=== PATIENT | male | born 1975 | race Caucasian/White ===

== ENCOUNTER 2017-03-21 18:35 | Inpatient (IN) | payer OTHER ==
[~2017-03-21] VITALS: Ht 177.8 cm; Wt 60.1 kg
[~2017-03-21 18:35] MED LIST: ALBU2.5V38 IH; ALPR0.255 GT; BACL10TA GT; DOCU-25 GT; FAMO20TA8 GT; GABA300C GT; Gabapentin GT; IBUP-1481 PO; IPRA0.2S48 IH; LACT1CAP57 PO; LORA10TA50 GT; LORA1TAB GT; MORP30TA2 PO; PHEN97.22 GT; RISP1TAB7 GT; TIZA4CAP6 GT; TOLT4CAP GT; TRAZ-144 GT; ZONI100C16 GT
--- NOTE | 2017-03-21 18:45 | NUR ---
Patient is awake, inneadilately asking for DILAUDID- MD notified.
--- NOTE | 2017-03-21 19:03 | NUR ---
pending MD orders at this time. CODE sepsis was called per MD. ROGHT PORT catheter was accessed aseptically. Blood drawn from right thigh PORT catheter. Urine collected from the patient's own alcantara catheter. EKG done. Patient is on continuous cardiac, BP & spo2 monitors with alarms set, on & audible.
[2017-03-21] MEDS ORDERED: GENTAMICIN SULFATE INJ 80 MG in IV DEXTROSE 5% 100 ML IV ONE (19:15)
[2017-03-21] MEDS ORDERED: PIPERACILLIN SODIUM/TAZOBACTAM 3.375 G in IV DEXTROSE 5% 50 ML IV ONE (19:15)
[2017-03-21] MEDS ORDERED: IV NORMAL SALINE 1000 ML BAG IV ONE ×2 (19:15)
[2017-03-21] MEDS ORDERED: VANCOMYCIN IV 1,000 MG in IV DEXTROSE 5% 250 ML IV ONE (19:15)
[2017-03-21 19:27] LABS: *BILIRUBIN,URIN NEGATIVE (NEGATIVE); *BLOOD, URINE 3+ (NEGATIVE); *CLARITY,URINE TURBID (CLEAR); *COLOR,URINE YELLOW (YELLOW); *KETONES,URINE NEGATIVE (NEGATIVE); *PROTEIN,URINE 1+ (NEGATIVE); LEUKOCYTE ESTERASE ,URINE 3+ (NEGATIVE); NITRITE, URINE NEGATIVE (NEGATIVE); PH,URINE 8.5 (5.0-8.0); UGLUCOSE NEGATIVE (NEGATIVE)
[2017-03-21 19:34] LABS: CARBON DIOXIDE 31 mmol/L (21-32); CHLORIDE 100 mmol/L (98-107); GLUCOSE 127 mg/dL (74-106); POTASSIUM 3.2 mmol/L (3.5-5.1); UREA NITROGEN, BLOOD 7 mg/dL (7-18)
[2017-03-21 19:37] LABS: BASOPHILS % (AUTO) 0.6 % (0.0-2.0); EOSINOPHILS # (AUTO) 0.4 K/uL (0.0-0.7); EOSINOPHILS % (AUTO) 7.4 % (0.0-7.0); HEMATOCRIT 34.1 % (40-50); HEMOGLOBIN 11.2 G/DL (14.0-18.0); LYMPHOCYTES # (AUTO) 1.3 K/UL (0.8-4.8); LYMPHOCYTES % (AUTO) 22.6 % (20.5-51.5); MEAN CORPUSCULAR HEMOGLOBIN 29.4 UUG (27.0-31.0); MEAN CORPUSCULAR HGB CONC 33 g/dL (32.0-37.0); MEAN CORPUSCULAR VOLUME 89.8 FL (82.0-92.0); MONOCYTES # (AUTO) 0.7 K/UL (0.1-1.30); MONOCYTES % (AUTO) 11.2 % (0.0-11.0); NEUTROPHILS # (AUTO) 3.4 K/UL (1.8-8.9); NEUTROPHILS % (AUTO) 58.2 % (38.5-71.5); PLATELET COUNT (AUTO) 181 K/UL (150-450); WHITE BLOOD COUNT (AUTO) 5.8 K/UL (4.0-11.2)
[2017-03-21 19:42] LABS: CREATININE 0.4 mg/dL (0.6-1.3)
[2017-03-21 19:43] LABS: TRIPLE PHOSPHATE CRYSTAL,UR FEW /HPF (NONE SEEN); URINE AMORPHOUS PHOSPHATES MANY /HPF; WBC,URINE 50-80 /HPF (0-3)
[2017-03-21] MEDS ORDERED: VANCOMYCIN IV 200 ML ONE (19:46)
[2017-03-21] MEDS ORDERED: GENTAMICIN SULFATE 80 MG/2 ML VIAL ONE (19:46)
[2017-03-21] MEDS ORDERED: PIPERACILLIN/TAZOBACTAM/D5W 50 ML IV ONE (19:47)
[2017-03-21 19:49] LABS: ALANINE AMINOTRANSFERASE 35 U/L (16-63); ALKALINE PHOSPHATASE 172 U/L (50-136); ASPARTATE AMINOTRANSFERASE 30 U/L (15-37); BILIRUBIN,DIRECT 0.2 mg/dL (0.0-0.2); BILIRUBIN,TOTAL 0.5 mg/dL (0.2-1.0); TOTAL PROTEIN, SERUM 6.8 g/dL (6.4-8.2)
[2017-03-21] MEDS ORDERED: TIZANIDINE HCL 4 MG TABLET PO STA (20:10)
[2017-03-21] MEDS ORDERED: GABAPENTIN 300 MG CAPSULE PO ONE (20:15)
[2017-03-21] MEDS ORDERED: LORAZEPAM 0.5 MG TABLET PO ONE (20:15)
[2017-03-21] MEDS ORDERED: PHENOBARBITAL 32.4 MG TABLET PO ONE (20:15)
[2017-03-21] MEDS ORDERED: LORAZEPAM 1 MG TABLET ONE (21:01)
[2017-03-21] MEDS ORDERED: GABAPENTIN 300 MG CAPSULE ONE (21:02)
[2017-03-21] MEDS ORDERED: PHENOBARBITAL 32.4 MG TABLET ONE (21:03)
--- NOTE | 2017-03-21 22:18 | NUR ---
transfered to CCU via gurny with supervisor television chassis repair and another staff nursing taking patient
--- NOTE | 2017-03-21 22:30 | NUR ---
Admitted from ER to Room CCU 2 per linsey accompanied by ER Staff, services of [facility] group with Dx: Sepsis. Routine CCU admission care rendered. Placed on bedside monitor, noted to be hypotensive. Will start vasopressor. Pt a quad with gross motor on right arm. Chronic trach, on trach collar O2 3L/min. In no apparent acute distress. Multiple wounds and skin issues noted. Please see CCU admission profile for full assessment and clinical data.
[2017-03-21 22:45] VITALS: BP 70/50
[2017-03-21 23:00] VITALS: BP 68/46
[2017-03-21] MEDS ORDERED: POTASSIUM CHLORIDE 20 MEQ POWDER PACKET GT ONE (23:00)
[2017-03-21] MEDS ORDERED: Z GUARD REMEDY PASTE 57 GM TUBE TOP PRN (23:00)
[2017-03-21] MEDS ORDERED: ENOXAPARIN SODIUM 40 MG/0.4 ML DISP.SYRIN SQ SCH (23:00)
[2017-03-21] MEDS ORDERED: ONDANSETRON 4 MG/2 ML VIAL IV PRN (23:00)
[2017-03-21] MEDS ORDERED: NUTREN 2.0 1,000 ML LIQUID GT PRN (23:00)
[2017-03-21] MEDS ORDERED: MAGNESIUM HYDROXIDE 30 ML LIQUID UDC PO PRN (23:00)
[2017-03-21] MEDS ORDERED: IV NS 1000 ML 1,000 ML IV PRN (23:00)
[2017-03-21 23:15] VITALS: BP 92/63
[2017-03-21] MEDS ORDERED: NOREPINEPHRINE BITARTRATE 4 MG/4 ML VIAL IV ONE (23:15)
--- NOTE | 2017-03-21 23:15 | NUR ---
Seen and evaluated by TAE Jackman with new orders noted.
[2017-03-21 23:30] VITALS: BP 116/67
[2017-03-21 23:45] VITALS: BP 120/77
[2017-03-21] MEDS: NOREPINEPHRINE BITARTRATE 8 MG in IV DEXTROSE 5% 500 ML IV PRN (23:49)
[2017-03-21 23:59] VITALS: BP 123/78
[2017-03-22] VITALS (95 sets, daily range): BP systolic 70–137; BP diastolic 50–92
[2017-03-22] MEDS ORDERED: ENOXAPARIN SODIUM 40 MG/0.4 ML DISP.SYRIN SQ ONE (00:01)
[2017-03-22] MEDS ORDERED: POTASSIUM CHLORIDE 20 MEQ POWDER PACKET ONE (00:02)
[2017-03-22] MEDS: HYDROCODONE/APAP 5-325MG TABLET PO PRN (00:10)
[2017-03-22] MEDS: ZOLPIDEM 5 MG TABLET PO PRN (00:11)
[2017-03-22] MEDS ORDERED: ZOLPIDEM 5 MG TABLET ONE (00:18)
[2017-03-22] MEDS ORDERED: HYDROCODONE/APAP 5-325MG TABLET ONE (00:19)
[2017-03-22] MEDS ORDERED: PIPERACILLIN SODIUM/TAZO 3.375 GM VIAL ONE (01:04)
[2017-03-22] MEDS: HYDROMORPHONE 1 MG/1 ML DISP.SYRIN IV PRN ×5 (01:37→19:52)
[2017-03-22] MEDS ORDERED: HYDROMORPHONE 1 MG/1 ML DISP.SYRIN ONE ×2 (01:45→06:24)
[2017-03-22] MEDS ORDERED: ALBUTEROL SULFATE 2.5 MG/3 ML NEBU IH SCH (01:45)
[2017-03-22] MEDS ORDERED: IPRATROPIUM BROMIDE 0.5 MG/2.5 ML NEBU IH SCH (01:45)
[2017-03-22] MEDS: PIPERACILLIN/TAZOBACTAM/D5W 3.375 G in PREMIXED 1 EACH IV SCH ×4 (01:48→21:14)
[2017-03-22] MEDS: TRAZODONE 50 MG TABLET GT SCH ×3 (02:33→20:45)
[2017-03-22] MEDS: risperiDONE 1 MG TABLET GT SCH ×2 (02:34→20:47)
[2017-03-22] MEDS ORDERED: TRAZODONE 50 MG TABLET ONE (02:36)
[2017-03-22] MEDS ORDERED: risperiDONE 0.25 MG TABLET ONE (02:39)
[2017-03-22] MEDS: BACLOFEN 10 MG TABLET GT SCH ×3 (02:47→17:24)
[2017-03-22] MEDS ORDERED: BACLOFEN 10 MG TABLET ONE (02:55)
[2017-03-22 04:36] LABS: CARBON DIOXIDE 27 mmol/L (21-32); CHLORIDE 113 mmol/L (98-107); CHOLESTEROL 134 mg/dL (<200); GLUCOSE 104 mg/dL (74-106); HDL CHOLESTEROL 39 mg/dL (40-60); MAGNESIUM 1.3 mg/dL (1.8-2.4); PHOSPHOROUS 2.5 mg/dL (2.5-4.9); POTASSIUM 3.8 mmol/L (3.5-5.1); TRIGLYCERIDES 43 MG/DL (30-150); UREA NITROGEN, BLOOD 5 mg/dL (7-18)
[2017-03-22 04:37] LABS: CREATININE 0.4 mg/dL (0.6-1.3)
[2017-03-22 04:39] LABS: BASOPHILS % (AUTO) 0.5 % (0.0-2.0); EOSINOPHILS # (AUTO) 0.2 K/uL (0.0-0.7); EOSINOPHILS % (AUTO) 3.9 % (0.0-7.0); HEMATOCRIT 34.8 % (40-50); HEMOGLOBIN 11.5 G/DL (14.0-18.0); LYMPHOCYTES # (AUTO) 0.8 K/UL (0.8-4.8); LYMPHOCYTES % (AUTO) 13.4 % (20.5-51.5); MEAN CORPUSCULAR HEMOGLOBIN 29.8 UUG (27.0-31.0); MEAN CORPUSCULAR HGB CONC 33 g/dL (32.0-37.0); MEAN CORPUSCULAR VOLUME 90.3 FL (82.0-92.0); MONOCYTES # (AUTO) 0.8 K/UL (0.1-1.30); MONOCYTES % (AUTO) 13.5 % (0.0-11.0); NEUTROPHILS % (AUTO) 68.7 % (38.5-71.5); PLATELET COUNT (AUTO) 171 K/UL (150-450); RED BLOOD CELL COUNT(AUTO) 3.85 MIL/UL (4.7-6.1); WHITE BLOOD COUNT (AUTO) 5.8 K/UL (4.0-11.2)
[2017-03-22] MEDS ORDERED: PANTOPRAZOLE SODIUM 40 MG TABLET.DR PO SCH (07:00)
--- NOTE | 2017-03-22 07:00 | NUR ---
Pt remains alert, anxious needing a lot of TLC. Levophed drip in progress since admission and monitored closely. Has chronic sharp pains on shoulder areas, relieved by IV Dilaudid. NPO for now, GT clamped until further order by MD. Please see CCU flowsheet for trends and clinical data.
[2017-03-22] MEDS: IPRATROPIUM BROMIDE 0.5 MG/2.5 ML NEBU IH SCH ×3 (07:19→19:14)
[2017-03-22] MEDS: ALBUTEROL SULFATE 2.5 MG/3 ML NEBU IH SCH ×3 (07:20→19:14)
[2017-03-22] MEDS ORDERED: IV 1/2NS 1000 ML 1,000 ML IV ONE (08:30)
[2017-03-22] MEDS: LORATADINE 10 MG TABLET GT SCH (08:54)
[2017-03-22] MEDS: MAGNESIUM SULFATE/D5W 100 ML IV SCH ×3 (08:54→11:25)
[2017-03-22] MEDS: LORAZEPAM 1 MG TABLET GT SCH ×2 (08:54→17:24)
[2017-03-22] MEDS: GABAPENTIN 300 MG CAPSULE GT SCH ×3 (08:55→17:24)
[2017-03-22] MEDS: PHENOBARBITAL 32.4 MG TABLET GT SCH ×2 (08:56→20:46)
[2017-03-22] MEDS: LACTOBACILLUS RHAMNOSUS GG 1 EACH CAPSULE PO SCH ×2 (08:56→20:46)
[2017-03-22] MEDS: TOLTERODINE LA 2 MG CAP.SR.24H PO SCH (08:56)
[2017-03-22] MEDS ORDERED: Medication Not On Formulary EA (Phenobarbital 97.2 MG) GT SCH (09:00)
[2017-03-22] MEDS ORDERED: Medication Not On Formulary EA (Loratadine 10 MG) GT SCH (09:00)
[2017-03-22] MEDS: PANTOPRAZOLE ORAL SUSPENSION 40 MG SUSPDR.PKT GT SCH (09:28)
[2017-03-22] MEDS: VANCOMYCIN IV 1 G in PREMIXED 0 EACH IV SCH ×2 (11:27→17:24)
[2017-03-22] MEDS: GENTAMICIN SULFATE INJ 140 MG in IV DEXTROSE 5% 100 ML IV SCH (11:27)
[2017-03-22] MEDS: TIZANIDINE HCL 4 MG TABLET GT SCH ×2 (13:53→21:14)
[2017-03-22] MEDS ORDERED: Z GUARD REMEDY PASTE 57 GM TUBE TOP PRN (14:00)
--- NOTE | 2017-03-22 14:00 | NUR ---
WOUND CARE CONSULT: PT PRESENTS WITH MULTIPLE SKIN ISSUES INCLUDING RASH TO BUTTOCKS, LEFT FLANK AND PERINEUM, LEFT LATERAL LOWER LEG WOUND AND FRAGILE SCAR AREA, LEFT 4TH TOE ABRASION, LEFT HEEL SCAR WITH CALLUS, PRESENT ON ADMISSION. PT ON FIRST STEP MATTRESS. ALL SKIN PROTECTION AND WOUND RECOMMENDATIONS DISCUSSED WITH NURSING STAFF. WILL SEE PRN. LORENZO IN AGREEMENT WITH PLAN OF CARE. Addendum: 03/22/17 at 1403 by CATHY BUCKLEY RN Amended: Links added.
--- NOTE | 2017-03-22 14:06 | NUR ---
dietary recommended to start with fibersource @20 ml/hr increase by 10ml q8h will call back for goal rate. x22 hrs and prostat bid
[2017-03-22] MEDS: NEOMY/BACITRAC/POLYMI OINT 28.35 GM TUBE TOP SCH (14:33)
[2017-03-22] MEDS: CLOTRIMAZOLE 1% CREAM 30 GM TUBE TOP SCH ×2 (14:33→17:24)
[2017-03-22] MEDS: Z GUARD REMEDY PASTE 57 GM TUBE TOP SCH ×2 (14:33→20:45)
--- NOTE | 2017-03-22 16:37 | NUR ---
Clinical Pharmacy Note: Gentamicin Pharmacy to Dose Subjective: To start gentamicin in this 41 y/o gentleman for indication of UTI (has previously been treated for and d/c'd with same indication) Objective: weight 52 kg height 177cm BMI 16.6 will use actual BW for dosing BUN 5 Scr 0.4 Wbc 5.8 temp 96.8 Assessment/Plan: Will start gentamicin 140mg q16hrs based on previous admission and treatment regimen, predicted peak 7.2/trough 1.1, expected peak 5.7/trough 0.5 (per levels taken last admit), and readjust from there. Will check renal function daily and adjust if were to become unstable. Will continue to monitor Addendum: 03/22/17 at 1648 by ERVIN JURADO ADM Note, gentamicin 80mg x 1 was given in ER 03/21 @ 2045. Patient's weight changed since last admit, thus kept last admit's regimen despite lower resulting levels as levels may be higher now with pt's car repairer apprentice weight change.
--- NOTE | 2017-03-22 16:43 | NUR ---
Clinical Pharmacy Note: Vancomycin Pharmacy to Dose Subjective: To start vancomycin in this 41 y/o gentleman for indication of suspected infection. Was previously admitted and treated with same abxs. Also is on gentamicin Objective: weight: 52kg (61kg last admit) height 177cm BUN 5 Scr 0.4 wbc 5.8 temp 96.8 1gm vanco given in ER @2100 03/21 Assessment/Plan Since weight changed since last admit, will not dose per last visit's regimen. Will start vancomycin 1gm q7hrs for expected trough of 15.9. Trough ordered before 4ths scheduled dose (due tomorrow at 0730). Will check level and readjust dose as appropriate. Will continue to monitor.
--- NOTE | 2017-03-22 17:15 | NUR ---
spoke to doctor maximus if wants to follow dietary recommendations. keep NPO for now until more stable possibly start feeding until tomorrow.
--- NOTE | 2017-03-22 19:30 | NUR ---
Report received. Patient AA, with trache, able to communicate needs. With Passy lexa valve. No acute distress noted. Contracted. On Levophed drip for BP support. Assessment completed. Addendum: 03/23/17 at 0700 by MOOSE RUBALCAVA RN Amended: Links added.
[2017-03-22] MEDS: IV 1/2NS 1000 ML 1,000 ML IV PRN (20:41)
[2017-03-22] MEDS: ZONISAMIDE 100 MG CAPSULE PO SCH (20:47)
[2017-03-22] MEDS: ENOXAPARIN SODIUM 40 MG/0.4 ML DISP.SYRIN SQ SCH (20:48)
[2017-03-22] MEDS ORDERED: ZONISAMIDE 200 MG GT SCH (21:00)
--- NOTE | 2017-03-22 21:45 | NUR ---
Levophed drip titrated up; SBPs in the 80's. Addendum: 03/23/17 at 0704 by MOOSE RUBALCAVA RN Amended: Links added.
--- NOTE | 2017-03-22 22:00 | NUR ---
Patient's sister called; updated of patient's condition.
[2017-03-22] MEDS: NOREPINEPHRINE BITARTRATE 8 MG in IV DEXTROSE 5% 500 ML IV PRN (23:21)
[2017-03-23] VITALS (68 sets, daily range): BP systolic 87–137; BP diastolic 57–86
--- NOTE | 2017-03-23 | NUR ---
Hypothermic. Shelbi montana on. Addendum: 03/23/17 at 0702 by MOOSE RUBALCAVA RN Amended: Links added.
[2017-03-23] MEDS: VANCOMYCIN IV 1 G in PREMIXED 0 EACH IV SCH ×4 (01:01→19:54)
[2017-03-23] MEDS: ALBUTEROL SULFATE 2.5 MG/3 ML NEBU IH SCH ×4 (01:34→19:49)
[2017-03-23] MEDS: IPRATROPIUM BROMIDE 0.5 MG/2.5 ML NEBU IH SCH ×4 (01:34→19:49)
[2017-03-23] MEDS: BACLOFEN 10 MG TABLET GT SCH ×2 (01:53→08:04)
[2017-03-23] MEDS: GENTAMICIN SULFATE INJ 140 MG in IV DEXTROSE 5% 100 ML IV SCH ×2 (03:28→19:54)
[2017-03-23] MEDS: HYDROMORPHONE 1 MG/1 ML DISP.SYRIN IV PRN ×4 (03:44→21:04)
--- NOTE | 2017-03-23 04:00 | NUR ---
Am care given. Wound care treatment done. Temp=96 rectally. Shelbi montana remains on. Medicated with Dilaudid IV prior to care. Addendum: 03/23/17 at 0735 by MOOSE RUBALCAVA RN Amended: Links added.
[2017-03-23 04:57] LABS: BASOPHILS # (AUTO) 0.1 K/uL (0.0-8.0); BASOPHILS % (AUTO) 0.8 % (0.0-2.0); EOSINOPHILS # (AUTO) 0.7 K/uL (0.0-0.7); EOSINOPHILS % (AUTO) 9.9 % (0.0-7.0); HEMATOCRIT 33.3 % (40-50); HEMOGLOBIN 11.2 G/DL (14.0-18.0); LYMPHOCYTES # (AUTO) 1.1 K/UL (0.8-4.8); LYMPHOCYTES % (AUTO) 16.2 % (20.5-51.5); MEAN CORPUSCULAR HGB CONC 34 g/dL (32.0-37.0); MEAN CORPUSCULAR VOLUME 89.4 FL (82.0-92.0); MONOCYTES # (AUTO) 0.8 K/UL (0.1-1.30); MONOCYTES % (AUTO) 11.2 % (0.0-11.0); NEUTROPHILS # (AUTO) 4.2 K/UL (1.8-8.9); NEUTROPHILS % (AUTO) 61.9 % (38.5-71.5); PLATELET COUNT (AUTO) 194 K/UL (150-450); RED BLOOD CELL COUNT(AUTO) 3.72 MIL/UL (4.7-6.1); WHITE BLOOD COUNT (AUTO) 6.9 K/UL (4.0-11.2)
[2017-03-23 05:02] LABS: CARBON DIOXIDE 26 mmol/L (21-32); CHLORIDE 107 mmol/L (98-107); GLUCOSE 126 mg/dL (74-106); MAGNESIUM 1.8 mg/dL (1.8-2.4); PHOSPHOROUS 2.5 mg/dL (2.5-4.9); POTASSIUM 3.2 mmol/L (3.5-5.1); UREA NITROGEN, BLOOD 3 mg/dL (7-18)
[2017-03-23 05:03] LABS: CREATININE 0.4 mg/dL (0.6-1.3)
[2017-03-23] MEDS: PIPERACILLIN/TAZOBACTAM/D5W 3.375 G in PREMIXED 1 EACH IV SCH ×3 (05:05→21:21)
[2017-03-23] MEDS: TIZANIDINE HCL 4 MG TABLET GT SCH ×3 (06:13→21:19)
[2017-03-23] MEDS: PANTOPRAZOLE ORAL SUSPENSION 40 MG SUSPDR.PKT GT SCH (06:14)
--- NOTE | 2017-03-23 08:00 | NUR ---
Pt received resting and dozing off in bed with fall precautions and safety measures maintained. front desk monitor alarms working properly wnl. IVF and IV vasopressor infusing as ordered. Olsen catheter intact and draining properly. G-tube site kept clamped. Nad noted.
[2017-03-23] MEDS: TRAZODONE 50 MG TABLET GT SCH ×2 (08:01→21:18)
[2017-03-23] MEDS: LACTOBACILLUS RHAMNOSUS GG 1 EACH CAPSULE PO SCH ×2 (08:01→21:20)
[2017-03-23] MEDS: PHENOBARBITAL 32.4 MG TABLET GT SCH ×2 (08:01→21:19)
[2017-03-23] MEDS: GABAPENTIN 300 MG CAPSULE GT SCH ×3 (08:02→16:41)
[2017-03-23] MEDS: TOLTERODINE LA 2 MG CAP.SR.24H PO SCH (08:02)
[2017-03-23] MEDS: LORAZEPAM 1 MG TABLET GT SCH ×2 (08:02→16:41)
[2017-03-23] MEDS: LORATADINE 10 MG TABLET GT SCH (08:02)
[2017-03-23] MEDS: Z GUARD REMEDY PASTE 57 GM TUBE TOP SCH ×2 (08:03→21:05)
[2017-03-23] MEDS: NEOMY/BACITRAC/POLYMI OINT 28.35 GM TUBE TOP SCH (08:04)
[2017-03-23] MEDS: CLOTRIMAZOLE 1% CREAM 30 GM TUBE TOP SCH ×2 (08:04→16:41)
--- NOTE | 2017-03-23 09:49 | NUR ---
Spoke with Dr. Mcdowell on the telephone regarding pt's diet orders. New orders received and carried out.
[2017-03-23] MEDS ORDERED: FIBERSOURCE HN 1000ML LIQUID GT PRN ×3 (10:00→12:00)
[2017-03-23] MEDS: FIBERSOURCE HN 1000ML LIQUID GT PRN (11:55)
[2017-03-23] MEDS: MUPIROCIN 2% OINT 22 GM TUBE NS SCH ×2 (15:13→21:00)
[2017-03-23] MEDS: BACLOFEN 20 MG TABLET GT SCH (16:41)
[2017-03-23] MEDS: PROTEIN SUPPLEMENT (PROSTAT) 30 ML LIQUID GT SCH (16:42)
[2017-03-23] MEDS ORDERED: POTASSIUM CHLORIDE 20 MEQ POWDER PACKET GT ONE (16:45)
--- NOTE | 2017-03-23 16:50 | NUR ---
Clinical Pharmacy Note: Vancomycin Pharmacy to Dose Subjective: To continue vancomycin in this 41 y/o gentleman for indication of suspected infection. Was previously admitted and treated with same abxs. Also is on gentamicin Objective: weight: 52kg (61kg last admit) height 177cm BUN 3 Scr 0.4 wbc 6.9 temp 96 1gm vanco given in ER @2100 03/21 Trough: 23.4 (today @0730) Assessment/Plan Readjusted regimen to 1gm q9hr for new expected trough of 15.2. First dose today at 1000. Ordered trough before 4th scheduled dose of new regimen (due at 1230 tomorrow). Will check level and readjust dose as appropriate. Will continue to monitor.
--- NOTE | 2017-03-23 16:52 | NUR ---
Clinical Pharmacy Note: Gentamicin Pharmacy to Dose Subjective: To continue gentamicin in this 41 y/o gentleman for indication of UTI (has previously been treated for and d/c'd with same indication) Objective: weight 52 kg height 177cm BMI 16.6 will use actual BW for dosing BUN 3 Scr 0.4 Wbc 6.9 temp 96 Assessment/Plan: Will continuegentamicin 140mg q16hrs based on previous admission and treatment regimen, peak and trough ordered for tomorrow (Trough due at 1100, peak at 1200), and readjust from there. Will check renal function daily and adjust if were to become unstable. Will continue to monitor
[2017-03-23] MEDS: HYDROCODONE/APAP 5-325MG TABLET PO PRN (18:39)
--- NOTE | 2017-03-23 18:43 | NUR ---
End of shift: Pt resting in bed with fall precautions and safety measures maintained. electrician substation supervisor alarms working properly wnl. IVF and IV vasopressor infusing as ordered. Pt with Mandaley #6 trach-mist 30% FiO2. Olsen catheter intact and draining properly. G-tube feeding infusing as ordered with HOB kept elevated. Shelbi hugger on.
[2017-03-23] MEDS: IV 1/2NS 1000 ML 1,000 ML IV PRN (20:57)
[2017-03-23] MEDS: ZONISAMIDE 100 MG CAPSULE PO SCH (21:00)
[2017-03-23] MEDS: ENOXAPARIN SODIUM 40 MG/0.4 ML DISP.SYRIN SQ SCH (21:04)
[2017-03-23] MEDS: risperiDONE 1 MG TABLET GT SCH (21:18)
[2017-03-23] MEDS: ZOLPIDEM 5 MG TABLET PO PRN (21:20)
[2017-03-23] MEDS: NOREPINEPHRINE BITARTRATE 8 MG in IV DEXTROSE 5% 500 ML IV PRN (22:37)
[2017-03-24] VITALS (87 sets, daily range): BP systolic 82–138; BP diastolic 54–90
[2017-03-24] MEDS: IPRATROPIUM BROMIDE 0.5 MG/2.5 ML NEBU IH SCH ×4 (01:43→19:05)
[2017-03-24] MEDS: ALBUTEROL SULFATE 2.5 MG/3 ML NEBU IH SCH ×4 (01:44→19:05)
[2017-03-24] MEDS: HYDROMORPHONE 1 MG/1 ML DISP.SYRIN IV PRN ×2 (01:53→18:25)
[2017-03-24] MEDS: BACLOFEN 20 MG TABLET GT SCH ×3 (01:58→16:55)
[2017-03-24] MEDS: VANCOMYCIN IV 1 G in PREMIXED 0 EACH IV SCH (03:35)
[2017-03-24 05:09] LABS: BASOPHILS # (AUTO) 0.1 K/uL (0.0-8.0); BASOPHILS % (AUTO) 0.7 % (0.0-2.0); EOSINOPHILS # (AUTO) 0.7 K/uL (0.0-0.7); EOSINOPHILS % (AUTO) 9.1 % (0.0-7.0); HEMATOCRIT 32.5 % (40-50); HEMOGLOBIN 10.7 G/DL (14.0-18.0); LYMPHOCYTES # (AUTO) 1.2 K/UL (0.8-4.8); LYMPHOCYTES % (AUTO) 15.9 % (20.5-51.5); MEAN CORPUSCULAR HEMOGLOBIN 29.4 UUG (27.0-31.0); MEAN CORPUSCULAR HGB CONC 33 g/dL (32.0-37.0); MEAN CORPUSCULAR VOLUME 89.6 FL (82.0-92.0); MONOCYTES # (AUTO) 1.2 K/UL (0.1-1.30); MONOCYTES % (AUTO) 16.9 % (0.0-11.0); NEUTROPHILS # (AUTO) 4.2 K/UL (1.8-8.9); NEUTROPHILS % (AUTO) 57.4 % (38.5-71.5); PLATELET COUNT (AUTO) 214 K/UL (150-450); RED BLOOD CELL COUNT(AUTO) 3.63 MIL/UL (4.7-6.1); WHITE BLOOD COUNT (AUTO) 7.4 K/UL (4.0-11.2)
[2017-03-24 05:11] LABS: ALANINE AMINOTRANSFERASE 40 U/L (16-63); ALKALINE PHOSPHATASE 163 U/L (50-136); ASPARTATE AMINOTRANSFERASE 27 U/L (15-37); BILIRUBIN,TOTAL 0.4 mg/dL (0.2-1.0); CARBON DIOXIDE 28 mmol/L (21-32); CHLORIDE 111 mmol/L (98-107); CREATININE 0.6 mg/dL (0.6-1.3); GLUCOSE 111 mg/dL (74-106); MAGNESIUM 1.5 mg/dL (1.8-2.4); PHOSPHOROUS 2.9 mg/dL (2.5-4.9); POTASSIUM 3.7 mmol/L (3.5-5.1); TOTAL PROTEIN, SERUM 6.1 g/dL (6.4-8.2); UREA NITROGEN, BLOOD 6 mg/dL (7-18)
[2017-03-24] MEDS: TIZANIDINE HCL 4 MG TABLET GT SCH ×3 (05:25→21:36)
[2017-03-24] MEDS: PIPERACILLIN/TAZOBACTAM/D5W 3.375 G in PREMIXED 1 EACH IV SCH ×3 (05:26→21:45)
[2017-03-24] MEDS: HYDROCODONE/APAP 5-325MG TABLET PO PRN ×2 (05:27→21:40)
[2017-03-24 05:30] LABS: EOSINOPHILS % (MANUAL) 7 % (0-8); LYMPHOCYTES % (MANUAL) 22 % (20-40); MONOCYTES % (MANUAL) 13 % (2-10); NEUTROPHILS % (MANUAL) 58 % (42-75)
[2017-03-24] MEDS: PANTOPRAZOLE ORAL SUSPENSION 40 MG SUSPDR.PKT GT SCH (06:31)
--- NOTE | 2017-03-24 08:00 | NUR ---
Pt received resting and dozing off in bed with fall precautions and safety measures maintained. graphic editor alarms working properly wnl. IVF and IV vasopressor infusing as ordered. Olsen catheter intact and draining properly. G-tube site kept clamped. Nad noted.
[2017-03-24] MEDS: PHENOBARBITAL 32.4 MG TABLET GT SCH ×2 (08:16→20:40)
[2017-03-24] MEDS: LORATADINE 10 MG TABLET GT SCH (08:16)
[2017-03-24] MEDS: LACTOBACILLUS RHAMNOSUS GG 1 EACH CAPSULE PO SCH ×2 (08:16→20:40)
[2017-03-24] MEDS: TOLTERODINE LA 2 MG CAP.SR.24H PO SCH (08:16)
[2017-03-24] MEDS: GABAPENTIN 300 MG CAPSULE GT SCH ×3 (08:16→16:55)
[2017-03-24] MEDS: LORAZEPAM 1 MG TABLET GT SCH ×2 (08:16→16:55)
[2017-03-24] MEDS: TRAZODONE 50 MG TABLET GT SCH ×2 (08:17→20:40)
[2017-03-24] MEDS: CLOTRIMAZOLE 1% CREAM 30 GM TUBE TOP SCH ×2 (08:17→16:56)
[2017-03-24] MEDS: MUPIROCIN 2% OINT 22 GM TUBE NS SCH ×2 (08:17→20:41)
[2017-03-24] MEDS: PROTEIN SUPPLEMENT (PROSTAT) 30 ML LIQUID GT SCH ×2 (08:17→16:57)
[2017-03-24] MEDS: Z GUARD REMEDY PASTE 57 GM TUBE TOP SCH ×2 (08:18→20:43)
[2017-03-24] MEDS: NEOMY/BACITRAC/POLYMI OINT 28.35 GM TUBE TOP SCH (08:18)
[2017-03-24] MEDS: GENTAMICIN SULFATE INJ 140 MG in IV DEXTROSE 5% 100 ML IV SCH (11:10)
[2017-03-24] MEDS: FIBERSOURCE HN 1000ML LIQUID GT PRN (11:36)
[2017-03-24] MEDS: MAGNESIUM SULFATE/D5W 100 ML IV SCH ×2 (15:20→16:20)
--- NOTE | 2017-03-24 16:07 | NUR ---
Clinical Pharmacy Note: Gentamicin Pharmacy to Dose Subjective: To continue gentamicin in this 41 y/o gentleman for indication of UTI (has previously been treated for and d/c'd with same indication) Objective: weight 52 kg height 177cm BMI 16.6 will use actual BW for dosing BUN 6 Scr 0.6 Wbc 7.4 temp 98.5 Gentamicin peak 13.9(drawn while infusing) Gentamicin trough 1.0 Assessment/Plan: Since Gentamicin peak was drawn while dose was infusing(dose started at 1100 over 1 hr but drawn at 1200), will re-check peak and trough by tomorrow's dose and readjust from there. Will check renal function daily and adjust if were to become unstable. Will continue to monitor
--- NOTE | 2017-03-24 18:52 | NUR ---
End of shift: Pt resting and dozing off in bed with fall precautions and safety measures maintained. lunchroom monitor alarms working properly wnl. IVF and IV vasopressor infusing as ordered. Pt with Mandaley #6 trach-mist 30% FiO2. Olsen catheter intact and draining properly. G-tube feeding infusing as ordered with HOB kept elevated. Pt stable and nad noted.
--- NOTE | 2017-03-24 20:00 | NUR ---
RECEIVED PT. DOZING. ON O2 @ 30% TRCH -MIST W/ O2 SAT OF 100%. ON LEVOPHED DRIP @ 5MCQ/MIN VIA MAXX CATH ON R GROIN. IVF NS @ 50CC/HR. G-TUBE INTACT W/ TUBE FDG. OF FIBERSOURCE HN @ 35CC/HR, NO RESIDUAL NOTED. AFEBRILE. C-SCOPE BR. Addendum: 03/25/17 at 0106 by SANDIE ANDREW RN CORRECTION IVF IS 1/2NS @ 50CC/HR.
[2017-03-24] MEDS: risperiDONE 1 MG TABLET GT SCH (20:41)
[2017-03-24] MEDS: ZONISAMIDE 100 MG CAPSULE PO SCH (20:42)
[2017-03-24] MEDS: ENOXAPARIN SODIUM 40 MG/0.4 ML DISP.SYRIN SQ SCH (20:44)
[2017-03-24] MEDS: IV 1/2NS 1000 ML 1,000 ML IV PRN (21:50)
--- NOTE | 2017-03-24 22:00 | NUR ---
HS CARE DONE AFTER NORCO GIVEN PO FOR PAIN. REPOSITIONED W/ HOB ELEVATED.
[2017-03-24] MEDS: NOREPINEPHRINE BITARTRATE 8 MG in IV DEXTROSE 5% 500 ML IV PRN (22:19)
[2017-03-25] VITALS (89 sets, daily range): BP systolic 60–142; BP diastolic 27–89
[2017-03-25] MEDS: IPRATROPIUM BROMIDE 0.5 MG/2.5 ML NEBU IH SCH ×4 (01:00→19:24)
[2017-03-25] MEDS: ALBUTEROL SULFATE 2.5 MG/3 ML NEBU IH SCH ×4 (01:00→19:24)
--- NOTE | 2017-03-25 02:00 | NUR ---
AM CARE DONE. TRACH CARE DONE. CLEANED G-TUBE SITE & APPLIED DRSG.
[2017-03-25] MEDS: BACLOFEN 20 MG TABLET GT SCH ×3 (02:17→16:58)
[2017-03-25] MEDS: GENTAMICIN SULFATE INJ 140 MG in IV DEXTROSE 5% 100 ML IV SCH (03:28)
[2017-03-25] MEDS: HYDROMORPHONE 1 MG/1 ML DISP.SYRIN IV PRN ×4 (04:27→19:44)
[2017-03-25] MEDS: TIZANIDINE HCL 4 MG TABLET GT SCH ×3 (05:27→21:28)
[2017-03-25] MEDS: PIPERACILLIN/TAZOBACTAM/D5W 3.375 G in PREMIXED 1 EACH IV SCH ×2 (05:27→13:24)
[2017-03-25 05:38] LABS: CARBON DIOXIDE 28 mmol/L (21-32); CHLORIDE 108 mmol/L (98-107); CREATININE 0.6 mg/dL (0.6-1.3); GLUCOSE 157 mg/dL (74-106); MAGNESIUM 2.2 mg/dL (1.8-2.4); POTASSIUM 3.4 mmol/L (3.5-5.1); UREA NITROGEN, BLOOD 8 mg/dL (7-18)
--- NOTE | 2017-03-25 06:00 | NUR ---
PT IS RESTING QUITELY THIS TIME..
[2017-03-25] MEDS: PANTOPRAZOLE ORAL SUSPENSION 40 MG SUSPDR.PKT GT SCH (06:34)
--- NOTE | 2017-03-25 08:28 | NUR ---
medicated for generalized aches and pains. Addendum: 03/25/17 at 1522 by LEONARD PINEDA RN Amended: Ketty added. Addendum: 03/25/17 at 1523 by LEONARD PINEDA RN Amended: Ketty added. Addendum: 03/25/17 at 1531 by LEONARD PINEDA RN Amended: Links added.
[2017-03-25] MEDS: LORATADINE 10 MG TABLET GT SCH (09:50)
[2017-03-25] MEDS: HYDROCODONE/APAP 5-325MG TABLET PO PRN ×2 (09:51→16:59)
[2017-03-25] MEDS: GABAPENTIN 300 MG CAPSULE GT SCH ×3 (09:51→16:59)
[2017-03-25] MEDS: TRAZODONE 50 MG TABLET GT SCH ×2 (09:51→21:22)
--- NOTE | 2017-03-25 09:51 | NUR ---
medicated for generalized discomfort. Addendum: 03/25/17 at 1531 by LEONARD PINEDA RN Amended: Links added.
[2017-03-25] MEDS: LORAZEPAM 1 MG TABLET GT SCH ×2 (09:52→16:59)
[2017-03-25] MEDS: PHENOBARBITAL 32.4 MG TABLET GT SCH ×2 (09:52→21:21)
[2017-03-25] MEDS: TOLTERODINE LA 2 MG CAP.SR.24H PO SCH (09:52)
[2017-03-25] MEDS: PROTEIN SUPPLEMENT (PROSTAT) 30 ML LIQUID GT SCH ×2 (09:53→17:00)
[2017-03-25] MEDS: LACTOBACILLUS RHAMNOSUS GG 1 EACH CAPSULE PO SCH ×2 (09:54→21:21)
[2017-03-25] MEDS: CLOTRIMAZOLE 1% CREAM 30 GM TUBE TOP SCH ×2 (09:55→17:01)
[2017-03-25] MEDS: Z GUARD REMEDY PASTE 57 GM TUBE TOP SCH ×2 (09:55→21:23)
[2017-03-25] MEDS: NEOMY/BACITRAC/POLYMI OINT 28.35 GM TUBE TOP SCH (09:55)
[2017-03-25] MEDS: MUPIROCIN 2% OINT 22 GM TUBE NS SCH ×2 (09:57→21:23)
[2017-03-25] MEDS ORDERED: MORPHINE SULFATE IR 30 MG TABLET PO PRN (12:45)
[2017-03-25] MEDS: IBUPROFEN 600 MG TABLET PO PRN (13:23)
--- NOTE | 2017-03-25 13:24 | NUR ---
medicated for persistent generalized discomfort Addendum: 03/25/17 at 1523 by LEONARD PINEDA RN Amended: Ketty added. Addendum: 03/25/17 at 1531 by LEONARD PINEDA RN Amended: Ketty added.
[2017-03-25] MEDS ORDERED: POTASSIUM CHLORIDE 20 MEQ POWDER PACKET GT ONE (14:15)
[2017-03-25] MEDS: FIBERSOURCE HN 1000ML LIQUID GT PRN (16:42)
--- NOTE | 2017-03-25 16:53 | NUR ---
Clinical Pharmacy Note: Gentamicin Pharmacy to Dose Subjective: To continue gentamicin in this 41 y/o gentleman for indication of UTI (has previously been treated for and d/c'd with same indication) Objective: weight 52 kg height 177cm BMI 16.6 will use actual BW for dosing BUN 6 Scr 0.6 Wbc 7.4 temp 98.5 Gentamicin peak 13.3(15min post 1 hr infusion today at 0445) Gentamicin trough 1.0(03/24 at 1100) Assessment/Plan: Since Gentamicin peak is over therapeutic range , will change dose to 60mg IV every 10 hrs(first dose today at 1900) and draw peak and trough by 4th dose(not ordered yet) for expected peak 6.1 and trough 1.3. Will monitor renal function closely to adjust the dose if needed. Will follow daily.
[2017-03-25] MEDS ORDERED: CEFTRIAXONE 2 G in IV DEXTROSE 5% 100 ML IV SCH ×2 (17:30→18:00)
[2017-03-25] MEDS: IV 1/2NS 1000 ML 1,000 ML IV PRN (17:58)
--- NOTE | 2017-03-25 18:29 | NUR ---
seen by dr salmeron. new orders received Addendum: 03/25/17 at 1829 by LEONARD PINEDA RN Amended: Links added.
[2017-03-25] MEDS: CEFTRIAXONE 2 G in IV DEXTROSE 5% 100 ML IV SCH (18:57)
[2017-03-25] MEDS ORDERED: GENTAMICIN SULFATE INJ 60 MG in IV DEXTROSE 5% 50 ML IV SCH (19:00)
--- NOTE | 2017-03-25 19:00 | NUR ---
Received report from TORRI Garland
[2017-03-25] MEDS ORDERED: NORMAL SALINE FLUSH 10 ML DISP.SYRIN IV PRN (19:30)
--- NOTE | 2017-03-25 19:30 | NUR ---
Received patient awake, able to make needs known and able to verbalized needs when using Passey Evans valve. HOB, saturating 100% with cool mist at 30% connected to trach. No s/s of respiratory distress. GT with continuos feeding of Fibersource at 70 cc/hour. Obtained 40 cc gastric residual at this time. No s/s of aspiration noted. On continuos Levophed at 15mcg/hour and IVF at 50 cc/hour as ordered. Contact isolation maintained. Continue care as planned.
--- NOTE | 2017-03-25 19:44 | NUR ---
Presented complaint of both shoulder pain in scale of 10/10, Dilaudid 1 mg IVP given as ordered and needed. Will monitor.
--- NOTE | 2017-03-25 20:18 | NUR ---
Sleeping at this time. No s/s of pain/discomforts noted.
[2017-03-25] MEDS: risperiDONE 1 MG TABLET GT SCH (21:21)
[2017-03-25] MEDS: ZONISAMIDE 100 MG CAPSULE PO SCH (21:24)
[2017-03-25] MEDS: ENOXAPARIN SODIUM 40 MG/0.4 ML DISP.SYRIN SQ SCH (21:25)
[2017-03-25] MEDS: NORMAL SALINE FLUSH 10 ML DISP.SYRIN IV SCH (21:26)
[2017-03-26] VITALS (92 sets, daily range): BP systolic 74–147; BP diastolic 40–97
[2017-03-26] MEDS: ALBUTEROL SULFATE 2.5 MG/3 ML NEBU IH SCH ×4 (00:35→19:15)
[2017-03-26] MEDS: IPRATROPIUM BROMIDE 0.5 MG/2.5 ML NEBU IH SCH ×4 (00:35→19:15)
[2017-03-26] MEDS: NOREPINEPHRINE BITARTRATE 8 MG in IV DEXTROSE 5% 500 ML IV PRN ×2 (02:08→15:21)
[2017-03-26] MEDS: BACLOFEN 20 MG TABLET GT SCH ×3 (02:12→17:11)
[2017-03-26] MEDS: HYDROMORPHONE 1 MG/1 ML DISP.SYRIN IV PRN ×2 (03:46→08:11)
[2017-03-26 04:59] LABS: BASOPHILS % (AUTO) 0.8 % (0.0-2.0); EOSINOPHILS # (AUTO) 0.5 K/uL (0.0-0.7); EOSINOPHILS % (AUTO) 9.4 % (0.0-7.0); HEMATOCRIT 33.4 % (40-50); LYMPHOCYTES # (AUTO) 1.4 K/UL (0.8-4.8); LYMPHOCYTES % (AUTO) 26.3 % (20.5-51.5); MEAN CORPUSCULAR HEMOGLOBIN 29.7 UUG (27.0-31.0); MEAN CORPUSCULAR HGB CONC 33 g/dL (32.0-37.0); MEAN CORPUSCULAR VOLUME 90.3 FL (82.0-92.0); MONOCYTES # (AUTO) 0.9 K/UL (0.1-1.30); MONOCYTES % (AUTO) 17.5 % (0.0-11.0); NEUTROPHILS # (AUTO) 2.5 K/UL (1.8-8.9); PLATELET COUNT (AUTO) 232 K/UL (150-450); WHITE BLOOD COUNT (AUTO) 5.3 K/UL (4.0-11.2)
[2017-03-26 05:05] LABS: CARBON DIOXIDE 31 mmol/L (21-32); CHLORIDE 110 mmol/L (98-107); GLUCOSE 95 mg/dL (74-106); POTASSIUM 3.8 mmol/L (3.5-5.1); UREA NITROGEN, BLOOD 13 mg/dL (7-18)
[2017-03-26 05:10] LABS: MAGNESIUM 1.9 mg/dL (1.8-2.4); PHOSPHOROUS 3.1 mg/dL (2.5-4.9)
[2017-03-26] MEDS: TIZANIDINE HCL 4 MG TABLET GT SCH ×3 (05:26→21:37)
[2017-03-26] MEDS: NORMAL SALINE FLUSH 10 ML DISP.SYRIN IV SCH ×3 (05:26→21:42)
[2017-03-26 05:28] LABS: CREATININE 0.5 mg/dL (0.6-1.3)
[2017-03-26] MEDS: CEFTRIAXONE 2 G in IV DEXTROSE 5% 100 ML IV SCH ×2 (05:57→17:55)
[2017-03-26] MEDS: PANTOPRAZOLE ORAL SUSPENSION 40 MG SUSPDR.PKT GT SCH (06:25)
--- NOTE | 2017-03-26 07:10 | NUR ---
Pt received awake,alert.Able to communicate.Trach tube Shiley 6intact,patent with speaking valve on.No SOB noted .SR on monitor.remains on Levophed gtt at 10 mcg/min to support BP.IV infusing to Right groin Portacath.GT feeding tolerated well.Will continue to monitor.
[2017-03-26] MEDS: FIBERSOURCE HN 1000ML LIQUID GT PRN (07:26)
[2017-03-26] MEDS: TOLTERODINE LA 2 MG CAP.SR.24H PO SCH (08:08)
[2017-03-26] MEDS: PHENOBARBITAL 32.4 MG TABLET GT SCH ×2 (08:09→21:37)
[2017-03-26] MEDS: TRAZODONE 50 MG TABLET GT SCH ×2 (08:09→21:36)
[2017-03-26] MEDS: LORATADINE 10 MG TABLET GT SCH (08:09)
[2017-03-26] MEDS: LORAZEPAM 1 MG TABLET GT SCH ×2 (08:09→17:11)
[2017-03-26] MEDS: LACTOBACILLUS RHAMNOSUS GG 1 EACH CAPSULE PO SCH ×2 (08:09→21:37)
[2017-03-26] MEDS: GABAPENTIN 300 MG CAPSULE GT SCH ×3 (08:09→17:11)
[2017-03-26] MEDS: PROTEIN SUPPLEMENT (PROSTAT) 30 ML LIQUID GT SCH ×2 (08:12→17:12)
[2017-03-26] MEDS: CLOTRIMAZOLE 1% CREAM 30 GM TUBE TOP SCH ×2 (08:13→17:13)
[2017-03-26] MEDS: MUPIROCIN 2% OINT 22 GM TUBE NS SCH ×2 (08:13→21:48)
[2017-03-26] MEDS: Z GUARD REMEDY PASTE 57 GM TUBE TOP SCH ×2 (08:14→21:48)
[2017-03-26] MEDS: NEOMY/BACITRAC/POLYMI OINT 28.35 GM TUBE TOP SCH (08:14)
--- NOTE | 2017-03-26 08:15 | NUR ---
Remains awake,anxious.medicated with Dilaudid 1mg IV c/o generalized pain.Will continue to monitor.
[2017-03-26 11:03] LABS: BAND % (MANUAL) 4 % (0-10); BASOPHILS % (MANUAL) 1 % (0-2); EOSINOPHILS % (MANUAL) 10 % (0-8); LYMPHOCYTES % (MANUAL) 25 % (20-40); METAMYELOCYTES % 1 % (0-1); MONOCYTES % (MANUAL) 14 % (2-10); NEUTROPHILS % (MANUAL) 45 % (42-75)
--- NOTE | 2017-03-26 11:30 | NUR ---
Seen,examined by with new orders noted.
[2017-03-26] MEDS: HYDROMORPHONE 2 MG/1 ML DISP.SYRIN IV PRN ×2 (11:38→19:21)
--- NOTE | 2017-03-26 11:40 | NUR ---
Medicated with Dilaudid 2mg IV c/o generalized pain.Will continue to monitor.
[2017-03-26] MEDS: IV 1/2NS 1000 ML 1,000 ML IV PRN (15:07)
[2017-03-26] MEDS: HYDROCODONE/APAP 5-325MG TABLET PO PRN (15:31)
--- NOTE | 2017-03-26 20:00 | NUR ---
Pt remains awake,alert.Medicated with Dilaudid 2mg for generalized pain.Remains on Levophed at 5mcg/min to support BP.GT feeding tolerated well.
[2017-03-26] MEDS: risperiDONE 1 MG TABLET GT SCH (21:37)
[2017-03-26] MEDS: ENOXAPARIN SODIUM 40 MG/0.4 ML DISP.SYRIN SQ SCH (21:38)
[2017-03-26] MEDS: ZONISAMIDE 100 MG CAPSULE PO SCH (21:44)
[2017-03-27] VITALS (90 sets, daily range): BP systolic 66–140; BP diastolic 48–114
[2017-03-27] MEDS: ALBUTEROL SULFATE 2.5 MG/3 ML NEBU IH SCH ×4 (00:49→19:21)
[2017-03-27] MEDS: IPRATROPIUM BROMIDE 0.5 MG/2.5 ML NEBU IH SCH ×4 (00:49→19:21)
[2017-03-27] MEDS: HYDROMORPHONE 2 MG/1 ML DISP.SYRIN IV PRN ×3 (00:49→08:05)
[2017-03-27] MEDS: BACLOFEN 20 MG TABLET GT SCH ×3 (01:52→16:05)
[2017-03-27] MEDS: HYDROCODONE/APAP 5-325MG TABLET PO PRN ×2 (03:48→18:57)
[2017-03-27 05:12] LABS: CARBON DIOXIDE 28 mmol/L (21-32); CHLORIDE 105 mmol/L (98-107); GLUCOSE 102 mg/dL (74-106); POTASSIUM 4.6 mmol/L (3.5-5.1); UREA NITROGEN, BLOOD 11 mg/dL (7-18)
[2017-03-27 05:17] LABS: CREATININE 0.5 mg/dL (0.6-1.3)
[2017-03-27 05:21] LABS: BASOPHILS % (AUTO) 0.8 % (0.0-2.0); EOSINOPHILS # (AUTO) 0.7 K/uL (0.0-0.7); EOSINOPHILS % (AUTO) 11.3 % (0.0-7.0); HEMATOCRIT 31.6 % (40-50); HEMOGLOBIN 10.8 G/DL (14.0-18.0); LYMPHOCYTES % (AUTO) 16.6 % (20.5-51.5); MEAN CORPUSCULAR HEMOGLOBIN 30.7 UUG (27.0-31.0); MEAN CORPUSCULAR HGB CONC 34 g/dL (32.0-37.0); MEAN CORPUSCULAR VOLUME 90.1 FL (82.0-92.0); MONOCYTES # (AUTO) 0.5 K/UL (0.1-1.30); MONOCYTES % (AUTO) 8.5 % (0.0-11.0); NEUTROPHILS # (AUTO) 3.9 K/UL (1.8-8.9); NEUTROPHILS % (AUTO) 62.8 % (38.5-71.5); PLATELET COUNT (AUTO) 174 K/UL (150-450); WHITE BLOOD COUNT (AUTO) 6.1 K/UL (4.0-11.2)
--- NOTE | 2017-03-27 06:00 | NUR ---
Shift Summary: Patient required titration of Levophed more up than down. Most attempts to lessen levophed slowly was ineffective. Patient's medical status remained stable, but patient c/o pain. Patient would fall asleep after Diluadid administration and woke up requesting more. RN attempted to provide alternatives and distractions, which worked sometimes and patient would go to [facility]. Pt refused most other pain meds when requesting Dilaudid during time interval. Pt educated on medications, blood pressure support, activities, and situation. All questions answered. Patient remained stable on Levophed.
[2017-03-27] MEDS: CEFTRIAXONE 2 G in IV DEXTROSE 5% 100 ML IV SCH (06:17)
[2017-03-27] MEDS: TIZANIDINE HCL 4 MG TABLET GT SCH ×3 (06:17→21:09)
[2017-03-27] MEDS: PANTOPRAZOLE ORAL SUSPENSION 40 MG SUSPDR.PKT GT SCH (06:17)
[2017-03-27] MEDS: NORMAL SALINE FLUSH 10 ML DISP.SYRIN IV SCH ×3 (06:21→21:13)
[2017-03-27] MEDS: TOLTERODINE LA 2 MG CAP.SR.24H PO SCH (07:41)
[2017-03-27] MEDS: LORAZEPAM 1 MG TABLET GT SCH ×2 (07:41→16:03)
[2017-03-27] MEDS: PHENOBARBITAL 32.4 MG TABLET GT SCH ×2 (07:41→21:08)
[2017-03-27] MEDS: TRAZODONE 50 MG TABLET GT SCH ×2 (07:41→21:09)
[2017-03-27] MEDS: Z GUARD REMEDY PASTE 57 GM TUBE TOP SCH ×2 (07:42→21:10)
[2017-03-27] MEDS: LACTOBACILLUS RHAMNOSUS GG 1 EACH CAPSULE PO SCH ×2 (07:42→21:08)
[2017-03-27] MEDS: MUPIROCIN 2% OINT 22 GM TUBE NS SCH ×2 (07:42→21:11)
[2017-03-27] MEDS: GABAPENTIN 300 MG CAPSULE GT SCH ×3 (07:42→16:03)
[2017-03-27] MEDS: LORATADINE 10 MG TABLET GT SCH (07:42)
[2017-03-27] MEDS: CLOTRIMAZOLE 1% CREAM 30 GM TUBE TOP SCH ×2 (07:43→16:05)
[2017-03-27] MEDS: NEOMY/BACITRAC/POLYMI OINT 28.35 GM TUBE TOP SCH (07:43)
[2017-03-27] MEDS: PROTEIN SUPPLEMENT (PROSTAT) 30 ML LIQUID GT SCH ×2 (07:45→16:08)
--- NOTE | 2017-03-27 11:00 | NUR ---
Dr. Polo here to see pt. Full report given. New orders received and carried out.
[2017-03-27] MEDS: MORPHINE SULFATE IR 30 MG TABLET PO PRN (11:15)
[2017-03-27] MEDS: FIBERSOURCE HN 1000ML LIQUID GT PRN (11:52)
[2017-03-27] MEDS: IV 1/2NS 1000 ML 1,000 ML IV PRN (13:29)
[2017-03-27] MEDS: NOREPINEPHRINE BITARTRATE 8 MG in IV DEXTROSE 5% 500 ML IV PRN (15:29)
--- NOTE | 2017-03-27 15:35 | NUR ---
KEISHA Ferraro here to see pt and made aware of pt's positivity for VRE in the urine.
[2017-03-27] MEDS: LINEZOLID IV 600 MG in PREMIXED 1 EACH IV SCH (18:32)
--- NOTE | 2017-03-27 19:30 | NUR ---
Received patient in stable condition. AAO x4. Complains of severe generalized pain. Educated on medication regimen, time last given, and next time due. Will continue to monitor. NSR, BP stable Levophed drip to right femoral portacath. IVF running as ordered. Amy #6, to mist. Passy lexa valve in place. RR and SpO2 WNL. G-tube in place, patent. Placement verified aspiration/auscultation. GT feeding at goal rate, tolerating well with minimal residual. Olsen catheter intact, draining clear yellow urine. On 1st step mattress. SBAR report received from Wendy HOPKINS RN. Will continue plan of care
[2017-03-27] MEDS: risperiDONE 1 MG TABLET GT SCH (21:09)
[2017-03-27] MEDS: ZONISAMIDE 100 MG CAPSULE PO SCH (21:10)
[2017-03-27] MEDS: ENOXAPARIN SODIUM 40 MG/0.4 ML DISP.SYRIN SQ SCH (21:12)
[2017-03-28] VITALS (94 sets, daily range): BP systolic 65–143; BP diastolic 42–91
[2017-03-28] MEDS: MORPHINE SULFATE IR 30 MG TABLET PO PRN (00:43)
[2017-03-28] MEDS: ALBUTEROL SULFATE 2.5 MG/3 ML NEBU IH SCH ×4 (00:47→19:45)
[2017-03-28] MEDS: IPRATROPIUM BROMIDE 0.5 MG/2.5 ML NEBU IH SCH ×4 (00:47→19:45)
[2017-03-28] MEDS: BACLOFEN 20 MG TABLET GT SCH ×3 (02:16→17:01)
[2017-03-28] MEDS: HYDROCODONE/APAP 5-325MG TABLET PO PRN ×3 (02:16→20:35)
[2017-03-28] MEDS: IBUPROFEN 600 MG TABLET PO PRN (03:58)
[2017-03-28 05:09] LABS: BASOPHILS % (AUTO) 0.5 % (0.0-2.0); EOSINOPHILS # (AUTO) 0.4 K/uL (0.0-0.7); EOSINOPHILS % (AUTO) 9.4 % (0.0-7.0); HEMATOCRIT 31.5 % (40-50); HEMOGLOBIN 10.6 G/DL (14.0-18.0); LYMPHOCYTES % (AUTO) 20.2 % (20.5-51.5); MEAN CORPUSCULAR HEMOGLOBIN 30.6 UUG (27.0-31.0); MEAN CORPUSCULAR HGB CONC 34 g/dL (32.0-37.0); MEAN CORPUSCULAR VOLUME 90.5 FL (82.0-92.0); MONOCYTES # (AUTO) 0.6 K/UL (0.1-1.30); MONOCYTES % (AUTO) 11.9 % (0.0-11.0); NEUTROPHILS # (AUTO) 2.8 K/UL (1.8-8.9); PLATELET COUNT (AUTO) 223 K/UL (150-450); RED BLOOD CELL COUNT(AUTO) 3.48 MIL/UL (4.7-6.1); WHITE BLOOD COUNT (AUTO) 4.8 K/UL (4.0-11.2)
[2017-03-28 05:11] LABS: CARBON DIOXIDE 31 mmol/L (21-32); CHLORIDE 105 mmol/L (98-107); GLUCOSE 118 mg/dL (74-106); MAGNESIUM 1.7 mg/dL (1.8-2.4); PHOSPHOROUS 2.5 mg/dL (2.5-4.9); POTASSIUM 4.9 mmol/L (3.5-5.1); UREA NITROGEN, BLOOD 13 mg/dL (7-18)
[2017-03-28 05:21] LABS: CREATININE 0.4 mg/dL (0.6-1.3)
[2017-03-28] MEDS: NORMAL SALINE FLUSH 10 ML DISP.SYRIN IV SCH ×3 (05:34→21:53)
[2017-03-28] MEDS: CEFTRIAXONE 1 G in IV DEXTROSE 5% 50 ML IV SCH (05:34)
[2017-03-28] MEDS: PANTOPRAZOLE ORAL SUSPENSION 40 MG SUSPDR.PKT GT SCH (06:16)
[2017-03-28] MEDS: TIZANIDINE HCL 4 MG TABLET GT SCH ×3 (06:16→21:53)
[2017-03-28] MEDS: LINEZOLID IV 600 MG in PREMIXED 1 EACH IV SCH ×2 (06:17→17:01)
[2017-03-28] MEDS: IV 1/2NS 1000 ML 1,000 ML IV PRN (06:17)
--- NOTE | 2017-03-28 07:00 | NUR ---
No significant events overnight. Slight drop in BP, managed with Levophed drip titration. Otherwise, vital signs remained stable. Patient constantly complained of left shoulder throbbing pain, managed with PRN medications as ordered. Afebrile. SpO2 and RR WNL. NSR. G-tube feeding off 0600 to be continued at 0800. Endorsed to day shift nurse. Olsen, good urine output. No bowel movement. Portacath R femoral vein. IVF as ordered. SBAR report given to Anjelica OLIVARES RN.
[2017-03-28] MEDS: LACTOBACILLUS RHAMNOSUS GG 1 EACH CAPSULE PO SCH ×2 (08:19→20:27)
[2017-03-28] MEDS: LORATADINE 10 MG TABLET GT SCH (08:19)
[2017-03-28] MEDS: LORAZEPAM 1 MG TABLET GT SCH ×2 (08:19→16:59)
[2017-03-28] MEDS: TOLTERODINE LA 2 MG CAP.SR.24H PO SCH (08:19)
[2017-03-28] MEDS: GABAPENTIN 300 MG CAPSULE GT SCH ×3 (08:20→16:59)
[2017-03-28] MEDS: TRAZODONE 50 MG TABLET GT SCH ×2 (08:20→20:26)
--- NOTE | 2017-03-28 08:20 | NUR ---
Nitesh Jefferson PAPER TESTER in the unit to examine patient; head to toe report given, see orders.
[2017-03-28] MEDS: PHENOBARBITAL 32.4 MG TABLET GT SCH ×2 (08:21→20:26)
[2017-03-28] MEDS: PROTEIN SUPPLEMENT (PROSTAT) 30 ML LIQUID GT SCH ×2 (08:21→16:59)
[2017-03-28] MEDS: MUPIROCIN 2% OINT 22 GM TUBE NS SCH (08:26)
[2017-03-28] MEDS: CLOTRIMAZOLE 1% CREAM 30 GM TUBE TOP SCH ×2 (08:26→17:02)
[2017-03-28] MEDS: Z GUARD REMEDY PASTE 57 GM TUBE TOP SCH ×2 (08:28→20:27)
[2017-03-28] MEDS: NEOMY/BACITRAC/POLYMI OINT 28.35 GM TUBE TOP SCH (08:29)
[2017-03-28] MEDS: FIBERSOURCE HN 1000ML LIQUID GT PRN (08:33)
[2017-03-28] MEDS: MAGNESIUM SULFATE/D5W 100 ML IV SCH ×2 (09:52→11:08)
--- NOTE | 2017-03-28 11:15 | NUR ---
Dr. Dixon in the unit to assess patient ; full report given see orders.
--- NOTE | 2017-03-28 11:17 | NUR ---
Pain specialist MD Dr. Brett Hernandez in the unit to examine patient, report given and also had an extended conversation with patient. See orders.
--- NOTE | 2017-03-28 11:56 | NUR ---
Dr. Dixon cardiology services with orders to titrate levophed to keep SBP above 85 or MAP of 65.
[2017-03-28] MEDS: METHADONE HCL 10 MG TABLET PO SCH ×2 (12:32→17:00)
[2017-03-28] MEDS: NOREPINEPHRINE BITARTRATE 8 MG in IV DEXTROSE 5% 500 ML IV PRN (16:56)
--- NOTE | 2017-03-28 20:00 | NUR ---
RECEIVED PT DROWSY, AROUSABLE. ON O2 @ 30% TRACH MIST W/ O2 SAT OF 100%. ON LEVOPHED DRIP @ 6MCQ/MIN VIA MAXX CATH ON R GROIN. IVF 1/2NS @ 50CC/HR. G-TUBE INTACT W/ T-FDG OF FIBERSOURCE HN @ 70CC/HR, NO RESIDUAL NOTED. AFEBRILE. REPOSITIONED ON HIS BACK. NOT IN ANY DISTRESS.
[2017-03-28] MEDS: risperiDONE 1 MG TABLET GT SCH (20:26)
[2017-03-28] MEDS: ZONISAMIDE 100 MG CAPSULE PO SCH (20:27)
[2017-03-28] MEDS: ENOXAPARIN SODIUM 40 MG/0.4 ML DISP.SYRIN SQ SCH (20:28)
[2017-03-29] VITALS (91 sets, daily range): BP systolic 65–128; BP diastolic 39–85
[2017-03-29] MEDS: MORPHINE SULFATE IR 30 MG TABLET PO PRN (00:27)
[2017-03-29] MEDS: ZOLPIDEM 5 MG TABLET PO PRN (00:40)
[2017-03-29] MEDS: BACLOFEN 20 MG TABLET GT SCH ×3 (00:53→17:02)
[2017-03-29] MEDS: IPRATROPIUM BROMIDE 0.5 MG/2.5 ML NEBU IH SCH ×5 (01:00→19:54)
[2017-03-29] MEDS: ALBUTEROL SULFATE 2.5 MG/3 ML NEBU IH SCH ×5 (01:00→19:54)
--- NOTE | 2017-03-29 01:10 | NUR ---
MANUAL DISIMPACTION DONE ,LARGE AMOUNT OF FORMED STOOL OBTAINED. HS CARE DONE. REPOSITIONED W/ HOB ELEVATED. NO RESIDUAL NOTED ON TUBE FDG.
--- NOTE | 2017-03-29 04:00 | NUR ---
AM CARE DONE. TRACH CARE DONE. G-TUBE SITE CLEANED & DRSG. CHANGED. REPOSITIONED TO HER SIDE W/ HOB ELEVATED.
[2017-03-29 05:30] LABS: BASOPHILS % (AUTO) 0.7 % (0.0-2.0); EOSINOPHILS # (AUTO) 0.7 K/uL (0.0-0.7); EOSINOPHILS % (AUTO) 15.4 % (0.0-7.0); HEMATOCRIT 31.8 % (40-50); HEMOGLOBIN 10.6 G/DL (14.0-18.0); LYMPHOCYTES # (AUTO) 1.7 K/UL (0.8-4.8); LYMPHOCYTES % (AUTO) 34.7 % (20.5-51.5); MEAN CORPUSCULAR HEMOGLOBIN 30.3 UUG (27.0-31.0); MEAN CORPUSCULAR HGB CONC 33 g/dL (32.0-37.0); MEAN CORPUSCULAR VOLUME 91.4 FL (82.0-92.0); MONOCYTES # (AUTO) 0.6 K/UL (0.1-1.30); MONOCYTES % (AUTO) 13.1 % (0.0-11.0); NEUTROPHILS # (AUTO) 1.6 K/UL (1.8-8.9); NEUTROPHILS % (AUTO) 36.1 % (38.5-71.5); PLATELET COUNT (AUTO) 213 K/UL (150-450); RED BLOOD CELL COUNT(AUTO) 3.48 MIL/UL (4.7-6.1); WHITE BLOOD COUNT (AUTO) 4.6 K/UL (4.0-11.2)
[2017-03-29 05:54] LABS: CARBON DIOXIDE 33 mmol/L (21-32); CHLORIDE 106 mmol/L (98-107); CREATININE 0.4 mg/dL (0.6-1.3); GLUCOSE 141 mg/dL (74-106); MAGNESIUM 1.9 mg/dL (1.8-2.4); POTASSIUM 4.5 mmol/L (3.5-5.1); UREA NITROGEN, BLOOD 12 mg/dL (7-18)
[2017-03-29] MEDS: CEFTRIAXONE 1 G in IV DEXTROSE 5% 50 ML IV SCH (05:55)
[2017-03-29] MEDS: LINEZOLID IV 600 MG in PREMIXED 1 EACH IV SCH ×2 (05:55→17:01)
[2017-03-29] MEDS: NORMAL SALINE FLUSH 10 ML DISP.SYRIN IV SCH ×3 (05:55→21:30)
[2017-03-29] MEDS: NOREPINEPHRINE BITARTRATE 8 MG in IV DEXTROSE 5% 500 ML IV PRN (05:58)
[2017-03-29] MEDS: FIBERSOURCE HN 1000ML LIQUID GT PRN (05:59)
--- NOTE | 2017-03-29 06:00 | NUR ---
RESTING QUITELY THIS TIME. O2 SAT ADEQ.
[2017-03-29] MEDS: PANTOPRAZOLE ORAL SUSPENSION 40 MG SUSPDR.PKT GT SCH (06:56)
[2017-03-29] MEDS: TIZANIDINE HCL 4 MG TABLET GT SCH ×3 (07:20→21:29)
--- NOTE | 2017-03-29 07:30 | NUR ---
REPORT RECEIVED.PT RECEIVED AWAKE,ALERT,ABLE TO COMMUNICATE .DENIES PAIN.RESPIRATION EVEN,UNLABORED.TRACH TUBE INTACT,PATENT.NO SOB NOTED.SR ON MONITOR.REMAINS ON LEVOPHED GTT TO SUPPORT BP.TURNED,REPOSITIONED.WILL CONTINUE TO MONITOR.
--- NOTE | 2017-03-29 08:52 | NUR ---
Seen,examined by NP. Eladio
[2017-03-29] MEDS: PHENOBARBITAL 32.4 MG TABLET GT SCH ×2 (09:32→20:57)
[2017-03-29] MEDS: PROTEIN SUPPLEMENT (PROSTAT) 30 ML LIQUID GT SCH ×2 (09:33→17:02)
[2017-03-29] MEDS: METHADONE HCL 10 MG TABLET PO SCH ×2 (09:33→17:02)
[2017-03-29] MEDS: LACTOBACILLUS RHAMNOSUS GG 1 EACH CAPSULE PO SCH ×2 (09:34→20:58)
[2017-03-29] MEDS: GABAPENTIN 300 MG CAPSULE GT SCH ×3 (09:34→17:01)
[2017-03-29] MEDS: TRAZODONE 50 MG TABLET GT SCH ×2 (09:34→20:58)
[2017-03-29] MEDS: TOLTERODINE LA 2 MG CAP.SR.24H PO SCH (09:34)
[2017-03-29] MEDS: LORAZEPAM 1 MG TABLET GT SCH (09:34)
[2017-03-29] MEDS: LORATADINE 10 MG TABLET GT SCH (09:34)
[2017-03-29] MEDS: CLOTRIMAZOLE 1% CREAM 30 GM TUBE TOP SCH ×2 (09:40→17:01)
[2017-03-29] MEDS: Z GUARD REMEDY PASTE 57 GM TUBE TOP SCH ×2 (09:41→20:58)
[2017-03-29] MEDS: NEOMY/BACITRAC/POLYMI OINT 28.35 GM TUBE TOP SCH (09:41)
[2017-03-29] MEDS: LORAZEPAM 0.5 MG TABLET GT SCH (16:56)
[2017-03-29] MEDS ORDERED: LORAZEPAM 1 MG TABLET GT SCH (17:00)
--- NOTE | 2017-03-29 18:00 | NUR ---
Pt remains awake,alert.Denies pain,discomfort.No Sob noted.Levophed gtt down to 3mcg/min.Pt tolerated well.Will continue to monitor.
--- NOTE | 2017-03-29 20:00 | NUR ---
RECEIVED PT AWAKE, ALERT, FOLLOWS TO COMMAND, DENIES PAIN THIS TIME. ON O2 OF 30% TRACH MIST W/ O2 SAT OF 98%. ON LEVOPHED DRIP @ 3MCQ/MIN VIA MAXX CATH ON R GROIN. G-TUBE INTACT W/ TUBE FDG. OF FIBERSOURCE HN @ 70CC/HR, NO RESIDUAL NOTED. REPOSITIONED W/ HOB ELEVATED.
[2017-03-29] MEDS: ZONISAMIDE 100 MG CAPSULE PO SCH (20:57)
[2017-03-29] MEDS: ENOXAPARIN SODIUM 40 MG/0.4 ML DISP.SYRIN SQ SCH (20:57)
[2017-03-29] MEDS: risperiDONE 1 MG TABLET GT SCH (21:29)
[2017-03-29] MEDS: IV 1/2NS 1000 ML 1,000 ML IV PRN (23:17)
[2017-03-29] MEDS: HYDROCODONE/APAP 5-325MG TABLET PO PRN (23:56)
[2017-03-30] VITALS (92 sets, daily range): BP systolic 75–132; BP diastolic 45–77
--- NOTE | 2017-03-30 | NUR ---
HS CARE DONE. REPOSITIONED W/ HOB ELEVATED.
[2017-03-30] MEDS: IPRATROPIUM BROMIDE 0.5 MG/2.5 ML NEBU IH SCH ×4 (00:44→19:04)
[2017-03-30] MEDS: ALBUTEROL SULFATE 2.5 MG/3 ML NEBU IH SCH ×4 (00:44→19:04)
[2017-03-30] MEDS: BACLOFEN 20 MG TABLET GT SCH ×3 (02:29→18:29)
[2017-03-30] MEDS: MORPHINE SULFATE IR 30 MG TABLET PO PRN (02:56)
--- NOTE | 2017-03-30 04:00 | NUR ---
AM CARE DONE. ALL DRSG CHANGED. CLEANED G-TUBE SITE & DRSG APPLIED. REPOSITIONED W/ HOB ELEVATED.
[2017-03-30 05:15] LABS: BASOPHILS % (AUTO) 0.5 % (0.0-2.0); EOSINOPHILS # (AUTO) 0.5 K/uL (0.0-0.7); EOSINOPHILS % (AUTO) 12.8 % (0.0-7.0); LYMPHOCYTES # (AUTO) 1.2 K/UL (0.8-4.8); LYMPHOCYTES % (AUTO) 27.4 % (20.5-51.5); MEAN CORPUSCULAR HGB CONC 33 g/dL (32.0-37.0); MEAN CORPUSCULAR VOLUME 90.4 FL (82.0-92.0); MONOCYTES # (AUTO) 0.5 K/UL (0.1-1.30); MONOCYTES % (AUTO) 12.2 % (0.0-11.0); NEUTROPHILS # (AUTO) 2.1 K/UL (1.8-8.9); NEUTROPHILS % (AUTO) 47.1 % (38.5-71.5); PLATELET COUNT (AUTO) 195 K/UL (150-450); RED BLOOD CELL COUNT(AUTO) 3.32 MIL/UL (4.7-6.1); WHITE BLOOD COUNT (AUTO) 4.3 K/UL (4.0-11.2)
[2017-03-30 05:18] LABS: CARBON DIOXIDE 32 mmol/L (21-32); CHLORIDE 102 mmol/L (98-107); CREATININE 0.4 mg/dL (0.6-1.3); GLUCOSE 89 mg/dL (74-106); MAGNESIUM 1.7 mg/dL (1.8-2.4); POTASSIUM 4.5 mmol/L (3.5-5.1); UREA NITROGEN, BLOOD 12 mg/dL (7-18)
[2017-03-30] MEDS: FIBERSOURCE HN 1000ML LIQUID GT PRN (05:25)
[2017-03-30] MEDS: CEFTRIAXONE 1 G in IV DEXTROSE 5% 50 ML IV SCH (05:32)
[2017-03-30] MEDS: LINEZOLID IV 600 MG in PREMIXED 1 EACH IV SCH ×2 (05:32→17:32)
[2017-03-30] MEDS: NORMAL SALINE FLUSH 10 ML DISP.SYRIN IV SCH ×3 (05:33→21:40)
[2017-03-30] MEDS: TIZANIDINE HCL 4 MG TABLET GT SCH ×3 (05:34→21:40)
[2017-03-30] MEDS: PANTOPRAZOLE ORAL SUSPENSION 40 MG SUSPDR.PKT GT SCH (06:19)
[2017-03-30] MEDS: TRAZODONE 50 MG TABLET GT SCH ×2 (08:15→20:46)
[2017-03-30] MEDS: LORAZEPAM 0.5 MG TABLET GT SCH ×2 (08:15→17:30)
[2017-03-30] MEDS: LORATADINE 10 MG TABLET GT SCH (08:15)
[2017-03-30] MEDS: GABAPENTIN 300 MG CAPSULE GT SCH ×3 (08:15→17:30)
[2017-03-30] MEDS: PHENOBARBITAL 32.4 MG TABLET GT SCH ×2 (08:16→20:46)
[2017-03-30] MEDS: METHADONE HCL 10 MG TABLET PO SCH ×2 (08:16→17:31)
[2017-03-30] MEDS: CLOTRIMAZOLE 1% CREAM 30 GM TUBE TOP SCH ×2 (08:17→17:31)
[2017-03-30] MEDS: NEOMY/BACITRAC/POLYMI OINT 28.35 GM TUBE TOP SCH (08:17)
[2017-03-30] MEDS: TOLTERODINE LA 2 MG CAP.SR.24H PO SCH (08:17)
[2017-03-30] MEDS: PROTEIN SUPPLEMENT (PROSTAT) 30 ML LIQUID GT SCH ×2 (08:20→17:30)
[2017-03-30] MEDS: LACTOBACILLUS RHAMNOSUS GG 1 EACH CAPSULE PO SCH ×2 (08:20→20:47)
[2017-03-30] MEDS: Z GUARD REMEDY PASTE 57 GM TUBE TOP SCH ×2 (08:21→20:47)
[2017-03-30] MEDS: MAGNESIUM SULFATE/D5W 100 ML IV SCH ×2 (09:51→10:58)
--- NOTE | 2017-03-30 11:42 | NUR ---
Infectious disease Dr. Castillo in the unit to examine patient, no orders received.
--- NOTE | 2017-03-30 13:45 | NUR ---
Speech harpoon engagement planning operator in to assess patient, recommendations for Oral Gratification recommended. see speech eval notes.
--- NOTE | 2017-03-30 14:00 | NUR ---
Dr. Dixon in the unit to examine patient; report given.
--- NOTE | 2017-03-30 16:58 | NUR ---
A call to Gomez Hendricks REMOTE PILOT OPERATOR chief telephone operator and informed of speech government operations consultant recommendations. Orders to follow recommendation received.
--- NOTE | 2017-03-30 18:54 | NUR ---
Patient feed as recommended a period of desaturation to the mid 80's. Suctioned by RT with no signs of aspiration, and saturation up to 93%. Patient tolerated diet well.
--- NOTE | 2017-03-30 20:00 | NUR ---
RECEIVED AWAKE, ALERT & FOLLOWS TO COMMAND. ON O2 @ 30% TRACH MIST W/ O2 SAT OF 98%. ON LEVOPHED DRIP @ 2MCQ/MIN VIA MAXX CATH ON R GROIN. IVF 1/2NS @50CC/HR. G-TUBE INTACT W/ TUBE FDG OF FIBERSOURCE HN @ 70CC/HR, NO RESIDUAL NOTED. SUCTIONED VIA TRACH W/ MOD. THICK PALE YELLOWISH MUCOUS. REPOSITIONED ON HER SIDE W/ HOB ELEVATED.
[2017-03-30] MEDS: NOREPINEPHRINE BITARTRATE 8 MG in IV DEXTROSE 5% 500 ML IV PRN ×3 (20:23)
[2017-03-30] MEDS: risperiDONE 1 MG TABLET GT SCH (20:47)
[2017-03-30] MEDS: ZONISAMIDE 100 MG CAPSULE PO SCH (20:47)
[2017-03-30] MEDS: ENOXAPARIN SODIUM 40 MG/0.4 ML DISP.SYRIN SQ SCH (20:48)
[2017-03-31] VITALS (88 sets, daily range): BP systolic 86–124; BP diastolic 45–75
--- NOTE | 2017-03-31 | NUR ---
AFEBRILE. SUCTIONED & REPOSITIONED W/ HOB ELEVATED.
[2017-03-31] MEDS: IPRATROPIUM BROMIDE 0.5 MG/2.5 ML NEBU IH SCH ×4 (00:41→19:44)
[2017-03-31] MEDS: ALBUTEROL SULFATE 2.5 MG/3 ML NEBU IH SCH ×4 (00:41→19:44)
[2017-03-31] MEDS: HYDROCODONE/APAP 5-325MG TABLET PO PRN (01:01)
[2017-03-31] MEDS: BACLOFEN 20 MG TABLET GT SCH ×3 (01:02→17:35)
[2017-03-31] MEDS: IV 1/2NS 1000 ML 1,000 ML IV PRN (03:13)
--- NOTE | 2017-03-31 04:00 | NUR ---
AM CARE DONE. TRACH CARE DONE. WOUND CARE DONE & DRSG CHANGED. CLEANED G-TUBE SITE & DRSG CHANGED. REPOSITIONED ON HIS SIDE W/ HOB ELEVATED.
--- NOTE | 2017-03-31 04:00 | NUR ---
MANUAL DISIMPACTION DONE, REMOVED LARGE AMT OF FORMED STOOL.
[2017-03-31] MEDS: TIZANIDINE HCL 4 MG TABLET GT SCH ×3 (05:53→21:52)
[2017-03-31] MEDS: CEFTRIAXONE 1 G in IV DEXTROSE 5% 50 ML IV SCH (05:53)
[2017-03-31] MEDS: LINEZOLID IV 600 MG in PREMIXED 1 EACH IV SCH ×2 (05:54→17:35)
[2017-03-31] MEDS: NORMAL SALINE FLUSH 10 ML DISP.SYRIN IV SCH ×3 (05:55→21:59)
--- NOTE | 2017-03-31 06:00 | NUR ---
RESTING QUITELY THIS TIME.
[2017-03-31 06:13] LABS: BASOPHILS % (AUTO) 0.4 % (0.0-2.0); EOSINOPHILS # (AUTO) 0.4 K/uL (0.0-0.7); EOSINOPHILS % (AUTO) 7.3 % (0.0-7.0); HEMATOCRIT 29.1 % (40-50); HEMOGLOBIN 9.9 G/DL (14.0-18.0); LYMPHOCYTES # (AUTO) 0.8 K/UL (0.8-4.8); LYMPHOCYTES % (AUTO) 14.8 % (20.5-51.5); MEAN CORPUSCULAR HEMOGLOBIN 31.1 UUG (27.0-31.0); MEAN CORPUSCULAR HGB CONC 34 g/dL (32.0-37.0); MEAN CORPUSCULAR VOLUME 91.8 FL (82.0-92.0); MONOCYTES # (AUTO) 0.7 K/UL (0.1-1.30); MONOCYTES % (AUTO) 12.4 % (0.0-11.0); NEUTROPHILS # (AUTO) 3.7 K/UL (1.8-8.9); NEUTROPHILS % (AUTO) 65.1 % (38.5-71.5); PLATELET COUNT (AUTO) 222 K/UL (150-450); RED BLOOD CELL COUNT(AUTO) 3.17 MIL/UL (4.7-6.1); WHITE BLOOD COUNT (AUTO) 5.6 K/UL (4.0-11.2)
[2017-03-31 06:17] LABS: CARBON DIOXIDE 33 mmol/L (21-32); CHLORIDE 101 mmol/L (98-107); CREATININE 0.4 mg/dL (0.6-1.3); GLUCOSE 135 mg/dL (74-106); MAGNESIUM 1.8 mg/dL (1.8-2.4); POTASSIUM 4.7 mmol/L (3.5-5.1); UREA NITROGEN, BLOOD 13 mg/dL (7-18)
[2017-03-31] MEDS: PANTOPRAZOLE ORAL SUSPENSION 40 MG SUSPDR.PKT GT SCH (06:46)
[2017-03-31] MEDS: LORAZEPAM 0.5 MG TABLET GT SCH ×2 (08:28→17:32)
[2017-03-31] MEDS: GABAPENTIN 300 MG CAPSULE GT SCH ×3 (08:30→17:32)
[2017-03-31] MEDS: TRAZODONE 50 MG TABLET GT SCH ×2 (08:30→21:48)
[2017-03-31] MEDS: LORATADINE 10 MG TABLET GT SCH (08:30)
[2017-03-31] MEDS: PHENOBARBITAL 32.4 MG TABLET GT SCH ×2 (08:31→21:42)
[2017-03-31] MEDS: METHADONE HCL 10 MG TABLET PO SCH ×2 (08:31→17:32)
[2017-03-31] MEDS: TOLTERODINE LA 2 MG CAP.SR.24H PO SCH (08:31)
[2017-03-31] MEDS: PROTEIN SUPPLEMENT (PROSTAT) 30 ML LIQUID GT SCH ×2 (08:32→17:35)
[2017-03-31] MEDS: Z GUARD REMEDY PASTE 57 GM TUBE TOP SCH ×2 (08:32→21:56)
[2017-03-31] MEDS: CLOTRIMAZOLE 1% CREAM 30 GM TUBE TOP SCH ×2 (08:32→17:32)
[2017-03-31] MEDS: NEOMY/BACITRAC/POLYMI OINT 28.35 GM TUBE TOP SCH (08:33)
[2017-03-31] MEDS: LACTOBACILLUS RHAMNOSUS GG 1 EACH CAPSULE PO SCH ×2 (09:00→21:42)
[2017-03-31] MEDS: IV NS 1000 ML 1,000 ML IV PRN (10:00)
[2017-03-31] MEDS: NOREPINEPHRINE BITARTRATE 8 MG in IV DEXTROSE 5% 500 ML IV PRN (17:34)
[2017-03-31] MEDS: ZONISAMIDE 100 MG CAPSULE PO SCH (21:00)
[2017-03-31] MEDS: risperiDONE 1 MG TABLET GT SCH (21:50)
[2017-03-31] MEDS: ENOXAPARIN SODIUM 40 MG/0.4 ML DISP.SYRIN SQ SCH (21:50)
[2017-04-01] VITALS (33 sets, daily range): BP systolic 86–136; BP diastolic 47–78
[2017-04-01] MEDS: BACLOFEN 20 MG TABLET GT SCH ×3 (02:00→17:07)
[2017-04-01] MEDS: ALBUTEROL SULFATE 2.5 MG/3 ML NEBU IH SCH ×4 (02:07→19:13)
[2017-04-01] MEDS: IPRATROPIUM BROMIDE 0.5 MG/2.5 ML NEBU IH SCH ×4 (02:07→19:13)
[2017-04-01 05:45] LABS: BASOPHILS % (AUTO) 0.4 % (0.0-2.0); EOSINOPHILS # (AUTO) 0.1 K/uL (0.0-0.7); EOSINOPHILS % (AUTO) 2.8 % (0.0-7.0); HEMATOCRIT 26.8 % (40-50); LYMPHOCYTES # (AUTO) 0.7 K/UL (0.8-4.8); LYMPHOCYTES % (AUTO) 15.9 % (20.5-51.5); MEAN CORPUSCULAR HEMOGLOBIN 30.4 UUG (27.0-31.0); MEAN CORPUSCULAR HGB CONC 34 g/dL (32.0-37.0); MEAN CORPUSCULAR VOLUME 90.6 FL (82.0-92.0); MONOCYTES # (AUTO) 0.6 K/UL (0.1-1.30); MONOCYTES % (AUTO) 15.4 % (0.0-11.0); NEUTROPHILS # (AUTO) 2.8 K/UL (1.8-8.9); NEUTROPHILS % (AUTO) 65.5 % (38.5-71.5); PLATELET COUNT (AUTO) 193 K/UL (150-450); RED BLOOD CELL COUNT(AUTO) 2.95 MIL/UL (4.7-6.1); WHITE BLOOD COUNT (AUTO) 4.2 K/UL (4.0-11.2)
[2017-04-01] MEDS: CEFTRIAXONE 1 G in IV DEXTROSE 5% 50 ML IV SCH (05:49)
[2017-04-01] MEDS: LINEZOLID IV 600 MG in PREMIXED 1 EACH IV SCH ×2 (05:50→17:07)
[2017-04-01 05:51] LABS: CARBON DIOXIDE 35 mmol/L (21-32); CHLORIDE 102 mmol/L (98-107); CREATININE 0.5 mg/dL (0.6-1.3); GLUCOSE 115 mg/dL (74-106); POTASSIUM 4.5 mmol/L (3.5-5.1); UREA NITROGEN, BLOOD 22 mg/dL (7-18)
[2017-04-01] MEDS: NORMAL SALINE FLUSH 10 ML DISP.SYRIN IV SCH ×3 (05:51→21:32)
[2017-04-01] MEDS: NOREPINEPHRINE BITARTRATE 8 MG in IV DEXTROSE 5% 500 ML IV PRN (05:53)
[2017-04-01] MEDS: FIBERSOURCE HN 1000ML LIQUID GT PRN (05:54)
[2017-04-01] MEDS: TIZANIDINE HCL 4 MG TABLET GT SCH ×3 (05:55→21:31)
[2017-04-01] MEDS: PANTOPRAZOLE ORAL SUSPENSION 40 MG SUSPDR.PKT GT SCH (06:09)
[2017-04-01 06:24] LABS: BAND % (MANUAL) 1 % (0-10); EOSINOPHILS % (MANUAL) 4 % (0-8); LYMPHOCYTES % (MANUAL) 18 % (20-40); MONOCYTES % (MANUAL) 12 % (2-10); NEUTROPHILS % (MANUAL) 65 % (42-75)
--- NOTE | 2017-04-01 08:00 | NUR ---
Pt received awake and alert with fall precautions and safety measures maintained. pvc monitor and alarms working properly wnl. IVF infusing as ordered. IV vasopressor turned off. G-tube kept c/d/i and clamped. Olsen catheter c/d/i. Pt stable and nad noted.
[2017-04-01] MEDS: LORATADINE 10 MG TABLET GT SCH (08:20)
[2017-04-01] MEDS: TRAZODONE 50 MG TABLET GT SCH ×2 (08:20→21:30)
[2017-04-01] MEDS: LACTOBACILLUS RHAMNOSUS GG 1 EACH CAPSULE PO SCH ×2 (08:20→21:30)
[2017-04-01] MEDS: GABAPENTIN 300 MG CAPSULE GT SCH ×3 (08:21→16:32)
[2017-04-01] MEDS: TOLTERODINE LA 2 MG CAP.SR.24H PO SCH (08:21)
[2017-04-01] MEDS: Z GUARD REMEDY PASTE 57 GM TUBE TOP SCH ×2 (08:21→21:34)
[2017-04-01] MEDS: LORAZEPAM 0.5 MG TABLET GT SCH ×2 (08:21→16:31)
[2017-04-01] MEDS: PHENOBARBITAL 32.4 MG TABLET GT SCH ×2 (08:21→21:32)
[2017-04-01] MEDS: METHADONE HCL 10 MG TABLET PO SCH ×2 (08:21→16:32)
[2017-04-01] MEDS: NEOMY/BACITRAC/POLYMI OINT 28.35 GM TUBE TOP SCH (08:22)
[2017-04-01] MEDS: CLOTRIMAZOLE 1% CREAM 30 GM TUBE TOP SCH ×2 (08:22→16:33)
[2017-04-01] MEDS: PROTEIN SUPPLEMENT (PROSTAT) 30 ML LIQUID GT SCH ×2 (08:24→16:33)
--- NOTE | 2017-04-01 10:15 | NUR ---
Received report. At 2200 while giving medication noted Pt turned his head to left and not following command and developed nystagmus and had grandmal seizure that lasted 3 minutes. Matt Ojeda called and was notified order received and carried out. Gave ativan 2 mg IV as per order. continue to monitor. NSR v/s stable.
[2017-04-01] MEDS: IV NS 1000 ML 1,000 ML IV PRN (13:07)
--- NOTE | 2017-04-01 15:48 | NUR ---
Pt reassignment and full SBAR report given to TORRI Anne.
--- NOTE | 2017-04-01 16:00 | NUR ---
ASSUMED CARE FOR PATIENT ATH THIS TIME. RECEIVED REPORT FROM MARIALUISA WILD.
[2017-04-01] MEDS: risperiDONE 1 MG TABLET GT SCH (21:31)
[2017-04-01] MEDS: ENOXAPARIN SODIUM 40 MG/0.4 ML DISP.SYRIN SQ SCH (21:33)
[2017-04-01] MEDS: ZONISAMIDE 100 MG CAPSULE PO SCH (21:34)
[2017-04-01] MEDS ORDERED: LORAZEPAM 2 MG/1 ML VIAL IV PRN (22:10)
[2017-04-01] MEDS ORDERED: LORAZEPAM 2 MG/1 ML VIAL ONE (22:12)
[2017-04-02] VITALS (23 sets, daily range): BP systolic 98–132; BP diastolic 56–83
[2017-04-02] MEDS: BACLOFEN 20 MG TABLET GT SCH ×3 (02:02→17:32)
[2017-04-02] MEDS: IPRATROPIUM BROMIDE 0.5 MG/2.5 ML NEBU IH SCH ×4 (02:18→19:19)
[2017-04-02] MEDS: ALBUTEROL SULFATE 2.5 MG/3 ML NEBU IH SCH ×4 (02:18→19:19)
[2017-04-02] MEDS: CEFTRIAXONE 1 G in IV DEXTROSE 5% 50 ML IV SCH (05:07)
[2017-04-02 05:37] LABS: BASOPHILS % (AUTO) 0.3 % (0.0-2.0); EOSINOPHILS # (AUTO) 0.2 K/uL (0.0-0.7); EOSINOPHILS % (AUTO) 2.6 % (0.0-7.0); HEMATOCRIT 26.5 % (40-50); HEMOGLOBIN 9.1 G/DL (14.0-18.0); LYMPHOCYTES # (AUTO) 0.9 K/UL (0.8-4.8); LYMPHOCYTES % (AUTO) 15.5 % (20.5-51.5); MEAN CORPUSCULAR HEMOGLOBIN 31.1 UUG (27.0-31.0); MEAN CORPUSCULAR HGB CONC 34 g/dL (32.0-37.0); MEAN CORPUSCULAR VOLUME 91.1 FL (82.0-92.0); MONOCYTES # (AUTO) 0.8 K/UL (0.1-1.30); MONOCYTES % (AUTO) 13.3 % (0.0-11.0); NEUTROPHILS # (AUTO) 3.9 K/UL (1.8-8.9); NEUTROPHILS % (AUTO) 68.3 % (38.5-71.5); PLATELET COUNT (AUTO) 186 K/UL (150-450); RED BLOOD CELL COUNT(AUTO) 2.91 MIL/UL (4.7-6.1); WHITE BLOOD COUNT (AUTO) 5.8 K/UL (4.0-11.2)
[2017-04-02 05:40] LABS: CARBON DIOXIDE 31 mmol/L (21-32); CHLORIDE 102 mmol/L (98-107); CREATININE 0.5 mg/dL (0.6-1.3); GLUCOSE 104 mg/dL (74-106); POTASSIUM 3.7 mmol/L (3.5-5.1); UREA NITROGEN, BLOOD 20 mg/dL (7-18)
[2017-04-02] MEDS: PANTOPRAZOLE ORAL SUSPENSION 40 MG SUSPDR.PKT GT SCH (06:43)
[2017-04-02] MEDS: TIZANIDINE HCL 4 MG TABLET GT SCH ×3 (06:43→21:22)
[2017-04-02] MEDS: LINEZOLID IV 600 MG in PREMIXED 1 EACH IV SCH ×2 (06:44→17:32)
[2017-04-02] MEDS: NORMAL SALINE FLUSH 10 ML DISP.SYRIN IV SCH ×3 (06:59→21:26)
--- NOTE | 2017-04-02 07:38 | NUR ---
no more seizures noted. Pt awake and no acute distress.
[2017-04-02] MEDS: LACTOBACILLUS RHAMNOSUS GG 1 EACH CAPSULE PO SCH ×2 (07:58→21:25)
[2017-04-02] MEDS: GABAPENTIN 300 MG CAPSULE GT SCH ×3 (07:59→17:32)
[2017-04-02] MEDS: TOLTERODINE LA 2 MG CAP.SR.24H PO SCH (07:59)
[2017-04-02] MEDS: PHENOBARBITAL 32.4 MG TABLET GT SCH ×2 (07:59→21:24)
[2017-04-02] MEDS: TRAZODONE 50 MG TABLET GT SCH ×2 (07:59→21:25)
[2017-04-02] MEDS: LORAZEPAM 0.5 MG TABLET GT SCH (08:00)
[2017-04-02] MEDS: METHADONE HCL 10 MG TABLET PO SCH ×2 (08:00→17:32)
[2017-04-02] MEDS: NEOMY/BACITRAC/POLYMI OINT 28.35 GM TUBE TOP SCH (08:01)
[2017-04-02] MEDS: Z GUARD REMEDY PASTE 57 GM TUBE TOP SCH ×2 (08:01→21:25)
[2017-04-02] MEDS: PROTEIN SUPPLEMENT (PROSTAT) 30 ML LIQUID GT SCH ×2 (08:01→17:32)
[2017-04-02] MEDS: CLOTRIMAZOLE 1% CREAM 30 GM TUBE TOP SCH ×2 (08:02→17:33)
[2017-04-02] MEDS: LORATADINE 10 MG TABLET GT SCH (08:05)
--- NOTE | 2017-04-02 08:18 | NUR ---
KEISHA Jefferson here to see pt. Full report given. Pt to stay at least another day in the unit for close observation d/t seizure episode last night.
[2017-04-02] MEDS ORDERED: LORAZEPAM 0.5 MG TABLET GT SCH (09:00)
[2017-04-02] MEDS ORDERED: LORAZEPAM 2 MG/1 ML VIAL IV PRN (15:00)
[2017-04-02] MEDS: LORAZEPAM 1 MG TABLET GT SCH (17:32)
--- NOTE | 2017-04-02 18:55 | NUR ---
End of shift: Pt resting awake and alert in bed with fall precautions and safety measures maintained. Pt on Shiley #6 30% trach to mist. telemetry monitor and alarms working properly wnl. DVT pumps on bilaterally. IVF infusing as ordered. Olsen catheter intact and draining properly. Pt hemodynamically stable and nad noted.
[2017-04-02] MEDS: risperiDONE 1 MG TABLET GT SCH (21:21)
[2017-04-02] MEDS: ZONISAMIDE 100 MG CAPSULE PO SCH (21:21)
[2017-04-02] MEDS: ENOXAPARIN SODIUM 40 MG/0.4 ML DISP.SYRIN SQ SCH (21:27)
[2017-04-03] VITALS (24 sets, daily range): BP systolic 85–118; BP diastolic 47–80
[2017-04-03] MEDS: IPRATROPIUM BROMIDE 0.5 MG/2.5 ML NEBU IH SCH ×4 (01:24→19:06)
[2017-04-03] MEDS: ALBUTEROL SULFATE 2.5 MG/3 ML NEBU IH SCH ×4 (01:24→19:06)
[2017-04-03] MEDS: BACLOFEN 20 MG TABLET GT SCH ×3 (01:43→17:09)
[2017-04-03 05:27] LABS: CARBON DIOXIDE 31 mmol/L (21-32); CHLORIDE 105 mmol/L (98-107); CREATININE 0.5 mg/dL (0.6-1.3); GLUCOSE 97 mg/dL (74-106); MAGNESIUM 1.4 mg/dL (1.8-2.4); POTASSIUM 3.7 mmol/L (3.5-5.1); UREA NITROGEN, BLOOD 19 mg/dL (7-18)
[2017-04-03 05:38] LABS: BASOPHILS % (AUTO) 0.2 % (0.0-2.0); EOSINOPHILS # (AUTO) 0.2 K/uL (0.0-0.7); EOSINOPHILS % (AUTO) 3.2 % (0.0-7.0); HEMATOCRIT 26.7 % (40-50); HEMOGLOBIN 9.1 G/DL (14.0-18.0); LYMPHOCYTES # (AUTO) 0.7 K/UL (0.8-4.8); LYMPHOCYTES % (AUTO) 11.9 % (20.5-51.5); MEAN CORPUSCULAR HGB CONC 34 g/dL (32.0-37.0); MEAN CORPUSCULAR VOLUME 90.9 FL (82.0-92.0); MONOCYTES # (AUTO) 0.7 K/UL (0.1-1.30); MONOCYTES % (AUTO) 11.5 % (0.0-11.0); NEUTROPHILS # (AUTO) 4.4 K/UL (1.8-8.9); NEUTROPHILS % (AUTO) 73.2 % (38.5-71.5); PLATELET COUNT (AUTO) 205 K/UL (150-450); RED BLOOD CELL COUNT(AUTO) 2.94 MIL/UL (4.7-6.1)
[2017-04-03] MEDS: TIZANIDINE HCL 4 MG TABLET GT SCH ×3 (06:14→21:31)
[2017-04-03] MEDS: MORPHINE SULFATE IR 30 MG TABLET PO PRN ×2 (06:14→23:14)
[2017-04-03] MEDS: NORMAL SALINE FLUSH 10 ML DISP.SYRIN IV SCH ×3 (06:15→21:34)
[2017-04-03] MEDS: IV NS 1000 ML 1,000 ML IV PRN (06:15)
[2017-04-03] MEDS: PANTOPRAZOLE ORAL SUSPENSION 40 MG SUSPDR.PKT GT SCH (06:15)
[2017-04-03] MEDS: CEFTRIAXONE 1 G in IV DEXTROSE 5% 50 ML IV SCH (06:15)
[2017-04-03] MEDS: LINEZOLID IV 600 MG in PREMIXED 1 EACH IV SCH (06:51)
--- NOTE | 2017-04-03 06:59 | NUR ---
Seizure activity noted 0655 for less than 30 seconds
--- NOTE | 2017-04-03 07:00 | NUR ---
One seizure event lasting less than 30 seconds at approximately 0655 this morning. No other significant events over night. Patient did complain of chronic shoulder pain, managed with PRN medication. Afebrile. NSR, hemodynamically stable. SpO2 and RR WNL on cool mist O2. Wound care provided as ordered. Right femoral portacath patent, dressing changed. IVF running as ordered. Olsen cath intact and patent, 700 mL total urine output during shift. On 1st step mattress. SBAR report given to Anjelica Zapata RN.
[2017-04-03] MEDS: PROTEIN SUPPLEMENT (PROSTAT) 30 ML LIQUID GT SCH ×2 (08:22→17:08)
[2017-04-03] MEDS: METHADONE HCL 10 MG TABLET PO SCH ×2 (08:23→17:08)
[2017-04-03] MEDS: LACTOBACILLUS RHAMNOSUS GG 1 EACH CAPSULE PO SCH ×2 (08:24→21:31)
[2017-04-03] MEDS: LORAZEPAM 1 MG TABLET GT SCH ×2 (08:24→17:07)
[2017-04-03] MEDS: LORATADINE 10 MG TABLET GT SCH (08:24)
[2017-04-03] MEDS: TOLTERODINE LA 2 MG CAP.SR.24H PO SCH (08:24)
[2017-04-03] MEDS: GABAPENTIN 300 MG CAPSULE GT SCH ×3 (08:24→17:07)
[2017-04-03] MEDS: TRAZODONE 50 MG TABLET GT SCH ×2 (08:24→21:30)
[2017-04-03] MEDS: PHENOBARBITAL 32.4 MG TABLET GT SCH ×2 (08:25→21:31)
[2017-04-03] MEDS: Z GUARD REMEDY PASTE 57 GM TUBE TOP SCH ×2 (08:25→21:34)
[2017-04-03] MEDS: CLOTRIMAZOLE 1% CREAM 30 GM TUBE TOP SCH ×2 (08:25→17:08)
[2017-04-03] MEDS: NEOMY/BACITRAC/POLYMI OINT 28.35 GM TUBE TOP SCH (08:26)
[2017-04-03] MEDS ORDERED: MAGNESIUM SULFATE/D5W 100 ML IV SCH (08:30)
[2017-04-03] MEDS: MAGNESIUM SULFATE/D5W 100 ML IV SCH ×2 (08:34→09:58)
--- NOTE | 2017-04-03 08:40 | NUR ---
beatris Hendricks in the unit to examine patient; report given orders to continue ICU monitoring received .
--- NOTE | 2017-04-03 10:58 | NUR ---
dr. Fitzgerald in the unit to examine patient; report given see orders.
[2017-04-03] MEDS: FIBERSOURCE HN 1000ML LIQUID GT PRN (11:21)
--- NOTE | 2017-04-03 15:15 | NUR ---
Dr. Sky in the unit to examine patient; full report given see orders.
[2017-04-03] MEDS: LINEZOLID 600 MG TABLET GT SCH (17:10)
--- NOTE | 2017-04-03 19:10 | NUR ---
Received report from TORRI Coleman
--- NOTE | 2017-04-03 19:45 | NUR ---
Seen patient awake alert ox3, bedbound, quadriphlegic.Chronic Trache, on cool mist 6L [id number]%. VS stable. Denies pain at this time. Assessment done.Turned and repositioned per protocol.
[2017-04-03] MEDS: risperiDONE 1 MG TABLET GT SCH (21:31)
[2017-04-03] MEDS: ZONISAMIDE 100 MG CAPSULE PO SCH (21:33)
[2017-04-03] MEDS: ENOXAPARIN SODIUM 40 MG/0.4 ML DISP.SYRIN SQ SCH (21:34)
[2017-04-04] VITALS (19 sets, daily range): BP systolic 101–135; BP diastolic 53–80
[2017-04-04] MEDS: ALBUTEROL SULFATE 2.5 MG/3 ML NEBU IH SCH ×4 (00:48→20:08)
[2017-04-04] MEDS: IPRATROPIUM BROMIDE 0.5 MG/2.5 ML NEBU IH SCH ×4 (00:48→20:08)
--- NOTE | 2017-04-04 01:00 | NUR ---
Morphine 15mg/po tablet given for viraj shoulder pain level 6/10.Will reassess.
[2017-04-04] MEDS: BACLOFEN 20 MG TABLET GT SCH ×3 (01:17→17:18)
[2017-04-04] MEDS: HYDROCODONE/APAP 5-325MG TABLET PO PRN (01:17)
--- NOTE | 2017-04-04 01:30 | NUR ---
Hague given for pain and elevated temperature 101.9.Cooling measures rendered.Continue monitor.
[2017-04-04 04:56] LABS: CARBON DIOXIDE 34 mmol/L (21-32); CHLORIDE 106 mmol/L (98-107); CREATININE 0.5 mg/dL (0.6-1.3); GLUCOSE 109 mg/dL (74-106); MAGNESIUM 1.7 mg/dL (1.8-2.4); POTASSIUM 3.9 mmol/L (3.5-5.1); UREA NITROGEN, BLOOD 16 mg/dL (7-18)
[2017-04-04] MEDS: CEFTRIAXONE 1 G in IV DEXTROSE 5% 50 ML IV SCH (05:03)
[2017-04-04] MEDS: LINEZOLID 600 MG TABLET GT SCH ×2 (06:14→17:21)
[2017-04-04] MEDS: PANTOPRAZOLE ORAL SUSPENSION 40 MG SUSPDR.PKT GT SCH (06:14)
[2017-04-04] MEDS: TIZANIDINE HCL 4 MG TABLET GT SCH ×3 (06:15→21:43)
[2017-04-04] MEDS: MORPHINE SULFATE IR 30 MG TABLET PO PRN (06:15)
[2017-04-04] MEDS: NORMAL SALINE FLUSH 10 ML DISP.SYRIN IV SCH ×3 (06:16→21:47)
[2017-04-04] MEDS: IV NS 1000 ML 1,000 ML IV PRN (06:37)
--- NOTE | 2017-04-04 06:51 | NUR ---
Cold bath rendered for fever. Changed linens.Pt is alert and awake.Denies any pain at this time
--- NOTE | 2017-04-04 06:52 | NUR ---
Recheck temperature from 101.9 down to 99.4.
--- NOTE | 2017-04-04 06:53 | NUR ---
Morphine given for 6/10 viraj shoulder pain and all am meds.
[2017-04-04] MEDS: PROTEIN SUPPLEMENT (PROSTAT) 30 ML LIQUID GT SCH ×2 (08:06→17:36)
[2017-04-04] MEDS: LORATADINE 10 MG TABLET GT SCH (08:07)
[2017-04-04] MEDS: LORAZEPAM 1 MG TABLET GT SCH ×2 (08:07→17:18)
[2017-04-04] MEDS: LACTOBACILLUS RHAMNOSUS GG 1 EACH CAPSULE PO SCH ×2 (08:07→21:43)
[2017-04-04] MEDS: TOLTERODINE LA 2 MG CAP.SR.24H PO SCH (08:07)
[2017-04-04] MEDS: TRAZODONE 50 MG TABLET GT SCH ×2 (08:07→21:43)
[2017-04-04] MEDS: GABAPENTIN 300 MG CAPSULE GT SCH ×3 (08:08→17:18)
[2017-04-04] MEDS: METHADONE HCL 10 MG TABLET PO SCH ×2 (08:09→17:18)
[2017-04-04] MEDS: PHENOBARBITAL 32.4 MG TABLET GT SCH ×2 (08:09→21:45)
[2017-04-04] MEDS: CLOTRIMAZOLE 1% CREAM 30 GM TUBE TOP SCH ×2 (08:10→17:14)
[2017-04-04] MEDS: NEOMY/BACITRAC/POLYMI OINT 28.35 GM TUBE TOP SCH (08:11)
[2017-04-04] MEDS: Z GUARD REMEDY PASTE 57 GM TUBE TOP SCH ×2 (08:11→21:44)
[2017-04-04] MEDS: FIBERSOURCE HN 1000ML LIQUID GT PRN (08:22)
[2017-04-04] MEDS ORDERED: MAGNESIUM SULFATE/D5W 100 ML IV SCH (09:00)
[2017-04-04] MEDS ORDERED: DOSING PER PHARMACY-AMIKACIN IV XX PRN (09:30)
--- NOTE | 2017-04-04 09:30 | NUR ---
ID Dr. Sky in the unit to examine patient; report given and specimens for cultures sent as ordered.
[2017-04-04 10:15] LABS: BASOPHILS % (AUTO) 0.3 % (0.0-2.0); EOSINOPHILS # (AUTO) 0.1 K/uL (0.0-0.7); EOSINOPHILS % (AUTO) 2.5 % (0.0-7.0); HEMATOCRIT 25.2 % (40-50); HEMOGLOBIN 8.5 G/DL (14.0-18.0); LYMPHOCYTES # (AUTO) 1.3 K/UL (0.8-4.8); LYMPHOCYTES % (AUTO) 25.5 % (20.5-51.5); MEAN CORPUSCULAR HGB CONC 34 g/dL (32.0-37.0); MEAN CORPUSCULAR VOLUME 91.7 FL (82.0-92.0); MONOCYTES # (AUTO) 0.7 K/UL (0.1-1.30); MONOCYTES % (AUTO) 14.3 % (0.0-11.0); NEUTROPHILS % (AUTO) 57.4 % (38.5-71.5); PLATELET COUNT (AUTO) 200 K/UL (150-450); RED BLOOD CELL COUNT(AUTO) 2.75 MIL/UL (4.7-6.1); WHITE BLOOD COUNT (AUTO) 5.1 K/UL (4.0-11.2)
[2017-04-04 10:21] LABS: *BILIRUBIN,URIN NEGATIVE (NEGATIVE); *BLOOD, URINE Trace-lysed (NEGATIVE); *COLOR,URINE STRAW (YELLOW); *KETONES,URINE NEGATIVE (NEGATIVE); *PROTEIN,URINE NEGATIVE (NEGATIVE); *UROBILINOGEN,URINE 0.2 E.U./dl (NORMAL); LEUKOCYTE ESTERASE ,URINE 2+ (NEGATIVE); NITRITE, URINE NEGATIVE (NEGATIVE); UGLUCOSE NEGATIVE (NEGATIVE)
[2017-04-04 10:31] LABS: *CLARITY,URINE HAZY (CLEAR)
[2017-04-04 10:32] LABS: BACTERIA,URINE FEW /HPF (NONE SEEN); RBC,URINE 0-3 /HPF (0-3); SQUAMOUS EPITHELIAL CELL,UR NONE SEEN /HPF (NONE SEEN)
[2017-04-04 10:33] LABS: YEAST,URINE MODERATE /HPF (NONE SEEN)
--- NOTE | 2017-04-04 11:30 | NUR ---
CLINICAL PHARMACY NOT: AMIKACIN DOSING Request for amikacin dosing on 41 y/o male 5'10" 132lbs for suspected infection Temp 101.2, BUN 16 Scr 0.5 WBC 5.1 Start amikacin 400mg ivpb q8h estimated trough 6, estimated peak 28. Trough and peak levels ordered for tomorrow prior and after 4th dose. Will continue to monitor
[2017-04-04] MEDS: AMIKACIN 400 MG in IV DEXTROSE 5% 100 ML IV SCH ×2 (13:22→21:02)
--- NOTE | 2017-04-04 15:16 | NUR ---
Dr. Mcdowell in the unit to examine patient; he himself spoke with patient about possible dcd home tomorrow; full report given no orders received.
--- NOTE | 2017-04-04 16:03 | NUR ---
Dr. Dixon in the unit to see patient; report given.
--- NOTE | 2017-04-04 16:15 | NUR ---
Telephone report given to lucille Herr. all questions answer.
--- NOTE | 2017-04-04 16:45 | NUR ---
At this time patient taken up via own bed by charge coordinator. vitals stable IV line portal catheter in place iv line Hep lack for transportation. All medications included with patient.
--- NOTE | 2017-04-04 16:55 | NUR ---
received per bed awake alert and oriented, on Pmist 35% at 10L, sat at 97%, tele SR 90, Tube fdg FiberSource HN at 70ml/hr- checked residual- none obtained, portacath at femoral area- in place- ns at 50ml/hr infusing, both feet and heels wrapped with dsg, repositioned and kept comfortable, on first step mattress, call lite within reach, isolation for VRE observed
--- NOTE | 2017-04-04 18:00 | NUR ---
fed with dinner for oral gratification- aspiration precaution observed, no distress noted, all needs attended and met. Safety measures maintained
--- NOTE | 2017-04-04 20:00 | NUR ---
RECEIVED PATIENT AWAKE, ALERT,VRE IN URINE POSITIVE ,ON CONTACT ISOLATION,PATIENT ON PRE MIST 35% VIA TRACH SHILEY#6, O2 SAT 97%,TEMP99.7 COOLING MEASURE PROVIDED,NSR ON MONITOR,PATIENT TURN AND REPOSITION, ASPIRATION PRECAUTION,NO ACUTE DISTRESS NOTED.
[2017-04-04] MEDS: ZONISAMIDE 100 MG CAPSULE PO SCH (21:44)
[2017-04-04] MEDS: risperiDONE 1 MG TABLET GT SCH (21:45)
[2017-04-04] MEDS: ENOXAPARIN SODIUM 40 MG/0.4 ML DISP.SYRIN SQ SCH (21:46)
[2017-04-05 00:16] VITALS: BP 109/54
--- NOTE | 2017-04-05 00:45 | NUR ---
MORPHINE 15 MG G TUBE GIVEN FOR GENERALIZED PAIN 07/09, EFFECTIVE.
[2017-04-05] MEDS: MORPHINE SULFATE IR 30 MG TABLET PO PRN (00:46)
[2017-04-05] MEDS: ALBUTEROL SULFATE 2.5 MG/3 ML NEBU IH SCH ×4 (01:07→19:51)
[2017-04-05] MEDS: IPRATROPIUM BROMIDE 0.5 MG/2.5 ML NEBU IH SCH ×4 (01:07→19:51)
[2017-04-05] MEDS: BACLOFEN 20 MG TABLET GT SCH ×3 (01:51→17:04)
[2017-04-05] MEDS: FIBERSOURCE HN 1000ML LIQUID GT PRN ×2 (02:18→23:58)
[2017-04-05] MEDS: AMIKACIN 400 MG in IV DEXTROSE 5% 100 ML IV SCH ×2 (04:12→11:59)
[2017-04-05 04:27] VITALS: BP 108/58
[2017-04-05] MEDS: TIZANIDINE HCL 4 MG TABLET GT SCH ×3 (06:13→22:22)
[2017-04-05] MEDS: IV NS 1000 ML 1,000 ML IV PRN (06:13)
[2017-04-05] MEDS: PANTOPRAZOLE ORAL SUSPENSION 40 MG SUSPDR.PKT GT SCH (06:13)
[2017-04-05] MEDS: CEFTRIAXONE 1 G in IV DEXTROSE 5% 50 ML IV SCH (06:13)
[2017-04-05] MEDS: LINEZOLID 600 MG TABLET GT SCH ×2 (06:14→17:05)
[2017-04-05] MEDS: NORMAL SALINE FLUSH 10 ML DISP.SYRIN IV SCH ×3 (06:14→22:22)
[2017-04-05 06:48] LABS: BASOPHILS % (AUTO) 0.6 % (0.0-2.0); EOSINOPHILS # (AUTO) 0.5 K/uL (0.0-0.7); EOSINOPHILS % (AUTO) 7.9 % (0.0-7.0); HEMATOCRIT 24.5 % (40-50); HEMOGLOBIN 8.6 G/DL (14.0-18.0); LYMPHOCYTES # (AUTO) 1.4 K/UL (0.8-4.8); LYMPHOCYTES % (AUTO) 20.4 % (20.5-51.5); MEAN CORPUSCULAR HEMOGLOBIN 31.9 UUG (27.0-31.0); MEAN CORPUSCULAR HGB CONC 35 g/dL (32.0-37.0); MEAN CORPUSCULAR VOLUME 91.2 FL (82.0-92.0); MONOCYTES # (AUTO) 1.3 K/UL (0.1-1.30); MONOCYTES % (AUTO) 18.9 % (0.0-11.0); NEUTROPHILS # (AUTO) 3.7 K/UL (1.8-8.9); NEUTROPHILS % (AUTO) 52.2 % (38.5-71.5); PLATELET COUNT (AUTO) 185 K/UL (150-450); RED BLOOD CELL COUNT(AUTO) 2.69 MIL/UL (4.7-6.1); WHITE BLOOD COUNT (AUTO) 6.9 K/UL (4.0-11.2)
--- NOTE | 2017-04-05 07:01 | NUR ---
temp 98.6,nsr on monitor bp 108/58,patient not in distress,continue closely monitor.
[2017-04-05 07:09] LABS: ALANINE AMINOTRANSFERASE 20 U/L (16-63); ALKALINE PHOSPHATASE 121 U/L (50-136); ASPARTATE AMINOTRANSFERASE 16 U/L (15-37); BILIRUBIN,TOTAL 0.2 mg/dL (0.2-1.0); CARBON DIOXIDE 32 mmol/L (21-32); CHLORIDE 104 mmol/L (98-107); CREATININE 0.4 mg/dL (0.6-1.3); GLUCOSE 93 mg/dL (74-106); MAGNESIUM 1.7 mg/dL (1.8-2.4); PHOSPHOROUS 1.7 mg/dL (2.5-4.9); POTASSIUM 4.1 mmol/L (3.5-5.1); TOTAL PROTEIN, SERUM 6.2 g/dL (6.4-8.2); UREA NITROGEN, BLOOD 16 mg/dL (7-18)
[2017-04-05 07:43] VITALS: BP 100/68
[2017-04-05] MEDS ORDERED: NORMAL SALINE IV ONE (09:15)
[2017-04-05] MEDS ORDERED: PHENOBARBITAL SODIUM IV ONE (09:15)
[2017-04-05] MEDS: TOLTERODINE LA 2 MG CAP.SR.24H PO SCH (09:51)
[2017-04-05] MEDS: TRAZODONE 50 MG TABLET GT SCH ×2 (09:51→20:28)
[2017-04-05 09:52] LABS: EOSINOPHILS % (MANUAL) 8 % (0-8); LYMPHOCYTES % (MANUAL) 19 % (20-40); MONOCYTES % (MANUAL) 16 % (2-10); NEUTROPHILS % (MANUAL) 57 % (42-75)
[2017-04-05] MEDS: GABAPENTIN 300 MG CAPSULE GT SCH ×3 (09:52→17:04)
[2017-04-05] MEDS: LORAZEPAM 1 MG TABLET GT SCH ×2 (09:52→17:04)
[2017-04-05] MEDS: LACTOBACILLUS RHAMNOSUS GG 1 EACH CAPSULE PO SCH ×2 (09:53→20:30)
[2017-04-05] MEDS: LORATADINE 10 MG TABLET GT SCH (09:53)
[2017-04-05] MEDS: METHADONE HCL 10 MG TABLET PO SCH ×2 (09:53→17:04)
[2017-04-05] MEDS: PHENOBARBITAL 32.4 MG TABLET GT SCH ×2 (09:58→20:30)
[2017-04-05] MEDS: PROTEIN SUPPLEMENT (PROSTAT) 30 ML LIQUID GT SCH ×2 (10:03→17:06)
[2017-04-05] MEDS: CLOTRIMAZOLE 1% CREAM 30 GM TUBE TOP SCH ×2 (10:22→17:06)
[2017-04-05] MEDS: Z GUARD REMEDY PASTE 57 GM TUBE TOP SCH ×2 (10:22→20:32)
[2017-04-05] MEDS ORDERED: NEUTRA PHOS PACKET GT ONE (10:30)
[2017-04-05] MEDS ORDERED: MAGNESIUM OXIDE 400 MG TABLET GT ONE (10:30)
[2017-04-05 12:00] VITALS: BP 96/64
--- NOTE | 2017-04-05 13:08 | NUR ---
Clinical Pharmacy Note: Amikacin Dosing per Pharmacy Subjective: Amikacin IV to continue this 41 yo male patient as empiric therapy for sepsis per ID note Objective: BUN 16/Scr0.4 WBC 6.9 Temperature 98.1 amikacin trough: pending amikacin peak: pending endotracheal culture: pending Assessment/Plan: Will continue same dose of amikacin 400mg IVPB q8hr for today. 3rd dose is due today at 1200. Amikacin trough (due at 1130 & peak due at 1300). Pharmacy will review the levels when available & adjust the dose if needed. Will monitor renal function and adjust dose, if needed, should renal function change significantly. Will follow daily.
[2017-04-05 16:00] VITALS: BP 94/63
[2017-04-05 20:00] VITALS: BP 137/74
--- NOTE | 2017-04-05 20:00 | NUR ---
patient awake,alert,oriented,occa forgetful,NSR on tele monitor, on P mist 30% at 8 l/m,o2 sat 97%,tolerated g tube feeding at 70 ml/hr,no residual,contact isolation for positive VRE in urine,temp 100.2 cooling measure given,patient has good appetite,c/o hungry hs snack given,aspiration precaution,no coughing nor swallow difficulty noted.
[2017-04-05] MEDS: risperiDONE 1 MG TABLET GT SCH (20:30)
[2017-04-05] MEDS: ZONISAMIDE 100 MG CAPSULE PO SCH (20:31)
[2017-04-05] MEDS: ENOXAPARIN SODIUM 40 MG/0.4 ML DISP.SYRIN SQ SCH (20:32)
[2017-04-06] VITALS: BP 122/76
[2017-04-06] MEDS: BACLOFEN 20 MG TABLET GT SCH ×2 (01:27→09:58)
[2017-04-06] MEDS: HYDROCODONE/APAP 5-325MG TABLET PO PRN (01:28)
[2017-04-06] MEDS: IPRATROPIUM BROMIDE 0.5 MG/2.5 ML NEBU IH SCH ×3 (01:28→14:10)
[2017-04-06] MEDS: ALBUTEROL SULFATE 2.5 MG/3 ML NEBU IH SCH ×3 (01:28→14:11)
[2017-04-06] MEDS: IV NS 1000 ML 1,000 ML IV PRN (02:20)
[2017-04-06 04:00] VITALS: BP 110/65
[2017-04-06] MEDS: LINEZOLID 600 MG TABLET GT SCH ×2 (06:00→07:01)
--- NOTE | 2017-04-06 06:00 | NUR ---
dressing changed to bilateral heels and feet, healing well,picture taken, patient temp this am 99.6,cooling measure given, breathing treatment , suction given,patient appears comfortable.
[2017-04-06] MEDS: TIZANIDINE HCL 4 MG TABLET GT SCH ×2 (06:21→14:39)
[2017-04-06] MEDS: NORMAL SALINE FLUSH 10 ML DISP.SYRIN IV SCH ×2 (06:21→14:39)
[2017-04-06] MEDS: PANTOPRAZOLE ORAL SUSPENSION 40 MG SUSPDR.PKT GT SCH (06:21)
[2017-04-06] MEDS: CEFTRIAXONE 1 G in IV DEXTROSE 5% 50 ML IV SCH (06:21)
--- NOTE | 2017-04-06 07:31 | NUR ---
PATIENT RECEIVED IN ROOM RESTING WITH EYES CLOSED IN NO ACUTE DISTRESS. SR ON TREATING PLANT OPERATOR. RESPIRATIONS EVEN AND UNLABORED. TRACH TO T-MIST. IVF RUNNING. PLASCENCIA CATH IN PLACE WITH URINE YELLOW AND CLEAR. C/D/I DRESSING TO BLE NOTED. FALL PRECAUTION IN PLACE. CONTACT ISOLATION.
[2017-04-06 08:00] VITALS: BP 98/63
[2017-04-06] MEDS: TOLTERODINE LA 2 MG CAP.SR.24H PO SCH (09:57)
[2017-04-06] MEDS: PHENOBARBITAL 32.4 MG TABLET GT SCH (09:57)
[2017-04-06] MEDS: METHADONE HCL 10 MG TABLET PO SCH (09:58)
[2017-04-06] MEDS: LORATADINE 10 MG TABLET GT SCH (09:58)
[2017-04-06] MEDS: TRAZODONE 50 MG TABLET GT SCH (09:58)
[2017-04-06] MEDS: LORAZEPAM 1 MG TABLET GT SCH (09:58)
[2017-04-06] MEDS: LACTOBACILLUS RHAMNOSUS GG 1 EACH CAPSULE PO SCH (09:58)
[2017-04-06] MEDS: GABAPENTIN 300 MG CAPSULE GT SCH ×2 (09:58→14:39)
[2017-04-06] MEDS: Z GUARD REMEDY PASTE 57 GM TUBE TOP SCH (09:59)
[2017-04-06] MEDS: CLOTRIMAZOLE 1% CREAM 30 GM TUBE TOP SCH (09:59)
[2017-04-06] MEDS: PROTEIN SUPPLEMENT (PROSTAT) 30 ML LIQUID GT SCH (10:00)
[2017-04-06 11:42] VITALS: BP 103/73
[2017-04-06] MEDS ORDERED: MORP15TA7 PO (12:31)
[2017-04-06] MEDS ORDERED: CEFT1VIA15 IV (12:31)
[2017-04-06] MEDS ORDERED: LINE600T GT (12:31)
--- NOTE | 2017-04-06 13:00 | NUR ---
The patient will be discharged today back home [[address] [place] [address]] via [facility] [ ]. He is eager to go home because it [birth year] his birthday and his sister, Mari [[phone]; [phone]], is aware with the discharge and in agreement. Amber from [facility] [ / ; ; E- ] confirmed that they will continue their services. [facility] [formerly known as [facility] - ; [phone]] will be arranging to provide the IV antibiotics and will arrange their delivery to the home with his sister. His RN, Sammi, is aware of his discharge plan. Addendum: 04/06/17 at 1726 by NICK [place]UC[place] The patient's sensitivities came back and was resistive to Rocephin so Dr. Huang changed his antibiotics to Cefepime. This field reporter called [facility] and spoke to Inocencia who confirmed that they will change the medication and call the sister to arrange delivery. Spoke to Amber from [facility] and updated her on the antibiotic change. Also spoke to the patient and his sister who were in agreement with the change. The patient still insisted on going home. Mari reassured this field reporter that they will follow-up with his PCP.
[2017-04-06] MEDS: MORPHINE SULFATE IR 30 MG TABLET PO PRN (14:48)
[2017-04-06] MEDS ORDERED: ACETAMINOPHEN 650 MG/20.3 ML LIQUID UDC GT PRN (15:45)
[2017-04-06] MEDS ORDERED: CEFEPIME HCL 1 G in IV DEXTROSE 5% 50 ML IV SCH (16:00)
[2017-04-06 16:02] VITALS: BP 94/63
--- NOTE | 2017-04-06 16:15 | NUR ---
RESPIRATORY CX AND SENSITIVITY BACK AND REPORTED TO DR. YOO. N.Os RECEIVED FOR CEFEPIME AND FIRST DOSE GIVEN ORDERED.
--- NOTE | 2017-04-06 17:11 | NUR ---
DISCHARGING PATIENT HOME IN A STABLE CONDITION. DISCHARGE INSTRUCTIONS PROVIDED. LIST OF BELONGINGS SIGNED AND ALL WAS TAKEN. PRESCRIPTIONS GIVEN TO PARAMEDICS. MAXX CATH INTACT AND PATENT. PLASCENCIA CATH IN PLACE WITH URINE YELLOW AND CLEAR. ALL DISCHARGE ARRANGEMENTS DISCUSSED WITH PATIENT'S SISTER MARIA R. NEW IV ATB PRESCRIBED IN AGREEMENT WITH DR. BRUMFIELD.
== END 2017-04-06 17:30 | disposition home health service (06) | DRG 720 ==
LOC: ER 18:37 → CCU 22:05 → TELE-TD 04-04 17:11
PROVIDERS: ADMIT Nurse Practitioner Acute Care; ATTEND Nurse Practitioner Acute Care
PROC: 5A1935Z Respiratory Ventilation, Less than 24 Consecutive Hours (ICD-10-PCS; principal; 2017-03-27)
DX: A41.9 Sepsis, unspecified organism (principal); J96.20 Acute and chronic respiratory failure, unspecified whether with hypoxia or hypercapnia; R65.21 Severe sepsis with septic shock; G82.50 Quadriplegia, unspecified; E43 Unspecified severe protein-calorie malnutrition; G93.41 Metabolic encephalopathy; Z93.0 Tracheostomy status; D68.59 Other primary thrombophilia; Z99.81 Dependence on supplemental oxygen; D69.6 Thrombocytopenia, unspecified; Z86.74 Personal history of sudden cardiac arrest; D63.8 Anemia in other chronic diseases classified elsewhere; N39.0 Urinary tract infection, site not specified; Z93.1 Gastrostomy status; Z87.820 Personal history of traumatic brain injury; V89.2XXS Person injured in unspecified motor-vehicle accident, traffic, sequela; S14.109S Unspecified injury at unspecified level of cervical spinal cord, sequela; E78.5 Hyperlipidemia, unspecified; Z74.09 Other reduced mobility; Z88.8 Allergy status to other drugs, medicaments and biological substances; Z88.6 Allergy status to analgesic agent; Z88.3 Allergy status to other anti-infective agents; Z91.040 Latex allergy status; F11.20 Opioid dependence, uncomplicated; E87.1 Hypo-osmolality and hyponatremia; E83.42 Hypomagnesemia; E87.6 Hypokalemia; G89.4 Chronic pain syndrome; F32.9 Major depressive disorder, single episode, unspecified; G40.909 Epilepsy, unspecified, not intractable, without status epilepticus; R13.10 Dysphagia, unspecified; Z22.322 Carrier or suspected carrier of Methicillin resistant Staphylococcus aureus; Z74.01 Bed confinement status; Z98.1 Arthrodesis status; Z86.14 Personal history of Methicillin resistant Staphylococcus aureus infection; M47.814 Spondylosis without myelopathy or radiculopathy, thoracic region; N31.9 Neuromuscular dysfunction of bladder, unspecified; L89.90 Pressure ulcer of unspecified site, unspecified stage; K59.2 Neurogenic bowel, not elsewhere classified; D72.819 Decreased white blood cell count, unspecified; B96.89 Other specified bacterial agents as the cause of diseases classified elsewhere; B95.2 Enterococcus as the cause of diseases classified elsewhere; I07.1 Rheumatic tricuspid insufficiency; Z87.440 Personal history of urinary (tract) infections; Z79.899 Other long term (current) drug therapy; Z88.1 Allergy status to other antibiotic agents
CPT/HCPCS: 36415; 70030-TC; 71010; 80184; 82533; 83605; 83735; 84100; 85025; 85730; 87040; 87070; 87077; 87086; 92526; 92610; 93005; 93307; 94640; 94664; A4217; A4663; J0278; J0692; J0696; J1170; J1580; J1650; J2020; J2060; J2543; J2560; J3370; J3475; J3490; J3590; J7030; J7050; J7060; J7070; J8499

== ENCOUNTER 2017-12-22 17:11 | Inpatient (IN) | payer OTHER ==
[~2017-12-22] VITALS: Ht 177.8 cm; Wt 62.7 kg
[~2017-12-22 17:11] MED LIST changes: +CEFT1VIA15 IV; +DOCU-141 GT; -DOCU-25 GT; -Gabapentin GT; -IBUP-1481 PO; +IBUP-1953 PO; +LINE600T GT; +LORA-588 GT; -LORA10TA50 GT; -LORA1TAB GT; +MORP15TA7 PO; -MORP30TA2 PO; -ZONI100C16 GT; +ZONI100C42 GT
[2017-12-22] MEDS ORDERED: GABAPENTIN GT (17:50)
[2017-12-22] MEDS ORDERED: MORP15TA7 GT (17:50)
[2017-12-22] MEDS ORDERED: RANITIDINE GT (17:50)
[2017-12-22] MEDS ORDERED: TRAZ-147 GT (17:50)
[2017-12-22] MEDS ORDERED: LORA1TAB GT (17:50)
--- NOTE | 2017-12-22 18:20 | NUR ---
Right femoral truong cath accessed with 19ga Hernandez needle without any complications.
--- NOTE | 2017-12-22 18:20 | NUR ---
Bryant de jesus in ED - 12/22/17 at 1827 by ISIDRO Right femoral truong cath accessed with 19ga Hernandez needle without any complicatoins.
[2017-12-22 18:37] LABS: BASOPHILS % (AUTO) 0.6 % (0.0-2.0); EOSINOPHILS # (AUTO) 0.1 K/uL (0.0-0.7); EOSINOPHILS % (AUTO) 3.3 % (0.0-7.0); HEMATOCRIT 33.7 % (36.7-47.1); HEMOGLOBIN 11.6 g/dL (12.5-16.3); LYMPHOCYTES # (AUTO) 0.9 K/uL (20.0-40.0); LYMPHOCYTES % (AUTO) 26.9 % (20.5-51.5); MEAN CORPUSCULAR HEMOGLOBIN 32.8 uug (23.8-33.4); MEAN CORPUSCULAR HGB CONC 35 g/dL (32.5-36.3); MONOCYTES # (AUTO) 0.4 K/uL (2.0-10.0); MONOCYTES % (AUTO) 11.9 % (0.0-11.0); NEUTROPHILS # (AUTO) 1.9 K/uL (1.8-8.9); NEUTROPHILS % (AUTO) 57.3 % (38.5-71.5); PLATELET COUNT (AUTO) 206 K/uL (152-348); RED BLOOD CELL COUNT(AUTO) 3.54 MIL/uL (4.06-5.63); WHITE BLOOD COUNT (AUTO) 3.4 K/uL (3.6-10.2)
[2017-12-22 18:42] LABS: CARBON DIOXIDE 31 mmol/L (21-32); CHLORIDE 100 mmol/L (98-107); POTASSIUM 4.1 mmol/L (3.5-5.1)
[2017-12-22 18:43] LABS: CREATININE 0.4 mg/dL (0.6-1.3); GLUCOSE 112 mg/dL (74-106); UREA NITROGEN, BLOOD 8 mg/dL (7-18)
[2017-12-22 18:48] LABS: ALANINE AMINOTRANSFERASE 117 U/L (16-63); ALKALINE PHOSPHATASE 273 U/L (50-136); ASPARTATE AMINOTRANSFERASE 59 U/L (15-37); BILIRUBIN,DIRECT 0.2 mg/dL (0.0-0.2); BILIRUBIN,TOTAL 0.4 mg/dL (0.2-1.0); TOTAL PROTEIN, SERUM 7.3 g/dL (6.4-8.2)
[2017-12-22 19:15] LABS: *BILIRUBIN,URIN NEGATIVE (NEGATIVE); *BLOOD, URINE 1+ (NEGATIVE); *KETONES,URINE NEGATIVE (NEGATIVE); *PROTEIN,URINE NEGATIVE (NEGATIVE); LEUKOCYTE ESTERASE ,URINE 3+ (NEGATIVE); NITRITE, URINE POSITIVE (NEGATIVE); PH,URINE 7.5 (5.0-8.0); UGLUCOSE NEGATIVE (NEGATIVE)
[2017-12-22 19:32] LABS: *CLARITY,URINE CLOUDY (CLEAR)
[2017-12-22 19:33] LABS: *COLOR,URINE YELLOW (YELLOW)
[2017-12-22 19:34] LABS: BACTERIA,URINE MANY /HPF (NONE SEEN); TRIPLE PHOSPHATE CRYSTAL,UR FEW /HPF (NONE SEEN); URINE AMORPHOUS PHOSPHATES MODERATE /HPF; WBC,URINE 20-50 /HPF (0-3)
[2017-12-22] MEDS ORDERED: HYDROMORPHONE 2 MG/1 ML DISP.SYRIN ONE (20:47)
[2017-12-22] MEDS: HYDROMORPHONE 1 MG/1 ML DISP.SYRIN IV ONE ×2 (20:55→21:50)
[2017-12-22] MEDS ORDERED: VANCOMYCIN 1G/D5W 200 ML PIGGYBACK IV ONE (21:15)
[2017-12-22] MEDS ORDERED: PIPERACILLIN SODIUM/TAZOBACTAM 3.375 G in IV DEXTROSE 5% 50 ML IV ONE (21:15)
[2017-12-22 21:27] LABS: ABG BASE EXCESS 1.2 mmol/L; ABG HCO3 26.6 mmol/L; ABG PCO2 45.3 mmHg (35.0-45.0); ABG PH 7.386 (7.350-7.450); ABG PO2 104.4 mmHg (75.0-100.0); ABG SITE RIGHT RADIAL; ABG TOTAL HEMOGLOBIN 12.2 G/dL (13.5-18.0); COHb 1.1 % (0.5-1.5); MetHb 0.3 % (0.0-1.5)
[2017-12-22] MEDS ORDERED: PIPERACILLIN/TAZOBACTAM/D5W 50 ML IV ONE (21:29)
[2017-12-22] MEDS ORDERED: IV NORMAL SALINE 1000 ML BAG IV ONE (21:30)
--- NOTE | 2017-12-22 21:36 | NUR ---
Call placed to [facility], Dr. Huang will be paged.
[2017-12-22 22:27] LABS: *BILIRUBIN,URIN NEGATIVE (NEGATIVE); *BLOOD, URINE 3+ (NEGATIVE); *CLARITY,URINE CLOUDY (CLEAR); *COLOR,URINE YELLOW (YELLOW); *KETONES,URINE NEGATIVE (NEGATIVE); *PROTEIN,URINE 2+ (NEGATIVE); LEUKOCYTE ESTERASE ,URINE 3+ (NEGATIVE); NITRITE, URINE NEGATIVE (NEGATIVE); UGLUCOSE NEGATIVE (NEGATIVE)
[2017-12-22] MEDS ORDERED: VANCOMYCIN IV 200 ML ONE (22:28)
--- NOTE | 2017-12-22 22:35 | NUR ---
Brought in from ER. pt admitted to tele room 209. Initiate admission assessment. Not in acute distress. Safety measure initiated, call henderson within reach.
[2017-12-22 22:47] LABS: BACTERIA,URINE FEW /HPF (NONE SEEN); MUCUS,URINE MODERATE /LPF (0-FEW); RBC,URINE 50-80 /HPF (0-3); URINE AMORPHOUS PHOSPHATES MODERATE /HPF; WBC,URINE 50-80 /HPF (0-3)
--- NOTE | 2017-12-22 22:56 | NUR ---
Pt. admitted to TELE, under care of Dr. Huang Belongs List completed
[2017-12-22 23:00] VITALS: BP 105/60
[2017-12-22] MEDS ORDERED: MORPHINE SULFATE SR 15 MG TABLET.SA PO PRN (23:15)
[2017-12-22] MEDS: ZONISAMIDE 100 MG CAPSULE GT SCH (23:15)
--- NOTE | 2017-12-22 23:15 | NUR ---
ZONEGRAN WAS NOT GIVEN DUE TO NOT AVAILABLE AT THIS TIME.
[2017-12-22] MEDS: TRAZODONE 100 MG TABLET GT SCH (23:48)
[2017-12-22] MEDS: TIZANIDINE HCL 4 MG TABLET GT SCH (23:48)
[2017-12-22] MEDS: BACLOFEN 10 MG TABLET GT SCH (23:48)
[2017-12-22] MEDS: LORAZEPAM 1 MG TABLET GT SCH (23:48)
[2017-12-23 00:37] VITALS: BP 102/59
[2017-12-23] MEDS ORDERED: INFLUENZA VACCINE 2017-2018 0.5 ML DISP.SYRIN IM ONE (02:45)
[2017-12-23 04:00] VITALS: BP 102/55
--- NOTE | 2017-12-23 04:56 | NUR ---
PT ASLEEP. NOT IN ACUTE DISTRESS. SUCTION SECRETIONS VIA TRACHEOSTOMY PRN AND ABLE TO OBTAIN SMALL AMOUNT OF WHITISH SECRETIONS. GT INTACT AND PATENT. RIGHT GROIN PORT A CATH INTACT. MS CONTIN GIVEN FOR PAIN AND EFFECTIVE. BED ON LOW POSITION WITH BED ALARM ON. BILATERAL HEEL KEPT FLOATED. SAFETY MEASURE MAINTAINED.
[2017-12-23] MEDS: BACLOFEN 10 MG TABLET GT SCH ×3 (05:48→21:09)
[2017-12-23] MEDS: TIZANIDINE HCL 4 MG TABLET GT SCH ×3 (05:48→21:09)
[2017-12-23] MEDS ORDERED: PIPERACILLIN/TAZOBACTAM/D5W 50 ML IV ONE (06:03)
[2017-12-23] MEDS: PIPERACILLIN/TAZOBACTAM/D5W 50 ML IV SCH ×3 (06:15→17:11)
--- NOTE | 2017-12-23 06:54 | NUR ---
PAGED DR. BARRERA REGARDING PT'S DIET ORDER. AWAITING TO CALL BACK. WILL ENDORSE TO AM NURSE.
[2017-12-23 07:16] LABS: BASOPHILS % (AUTO) 0.4 % (0.0-2.0); EOSINOPHILS # (AUTO) 0.2 K/uL (0.0-0.7); HEMATOCRIT 32.9 % (36.7-47.1); HEMOGLOBIN 11.2 g/dL (12.5-16.3); LYMPHOCYTES # (AUTO) 0.8 K/uL (20.0-40.0); LYMPHOCYTES % (AUTO) 21.6 % (20.5-51.5); MEAN CORPUSCULAR HEMOGLOBIN 32.6 uug (23.8-33.4); MEAN CORPUSCULAR HGB CONC 34 g/dL (32.5-36.3); MEAN CORPUSCULAR VOLUME 95.4 fL (73.0-96.2); MONOCYTES # (AUTO) 0.6 K/uL (2.0-10.0); MONOCYTES % (AUTO) 17.7 % (0.0-11.0); NEUTROPHILS % (AUTO) 55.3 % (38.5-71.5); PLATELET COUNT (AUTO) 187 K/uL (152-348); RED BLOOD CELL COUNT(AUTO) 3.44 MIL/uL (4.06-5.63); WHITE BLOOD COUNT (AUTO) 3.6 K/uL (3.6-10.2)
[2017-12-23 07:40] LABS: ALANINE AMINOTRANSFERASE 104 U/L (16-63); ALKALINE PHOSPHATASE 250 U/L (50-136); ASPARTATE AMINOTRANSFERASE 56 U/L (15-37); BILIRUBIN,TOTAL 0.5 mg/dL (0.2-1.0); CARBON DIOXIDE 29 mmol/L (21-32); CHLORIDE 102 mmol/L (98-107); CREATININE 0.3 mg/dL (0.6-1.3); GLUCOSE 78 mg/dL (74-106); MAGNESIUM 1.8 mg/dL (1.8-2.4); PHOSPHOROUS 3.2 mg/dL (2.5-4.9); POTASSIUM 3.7 mmol/L (3.5-5.1); UREA NITROGEN, BLOOD 7 mg/dL (7-18)
--- NOTE | 2017-12-23 08:00 | NUR ---
AWAKE ALERT COOPERATE WELL NO SOB CONTINUE O2 AT 10L VIA TRACH SITE ON ASPIRATION AND FALL PRECAUTION BED ALARM ON AND CALL LIGHT IN REACH
[2017-12-23] MEDS: IBUPROFEN 400 MG TABLET PO PRN (08:31)
[2017-12-23] MEDS: ACIDOPHILUS/BULGARICUS CHEW TAB GT SCH ×2 (08:31→20:10)
[2017-12-23] MEDS: TOLTERODINE 2 MG TABLET GT SCH (08:31)
[2017-12-23] MEDS: LORATADINE 10 MG TABLET GT SCH (08:31)
[2017-12-23] MEDS: FAMOTIDINE 20 MG TABLET GT SCH (08:31)
[2017-12-23] MEDS: LORAZEPAM 1 MG TABLET GT SCH ×2 (08:33→20:10)
[2017-12-23] MEDS ORDERED: PHENOBARBITAL GT SCH (09:00)
[2017-12-23] MEDS ORDERED: GABAPENTIN GT SCH (09:00)
[2017-12-23] MEDS ORDERED: GABA600T2 GT (09:36)
[2017-12-23] MEDS ORDERED: PHEN32.43 GT (09:38)
[2017-12-23 10:10] LABS: BAND % (MANUAL) 3 % (0-10); BASOPHILS % (MANUAL) 1 % (0-2); EOSINOPHILS % (MANUAL) 6 % (0-8); LYMPHOCYTES % (MANUAL) 19 % (20-40); MONOCYTES % (MANUAL) 21 % (2-10); NEUTROPHILS % (MANUAL) 50 % (42-75)
[2017-12-23] MEDS ORDERED: MORP15TA GT (10:14)
[2017-12-23] MEDS ORDERED: MORPHINE SULFATE IR 30 MG TABLET GT PRN (10:15)
[2017-12-23] MEDS ORDERED: TOLT2TAB2 GT (10:28)
--- NOTE | 2017-12-23 10:47 | NUR ---
Clinical pharmacy note-Vancomycin dosing per pharmacy Subjective: To continue Vancomycin dosing on this 42 yo bed ridden patient for UTI(waiting for MD note) wt 61.2 kg ht 177.8 cm Objective: BUN 7 Scr 0.3 WBC 3.6 Temp 97.9 Assessment/Plan: Patient received vanco 1gm IVPB x1 in ED on 12/22 at 2300. Will start Vancomycin 1250mg IV every 12hrs(first dose today at 1100) and draw trough by 4th dose(not ordered yet) for expected trough around 16 (see previous admission dosing). Will monitor daily.
[2017-12-23] MEDS: GABAPENTIN 300 MG CAPSULE GT SCH ×3 (10:50→17:07)
[2017-12-23] MEDS: PHENOBARBITAL 32.4 MG TABLET GT SCH ×2 (10:50→20:10)
[2017-12-23] MEDS: VANCOMYCIN IV 1,250 MG in IV DEXTROSE 5% 500 ML IV SCH ×2 (10:50→22:14)
--- NOTE | 2017-12-23 10:51 | NUR ---
C/O PAIN ON NECK MED PRN GIVEN TO GT ORDER
[2017-12-23 11:15] VITALS: BP 113/68
--- NOTE | 2017-12-23 12:00 | NUR ---
WOUND CULTURE FROM LEFT GREAT TOES SENT TO LAB AND DR YOO WAS INFORM
--- NOTE | 2017-12-23 13:00 | NUR ---
DIETITIAN HERE SEE PATIENT AND SUGGESTION OF GT FEEDING AND DR YOO WAS INFORM NEW ORDER IN CHART
[2017-12-23] MEDS: HYDROMORPHONE 2 MG/1 ML DISP.SYRIN IV PRN ×2 (13:30→17:11)
[2017-12-23] MEDS: FIBERSOURCE HN 1000ML LIQUID GT PRN (14:00)
--- NOTE | 2017-12-23 14:00 | NUR ---
START GT FEEDING WITH FIBERSOURCE 1.2 AT 30ML/HR WILL INCREASE 10ML Q2 HR TIL GOAL OF 65 ML/H ALYSIA WELL NO ASPIRATION
[2017-12-23 15:00] VITALS: BP 110/75
--- NOTE | 2017-12-23 16:00 | NUR ---
REPOSITION INCREASE GT FEEDING RATE T 40ML/HR ALYSIA WELL NO PAIN OR N/V
--- NOTE | 2017-12-23 18:00 | NUR ---
STABLE HEMODYNAMIC STATUS PAIN UNDER CONTROL SAFETY MEASURE PROVIDED BED ALARM ON AND CALL LIGHT IN REACH ALYSIA GT FEEDING WELL NO ACUTE DISTRESS NO SEIZURE
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
[2017-12-23 20:00] VITALS: BP 99/54
[2017-12-23] MEDS: ZONISAMIDE 100 MG CAPSULE GT SCH (20:09)
[2017-12-23] MEDS: TRAZODONE 100 MG TABLET GT SCH (20:10)
[2017-12-23] MEDS: risperiDONE 1 MG TABLET GT SCH (20:10)
--- NOTE | 2017-12-23 22:00 | NUR ---
Retrieved Dilaudid 2 mg. from [facility] under Mr. Francois's name anticipating administering to him. However, upon checking his BP, it was really low. MD aware. Therefore, I held his Dilaudid 2 mg. Scanned and Administered Dilaudid 2 mg. to patient in 222 C.M. So, I went back to the [facility] and retrieved a Dilaudid under patient 222 C.M. and returned it under Mr. Francois's name; Witnessed by TORRI Jim.
--- NOTE | 2017-12-23 23:00 | NUR ---
Patient c/o pain in the neck. Asked for pain medication. Patient appeared pale, difficult time responding upon calling his name. He says "he is just so sleepy". Checked BP prior to giving the med, BP was low reading 78/41 and 80/40. Was not comfortable giving pain medication as ordered. Elevated lower extremities. Made MD and Charge Nurse aware and new orders were given. Started 500 ml bolus and decreased Dilaudid. Tele remains sinus rhythm at 79. Sating at 100 with no temperature. Will closely monitor.
--- NOTE | 2017-12-24 00:15 | NUR ---
500 cc IV bolus given to patient per MD order. Will continue to monitor.
--- NOTE | 2017-12-24 01:00 | NUR ---
B/P CHECK 90/50 HR 68' TELE SINUS RHYTHM NO ACUTE DISTRESS NOTED RESPONDS WHEN NAME IS CALLED TWICE. WILL CONTINUE TO CLOSELY MONITOR.
[2017-12-24] MEDS: PIPERACILLIN/TAZOBACTAM/D5W 50 ML IV SCH ×5 (01:35→18:59)
[2017-12-24 04:00] VITALS: BP 82/41
[2017-12-24] MEDS: IBUPROFEN 400 MG TABLET PO PRN (04:19)
[2017-12-24] MEDS ORDERED: HYDROMORPHONE 1 MG/1 ML DISP.SYRIN ONE (05:07)
[2017-12-24] MEDS: BACLOFEN 10 MG TABLET GT SCH ×3 (05:17→22:57)
[2017-12-24] MEDS: TIZANIDINE HCL 4 MG TABLET GT SCH ×3 (05:17→21:26)
[2017-12-24] MEDS: HYDROMORPHONE 2 MG/1 ML DISP.SYRIN IV PRN ×4 (05:17→20:53)
--- NOTE | 2017-12-24 05:44 | NUR ---
Patient slept t/o shift. No acute distress noted. B/P ran low. New orders executed. B/P is in the 90's/55's now. Tele SR at the 60's. Trach care provided. Patient c/o pain 10/10 in the shoulders, however, held Dilaudid 2 mg early on the shift because B/P was low. IV Abx infusing. Gtube feeding running. Patient tolerating it well. Olsen care provided. Draining clear yellow urine. Turn and repositioned Q2H. NO BM. Safety and comfort measures maintained t/o shift. All meds given as ordered. All needs met.
--- NOTE | 2017-12-24 05:46 | NUR ---
Patient c/o pain, gave Motrin. Patient was no relieved. BP was 94/50 HR 69. Administered 0.5 mg. Dilaudid IVP. Stated relief. Will closely monitor.
[2017-12-24] MEDS ORDERED: IV NORMAL SALINE 500 ML IV ONE (07:00)
[2017-12-24 07:24] LABS: ALANINE AMINOTRANSFERASE 90 U/L (16-63); ALKALINE PHOSPHATASE 221 U/L (50-136); ASPARTATE AMINOTRANSFERASE 38 U/L (15-37); BILIRUBIN,TOTAL 0.5 mg/dL (0.2-1.0); CARBON DIOXIDE 31 mmol/L (21-32); CHLORIDE 104 mmol/L (98-107); CREATININE 0.4 mg/dL (0.6-1.3); GLUCOSE 90 mg/dL (74-106); MAGNESIUM 1.8 mg/dL (1.8-2.4); PHOSPHOROUS 3.3 mg/dL (2.5-4.9); POTASSIUM 3.8 mmol/L (3.5-5.1); TOTAL PROTEIN, SERUM 6.5 g/dL (6.4-8.2); UREA NITROGEN, BLOOD 8 mg/dL (7-18)
[2017-12-24 07:40] LABS: BASOPHILS % (AUTO) 0.3 % (0.0-2.0); EOSINOPHILS # (AUTO) 0.4 K/uL (0.0-0.7); EOSINOPHILS % (AUTO) 10.9 % (0.0-7.0); HEMATOCRIT 31.6 % (36.7-47.1); HEMOGLOBIN 10.7 g/dL (12.5-16.3); LYMPHOCYTES # (AUTO) 0.6 K/uL (20.0-40.0); LYMPHOCYTES % (AUTO) 18.3 % (20.5-51.5); MEAN CORPUSCULAR HEMOGLOBIN 32.3 uug (23.8-33.4); MEAN CORPUSCULAR HGB CONC 34 g/dL (32.5-36.3); MEAN CORPUSCULAR VOLUME 95.7 fL (73.0-96.2); MONOCYTES # (AUTO) 0.6 K/uL (2.0-10.0); MONOCYTES % (AUTO) 18.7 % (0.0-11.0); NEUTROPHILS # (AUTO) 1.7 K/uL (1.8-8.9); NEUTROPHILS % (AUTO) 51.8 % (38.5-71.5); PLATELET COUNT (AUTO) 186 K/uL (152-348); WHITE BLOOD COUNT (AUTO) 3.3 K/uL (3.6-10.2)
[2017-12-24 08:15] VITALS: BP 100/54
[2017-12-24] MEDS: ACIDOPHILUS/BULGARICUS CHEW TAB GT SCH ×2 (08:34→21:26)
[2017-12-24] MEDS: TOLTERODINE 2 MG TABLET GT SCH (08:34)
[2017-12-24] MEDS: PHENOBARBITAL 32.4 MG TABLET GT SCH ×2 (08:34→21:29)
[2017-12-24] MEDS: GABAPENTIN 300 MG CAPSULE GT SCH ×3 (08:35→16:49)
[2017-12-24] MEDS: FAMOTIDINE 20 MG TABLET GT SCH (08:35)
[2017-12-24] MEDS: LORATADINE 10 MG TABLET GT SCH (08:35)
[2017-12-24] MEDS: LORAZEPAM 1 MG TABLET GT SCH ×2 (09:00→21:26)
--- NOTE | 2017-12-24 09:52 | NUR ---
NON-ADMINISTRATION - ATIVAN 1 MG: PREVENTION OF HYPOTENSION. BLOOD PRESSURE BEING MONITORED. STABLE CONDITION AT THIS TIME, NO S/S OF DISTRESS.
[2017-12-24] MEDS: VANCOMYCIN IV 1,250 MG in IV DEXTROSE 5% 500 ML IV SCH (11:30)
[2017-12-24 11:36] VITALS: BP 91/50
[2017-12-24 13:03] LABS: BASOPHILS % (MANUAL) 1 % (0-2); EOSINOPHILS % (MANUAL) 12 % (0-8); LYMPHOCYTES % (MANUAL) 22 % (20-40); MONOCYTES % (MANUAL) 16 % (2-10); NEUTROPHILS % (MANUAL) 48 % (42-75)
[2017-12-24 13:05] LABS: REACTIVE LYMPHOCYTES 1 % (0-0)
[2017-12-24 13:39] VITALS: BP 123/83
--- NOTE | 2017-12-24 14:30 | NUR ---
Clinical pharmacy note-Vancomycin dosing per pharmacy Subjective: To continue Vancomycin dosing on this 42 yo bed ridden patient for UTI wt 61.2 kg ht 177.8 cm Objective: BUN 8 Scr 0.4 WBC 3.3 Temp 97.6 trough: pending tonight @2230 Assessment/Plan: Will continue Vancomycin 1250mg IV every 12hrs and draw trough by 4th dose(due tonight at 2230) for expected trough around 16 per last admit's dosing. RN endorsed to hold dose if trough tonight >20. Will check trough in am and adjust as needed. Will monitor daily.
[2017-12-24 15:36] VITALS: BP 90/53
--- NOTE | 2017-12-24 17:40 | NUR ---
ADMINISTERED DILAUDID 0.5 MG IV AT THIS TIME FOR ACHING NECK AND SHOULDER PAIN WITH 10/10 PAIN RATE ON PAIN SCALE. PATIENT'S BLOOD PRESSURE TAKEN PRIOR TO ADMINISTRATION AND IS WNL. MEDICATION ADMINISTRATION (DILAUDID 0.5 MG IV) WAS NOT PROPERLY SAVED ON EMAR AFTER MEDICATION WAS SCANNED. DILAUDID 0.5 MG IV WAS ADMINISTERED AT 1740 AND HAD BEEN FOUR HOURS SINCE THE LAST DOSAGE WAS GIVEN. EMAR RECORDS INDICATE THAT I DID NOT ADMINISTER MEDICATION. BECAUSE IT ONLY SHOWS THE LAST TIME I ADMINISTERED THE MEDICATION BEFORE THE 1740 DOSAGE. CHARGE NURSE NOTIFIED OF SITUATION.
[2017-12-24] MEDS ORDERED: DOSING PER PHARMACY-AMIKACIN IV XX PRN (19:30)
[2017-12-24 20:00] VITALS: BP 109/64
--- NOTE | 2017-12-24 20:00 | NUR ---
G-TUBE PLACEMENT CHECKED WITH 15 CC RESIDUE, SIGHT CLEAN WITH NO S/S OF INFECTION
[2017-12-24] MEDS: risperiDONE 1 MG TABLET GT SCH (21:25)
[2017-12-24] MEDS: TRAZODONE 100 MG TABLET GT SCH (21:27)
--- NOTE | 2017-12-24 21:30 | NUR ---
PATIENT IS AWAKE IN BED WATCHING TV, PAIN MEDS WERE GIVEN. NO S/S OF DISTRESS AT THIS TIME. PATIENT ON TELE SINUS RHYTHM AT 77. COMFORT AND SAFETY MEASURES IN PLACE, CALL LIGHT LEFT WITHIN PATIENT'S REACH. WILL CONTINUE TO MONITOR PATIENT
[2017-12-24] MEDS: ZONISAMIDE 100 MG CAPSULE GT SCH (21:39)
[2017-12-24] MEDS ORDERED: LINEZOLID 600 MG TABLET ONE (22:50)
[2017-12-24] MEDS: LINEZOLID 600 MG TABLET PO SCH (22:57)
[2017-12-24] MEDS ORDERED: AMIKACIN IV SCH (23:30)
[2017-12-24] MEDS ORDERED: NORMAL SALINE IV SCH (23:30)
[2017-12-25 00:37] VITALS: BP 100/58
[2017-12-25] MEDS: HYDROMORPHONE 2 MG/1 ML DISP.SYRIN IV PRN ×6 (01:41→22:45)
[2017-12-25] MEDS ORDERED: NORMAL SALINE IV SCH ×3 (03:30→20:00)
[2017-12-25] MEDS ORDERED: AMIKACIN IV SCH ×3 (03:30→20:00)
[2017-12-25 04:00] VITALS: BP 96/55
[2017-12-25] MEDS ORDERED: AMIKACIN SULFATE 500 MG/2 ML VIAL ONE (04:26)
[2017-12-25] MEDS: BACLOFEN 10 MG TABLET GT SCH ×3 (05:39→22:45)
[2017-12-25] MEDS: TIZANIDINE HCL 4 MG TABLET GT SCH ×3 (05:39→22:45)
[2017-12-25] MEDS ORDERED: HYDROMORPHONE 2 MG/1 ML DISP.SYRIN ONE (06:02)
--- NOTE | 2017-12-25 07:00 | NUR ---
Patient slept on and off through the night, dilaudid prn was given x3. no resp distress on this shift. comfort and safety measures in place. all needs met
[2017-12-25 08:00] VITALS: BP 93/54
[2017-12-25] MEDS: FAMOTIDINE 20 MG TABLET GT SCH (09:23)
[2017-12-25] MEDS: LORATADINE 10 MG TABLET GT SCH (09:23)
[2017-12-25] MEDS: TOLTERODINE 2 MG TABLET GT SCH (09:23)
[2017-12-25] MEDS: LORAZEPAM 1 MG TABLET GT SCH ×2 (09:23→22:04)
[2017-12-25] MEDS: ACIDOPHILUS/BULGARICUS CHEW TAB GT SCH ×2 (09:23→22:04)
[2017-12-25] MEDS: GABAPENTIN 300 MG CAPSULE GT SCH ×3 (09:24→17:17)
[2017-12-25] MEDS: PHENOBARBITAL 32.4 MG TABLET GT SCH ×2 (09:29→22:04)
[2017-12-25] MEDS: LINEZOLID 600 MG TABLET PO SCH ×2 (09:36→22:05)
[2017-12-25] MEDS ORDERED: IBUPROFEN 400 MG TABLET GT PRN (10:28)
[2017-12-25 10:52] VITALS: BP 99/59
[2017-12-25] MEDS: FIBERSOURCE HN 1000ML LIQUID GT PRN (11:27)
--- NOTE | 2017-12-25 13:51 | NUR ---
WOUND CARE CONSULT: PT PRESENTS WITH IMMOBILITY, SCARRING TO RT HEEL WITH CALLUS, LEFT TOENAIL LOOSE, LEFT HEEL FRAGILE SCAR WITH EDEMA AND BRUISING TO FOOT, RT ELBOW DRY ABRASION, PRESENT ON ADMISSION. SCARRING NOTED TO SACRUM AND BUTTOCKS. RECOMMENDATIONS MADE FOR SKIN PROTECTION AND DISCUSSED WITH NURSING STAFF. RECOMMEND DPM CONSULT. FIRST STEP MATTRESS ORDERED. CURRENT RAYMUNDO SCORE IS 12. WILL SEE PRN. LORENZO IN AGREEMENT WITH PLAN OF CARE. Addendum: 12/25/17 at 1353 by CATHY BUCKLEY RN Amended: Links added.
[2017-12-25 14:56] VITALS: BP 93/39
--- NOTE | 2017-12-25 16:00 | NUR ---
Clinical pharmacy note-Amikacin per pharmacy Subjective: To start Amikacin dosing per pharmacy for this patient for UTI Objective: BUN 8 Scr 0.4 WBC 3.3 Temp 97.9 Ht 177.8cm Wt 56.245kg Assessment/Plan: Since patient's renal function is unpredictable(fpc bedridden patient), will continue previous dose(800mg IV every 14hrs, which yielded peak 27.1 and trough 3.1 when BUN was 12 and Scr was 0.3). Since patient had 350mg at 1100, will start first dose of 800mg at 2000 today. Will draw peak and trough by 4th dose(not ordered yet) for expected peak 27 and trough 3. Will monitor daily.
--- NOTE | 2017-12-25 19:35 | NUR ---
RECEIVED PT IN BED. AWAKE, ALERT AND VERBALLY RESPONSIVE. NOT IN ACUTE DISTRESS. PORT A CATH INTACT AND PATENT. IF INFUSING TKO. GT SITE INTACT AND PATENT. GT FEEDING WELL TOLERATED. TRACHEOSTOMY INTACT WITH O2 AT 8L. HEELS KEPT FLOATED. SAFETY MEASURE INITIATED AND CALL CORONA WITHIN REACHED.
[2017-12-25 20:00] VITALS: BP 102/58
[2017-12-25] MEDS: ZONISAMIDE 100 MG CAPSULE GT SCH (22:05)
[2017-12-25] MEDS: TRAZODONE 100 MG TABLET GT SCH (22:05)
[2017-12-25] MEDS: risperiDONE 1 MG TABLET GT SCH (22:05)
--- NOTE | 2017-12-25 23:00 | NUR ---
PT REFUSED TO BE TURN AND REPOSITION, STATED " I JUST WANT TO REST RIGHT NOW"
[2017-12-26] MEDS: HYDROMORPHONE 2 MG/1 ML DISP.SYRIN IV PRN ×4 (03:34→15:32)
--- NOTE | 2017-12-26 04:50 | NUR ---
SUCTIONED SECRETIONS VIA TRACHEOSTOMY AND ABLE TO OBTAIN SMALL AMOUNT OF WHITISH SECRETIONS.
[2017-12-26 06:01] VITALS: BP 98/64
[2017-12-26] MEDS: TIZANIDINE HCL 4 MG TABLET GT SCH ×2 (06:23→13:26)
[2017-12-26] MEDS: BACLOFEN 10 MG TABLET GT SCH ×2 (06:23→13:26)
--- NOTE | 2017-12-26 06:46 | NUR ---
PT REMAINS ALERT, ORIENTED AND VERBALLY RESPONSIVE. NOT IN ACUTE DISTRESS. PORT A CATH ON RIGHT FEMORAL AREA, INTACT AND PATENT. GT SITE INTACT AND PATENT. GT FEEDING WELL TOLERATED. GT FEEDING TURNED OFF AT 0600. TRACHEOSTOMY INTACT WITH O2 AT 8L. O2 SAT AT 100%. HEELS KEPT FLOATED. TURNED AND REPOSITIONED. SAFETY MEASURE INITIATED AND CALL CORONA WITHIN REACHED.
[2017-12-26 06:52] LABS: BASOPHILS % (AUTO) 0.9 % (0.0-2.0); EOSINOPHILS # (AUTO) 0.4 K/uL (0.0-0.7); EOSINOPHILS % (AUTO) 8.6 % (0.0-7.0); HEMATOCRIT 31.8 % (36.7-47.1); HEMOGLOBIN 10.6 g/dL (12.5-16.3); LYMPHOCYTES # (AUTO) 1.3 K/uL (20.0-40.0); MEAN CORPUSCULAR HEMOGLOBIN 32.1 uug (23.8-33.4); MEAN CORPUSCULAR HGB CONC 33 g/dL (32.5-36.3); MEAN CORPUSCULAR VOLUME 96.3 fL (73.0-96.2); MONOCYTES # (AUTO) 0.7 K/uL (2.0-10.0); NEUTROPHILS # (AUTO) 2.4 K/uL (1.8-8.9); NEUTROPHILS % (AUTO) 48.5 % (38.5-71.5); PLATELET COUNT (AUTO) 186 K/uL (152-348)
[2017-12-26 07:02] LABS: CARBON DIOXIDE 32 mmol/L (21-32); CHLORIDE 104 mmol/L (98-107); CREATININE 0.4 mg/dL (0.6-1.3); GLUCOSE 96 mg/dL (74-106); MAGNESIUM 1.7 mg/dL (1.8-2.4); PHOSPHOROUS 3.2 mg/dL (2.5-4.9); POTASSIUM 4.1 mmol/L (3.5-5.1); UREA NITROGEN, BLOOD 11 mg/dL (7-18)
[2017-12-26] MEDS: LINEZOLID 600 MG TABLET PO SCH (08:57)
[2017-12-26] MEDS: PHENOBARBITAL 32.4 MG TABLET GT SCH (08:57)
[2017-12-26] MEDS: GABAPENTIN 300 MG CAPSULE GT SCH ×2 (08:58→13:26)
[2017-12-26] MEDS: TOLTERODINE 2 MG TABLET GT SCH (08:58)
[2017-12-26] MEDS: ACIDOPHILUS/BULGARICUS CHEW TAB GT SCH (08:58)
[2017-12-26] MEDS: LORATADINE 10 MG TABLET GT SCH (08:58)
[2017-12-26] MEDS: FAMOTIDINE 20 MG TABLET GT SCH (08:58)
[2017-12-26] MEDS: LORAZEPAM 1 MG TABLET GT SCH (08:58)
[2017-12-26 09:17] LABS: EOSINOPHILS % (MANUAL) 8 % (0-8); LYMPHOCYTES % (MANUAL) 32 % (20-40); MONOCYTES % (MANUAL) 15 % (2-10); NEUTROPHILS % (MANUAL) 45 % (42-75)
[2017-12-26 11:51] VITALS: BP 106/63
[2017-12-26] MEDS ORDERED: NORMAL SALINE IV SCH (12:00)
[2017-12-26] MEDS ORDERED: AMIKACIN IV SCH (12:00)
[2017-12-26] MEDS: FIBERSOURCE HN 1000ML LIQUID GT PRN (12:05)
[2017-12-26] MEDS ORDERED: MAGNESIUM OXIDE 400 MG TABLET GT ONE (12:45)
--- NOTE | 2017-12-26 12:48 | NUR ---
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 Will continue same dose of amikacin 800mg IVPB q14hrs. Second dose is due today at noon. Will draw peak and trough by 4th dose(ordered for 12/27 tr at 1530 & peak at 1700). Pharmacy shall review the levls and adjust the dose if needed.Will monitor daily.
[2017-12-26 15:50] VITALS: BP 114/69
--- NOTE | 2017-12-26 16:38 | NUR ---
PT DISCHARGED WITH ALL BELONGINGS, EXIT CARE PACKET, HIPLOITO CATH, PLASCENCIA CATHETER, TRACHEOSTOMY INTACT. PT IS TO DISCHARGE HOME WHERE HE WILL HAVE HOME HEALTH CARE FOR HIM. PT IS STABLE FOR DISCHARGE. PHOTOS WERE TAKEN TODAY AND PLACED IN CHART. PT AOX4, TRANSPORTED VIA AMBULANCE. EXIT CARE TEACHING PROVIDED.
[2017-12-26 17:50] VITALS: BP 112/68
== END 2017-12-26 16:38 | disposition home health service (06) | DRG 720 ==
LOC: ER 17:12 → TELE 22:09 → MED 12-25 11:05
PROVIDERS: ADMIT Internal Medicine; ATTEND Internal Medicine
DX: A41.9 Sepsis, unspecified organism (principal); G82.50 Quadriplegia, unspecified; E43 Unspecified severe protein-calorie malnutrition; J96.10 Chronic respiratory failure, unspecified whether with hypoxia or hypercapnia; Z93.0 Tracheostomy status; D68.59 Other primary thrombophilia; Z99.81 Dependence on supplemental oxygen; N30.00 Acute cystitis without hematuria; E86.0 Dehydration; R13.10 Dysphagia, unspecified; B95.2 Enterococcus as the cause of diseases classified elsewhere; B96.5 Pseudomonas (aeruginosa) (mallei) (pseudomallei) as the cause of diseases classified elsewhere; G89.4 Chronic pain syndrome; G40.909 Epilepsy, unspecified, not intractable, without status epilepticus; Z93.1 Gastrostomy status; N31.9 Neuromuscular dysfunction of bladder, unspecified; J32.9 Chronic sinusitis, unspecified; M24.50 Contracture, unspecified joint; L89.90 Pressure ulcer of unspecified site, unspecified stage; Z68.1 Body mass index [BMI] 19.9 or less, adult; E78.5 Hyperlipidemia, unspecified; D64.9 Anemia, unspecified; G31.9 Degenerative disease of nervous system, unspecified; Z86.14 Personal history of Methicillin resistant Staphylococcus aureus infection; Z79.899 Other long term (current) drug therapy; V89.2XXS Person injured in unspecified motor-vehicle accident, traffic, sequela; S14.109S Unspecified injury at unspecified level of cervical spinal cord, sequela; Z87.440 Personal history of urinary (tract) infections
CPT/HCPCS: 36415; 36600; 51702; 70030-TC; 70450; 71045; 80184; 83605; 83735; 84100; 85025; 85730; 87040; 87070; 87077; 87086; 92610; 93005; A4217; A4663; J0278; J1170; J2543; J3370; J3490; J7030; J7060; J8499

== ENCOUNTER 2018-06-01 18:13 | Inpatient (IN) | payer OTHER ==
[~2018-06-01] VITALS: Ht 182.9 cm; Wt 54.2 kg
[~2018-06-01 18:13] MED LIST changes: -ALBU2.5V38 IH; -ALPR0.255 GT; -CEFT1VIA15 IV; -DOCU-141 GT; -FAMO20TA8 GT; -GABA300C GT; +GABA600T2 GT; -IPRA0.2S48 IH; -LACT1CAP57 PO; -LINE600T GT; +LORA1TAB GT; +MEROPENEM 1 G in IV NORMAL SALINE 100 ML IV SCH; +MORP15TA GT; -MORP15TA7 PO; +PHEN32.43 GT; -PHEN97.22 GT; +RANITIDINE GT; +TOLT2TAB2 GT; -TOLT4CAP GT; -TRAZ-144 GT; +TRAZ-214 GT
[2018-06-01] MEDS ORDERED: GABAPENTIN 250 MG/5 ML GT (18:31)
[2018-06-01] MEDS ORDERED: TRAZODONE 50 MG GT (18:31)
--- NOTE | 2018-06-01 18:49 | NUR ---
Dr Robbins is now at bedside evaluating the patient.
--- NOTE | 2018-06-01 18:56 | NUR ---
New alcantara bag connected for urine collection. Portable chest- x-ray in progress. Lab lockstitch pocket setter roberto carlos is also at bedside.
--- NOTE | 2018-06-01 19:07 | NUR ---
Xray at bedside.
--- NOTE | 2018-06-01 19:11 | NUR ---
Respiratory at bedside.
[2018-06-01 19:14] LABS: BASOPHILS % (AUTO) 0.6 % (0.0-2.0); EOSINOPHILS # (AUTO) 0.4 K/uL (0.0-0.7); EOSINOPHILS % (AUTO) 7.6 % (0.0-7.0); HEMATOCRIT 32.9 % (36.7-47.1); HEMOGLOBIN 11.2 g/dL (12.5-16.3); LYMPHOCYTES # (AUTO) 1.4 K/uL (20.0-40.0); LYMPHOCYTES % (AUTO) 27.7 % (20.5-51.5); MEAN CORPUSCULAR HEMOGLOBIN 32.3 uug (23.8-33.4); MEAN CORPUSCULAR HGB CONC 34 g/dL (32.5-36.3); MEAN CORPUSCULAR VOLUME 94.7 fL (73.0-96.2); MONOCYTES # (AUTO) 0.6 K/uL (2.0-10.0); MONOCYTES % (AUTO) 11.4 % (0.0-11.0); NEUTROPHILS # (AUTO) 2.6 K/uL (1.8-8.9); NEUTROPHILS % (AUTO) 52.7 % (38.5-71.5); PLATELET COUNT (AUTO) 173 K/uL (152-348); RED BLOOD CELL COUNT(AUTO) 3.47 MIL/uL (4.06-5.63)
[2018-06-01] MEDS ORDERED: ALBUTEROL SULFATE 2.5 MG/3 ML NEBU NEB ONE (19:15)
[2018-06-01] MEDS ORDERED: IPRATROPIUM BROMIDE 0.5 MG/2.5 ML NEBU NEB ONE (19:15)
[2018-06-01 19:23] LABS: CARBON DIOXIDE 31 mmol/L (21-32); CHLORIDE 100 mmol/L (98-107); CREATININE 0.3 mg/dL (0.6-1.3); GLUCOSE 84 mg/dL (74-106); POTASSIUM 4.1 mmol/L (3.5-5.1); UREA NITROGEN, BLOOD 8 mg/dL (7-18)
[2018-06-01] MEDS ORDERED: ALBUTEROL SULFATE 2.5 MG/3 ML NEBU ONE (19:23)
[2018-06-01] MEDS ORDERED: IPRATROPIUM BROMIDE 0.5 MG/2.5 ML NEBU ONE (19:23)
--- NOTE | 2018-06-01 19:28 | NUR ---
Urine sample collected, sent to lab.
[2018-06-01 19:29] LABS: ALANINE AMINOTRANSFERASE 79 U/L (16-63); ALKALINE PHOSPHATASE 198 U/L (50-136); ASPARTATE AMINOTRANSFERASE 34 U/L (15-37); BILIRUBIN,DIRECT 0.2 mg/dL (0.0-0.2); BILIRUBIN,TOTAL 0.3 mg/dL (0.2-1.0)
[2018-06-01 19:33] LABS: *BILIRUBIN,URIN NEGATIVE (NEGATIVE); *BLOOD, URINE Trace-intact (NEGATIVE); *CLARITY,URINE CLOUDY (CLEAR); *COLOR,URINE YELLOW (YELLOW); *KETONES,URINE NEGATIVE (NEGATIVE); *PROTEIN,URINE NEGATIVE (NEGATIVE); LEUKOCYTE ESTERASE ,URINE 3+ (NEGATIVE); NITRITE, URINE NEGATIVE (NEGATIVE); PH,URINE 8.5 (5.0-8.0); UGLUCOSE NEGATIVE (NEGATIVE)
[2018-06-01 19:37] LABS: BACTERIA,URINE MODERATE /HPF (NONE SEEN); WBC,URINE 50-80 /HPF (0-3)
[2018-06-01 19:38] LABS: MUCUS,URINE MODERATE /LPF (0-FEW); URINE AMORPHOUS PHOSPHATES MODERATE /HPF
[2018-06-01] MEDS ORDERED: MEROPENEM 1,000 MG in IV NORMAL SALINE 250 ML IV ONE (20:15)
[2018-06-01] MEDS ORDERED: IV NORMAL SALINE 1000 ML BAG IV ONE (20:15)
[2018-06-01] MEDS ORDERED: MEROPENEM 1 G VIAL IV ONE (20:24)
[2018-06-01 20:30] VITALS: BP 112/62
[2018-06-01] MEDS ORDERED: ACETAMINOPHEN 325 MG TABLET PO PRN (20:45)
[2018-06-01] MEDS ORDERED: HYDROMORPHONE 1 MG/1 ML DISP.SYRIN IV ONE (20:45)
[2018-06-01] MEDS ORDERED: HYDROCODONE/APAP 5-325MG TABLET PO PRN (20:45)
[2018-06-01] MEDS ORDERED: PIPERACILLIN SODIUM/TAZOBACTAM 3.375 G in IV DEXTROSE 5% 50 ML IV ONE (20:45)
[2018-06-01] MEDS ORDERED: ONDANSETRON 4 MG/2 ML VIAL IV PRN (20:45)
[2018-06-01] MEDS ORDERED: MAGNESIUM HYDROXIDE 30 ML LIQUID UDC PO PRN (20:45)
--- NOTE | 2018-06-01 20:50 | NUR ---
Dr. Lawler called, states he is a friend of the patient and looking forward to visiting him tomorrow. Gave patient's sister's contact number , cell.
--- NOTE | 2018-06-01 20:55 | NUR ---
Dr. Robbins spoke with CONNIE Avila NP.
[2018-06-01] MEDS ORDERED: HYDROMORPHONE 2 MG/1 ML DISP.SYRIN ONE (21:00)
--- NOTE | 2018-06-01 21:10 | NUR ---
Report given to Kadie WILD tele.
[2018-06-01] MEDS ORDERED: ALBUTEROL SULFATE 2.5 MG/3 ML NEBU NEB PRN (21:15)
--- NOTE | 2018-06-01 21:25 | NUR ---
Admitted a 43 years old male with Diagnosis of Dehydration and UTI. Patient AAOx3. In no acute distress. Tracheostomy tube and GT tube in place. FC intact and draining via gravity. NSR on tele with rare PVC's at 70/min. Port on right thigh intact and patent. Routine admission care done. Plan of care initiated. Safety measure initiated and call henderson within reach.
[2018-06-01] MEDS ORDERED: PHENOBARBITAL 32.4 MG TABLET GT ONE (22:00)
[2018-06-01] MEDS ORDERED: ENOXAPARIN SODIUM 40 MG/0.4 ML DISP.SYRIN SQ ONE (22:00)
[2018-06-01] MEDS ORDERED: TRAZODONE 50 MG TABLET GT SCH (22:30)
[2018-06-01] MEDS: BACLOFEN 10 MG TABLET GT SCH (22:39)
[2018-06-01] MEDS: IBUPROFEN 400 MG TABLET PO PRN (22:39)
[2018-06-01] MEDS ORDERED: VANCOMYCIN IV 200 ML IV SCH (23:00)
[2018-06-01] MEDS ORDERED: LORAZEPAM 2 MG/1 ML VIAL IV SCH (23:00)
[2018-06-01] MEDS ORDERED: VANCOMYCIN IV 200 ML ONE (23:25)
[2018-06-02] VITALS (7 sets, daily range): BP systolic 81–125; BP diastolic 42–88
[2018-06-02] MEDS ORDERED: MEROPENEM 1 G VIAL IV ONE (01:08)
[2018-06-02] MEDS: JEVITY 1.2 1000 ML LIQUID GT SCH ×2 (01:41→17:31)
[2018-06-02] MEDS: BACLOFEN 10 MG TABLET GT SCH ×3 (05:15→20:49)
[2018-06-02] MEDS: MEROPENEM 1 G in IV NORMAL SALINE 100 ML IV SCH ×2 (05:16→15:17)
[2018-06-02] MEDS: IV NS 1000 ML 1,000 ML IV PRN ×2 (06:27→15:17)
--- NOTE | 2018-06-02 06:27 | NUR ---
AAOx3.Tracheostomy tube and GT tube remains intact. GT feeding and flushing tolerated well. FC intact and draining via gravity. NSR on tele with rare PVC's at 70/min. Port on right thigh intact and patent. No adverse reaction noted from IV ABX. Needs attended to and met. Safety measure maintained and call henderson within reach.
[2018-06-02] MEDS: PANTOPRAZOLE ORAL SUSPENSION 40 MG SUSPDR.PKT GT SCH ×2 (06:30→09:20)
[2018-06-02 06:40] LABS: CARBON DIOXIDE 31 mmol/L (21-32); CHLORIDE 105 mmol/L (98-107); CHOLESTEROL 138 mg/dL (<200); CREATININE 0.4 mg/dL (0.6-1.3); GLUCOSE 118 mg/dL (74-106); HDL CHOLESTEROL 56 mg/dL (40-60); MAGNESIUM 1.7 mg/dL (1.8-2.4); PHOSPHOROUS 3.5 mg/dL (2.5-4.9); POTASSIUM 3.5 mmol/L (3.5-5.1); TRIGLYCERIDES 16 MG/DL (30-150)
--- NOTE | 2018-06-02 06:55 | NUR ---
Dickens patient calling for help, stated he could not breath. Pt appears pale and SOB. HOB raised up and suction secretions via tracheostomy. Able to obtain moderate amount of secretions. Rapid response activated. O2 increase to 15LPM. VS as follow: BP 115/72, HR 97, Temp 97.4 and O2 saturation from 94 and increase to 98% right after. BS 121mg/dl. Patient felt better after. RT took over.
[2018-06-02 07:04] LABS: UREA NITROGEN, BLOOD 6 mg/dL (7-18)
[2018-06-02 07:12] LABS: BASOPHILS % (AUTO) 0.4 % (0.0-2.0); EOSINOPHILS # (AUTO) 0.3 K/uL (0.0-0.7); EOSINOPHILS % (AUTO) 7.6 % (0.0-7.0); HEMATOCRIT 33.4 % (36.7-47.1); HEMOGLOBIN 11.6 g/dL (12.5-16.3); LYMPHOCYTES # (AUTO) 0.8 K/uL (20.0-40.0); LYMPHOCYTES % (AUTO) 17.5 % (20.5-51.5); MEAN CORPUSCULAR HEMOGLOBIN 32.9 uug (23.8-33.4); MEAN CORPUSCULAR HGB CONC 35 g/dL (32.5-36.3); MONOCYTES # (AUTO) 0.5 K/uL (2.0-10.0); MONOCYTES % (AUTO) 11.1 % (0.0-11.0); NEUTROPHILS # (AUTO) 2.9 K/uL (1.8-8.9); NEUTROPHILS % (AUTO) 63.4 % (38.5-71.5); PLATELET COUNT (AUTO) 169 K/uL (152-348); RED BLOOD CELL COUNT(AUTO) 3.51 MIL/uL (4.06-5.63); WHITE BLOOD COUNT (AUTO) 4.6 K/uL (3.6-10.2)
[2018-06-02 07:26] LABS: THYROID STIMULATING HORMONE 0.754 mIU/mL (0.358-3.740)
[2018-06-02] MEDS ORDERED: PANTOPRAZOLE SODIUM 40 MG TABLET.DR PO SCH (07:30)
--- NOTE | 2018-06-02 07:50 | NUR ---
Received pt awake, alert and oriented times 3. Able to verbalize needs. Pt was suctioned by RT and breathing treatment started. Pt request his speaking valve. RT will place it after breathing treatment
[2018-06-02] MEDS ORDERED: GABAPENTIN GT SCH (09:00)
[2018-06-02] MEDS ORDERED: RANITIDINE GT SCH (09:00)
[2018-06-02] MEDS ORDERED: MORPHINE SULFATE IR 30 MG TABLET GT PRN (09:00)
[2018-06-02] MEDS ORDERED: MAGNESIUM OXIDE 400 MG TABLET PO ONE (09:00)
[2018-06-02] MEDS ORDERED: Medication Not On Formulary EA (Gabapentin 1 TAB) GT SCH (09:00)
[2018-06-02] MEDS ORDERED: FAMOTIDINE 20 MG TABLET GT SCH (09:00)
--- NOTE | 2018-06-02 09:08 | NUR ---
Clinical pharmacy note-Vancomycin dosing per pharmacy Subjective: To start Vancomycin on this quadriplegic patient for recurrent UTI with early sepsis. Objective: BUN 6 Scr 0.4 WBC 4.6 Temp 97.3 Ht 182.88cm Wt 54.233kg Assessment/Plan: Patient had 1 gram in ER last night at 2337. Will continue 1 gram IV every 14 hrs(second dose today at 1300). Will draw trough by 4th dose(not ordered yet) for expected trough around 13.8 and follow the level for further dosing.
--- NOTE | 2018-06-02 09:15 | NUR ---
Informed by telecommunications support that the pt was requesting his pain shot. Informed pt he has a new order for 15mg Morphine. Pt refused and stated he needs 2 mg Dilaudid. KEISHA Arreaga aware
[2018-06-02] MEDS: TIZANIDINE HCL 4 MG TABLET GT SCH ×3 (09:20→21:40)
[2018-06-02] MEDS: GABAPENTIN 300 MG CAPSULE GT SCH ×3 (09:20→21:40)
[2018-06-02] MEDS: PHENOBARBITAL 32.4 MG TABLET GT SCH ×2 (09:21→20:50)
[2018-06-02] MEDS: TOLTERODINE 2 MG TABLET GT SCH (09:21)
[2018-06-02] MEDS: LORAZEPAM 1 MG TABLET GT SCH ×2 (09:21→20:50)
[2018-06-02] MEDS: LORATADINE 10 MG TABLET GT SCH (09:21)
[2018-06-02] MEDS: ACETYLCYSTEINE 10% 4ML VIAL NEB SCH ×3 (10:59→20:23)
--- NOTE | 2018-06-02 11:53 | NUR ---
Pt stating he has severe pain. PT BP was 89/54 on the right arm and 84/46 on the left arm. Pt stated to take his BP on the leg, on the left thigh BP 113/68. Pt refused Morphine second today. Pt states he needs Dilaudid 2mg. KEISHA Arreaga is already aware
[2018-06-02] MEDS ORDERED: VANCOMYCIN IV 1 G in PREMIXED 0 EACH IV SCH (13:00)
[2018-06-02] MEDS: ALBUTEROL SULFATE 2.5 MG/3 ML NEBU NEB SCH ×2 (14:25→20:20)
[2018-06-02] MEDS: HYDROMORPHONE 2 MG/1 ML DISP.SYRIN IV PRN (15:24)
[2018-06-02] MEDS ORDERED: DOSING PER PHARMACY-AMIKACIN IV XX PRN (16:45)
--- NOTE | 2018-06-02 17:10 | NUR ---
Air mattress in place. GT dressing changed: cleansed with NS, pat dry and placed a dry dressing, secured with paper tape. Addendum: 06/02/18 at 1712 by MIGUEL GUADARRAMA RN Also called kitchen for a new bottle of Jevity
--- NOTE | 2018-06-02 17:43 | NUR ---
Clinical pharmacy note-Amikacin per pharmacy Subjective: To start Amikacin IV on this quadriplegic patient for GNR UTI(MDR) Objective: BUN 6/Scr 0.4 WBC 4.6 Temp 98 Assessment/Plan: Will start Amikacin 500mg IV every 8hrs and draw peak and trough by 4th dose(not ordered yet) for expected peak 23 and trough 6. Will follow the level for further dosing.
[2018-06-02] MEDS: AMIKACIN 500 MG in IV DEXTROSE 5% 100 ML IV SCH (18:33)
--- NOTE | 2018-06-02 19:10 | NUR ---
Received patient lying in bed. AAOx3.In no acute distress. GT feeding ongoing. FC intact and draining via gravity. NSR on tele at 74/min. Port on right thigh intact and patent. IVF infusing. Safety measure initiated and call henderson within reach.
[2018-06-02] MEDS: TRAZODONE 100 MG TABLET GT SCH (20:48)
[2018-06-02] MEDS: risperiDONE 1 MG TABLET GT SCH (20:49)
[2018-06-02] MEDS: ENOXAPARIN SODIUM 40 MG/0.4 ML DISP.SYRIN SQ SCH (20:52)
[2018-06-02] MEDS: ZONISAMIDE 100 MG CAPSULE GT SCH (21:40)
[2018-06-03] VITALS (7 sets, daily range): BP systolic 71–119; BP diastolic 44–85
[2018-06-03] MEDS: HYDROMORPHONE 2 MG/1 ML DISP.SYRIN IV PRN ×5 (00:36→23:08)
[2018-06-03] MEDS: IV NS 1000 ML 1,000 ML IV PRN ×3 (01:03→18:28)
[2018-06-03] MEDS: ALBUTEROL SULFATE 2.5 MG/3 ML NEBU NEB SCH ×5 (01:41→23:15)
[2018-06-03] MEDS: AMIKACIN 500 MG in IV DEXTROSE 5% 100 ML IV SCH ×3 (01:45→18:28)
[2018-06-03] MEDS: TIZANIDINE HCL 4 MG TABLET GT SCH ×3 (05:06→21:05)
[2018-06-03] MEDS: GABAPENTIN 300 MG CAPSULE GT SCH ×3 (05:06→21:05)
[2018-06-03] MEDS: BACLOFEN 10 MG TABLET GT SCH ×3 (05:06→20:27)
--- NOTE | 2018-06-03 06:18 | NUR ---
AAOx3.Tracheostomy tube and GT tube remains intact. GT feeding and flushing tolerated well. Suction secretions PRN. FC intact and draining via gravity. NSR on tele with occasional PVC's at 60/min. Port on right thigh intact and patent. No adverse reaction noted from IV ABX. Pain on both shoulder manage with Dilaudid PRN. Needs attended to and met. Safety measure maintained and call henderson within reach.
--- NOTE | 2018-06-03 07:14 | NUR ---
Received pt awake, alert and oriented times 4. Pt is able to verbalize his needs, no immediate s/s of SOB, pain, distress or discomfort. GT feeding running.
[2018-06-03 07:36] LABS: BASOPHILS % (AUTO) 0.4 % (0.0-2.0); EOSINOPHILS # (AUTO) 0.4 K/uL (0.0-0.7); HEMATOCRIT 29.1 % (36.7-47.1); HEMOGLOBIN 9.8 g/dL (12.5-16.3); LYMPHOCYTES # (AUTO) 0.8 K/uL (20.0-40.0); LYMPHOCYTES % (AUTO) 19.5 % (20.5-51.5); MEAN CORPUSCULAR HEMOGLOBIN 32.6 uug (23.8-33.4); MEAN CORPUSCULAR HGB CONC 34 g/dL (32.5-36.3); MEAN CORPUSCULAR VOLUME 96.2 fL (73.0-96.2); MONOCYTES # (AUTO) 0.6 K/uL (2.0-10.0); MONOCYTES % (AUTO) 16.1 % (0.0-11.0); NEUTROPHILS # (AUTO) 2.2 K/uL (1.8-8.9); PLATELET COUNT (AUTO) 142 K/uL (152-348); RED BLOOD CELL COUNT(AUTO) 3.02 MIL/uL (4.06-5.63)
[2018-06-03] MEDS: ACETYLCYSTEINE 10% 4ML VIAL NEB SCH ×3 (07:45→23:15)
[2018-06-03 07:46] LABS: CARBON DIOXIDE 30 mmol/L (21-32); CHLORIDE 110 mmol/L (98-107); CREATININE 0.2 mg/dL (0.6-1.3); GLUCOSE 78 mg/dL (74-106); MAGNESIUM 1.7 mg/dL (1.8-2.4); PHOSPHOROUS 3.2 mg/dL (2.5-4.9); POTASSIUM 3.9 mmol/L (3.5-5.1); UREA NITROGEN, BLOOD 8 mg/dL (7-18)
[2018-06-03 07:55] LABS: EOSINOPHILS % (MANUAL) 10 % (0-8); LYMPHOCYTES % (MANUAL) 19 % (20-40); MONOCYTES % (MANUAL) 15 % (2-10); NEUTROPHILS % (MANUAL) 56 % (42-75)
[2018-06-03] MEDS: LORATADINE 10 MG TABLET GT SCH (09:33)
[2018-06-03] MEDS: LORAZEPAM 1 MG TABLET GT SCH ×2 (09:33→20:27)
[2018-06-03] MEDS: PHENOBARBITAL 32.4 MG TABLET GT SCH ×2 (09:33→20:27)
[2018-06-03] MEDS: PANTOPRAZOLE ORAL SUSPENSION 40 MG SUSPDR.PKT GT SCH (09:34)
[2018-06-03] MEDS: TOLTERODINE 2 MG TABLET GT SCH (09:34)
[2018-06-03] MEDS ORDERED: MAGNESIUM OXIDE 400 MG TABLET PO ONE (10:30)
--- NOTE | 2018-06-03 10:40 | NUR ---
Pt was given a bed bath by RN and MARA. Pt was repositioned. Pt stated he has severe pain in his shoulders. BP taken on his left arm 100/68 HR 80
--- NOTE | 2018-06-03 13:12 | NUR ---
Pt was able to previously talk to his sister Mari. Pt is requesting oral gratification in form of vanilla pudding or vanilla ice cream. Whitley VALDES is aware
--- NOTE | 2018-06-03 14:16 | NUR ---
Clinical pharmacy note-Amikacin per pharmacy Subjective: To continue Amikacin IV on this quadriplegic patient for GNR UTI(MDR)(ID note-SZ episode on merrem/cefepime) Objective: BUN 8/Scr 0.2 WBC 4.0 Temp 97.6 Assessment/Plan: Will continue Amikacin 500mg IV every 8hrs(3rd dose given today at 10) and draw peak and trough by 4th dose(ordered by 1830 dose) for expected peak 23 and trough 6. Will follow the level for further dosing.
--- NOTE | 2018-06-03 15:35 | NUR ---
Pt.'s BP was taken on the left arm and it was 71/44 retook BP on the left leg 119/46. Whitley VALDES, is aware and states it could either be the BP cuff or pt upper extremities might be unreliable. Continue to monitor BP and give Dilaudid with caution . LARD MAKER ordered oral gratification
--- NOTE | 2018-06-03 15:55 | NUR ---
Oral gratification ordered: Vanilla pudding and vanilla ice-cream. Pt must be observed by an RN or SR. MANAGER during oral gratification as ordered by KEISHA Arreaga
[2018-06-03] MEDS: JEVITY 1.2 1000 ML LIQUID GT SCH (16:13)
--- NOTE | 2018-06-03 16:20 | NUR ---
Started oral gratification with vanilla pudding, pt tolerated well. Pt had RN supervision with oral gratification with pudding.
--- NOTE | 2018-06-03 16:36 | NUR ---
Received call from [facility]. Pt is positive for MRSA of the nares. WINE AND SPIRITS CLERK aware
--- NOTE | 2018-06-03 16:58 | NUR ---
Bactron will be canceled. 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 ARMATURE INSPECTOR stated no need to treat it
--- NOTE | 2018-06-03 18:10 | NUR ---
Pt stated that he was in severe pain. Informed pt that he had Dilaudid at 1610. Pt stated it was a lie and insisted that I show him on the computer at what time it was given. Pt insisted I give him a pain shot now. Informed pt I was not going to given him a pain shot against orders. Informed charge nurse to also speak to the pt. Pt is trying to bargain with me by stating that he wants ice cream now and two of them. called kitchen and asked to bring him one ice cream
--- NOTE | 2018-06-03 19:20 | NUR ---
Received patient lying in bed. AAOx3.In no acute distress. GT feeding ongoing. Tracheostomy tube intact. on o2 at 6lpm. FC intact and draining via gravity. Port on right thigh intact and patent. IVF infusing. Safety measure initiated and call henderson within reach.
[2018-06-03] MEDS: TRAZODONE 100 MG TABLET GT SCH (20:26)
[2018-06-03] MEDS: risperiDONE 1 MG TABLET GT SCH (20:27)
[2018-06-03] MEDS: ZONISAMIDE 100 MG CAPSULE GT SCH (20:28)
[2018-06-03] MEDS: ENOXAPARIN SODIUM 40 MG/0.4 ML DISP.SYRIN SQ SCH (20:33)
[2018-06-03] MEDS ORDERED: MUPIROCIN 2% OINT 22 GM TUBE NS SCH (21:00)
[2018-06-04] MEDS: AMIKACIN 500 MG in IV DEXTROSE 5% 100 ML IV SCH ×2 (01:31→10:31)
[2018-06-04] MEDS: HYDROMORPHONE 2 MG/1 ML DISP.SYRIN IV PRN ×5 (03:03→20:20)
[2018-06-04] MEDS: IV NS 1000 ML 1,000 ML IV PRN ×3 (03:54→23:06)
[2018-06-04] MEDS: GABAPENTIN 300 MG CAPSULE GT SCH ×3 (05:06→23:05)
[2018-06-04] MEDS: BACLOFEN 10 MG TABLET GT SCH ×3 (05:06→21:59)
[2018-06-04] MEDS: TIZANIDINE HCL 4 MG TABLET GT SCH ×3 (05:06→23:05)
[2018-06-04 05:18] VITALS: BP 114/69
--- NOTE | 2018-06-04 06:12 | NUR ---
AAOx3.Tracheostomy tube and GT tube remains intact. Secretions suction PRN. GT feeding and flushing tolerated well. FC intact and draining via gravity. Port on right thigh intact and patent. No adverse reaction noted from IV ABX. Needs attended to and met. Safety measure maintained and call henderson within reach.
[2018-06-04] MEDS: JEVITY 1.2 1000 ML LIQUID GT SCH (06:18)
[2018-06-04 06:39] LABS: CARBON DIOXIDE 28 mmol/L (21-32); CHLORIDE 105 mmol/L (98-107); CREATININE 0.2 mg/dL (0.6-1.3); GLUCOSE 108 mg/dL (74-106); MAGNESIUM 1.6 mg/dL (1.8-2.4); PHOSPHOROUS 3.1 mg/dL (2.5-4.9); POTASSIUM 4.4 mmol/L (3.5-5.1); UREA NITROGEN, BLOOD 9 mg/dL (7-18)
[2018-06-04 07:00] LABS: BASOPHILS % (AUTO) 0.8 % (0.0-2.0); EOSINOPHILS # (AUTO) 0.4 K/uL (0.0-0.7); EOSINOPHILS % (AUTO) 9.8 % (0.0-7.0); HEMATOCRIT 27.4 % (36.7-47.1); HEMOGLOBIN 9.3 g/dL (12.5-16.3); LYMPHOCYTES # (AUTO) 0.7 K/uL (20.0-40.0); LYMPHOCYTES % (AUTO) 18.9 % (20.5-51.5); MEAN CORPUSCULAR HEMOGLOBIN 32.5 uug (23.8-33.4); MEAN CORPUSCULAR HGB CONC 34 g/dL (32.5-36.3); MEAN CORPUSCULAR VOLUME 95.5 fL (73.0-96.2); MONOCYTES # (AUTO) 0.6 K/uL (2.0-10.0); MONOCYTES % (AUTO) 15.8 % (0.0-11.0); NEUTROPHILS % (AUTO) 54.7 % (38.5-71.5); PLATELET COUNT (AUTO) 146 K/uL (152-348); RED BLOOD CELL COUNT(AUTO) 2.87 MIL/uL (4.06-5.63); WHITE BLOOD COUNT (AUTO) 3.6 K/uL (3.6-10.2)
--- NOTE | 2018-06-04 07:00 | NUR ---
RECEIVED PATIENT ON BED ASLEEP. ON O2 @3LPM VIA NC. SOB NOTED WHEN LYING FLAT. OTHERWISE NO ACUTE DISTRESS NOTED. IV ACCESS ON THE LFA #22 INTACT AND PATENT. NO COMPLAINTS OF PAIN/DISCOMFORT. CALL LIGHT WITHIN REACH. WILL CONTINUE TO MONITOR CLOSELY.
[2018-06-04] MEDS: ACETYLCYSTEINE 10% 4ML VIAL NEB SCH ×3 (07:23→22:37)
[2018-06-04] MEDS: ALBUTEROL SULFATE 2.5 MG/3 ML NEBU NEB SCH ×4 (07:23→22:38)
[2018-06-04] MEDS: PHENOBARBITAL 32.4 MG TABLET GT SCH ×2 (08:25→21:58)
[2018-06-04] MEDS: PANTOPRAZOLE ORAL SUSPENSION 40 MG SUSPDR.PKT GT SCH (08:25)
[2018-06-04] MEDS: LORATADINE 10 MG TABLET GT SCH (08:25)
[2018-06-04] MEDS: LORAZEPAM 1 MG TABLET GT SCH ×2 (08:25→23:05)
[2018-06-04] MEDS: TOLTERODINE 2 MG TABLET GT SCH (08:25)
[2018-06-04 10:10] LABS: EOSINOPHILS % (MANUAL) 11 % (0-8); LYMPHOCYTES % (MANUAL) 26 % (20-40); MONOCYTES % (MANUAL) 15 % (2-10); NEUTROPHILS % (MANUAL) 48 % (42-75)
[2018-06-04 11:39] VITALS: BP 94/70
--- NOTE | 2018-06-04 11:57 | NUR ---
Clinical pharmacy note-Amikacin per pharmacy Subjective: To continue Amikacin IV on this 43 yo male quadriplegic patient for UTI (ID note-SZ episode on merrem/cefepime) Objective: BUN 9/Scr 0.2 WBC 3.6 Temp 98.1 Amikacin peak: pending Amikacin trough: pending Assessment/Plan: Will continue Amikacin 500mg IV every 8hrs for today. Amikacin peak & trough level were not drawn yesterday (RN gae dose before trough was drawn). Rescheduled peak and trough by 4th dose(for today at 1000 (tr) & at 1130 (peak)) for expected peak 23 and trough 6. Will follow the level for further dosing.
[2018-06-04 14:07] LABS: ABG BASE EXCESS 5.3 mmol/L; ABG PCO2 50.5 mmHg (35.0-45.0); ABG PH 7.406 (7.350-7.450); ABG PO2 296.8 mmHg (75.0-100.0); ABG SITE RIGHT RADIAL; ABG TOTAL HEMOGLOBIN 12.1 G/dL (13.5-18.0); COHb 0.9 % (0.5-1.5); MetHb 0.3 % (0.0-1.5); O2Hb 98.7 % (94.0-97.0)
[2018-06-04] MEDS: MAGNESIUM SULFATE/D5W 100 ML IV SCH ×2 (14:13→15:14)
[2018-06-04 15:53] VITALS: BP 89/41
--- NOTE | 2018-06-04 20:00 | NUR ---
Received patient laying in bed. No acute distress noted. HOB elevated. A/O x 3 but forgetful. Patient is on a trach with 6L. IVF infusing. Patient is quadriplegic. GT tube feeding at 70, tolerating well. Gaytan cath on the right thigh, patent and intact. Olsen cath draining yellow, clear urine with sediments. Noted old scar in the sacral area. Mepilex in place. Safety initiated. Call light within reach. Will closely monitor.
[2018-06-04] MEDS: JEVITY 1.2 1000 ML LIQUID GT PRN (20:20)
[2018-06-04 20:25] VITALS: BP 114/76
[2018-06-04] MEDS: risperiDONE 1 MG TABLET GT SCH (21:58)
[2018-06-04] MEDS: TRAZODONE 100 MG TABLET GT SCH (21:58)
[2018-06-04] MEDS: ZONISAMIDE 100 MG CAPSULE GT SCH (21:59)
[2018-06-04] MEDS: ENOXAPARIN SODIUM 40 MG/0.4 ML DISP.SYRIN SQ SCH (22:00)
[2018-06-04] MEDS: PIPERACILLIN/TAZOBACTAM/D5W 3.375 G in PREMIXED 1 EACH IV SCH (23:06)
[2018-06-05] MEDS: HYDROMORPHONE 2 MG/1 ML DISP.SYRIN IV PRN ×4 (00:29→23:43)
[2018-06-05] MEDS: ALBUTEROL SULFATE 2.5 MG/3 ML NEBU NEB SCH ×5 (01:12→23:30)
[2018-06-05] MEDS: GABAPENTIN 300 MG CAPSULE GT SCH ×3 (05:00→22:02)
[2018-06-05] MEDS: PIPERACILLIN/TAZOBACTAM/D5W 3.375 G in PREMIXED 1 EACH IV SCH ×2 (05:00→13:35)
[2018-06-05] MEDS: TIZANIDINE HCL 4 MG TABLET GT SCH ×3 (05:00→22:02)
[2018-06-05] MEDS: BACLOFEN 10 MG TABLET GT SCH ×3 (05:00→20:25)
[2018-06-05 05:17] VITALS: BP 91/52
--- NOTE | 2018-06-05 05:33 | NUR ---
Patient slept intermittently t/o shift. C/o neck and shoulder pain 9 t/o shift. Meds given, stated relief. Remains A/O x 3 but forgetful. Vitals signs stable. IVF infusing on the right thigh keller cath. Patent and intact. Patient is on a trach with 6L. Olsen cath draining well. Yellow, clear with some sediments. On air mattress. Turned and repositioned Q2H. Wound care provided. Mepilex in place. All meds given as ordered. All needs met. Safety and comfort measures maintained t/o shift.
--- NOTE | 2018-06-05 06:51 | NUR ---
Manual disimpaction done. Stool sample sent. Tolerated it well. Will continue to monitor.
[2018-06-05 06:58] LABS: BASOPHILS % (AUTO) 0.3 % (0.0-2.0); EOSINOPHILS # (AUTO) 0.2 K/uL (0.0-0.7); EOSINOPHILS % (AUTO) 6.3 % (0.0-7.0); HEMOGLOBIN 9.4 g/dL (12.5-16.3); LYMPHOCYTES # (AUTO) 0.6 K/uL (20.0-40.0); MEAN CORPUSCULAR HEMOGLOBIN 33.5 uug (23.8-33.4); MEAN CORPUSCULAR HGB CONC 35 g/dL (32.5-36.3); MEAN CORPUSCULAR VOLUME 96.1 fL (73.0-96.2); MONOCYTES # (AUTO) 0.8 K/uL (2.0-10.0); NEUTROPHILS # (AUTO) 1.9 K/uL (1.8-8.9); NEUTROPHILS % (AUTO) 53.4 % (38.5-71.5); PLATELET COUNT (AUTO) 140 K/uL (152-348); RED BLOOD CELL COUNT(AUTO) 2.81 MIL/uL (4.06-5.63); WHITE BLOOD COUNT (AUTO) 3.6 K/uL (3.6-10.2)
[2018-06-05 07:26] LABS: CARBON DIOXIDE 30 mmol/L (21-32); CHLORIDE 105 mmol/L (98-107); CREATININE 0.2 mg/dL (0.6-1.3); GLUCOSE 92 mg/dL (74-106); MAGNESIUM 1.9 mg/dL (1.8-2.4); PHOSPHOROUS 3.2 mg/dL (2.5-4.9); POTASSIUM 4.5 mmol/L (3.5-5.1); UREA NITROGEN, BLOOD 9 mg/dL (7-18)
[2018-06-05] MEDS: ACETYLCYSTEINE 10% 4ML VIAL NEB SCH ×3 (07:27→23:30)
--- NOTE | 2018-06-05 08:00 | NUR ---
AWAKE ALERT COOPERATE WELL ON ASPIRATION AND FALL PRECAUTION BED ALARM ON AND CALL LIGHT IN REACH CONTINUE GT FEEDING ALYSIA WELL AND IVF INFUSION WELL F/C IN PLACE URINE CL YELLOW ON O2 VIA TRACH MASK AT 6L /MINS SUCTION PRN GIVEN AND CLOSED OBSERVATION NO PAIN AT THIS TIME
[2018-06-05] MEDS: PANTOPRAZOLE ORAL SUSPENSION 40 MG SUSPDR.PKT GT SCH (08:29)
[2018-06-05] MEDS: IV NS 1000 ML 1,000 ML IV PRN ×2 (08:29→18:13)
[2018-06-05] MEDS: LORATADINE 10 MG TABLET GT SCH (08:30)
[2018-06-05] MEDS: IBUPROFEN 400 MG TABLET PO PRN ×2 (08:30→16:29)
[2018-06-05] MEDS: TOLTERODINE 2 MG TABLET GT SCH (08:30)
[2018-06-05] MEDS: LORAZEPAM 1 MG TABLET GT SCH ×2 (08:30→20:25)
[2018-06-05] MEDS: PHENOBARBITAL 32.4 MG TABLET GT SCH ×2 (08:30→20:25)
[2018-06-05] MEDS: Z GUARD REMEDY PASTE 57 GM TUBE TOP PRN (08:31)
[2018-06-05 10:44] LABS: EOSINOPHILS % (MANUAL) 9 % (0-8); LYMPHOCYTES % (MANUAL) 32 % (20-40); MONOCYTES % (MANUAL) 10 % (2-10); NEUTROPHILS % (MANUAL) 49 % (42-75)
[2018-06-05 11:27] VITALS: BP 104/69
[2018-06-05 11:43] LABS: *OCCULT BLOOD STOOL NEGATIVE (NEGATIVE)
[2018-06-05] MEDS: JEVITY 1.2 1000 ML LIQUID GT PRN (14:56)
--- NOTE | 2018-06-05 15:00 | NUR ---
RESTING WELL REPOSITION Q 2 HR ALYSIA WELL IV RATE CHANGE TO 75ML/HR ORDER
[2018-06-05 16:10] VITALS: BP 98/69
--- NOTE | 2018-06-05 18:00 | NUR ---
STABLE HEMODYNAMIC STATUS ,PAIN UNDER CONTROL NO ACUTE DISTRESS SAFETY MEASURE PROVIDED CALL LIGHT IN REACH
[2018-06-05] MEDS: risperiDONE 1 MG TABLET GT SCH (20:25)
[2018-06-05] MEDS: ZONISAMIDE 100 MG CAPSULE GT SCH (20:25)
[2018-06-05] MEDS: TRAZODONE 100 MG TABLET GT SCH (20:25)
[2018-06-05] MEDS: ENOXAPARIN SODIUM 40 MG/0.4 ML DISP.SYRIN SQ SCH (20:26)
[2018-06-05 20:56] VITALS: BP 106/43
[2018-06-05] MEDS ORDERED: SULFAMETH/TRIMETH 800/160 MG TABLET GT ONE (21:30)
--- NOTE | 2018-06-05 21:30 | NUR ---
Patient seen by VINOD Gaona with order to discontinue Zoysyn and change to Bactrim DS q12hrs x5 days for UTI. Ordered read back, verified and carried out.
[2018-06-05] MEDS ORDERED: SULFAMETH/TRIMETH 800/160 MG TABLET ONE (21:57)
[2018-06-06] MEDS: JEVITY 1.2 1000 ML LIQUID GT PRN (01:29)
[2018-06-06 04:00] VITALS: BP 90/45
[2018-06-06] MEDS: HYDROMORPHONE 2 MG/1 ML DISP.SYRIN IV PRN ×4 (04:07→17:18)
[2018-06-06] MEDS: BACLOFEN 10 MG TABLET GT SCH ×2 (05:11→13:12)
[2018-06-06] MEDS: GABAPENTIN 300 MG CAPSULE GT SCH ×2 (05:12→13:12)
[2018-06-06] MEDS: TIZANIDINE HCL 4 MG TABLET GT SCH ×2 (05:12→13:12)
[2018-06-06 06:00] VITALS: BP 101/63
--- NOTE | 2018-06-06 06:08 | NUR ---
AAOx3, but forgetful.Tracheostomy tube and GT tube remains intact. On O2 at 6LPM. GT feeding and flushing well tolerated. FC intact and draining via gravity. Port on right thigh intact and patent. No adverse reaction noted from ABX. Pain on both shoulder manage with Dilaudid PRN. Needs attended to and met. Safety measure maintained and call henderson within reach.
[2018-06-06 06:20] LABS: BASOPHILS % (AUTO) 0.2 % (0.0-2.0); EOSINOPHILS # (AUTO) 0.3 K/uL (0.0-0.7); EOSINOPHILS % (AUTO) 7.1 % (0.0-7.0); HEMATOCRIT 28.5 % (36.7-47.1); HEMOGLOBIN 9.6 g/dL (12.5-16.3); LYMPHOCYTES # (AUTO) 0.9 K/uL (20.0-40.0); LYMPHOCYTES % (AUTO) 21.1 % (20.5-51.5); MEAN CORPUSCULAR HEMOGLOBIN 32.8 uug (23.8-33.4); MEAN CORPUSCULAR HGB CONC 34 g/dL (32.5-36.3); MEAN CORPUSCULAR VOLUME 96.8 fL (73.0-96.2); MONOCYTES # (AUTO) 0.6 K/uL (2.0-10.0); MONOCYTES % (AUTO) 14.2 % (0.0-11.0); NEUTROPHILS # (AUTO) 2.4 K/uL (1.8-8.9); NEUTROPHILS % (AUTO) 57.4 % (38.5-71.5); PLATELET COUNT (AUTO) 154 K/uL (152-348); RED BLOOD CELL COUNT(AUTO) 2.94 MIL/uL (4.06-5.63); WHITE BLOOD COUNT (AUTO) 4.2 K/uL (3.6-10.2)
[2018-06-06 06:31] LABS: CARBON DIOXIDE 32 mmol/L (21-32); CHLORIDE 105 mmol/L (98-107); CREATININE 0.3 mg/dL (0.6-1.3); GLUCOSE 69 mg/dL (74-106); POTASSIUM 4.3 mmol/L (3.5-5.1); UREA NITROGEN, BLOOD 9 mg/dL (7-18)
[2018-06-06] MEDS: ACETYLCYSTEINE 10% 4ML VIAL NEB SCH ×2 (07:25→13:19)
[2018-06-06] MEDS: ALBUTEROL SULFATE 2.5 MG/3 ML NEBU NEB SCH ×2 (07:25→13:19)
--- NOTE | 2018-06-06 08:00 | NUR ---
AWAKE ALERT COOPERATE WELL NO PAIN OR ACUTE DISTRESS GT FEEDING ALYSIA WELL ON FALL AND ASPIRATION PRECAUTION BED ALARM ON AND CALL LIGHT IN REACH
[2018-06-06] MEDS: LORAZEPAM 1 MG TABLET GT SCH (08:12)
[2018-06-06] MEDS: LORATADINE 10 MG TABLET GT SCH (08:13)
[2018-06-06] MEDS: PHENOBARBITAL 32.4 MG TABLET GT SCH (08:13)
[2018-06-06] MEDS: TOLTERODINE 2 MG TABLET GT SCH (08:13)
[2018-06-06] MEDS: PANTOPRAZOLE ORAL SUSPENSION 40 MG SUSPDR.PKT GT SCH (08:13)
[2018-06-06] MEDS: Z GUARD REMEDY PASTE 57 GM TUBE TOP PRN (08:15)
[2018-06-06] MEDS: IV NS 1000 ML 1,000 ML IV PRN (08:19)
[2018-06-06] MEDS: IBUPROFEN 400 MG TABLET PO PRN ×2 (08:29→13:12)
[2018-06-06] MEDS ORDERED: SULFAMETH/TRIMETH 800/160 MG TABLET GT SCH (09:00)
--- NOTE | 2018-06-06 11:00 | NUR ---
SKEIN STRAIGHTENER Matt AGARWAL SEE PATIENT AND LAB RESULT AND ORDER TO D/C BACK HOME WITH PRECRIPTION /ORDERED D/C INSTRUCTION GIVEN TO PT AND SISTER ,VERBALIZES UNDERSTAND
[2018-06-06 11:47] VITALS: BP 106/70
--- NOTE | 2018-06-06 15:00 | NUR ---
SAME CONDITION IV HIPOLITO CATH FLUSH WITH HEPARINE PER PROTOCOL PRIOR D/C ACESS CATHETER RESTING PAIN UNDER CONTROL
[2018-06-06] MEDS ORDERED: HEPARIN SODIUM,PORCINE/PF 100 UNIT/ML, 5ML SYR XX PRN (15:45)
[2018-06-06 16:11] VITALS: BP 103/67
--- NOTE | 2018-06-06 17:30 | NUR ---
STABLE HEMODYNAMIC STATUS ,PAIN UNDER CONTROL SAFETY MEASURE PROVIDED CALL LIGHT IN REACH
--- NOTE | 2018-06-06 19:04 | NUR ---
D/C HOME VIA AMBULANCE WITH HIS BELONGING CONDITION STABLE NO PAIN OR SOB
== END 2018-06-06 19:05 | disposition home or self-care (01) | DRG 720 ==
LOC: ER 18:15 → TELE 21:12 → MED 06-03 08:45
PROVIDERS: ADMIT Registered Nurse; ATTEND Registered Nurse
DX: A41.9 Sepsis, unspecified organism (principal); E43 Unspecified severe protein-calorie malnutrition; G93.1 Anoxic brain damage, not elsewhere classified; G82.50 Quadriplegia, unspecified; D61.818 Other pancytopenia; J96.11 Chronic respiratory failure with hypoxia; D68.59 Other primary thrombophilia; N39.0 Urinary tract infection, site not specified; Z93.0 Tracheostomy status; E78.5 Hyperlipidemia, unspecified; Z68.1 Body mass index [BMI] 19.9 or less, adult; Z22.322 Carrier or suspected carrier of Methicillin resistant Staphylococcus aureus; S14.109S Unspecified injury at unspecified level of cervical spinal cord, sequela; X58.XXXS Exposure to other specified factors, sequela; G89.4 Chronic pain syndrome; F41.9 Anxiety disorder, unspecified; G40.909 Epilepsy, unspecified, not intractable, without status epilepticus; R13.10 Dysphagia, unspecified; N31.9 Neuromuscular dysfunction of bladder, unspecified; Z87.440 Personal history of urinary (tract) infections; L89.90 Pressure ulcer of unspecified site, unspecified stage; Z79.899 Other long term (current) drug therapy; G90.4 Autonomic dysreflexia; F11.20 Opioid dependence, uncomplicated; K59.00 Constipation, unspecified; B96.20 Unspecified Escherichia coli [E. coli] as the cause of diseases classified elsewhere; F32.9 Major depressive disorder, single episode, unspecified; B96.89 Other specified bacterial agents as the cause of diseases classified elsewhere
CPT/HCPCS: 36415; 36600; 70030-TC; 71045; 80184; 83605; 83735; 84100; 84443; 85025; 85730; 87040; 87077; 87086; 92610; 93005; 94640; A4217; A4663; J0278; J1170; J1642; J1650; J2060; J2185; J2543; J3370; J3475; J3490; J3590; J7030; J7050; J7060; J8499

== ENCOUNTER 2018-07-03 13:51 | Inpatient (IN) | payer OTHER ==
[~2018-07-03] VITALS: Ht 185.4 cm; Wt 58.1 kg
[~2018-07-03 13:51] MED LIST changes: +GABAPENTIN 250 MG/5 ML GT; -MEROPENEM 1 G in IV NORMAL SALINE 100 ML IV SCH; +TRAZODONE 50 MG GT
[2018-07-03] MEDS ORDERED: VANCOMYCIN IV 1,000 MG in IV DEXTROSE 5% 250 ML IV ONE (14:00)
[2018-07-03] MEDS ORDERED: IV NORMAL SALINE 1000 ML BAG IV ONE (14:00)
[2018-07-03] MEDS ORDERED: PIPERACILLIN SODIUM/TAZOBACTAM 3.375 G in IV DEXTROSE 5% 50 ML IV ONE (14:00)
[2018-07-03] MEDS ORDERED: VANCOMYCIN IV 200 ML ONE (14:24)
[2018-07-03] MEDS ORDERED: PIPERACILLIN/TAZOBACTAM/D5W 50 ML IV ONE (14:24)
[2018-07-03] MEDS ORDERED: GABA250S2 GT (14:39)
[2018-07-03] MEDS ORDERED: RISP0.2515 PO (14:39)
[2018-07-03] MEDS ORDERED: TRAZ-182 PO (14:39)
[2018-07-03] MEDS ORDERED: IPRA0.2S6 NEB (14:39)
[2018-07-03] MEDS ORDERED: ACET100V5 IH (14:39)
[2018-07-03] MEDS ORDERED: LORA10TA7 GT (14:39)
[2018-07-03] MEDS ORDERED: IBUP-1953 GT (14:39)
[2018-07-03] MEDS ORDERED: ZONI100C6 GT (14:39)
[2018-07-03] MEDS ORDERED: RANI15SY GT (14:39)
[2018-07-03 15:04] LABS: BASOPHILS % (AUTO) 1.1 % (0.0-2.0); EOSINOPHILS # (AUTO) 0.4 K/uL (0.0-0.7); EOSINOPHILS % (AUTO) 8.7 % (0.0-7.0); HEMATOCRIT 31.7 % (36.7-47.1); HEMOGLOBIN 10.9 g/dL (12.5-16.3); LYMPHOCYTES # (AUTO) 1.2 K/uL (20.0-40.0); LYMPHOCYTES % (AUTO) 27.4 % (20.5-51.5); MEAN CORPUSCULAR HEMOGLOBIN 32.6 uug (23.8-33.4); MEAN CORPUSCULAR HGB CONC 34 g/dL (32.5-36.3); MEAN CORPUSCULAR VOLUME 94.8 fL (73.0-96.2); MONOCYTES # (AUTO) 0.7 K/uL (2.0-10.0); MONOCYTES % (AUTO) 15.7 % (0.0-11.0); NEUTROPHILS % (AUTO) 47.1 % (38.5-71.5); PLATELET COUNT (AUTO) 158 K/uL (152-348); RED BLOOD CELL COUNT(AUTO) 3.34 MIL/uL (4.06-5.63); WHITE BLOOD COUNT (AUTO) 4.2 K/uL (3.6-10.2)
[2018-07-03 15:12] LABS: CARBON DIOXIDE 29 mmol/L (21-32); CHLORIDE 101 mmol/L (98-107); CREATININE 0.3 mg/dL (0.6-1.3); GLUCOSE 86 mg/dL (74-106); POTASSIUM 3.5 mmol/L (3.5-5.1); UREA NITROGEN, BLOOD 7 mg/dL (7-18)
[2018-07-03] MEDS ORDERED: HYDROMORPHONE 1 MG/1 ML DISP.SYRIN IV ONE (15:15)
[2018-07-03 15:17] LABS: ALANINE AMINOTRANSFERASE 73 U/L (16-63); ALKALINE PHOSPHATASE 178 U/L (50-136); ASPARTATE AMINOTRANSFERASE 38 U/L (15-37); BILIRUBIN,DIRECT 0.2 mg/dL (0.0-0.2); BILIRUBIN,TOTAL 0.5 mg/dL (0.2-1.0); TOTAL PROTEIN, SERUM 7.1 g/dL (6.4-8.2)
[2018-07-03] MEDS ORDERED: HYDROMORPHONE 2 MG/1 ML DISP.SYRIN ONE (15:25)
[2018-07-03 15:27] LABS: *BILIRUBIN,URIN NEGATIVE (NEGATIVE); *BLOOD, URINE 1+ (NEGATIVE); *CLARITY,URINE CLOUDY (CLEAR); *COLOR,URINE YELLOW (YELLOW); *KETONES,URINE NEGATIVE (NEGATIVE); *PROTEIN,URINE NEGATIVE (NEGATIVE); *UROBILINOGEN,URINE 0.2 E.U./dl (NORMAL); LEUKOCYTE ESTERASE ,URINE 3+ (NEGATIVE); NITRITE, URINE NEGATIVE (NEGATIVE); PH,URINE 8.5 (5.0-8.0); UGLUCOSE NEGATIVE (NEGATIVE)
[2018-07-03 15:50] LABS: TRIPLE PHOSPHATE CRYSTAL,UR MODERATE /HPF (NONE SEEN); URINE AMORPHOUS PHOSPHATES MANY /HPF; WBC,URINE 20-50 /HPF (0-3)
[2018-07-03 15:54] LABS: BAND % (MANUAL) 2 % (0-10); EOSINOPHILS % (MANUAL) 6 % (0-8); LYMPHOCYTES % (MANUAL) 28 % (20-40); MONOCYTES % (MANUAL) 17 % (2-10); NEUTROPHILS % (MANUAL) 47 % (42-75)
--- NOTE | 2018-07-03 16:04 | NUR ---
pt transfered to floor in stable condition.
[2018-07-03] MEDS ORDERED: MORPHINE SULFATE GT PRN (16:30)
[2018-07-03] MEDS ORDERED: BACLOFEN 10 MG TABLET GT SCH (16:30)
[2018-07-03] MEDS ORDERED: risperiDONE 0.25 MG TABLET PO PRN (16:30)
--- NOTE | 2018-07-03 16:30 | NUR ---
Pt received from ER a&ox3. Pt stable and nad noted upon admission.
[2018-07-03 16:44] VITALS: BP 96/50
--- NOTE | 2018-07-03 16:55 | NUR ---
Pt reassignment and full SBAR report given to TORRI Turcios.
[2018-07-03] MEDS ORDERED: GABAPENTIN 250 MG GT SCH (17:00)
--- NOTE | 2018-07-03 17:00 | NUR ---
ASSUMED CARE OF THIS PATIENT WHO IS ALERT AND ORIENTED VERBALLY RESPONSIVE AND VERBALISES NEEDS ON TRACH TO MIST WITH NO SHORTNESS OF BREATH AT THIS TIME.CURRENTLY ON 2ND BAG OF FLUID CHALLENGE TO HIS RIGHT GROIN MAXX CATH INTACT WITH NO S/S OF INFILTERATION AT THIS TIME.GT PATENT PLASCENCIA CATH WITH CLOUDY URINE NO HEMATRURIA AT THIS TIME.QUADRIPLEGIC WITH FOOT DROP FLOATED ON PILLOWS REPOSITIONED FOR COMFORT.HE HAS OLD HEALED SCARS ON HIS RIGHT AND LEFT HEELS ALSO LITTLE SCABS ON THE LEFT LEG.AWAITING FOR ORDERS.
[2018-07-03] MEDS ORDERED: CEFTRIAXONE 1 G in IV DEXTROSE 5% 50 ML IV SCH (18:00)
--- NOTE | 2018-07-03 18:35 | NUR ---
JORGE CHAPLAIN RESIDENT HERE TO SEE PATIENT WITH NEW ORDERS WILL ENDORSE.
[2018-07-03] MEDS ORDERED: DOSING PER PHARMACY-AMIKACIN IV XX PRN (18:45)
[2018-07-03] MEDS: IPRATROPIUM BROMIDE 0.5 MG/2.5 ML NEBU NEB SCH (18:49)
[2018-07-03] MEDS: ACETYLCYSTEINE 10% 4ML VIAL IH SCH (18:49)
[2018-07-03 19:00] VITALS: BP 102/54
--- NOTE | 2018-07-03 19:19 | NUR ---
CLINICAL PHARMACY NOTE:AMIKACIN DOSING Request for amikacin dosing on 43 y/o male 6'1" 118lbs for UTI Temp 99F BUN 7 Scr 0.3 WBC 4.2 bands 2 Start amikacin 350mg ivpb q8h estimated peak 24 trough 2.9. Will order peak and trough levels around 4th dose. Will continue to monitor.
--- NOTE | 2018-07-03 19:20 | NUR ---
Received patient lying in bed. AAOx3. In no acute distress. Tracheostomy tube in place. with O2 at 2LPM. O2 sat at 97%. Olsen catheter change per order to FR 18 with 10ml balloon and draining via gravity. Port a cath to right groin area intact and patent. safety measure initiated and call henderson within reach.
[2018-07-03] MEDS: LORAZEPAM 1 MG TABLET GT SCH (20:14)
[2018-07-03] MEDS ORDERED: HYDROMORPHONE 1 MG/1 ML DISP.SYRIN IV PRN (20:15)
[2018-07-03] MEDS: ZONISAMIDE 100 MG CAPSULE GT SCH (20:33)
[2018-07-03] MEDS: PHENOBARBITAL 32.4 MG TABLET GT SCH (20:33)
[2018-07-03] MEDS: TOLTERODINE 2 MG TABLET GT SCH (20:33)
[2018-07-03] MEDS: TRAZODONE 100 MG TABLET GT SCH (20:33)
[2018-07-03] MEDS: MORPHINE SULFATE IR 30 MG TABLET PO PRN (20:38)
[2018-07-03] MEDS: AMIKACIN 350 MG in IV DEXTROSE 5% 100 ML IV SCH (20:40)
[2018-07-03] MEDS: risperiDONE 1 MG TABLET GT SCH (20:42)
[2018-07-03] MEDS: POTASSIUM CHLORIDE 20 MEQ in IV NS 1000 ML 1,000 ML IV PRN (21:24)
[2018-07-03] MEDS: BACLOFEN 20 MG TABLET GT SCH (22:13)
[2018-07-03] MEDS: TIZANIDINE HCL 4 MG TABLET GT SCH (22:13)
[2018-07-04] VITALS: BP 108/65
[2018-07-04] MEDS: HYDROMORPHONE 2 MG/1 ML DISP.SYRIN IV PRN ×6 (00:30→20:29)
[2018-07-04] MEDS: AMIKACIN 350 MG in IV DEXTROSE 5% 100 ML IV SCH ×3 (03:31→20:27)
[2018-07-04 04:00] VITALS: BP 115/68
[2018-07-04] MEDS: BACLOFEN 20 MG TABLET GT SCH ×3 (05:40→21:48)
[2018-07-04] MEDS: TIZANIDINE HCL 4 MG TABLET GT SCH ×3 (05:41→22:02)
[2018-07-04] MEDS: PANTOPRAZOLE ORAL SUSPENSION 40 MG SUSPDR.PKT GT SCH (06:01)
--- NOTE | 2018-07-04 06:07 | NUR ---
AAOx3. In no acute distress. Tracheostomy tube in place. with O2 at 2LPM. O2 sat at 99%. NSR on tele at 64/min.Olsen catheter remains intact and draining via gravity. Port a cath to right groin area intact and patent. IVF infusing. No adverse effect noted from IV ABX. Needs attended to and met. Safety measure maintained and call henderson within reach.
[2018-07-04 06:30] LABS: BASOPHILS % (AUTO) 0.8 % (0.0-2.0); EOSINOPHILS # (AUTO) 0.5 K/uL (0.0-0.7); EOSINOPHILS % (AUTO) 11.3 % (0.0-7.0); HEMATOCRIT 29.4 % (36.7-47.1); LYMPHOCYTES % (AUTO) 20.5 % (20.5-51.5); MEAN CORPUSCULAR HEMOGLOBIN 31.9 uug (23.8-33.4); MEAN CORPUSCULAR HGB CONC 34 g/dL (32.5-36.3); MEAN CORPUSCULAR VOLUME 93.5 fL (73.0-96.2); MONOCYTES # (AUTO) 0.7 K/uL (2.0-10.0); MONOCYTES % (AUTO) 15.3 % (0.0-11.0); NEUTROPHILS # (AUTO) 2.5 K/uL (1.8-8.9); NEUTROPHILS % (AUTO) 52.1 % (38.5-71.5); PLATELET COUNT (AUTO) 144 K/uL (152-348); RED BLOOD CELL COUNT(AUTO) 3.14 MIL/uL (4.06-5.63); WHITE BLOOD COUNT (AUTO) 4.7 K/uL (3.6-10.2)
[2018-07-04] MEDS: ACETYLCYSTEINE 10% 4ML VIAL IH SCH ×2 (07:05→19:18)
[2018-07-04] MEDS: IPRATROPIUM BROMIDE 0.5 MG/2.5 ML NEBU NEB SCH ×2 (07:05→19:18)
--- NOTE | 2018-07-04 07:20 | NUR ---
Received patient in bed, asleep, in no acute distress, Tracheostomy connected to O2 at 8LPM via trache collar, no SOB noted. Right groin Portacath in place, IV fluids running at 75cc/hr. PEG tube in place, clamped. Safety precaution in place. Will continue to monitor
[2018-07-04 07:28] LABS: ALANINE AMINOTRANSFERASE 61 U/L (16-63); ALKALINE PHOSPHATASE 168 U/L (50-136); ASPARTATE AMINOTRANSFERASE 31 U/L (15-37); BILIRUBIN,TOTAL 0.4 mg/dL (0.2-1.0); CARBON DIOXIDE 27 mmol/L (21-32); CHLORIDE 108 mmol/L (98-107); CREATININE 0.3 mg/dL (0.6-1.3); GLUCOSE 69 mg/dL (74-106); MAGNESIUM 1.6 mg/dL (1.8-2.4); PHOSPHOROUS 3.2 mg/dL (2.5-4.9); POTASSIUM 3.9 mmol/L (3.5-5.1); TOTAL PROTEIN, SERUM 6.5 g/dL (6.4-8.2); UREA NITROGEN, BLOOD 5 mg/dL (7-18)
[2018-07-04] MEDS: LORAZEPAM 1 MG TABLET GT SCH ×2 (08:06→21:49)
[2018-07-04] MEDS: LORATADINE 10 MG TABLET GT SCH (08:06)
[2018-07-04] MEDS: PHENOBARBITAL 32.4 MG TABLET GT SCH ×2 (08:06→20:27)
[2018-07-04 10:41] LABS: EOSINOPHILS % (MANUAL) 9 % (0-8); LYMPHOCYTES % (MANUAL) 20 % (20-40); MONOCYTES % (MANUAL) 15 % (2-10)
[2018-07-04 10:42] LABS: NEUTROPHILS % (MANUAL) 56 % (42-75)
[2018-07-04 11:18] VITALS: BP 92/45
[2018-07-04] MEDS: POTASSIUM CHLORIDE 20 MEQ in IV NS 1000 ML 1,000 ML IV PRN (12:08)
--- NOTE | 2018-07-04 13:53 | NUR ---
CLINICAL PHARMACY NOTE:AMIKACIN DOSING S: Amikacin dosing to continue for this 43 y/o male patient for UTI O: Temp 98.6F BUN 5 Scr 0.3 WBC 4.7 Wt 53.5 kg ht 185.4 cm P Continue amikacin 350mg ivpb q8h for today. 3rd dose was given at noon. Plan to draw amikacin peak level today at 2100 and trough level today at 1930 around 4th dose (at 2000). Pharmacy shall review the level in am & adjust the dose if needed. Will continue to monitor.
[2018-07-04] MEDS ORDERED: MAGNESIUM OXIDE 400 MG TABLET GT ONE (15:00)
[2018-07-04 15:15] VITALS: BP 95/55
[2018-07-04] MEDS: GABAPENTIN 100 MG CAPSULE GT SCH (16:58)
[2018-07-04] MEDS: JEVITY 1.2 1000 ML LIQUID GT PRN (17:34)
--- NOTE | 2018-07-04 17:56 | NUR ---
End of shift note: Patient is alert and oriented x3, in no acute distress. Trache in place, connected to O2 at 8LPM via trache collar. No chest pain or SOB noted. F/C patent and draining yellow urine, sediments noted. Patient on contact isolation for MRSA of narMD art aware. treatment in place. PEG tube feeding started at 1740, Jevity 1.2 at 70cc/hr x 15 hours, tolerating well. No residual noted. No s/s of bleeding noted. No episode of seizure noted. Turned and repositioned every 2 hours. Kept clean and dry. HOB kept elevated. All needs attended and met. Will continue to monitor
[2018-07-04] MEDS ORDERED: VANCOMYCIN IV 1 G in PREMIXED 0 EACH IV SCH (19:00)
[2018-07-04 19:27] VITALS: BP 116/63
--- NOTE | 2018-07-04 19:30 | NUR ---
nsg: pt received awake, alert. lungs sound diminished, on 2L O2 with trach. tele, NSR. pt is quadraplegic. c/o bilateral shoulder pain, requesting pain med. tolerating TF, only 10ml residual. cont to monitor. f/c draining yellow urine via gravity. on cont ivf via right thigh. on specialty mattress. HOB elevated 35 degrees. cont with treatment plan.
[2018-07-04] MEDS: MUPIROCIN 2% OINT 22 GM TUBE NS SCH (20:27)
[2018-07-04] MEDS: ZONISAMIDE 100 MG CAPSULE GT SCH (20:27)
[2018-07-04] MEDS: TRAZODONE 100 MG TABLET GT SCH (20:28)
[2018-07-04] MEDS: TOLTERODINE 2 MG TABLET GT SCH (20:28)
[2018-07-04] MEDS: risperiDONE 1 MG TABLET GT SCH (20:28)
--- NOTE | 2018-07-04 22:15 | NUR ---
PHARMACY CLINICAL NOTES : (VANCOMCYIN DOSING) S: 43 yo male with DX of: Sepsis with recurrent SZ; GPC bacteremia, r/o line sepsis; Recurrent UTI also on Amikacin ordered Vancomycin O: BUN/SCR 5/0.3; WBC 4.7; TEMP 99.1 DOSING WT 54 KG , used SCR of 1.0 since pt bed bound and has low muscle mass A/P: will dose Vanco as 1000 mg q14h , first dose tonight with estimated peak of 44.4 and trough of 18. Plan to order trough prior to 4th dose (not ordered in [facility]) will follow up.
[2018-07-04] MEDS ORDERED: HYDROMORPHONE 2 MG/1 ML DISP.SYRIN IV ONE (22:52)
--- NOTE | 2018-07-04 23:00 | NUR ---
nsg: dilaudid 2mg not given, pt is comfortable, denies pain.
[2018-07-04 23:43] VITALS: BP 123/59
[2018-07-05] MEDS: HYDROMORPHONE 2 MG/1 ML DISP.SYRIN IV PRN ×6 (02:02→21:20)
--- NOTE | 2018-07-05 02:40 | NUR ---
nsg: lab called for critical result. blood culture per gram stain is gram + cocci. pt is already on iv antibiotics.
[2018-07-05 03:36] VITALS: BP 92/53
[2018-07-05] MEDS: POTASSIUM CHLORIDE 20 MEQ in IV NS 1000 ML 1,000 ML IV PRN ×2 (03:59→21:44)
[2018-07-05] MEDS: AMIKACIN 350 MG in IV DEXTROSE 5% 100 ML IV SCH (03:59)
[2018-07-05] MEDS: BACLOFEN 20 MG TABLET GT SCH ×3 (05:28→21:35)
[2018-07-05] MEDS: TIZANIDINE HCL 4 MG TABLET GT SCH ×3 (05:28→21:35)
[2018-07-05] MEDS: PANTOPRAZOLE ORAL SUSPENSION 40 MG SUSPDR.PKT GT SCH (05:28)
--- NOTE | 2018-07-05 05:44 | NUR ---
nsg: all needs attended. kept clean and dry. provided trach and GT care. tele, NSR. on 2L nc. GT on hold. will restart at 0800. cont to monitor.
[2018-07-05 07:01] LABS: CARBON DIOXIDE 27 mmol/L (21-32); CHLORIDE 105 mmol/L (98-107); CREATININE 0.3 mg/dL (0.6-1.3); GLUCOSE 84 mg/dL (74-106); MAGNESIUM 1.8 mg/dL (1.8-2.4); POTASSIUM 3.8 mmol/L (3.5-5.1); UREA NITROGEN, BLOOD 6 mg/dL (7-18)
--- NOTE | 2018-07-05 07:49 | NUR ---
Awake, alert, comfortable. O2 at 2L to trach, not in distress. IVF infusing.
[2018-07-05] MEDS: ACETYLCYSTEINE 10% 4ML VIAL IH SCH ×2 (07:50→19:11)
[2018-07-05] MEDS: IPRATROPIUM BROMIDE 0.5 MG/2.5 ML NEBU NEB SCH ×2 (07:50→19:11)
[2018-07-05] MEDS: LORAZEPAM 1 MG TABLET GT SCH ×2 (08:59→20:04)
[2018-07-05] MEDS: LORATADINE 10 MG TABLET GT SCH (08:59)
[2018-07-05] MEDS: GABAPENTIN 100 MG CAPSULE GT SCH ×3 (08:59→17:37)
[2018-07-05] MEDS: PHENOBARBITAL 32.4 MG TABLET GT SCH ×2 (08:59→21:08)
[2018-07-05] MEDS: MUPIROCIN 2% OINT 22 GM TUBE NS SCH ×2 (09:00→21:11)
--- NOTE | 2018-07-05 09:00 | NUR ---
Complaining of shoulder pain. Dilaudid IV given as ordered with relief
--- NOTE | 2018-07-05 11:00 | NUR ---
Sponge bath given. Repositioned in bed comfortably.
[2018-07-05 11:45] VITALS: BP 111/69
--- NOTE | 2018-07-05 12:23 | NUR ---
CLINICAL PHARMACY NOTE:AMIKACIN & VANCOMYCIN DOSING S: Amikacin & vancomycin dosing to continue for this 43 y/o male patient for UTI, bacteremia, sepsis O: Temp 98.4F BUN 6 Scr 0.3 WBC 4.7 (07/04) amikacin peak 17.5 amikacin trough: 6.8 Wt 53.5 kg ht 185.4 cm P As per amikacin peak & trough levels, will change amikacin 350mg ivpb q8h to 500mh IV q11h for predicted peak of 28 & trough of 5.1 at steady state. 1st dose today at 1500.0 Plan to draw amikacin peak level & trough level around 4th dose (not yet ordered). Will continue to monitor. Will continue same dose of [id number] IV q14h for today. 2nd dose is due today at noon. Plan to draw vanco trough level before 4th dose (not yet ordered). Will continue to follow up
[2018-07-05] MEDS: VANCOMYCIN IV 1 G in PREMIXED 0 EACH IV SCH (12:26)
--- NOTE | 2018-07-05 12:35 | NUR ---
Complaining of pain. Medicated as ordered. Repositioned comfortably
[2018-07-05] MEDS: AMIKACIN 500 MG in IV DEXTROSE 5% 100 ML IV SCH (15:15)
[2018-07-05 15:54] VITALS: BP 103/64
[2018-07-05] MEDS: JEVITY 1.2 1000 ML LIQUID GT PRN (18:16)
--- NOTE | 2018-07-05 18:43 | NUR ---
Secretions suctioned. Oral and trach care done. Kept dry and comfortable
[2018-07-05 20:00] VITALS: BP 128/85
--- NOTE | 2018-07-05 20:00 | NUR ---
RECEIVED PT.VERBALLY RESPONSIVE, ALERT & ORIENTED X3. C/O PAIN OF BOTH SHOULDER SCALE 8/10. IVF NS W/ 20MEQ KCL @ 75CC/HR VIA R FEM . ON O2 @ 2LNC VIA TRACH, SUCTIONED W/ MOD. TANNISH THICK MUCOUS. G-TUBE INTACT, CHECKED PLACEMENT & CHECKED RESIDUAL 5CC NOTED, ON TUBE FDG OF JEVITY PLUS 1.2 @ 70CC/HR. REPOSITIONED W/ HOB ELEVATED 30 DEGREES CONT.
[2018-07-05] MEDS: TOLTERODINE 2 MG TABLET GT SCH (21:08)
[2018-07-05] MEDS: ZONISAMIDE 100 MG CAPSULE GT SCH (21:09)
[2018-07-05] MEDS: TRAZODONE 100 MG TABLET GT SCH (21:10)
[2018-07-05] MEDS: risperiDONE 1 MG TABLET GT SCH (21:10)
--- NOTE | 2018-07-05 21:20 | NUR ---
MEDICATED FOR PAIN W/ DILAUDID 1MG IVP . V/S STABLE.
--- NOTE | 2018-07-05 23:00 | NUR ---
OFF TUBE FDG WILL RESUME @ 0800.
[2018-07-06] VITALS: BP 97/63
[2018-07-06] MEDS: HYDROMORPHONE 2 MG/1 ML DISP.SYRIN IV PRN ×5 (01:17→21:04)
[2018-07-06] MEDS: VANCOMYCIN IV 1 G in PREMIXED 0 EACH IV SCH ×2 (01:22→18:00)
[2018-07-06] MEDS: AMIKACIN 500 MG in IV DEXTROSE 5% 100 ML IV SCH ×3 (01:22→23:48)
[2018-07-06 04:00] VITALS: BP 105/65
[2018-07-06] MEDS: TIZANIDINE HCL 4 MG TABLET GT SCH ×3 (05:31→21:07)
[2018-07-06] MEDS: BACLOFEN 20 MG TABLET GT SCH ×3 (05:31→21:07)
--- NOTE | 2018-07-06 05:48 | NUR ---
SLEEPING AFTER MEDICATED W/ DILAUDID 1MG IVP FOR PAIN. IVF INFUSING WELL.
[2018-07-06 06:04] LABS: BASOPHILS % (AUTO) 0.5 % (0.0-2.0); EOSINOPHILS # (AUTO) 0.4 K/uL (0.0-0.7); EOSINOPHILS % (AUTO) 7.7 % (0.0-7.0); HEMATOCRIT 28.4 % (36.7-47.1); HEMOGLOBIN 9.8 g/dL (12.5-16.3); LYMPHOCYTES # (AUTO) 1.3 K/uL (20.0-40.0); LYMPHOCYTES % (AUTO) 22.2 % (20.5-51.5); MEAN CORPUSCULAR HEMOGLOBIN 32.3 uug (23.8-33.4); MEAN CORPUSCULAR HGB CONC 34 g/dL (32.5-36.3); MONOCYTES % (AUTO) 17.5 % (0.0-11.0); NEUTROPHILS % (AUTO) 52.1 % (38.5-71.5); PLATELET COUNT (AUTO) 138 K/uL (152-348); RED BLOOD CELL COUNT(AUTO) 3.02 MIL/uL (4.06-5.63); WHITE BLOOD COUNT (AUTO) 5.8 K/uL (3.6-10.2)
[2018-07-06] MEDS: PANTOPRAZOLE ORAL SUSPENSION 40 MG SUSPDR.PKT GT SCH (06:17)
[2018-07-06 06:29] LABS: ALANINE AMINOTRANSFERASE 53 U/L (16-63); ALKALINE PHOSPHATASE 159 U/L (50-136); ASPARTATE AMINOTRANSFERASE 37 U/L (15-37); BILIRUBIN,TOTAL 0.3 mg/dL (0.2-1.0); CARBON DIOXIDE 28 mmol/L (21-32); CHLORIDE 102 mmol/L (98-107); CREATININE 0.2 mg/dL (0.6-1.3); GLUCOSE 78 mg/dL (74-106); MAGNESIUM 1.6 mg/dL (1.8-2.4); PHOSPHOROUS 2.9 mg/dL (2.5-4.9); TOTAL PROTEIN, SERUM 6.1 g/dL (6.4-8.2); UREA NITROGEN, BLOOD 6 mg/dL (7-18)
[2018-07-06] MEDS: IPRATROPIUM BROMIDE 0.5 MG/2.5 ML NEBU NEB SCH ×2 (07:10→19:15)
[2018-07-06] MEDS: ACETYLCYSTEINE 10% 4ML VIAL IH SCH ×2 (07:10→20:14)
--- NOTE | 2018-07-06 07:49 | NUR ---
Awake, alert, repositioned, complaining of pain. IVF infusing
[2018-07-06] MEDS: LORAZEPAM 1 MG TABLET GT SCH ×2 (08:56→20:46)
[2018-07-06] MEDS: LORATADINE 10 MG TABLET GT SCH (08:56)
[2018-07-06] MEDS: GABAPENTIN 100 MG CAPSULE GT SCH ×3 (08:56→16:34)
[2018-07-06] MEDS: PHENOBARBITAL 32.4 MG TABLET GT SCH ×2 (08:57→20:45)
[2018-07-06] MEDS: JEVITY 1.2 1000 ML LIQUID GT PRN (09:07)
[2018-07-06] MEDS: MUPIROCIN 2% OINT 22 GM TUBE NS SCH ×2 (09:07→20:48)
[2018-07-06 09:23] LABS: EOSINOPHILS % (MANUAL) 7 % (0-8); LYMPHOCYTES % (MANUAL) 24 % (20-40); MONOCYTES % (MANUAL) 16 % (2-10); NEUTROPHILS % (MANUAL) 53 % (42-75)
--- NOTE | 2018-07-06 10:00 | NUR ---
Secretions suctioned. Trach and oral care done. Shampoo, bed bath with shaving done. Repositioned in bed comfortably.
[2018-07-06 11:16] VITALS: BP 97/55
--- NOTE | 2018-07-06 11:32 | NUR ---
CLINICAL PHARMACY NOTE:AMIKACIN & VANCOMYCIN DOSING S: Amikacin & vancomycin dosing to continue for this 43 y/o male patient for UTI, bacteremia, sepsis O: Temp 98.8F BUN 6 Scr 0.2 WBC 5.8 8 Wt 53.5 kg ht 185.4 cm P Will continue amikacin 500mh IV q11h for predicted peak of 28 & trough of 5.1 at steady state. 3rd dose given today at 0200. Plan to draw amikacin peak level & trough level around 4th dose (ordered by 1300 dose). Will continue to monitor. Will continue same dose of [id number] IV q14h for today. 3rd dose given today at 0122. Plan to draw vanco trough level before 4th dose (ordered at 1530). Will follow the levels for further dosing. Addendum: 07/06/18 at 1716 by LUCHO ROSS ADM >VANCOMYCIN TROUGH 10.2. WILL CHANGE DOSE TO 1 GRAM IV EVERY 11HRS(FIRST DOSE AT 1700) FOR EXPECTED TROUGH AROUND 15.7. >AMIKACIN LEVEL NOT OUT YET AT 1700(SEND-OUT TO LAB [facility]). ENDORSED NEXT SHIFT TO FOLLOW.
[2018-07-06] MEDS: POTASSIUM CHLORIDE 20 MEQ in IV NS 1000 ML 1,000 ML IV PRN (13:06)
[2018-07-06 15:14] VITALS: BP 95/51
--- NOTE | 2018-07-06 15:22 | NUR ---
Nursing-Per Line Assembly Utility Worker, recommending Jevity 1.2 at 70 ml per hours x 20 hours. Patient tolerating Jevity f/s feedings at 70 ml per hour via feeding pump tolerating well.
[2018-07-06] MEDS: MAGNESIUM SULFATE/D5W 100 ML IV SCH ×2 (15:34→16:34)
[2018-07-06 19:28] VITALS: BP 119/59
[2018-07-06] MEDS: TRAZODONE 100 MG TABLET GT SCH (20:44)
[2018-07-06] MEDS: TOLTERODINE 2 MG TABLET GT SCH (20:45)
[2018-07-06] MEDS: risperiDONE 1 MG TABLET GT SCH (20:46)
[2018-07-06] MEDS: ZONISAMIDE 100 MG CAPSULE GT SCH (20:46)
[2018-07-06] MEDS: LACTOBACILLUS RHAMNOSUS GG 1 EACH CAPSULE PO SCH (20:47)
[2018-07-06 23:40] VITALS: BP 98/53
[2018-07-07] MEDS: JEVITY 1.2 1000 ML LIQUID GT PRN ×2 (00:42→14:26)
[2018-07-07] MEDS: HYDROMORPHONE 2 MG/1 ML DISP.SYRIN IV PRN ×6 (01:47→18:32)
[2018-07-07 03:36] VITALS: BP 131/70
[2018-07-07] MEDS: TIZANIDINE HCL 4 MG TABLET GT SCH ×3 (05:12→21:26)
[2018-07-07] MEDS: BACLOFEN 20 MG TABLET GT SCH ×3 (05:19→21:25)
[2018-07-07] MEDS: VANCOMYCIN IV 1 G in PREMIXED 0 EACH IV SCH ×2 (05:21→14:27)
[2018-07-07] MEDS: PANTOPRAZOLE ORAL SUSPENSION 40 MG SUSPDR.PKT GT SCH (06:03)
[2018-07-07 06:16] LABS: CARBON DIOXIDE 28 mmol/L (21-32); CHLORIDE 103 mmol/L (98-107); CREATININE 0.3 mg/dL (0.6-1.3); GLUCOSE 110 mg/dL (74-106); MAGNESIUM 1.9 mg/dL (1.8-2.4); POTASSIUM 4.2 mmol/L (3.5-5.1); UREA NITROGEN, BLOOD 8 mg/dL (7-18)
[2018-07-07] MEDS: IPRATROPIUM BROMIDE 0.5 MG/2.5 ML NEBU NEB SCH ×2 (07:30→19:05)
[2018-07-07] MEDS: ACETYLCYSTEINE 10% 4ML VIAL IH SCH ×2 (07:30→19:05)
[2018-07-07] MEDS: LACTOBACILLUS RHAMNOSUS GG 1 EACH CAPSULE PO SCH ×2 (08:51→21:26)
[2018-07-07] MEDS: LORATADINE 10 MG TABLET GT SCH (08:51)
[2018-07-07] MEDS: PHENOBARBITAL 32.4 MG TABLET GT SCH ×2 (08:51→21:24)
[2018-07-07] MEDS: LORAZEPAM 1 MG TABLET GT SCH ×2 (08:52→21:26)
[2018-07-07] MEDS: MUPIROCIN 2% OINT 22 GM TUBE NS SCH ×2 (08:52→22:02)
[2018-07-07] MEDS: GABAPENTIN 100 MG CAPSULE GT SCH ×3 (08:52→15:53)
--- NOTE | 2018-07-07 10:03 | NUR ---
CLINICAL PHARMACY NOTE:AMIKACIN & VANCOMYCIN DOSING S: Amikacin & vancomycin dosing to continue for this 43 y/o male patient for UTI, bacteremia, sepsis O: Temp 97.6F BUN 8 Scr 0.3 WBC 5.8 (07/06) Wt 53.5 kg ht 185.4 cm amikacin peak: 19 (07/06 @1433) amikacin trough: 4.5 (07/06 @1230) Vanco trough: pending tomorrow at 0130 P Will continue amikacin 500mh IV q11h for now per peak/trough. Will adjust regimen or repeat levels if condition were to change or pt on prolonged course. Will continue vancomycin 1gm q11hr for estimated trough of 15.7. 3rd dose today at 1500. Ordered trough before 4th scheduled dose, due 07/08 @0130. RN endorsed to hold dose if trough >20. Will check in am and adjust as needed.
[2018-07-07] MEDS: AMIKACIN 500 MG in IV DEXTROSE 5% 100 ML IV SCH ×2 (11:13→21:27)
[2018-07-07] MEDS: POTASSIUM CHLORIDE 20 MEQ in IV NS 1000 ML 1,000 ML IV PRN (11:21)
[2018-07-07 12:05] VITALS: BP 116/62
[2018-07-07 15:18] VITALS: BP 142/75
[2018-07-07] MEDS: MICAFUNGIN SODIUM 100 MG in IV NORMAL SALINE 100 ML IV SCH (16:52)
[2018-07-07 19:24] VITALS: BP 159/59
[2018-07-07] MEDS: TRAZODONE 100 MG TABLET GT SCH (21:25)
[2018-07-07] MEDS: TOLTERODINE 2 MG TABLET GT SCH (21:25)
[2018-07-07] MEDS: risperiDONE 1 MG TABLET GT SCH (21:26)
[2018-07-07] MEDS: ZONISAMIDE 100 MG CAPSULE GT SCH (22:05)
[2018-07-08] MEDS: VANCOMYCIN IV 1 G in PREMIXED 0 EACH IV SCH ×2 (02:28→12:18)
[2018-07-08] MEDS: HYDROMORPHONE 2 MG/1 ML DISP.SYRIN IV PRN ×6 (02:32→22:47)
[2018-07-08 03:35] VITALS: BP 91/45
[2018-07-08] MEDS: POTASSIUM CHLORIDE 20 MEQ in IV NS 1000 ML 1,000 ML IV PRN (04:03)
--- NOTE | 2018-07-08 05:23 | NUR ---
Patient received bedbath. Changed GT dressing. Suctioned oropharyngeal secretions and tracheostomy, obtained moderate amount thick whitish secretion. Needs attended.
[2018-07-08] MEDS: PANTOPRAZOLE ORAL SUSPENSION 40 MG SUSPDR.PKT GT SCH (06:25)
[2018-07-08] MEDS: TIZANIDINE HCL 4 MG TABLET GT SCH ×3 (06:25→22:12)
[2018-07-08] MEDS: BACLOFEN 20 MG TABLET GT SCH ×3 (06:25→22:12)
[2018-07-08] MEDS: ACETYLCYSTEINE 10% 4ML VIAL IH SCH ×2 (07:30→19:35)
[2018-07-08] MEDS: IPRATROPIUM BROMIDE 0.5 MG/2.5 ML NEBU NEB SCH ×2 (07:30→19:35)
--- NOTE | 2018-07-08 08:00 | NUR ---
AWAKE ALERT AND ORIETED X3, NO SS OF DISTRESS. CONTINUE TO C/O PAIN RIGHT SIDE CONTINUE WITH PAIN MANAGEMENT
[2018-07-08] MEDS: GABAPENTIN 100 MG CAPSULE GT SCH ×3 (08:28→16:05)
[2018-07-08] MEDS: LORATADINE 10 MG TABLET GT SCH (08:28)
[2018-07-08] MEDS: LORAZEPAM 1 MG TABLET GT SCH ×2 (08:28→22:02)
[2018-07-08] MEDS: PHENOBARBITAL 32.4 MG TABLET GT SCH ×2 (08:29→20:11)
[2018-07-08] MEDS: LACTOBACILLUS RHAMNOSUS GG 1 EACH CAPSULE PO SCH ×2 (08:29→20:12)
[2018-07-08] MEDS: AMIKACIN 500 MG in IV DEXTROSE 5% 100 ML IV SCH ×2 (09:31→20:09)
[2018-07-08] MEDS: MUPIROCIN 2% OINT 22 GM TUBE NS SCH ×2 (09:31→22:32)
[2018-07-08] MEDS: JEVITY 1.2 1000 ML LIQUID GT PRN (10:23)
[2018-07-08 11:25] VITALS: BP 90/48
--- NOTE | 2018-07-08 12:00 | NUR ---
NO SS OF RESPIRATORY DISTRESS, AFEBRILE. SEEN BY ID N0 NEW ORDERS
--- NOTE | 2018-07-08 12:24 | NUR ---
CLINICAL PHARMACY NOTE:AMIKACIN & VANCOMYCIN DOSING S: Amikacin & vancomycin dosing to continue for this 43 y/o male patient for UTI, bacteremia, sepsis O: Temp 97.8F BUN 8 (07/07) Scr 0.3 (07/07) WBC 5.8 (07/06) Wt 53.5 kg ht 185.4 cm Vanco trough: 15.2 P Will continue same dose of amikacin 500mh IV q11h for today. See 07/07 pharmacist note evaluation of dose. Will repeat levels if condition were to change or pt on prolonged course. Since vanco through level is within therapeutic range, will continue same dose of vancomycin 1gm IVPB q11hr for today. Will monitor renal function & adjust the dose if needed. Will follow up.
[2018-07-08 15:18] VITALS: BP 94/55
--- NOTE | 2018-07-08 15:56 | NUR ---
CONTINUE WITH PAIN MANAGEMENT, DR FRANCIS CALLED WITH ORDER FOR REMOVAL OF MAXX CATH AT 1030 AM TOMORROW
[2018-07-08] MEDS: MICAFUNGIN SODIUM 100 MG in IV NORMAL SALINE 100 ML IV SCH (16:08)
[2018-07-08 20:00] VITALS: BP 101/46
[2018-07-08] MEDS: TRAZODONE 100 MG TABLET GT SCH (22:07)
[2018-07-08] MEDS: risperiDONE 1 MG TABLET GT SCH (22:07)
[2018-07-08] MEDS: TOLTERODINE 2 MG TABLET GT SCH (22:13)
[2018-07-08] MEDS: ZONISAMIDE 100 MG CAPSULE GT SCH (22:35)
--- NOTE | 2018-07-09 00:01 | NUR ---
Started NPO / central line removal procedure in AM.
[2018-07-09] MEDS: VANCOMYCIN IV 1 G in PREMIXED 0 EACH IV SCH ×3 (00:14→23:18)
[2018-07-09] MEDS: POTASSIUM CHLORIDE 20 MEQ in IV NS 1000 ML 1,000 ML IV PRN ×2 (01:11→23:40)
[2018-07-09] MEDS: HYDROMORPHONE 2 MG/1 ML DISP.SYRIN IV PRN ×5 (03:32→22:38)
[2018-07-09 04:00] VITALS: BP 99/54
[2018-07-09] MEDS: BACLOFEN 20 MG TABLET GT SCH ×3 (06:04→23:05)
[2018-07-09] MEDS: TIZANIDINE HCL 4 MG TABLET GT SCH ×3 (06:04→23:05)
[2018-07-09] MEDS: PANTOPRAZOLE ORAL SUSPENSION 40 MG SUSPDR.PKT GT SCH (06:14)
[2018-07-09] MEDS: AMIKACIN 500 MG in IV DEXTROSE 5% 100 ML IV SCH ×2 (06:16→17:39)
[2018-07-09 06:47] LABS: BASOPHILS % (AUTO) 0.3 % (0.0-2.0); EOSINOPHILS # (AUTO) 0.6 K/uL (0.0-0.7); EOSINOPHILS % (AUTO) 11.2 % (0.0-7.0); HEMATOCRIT 30.5 % (36.7-47.1); HEMOGLOBIN 10.4 g/dL (12.5-16.3); LYMPHOCYTES # (AUTO) 1.3 K/uL (20.0-40.0); LYMPHOCYTES % (AUTO) 23.9 % (20.5-51.5); MEAN CORPUSCULAR HEMOGLOBIN 32.4 uug (23.8-33.4); MEAN CORPUSCULAR HGB CONC 34 g/dL (32.5-36.3); MEAN CORPUSCULAR VOLUME 95.4 fL (73.0-96.2); MONOCYTES # (AUTO) 0.7 K/uL (2.0-10.0); MONOCYTES % (AUTO) 12.8 % (0.0-11.0); NEUTROPHILS # (AUTO) 2.8 K/uL (1.8-8.9); NEUTROPHILS % (AUTO) 51.8 % (38.5-71.5); PLATELET COUNT (AUTO) 158 K/uL (152-348); WHITE BLOOD COUNT (AUTO) 5.3 K/uL (3.6-10.2)
[2018-07-09 07:02] LABS: ALANINE AMINOTRANSFERASE 51 U/L (16-63); ALKALINE PHOSPHATASE 176 U/L (50-136); ASPARTATE AMINOTRANSFERASE 26 U/L (15-37); BILIRUBIN,TOTAL 0.5 mg/dL (0.2-1.0); CARBON DIOXIDE 27 mmol/L (21-32); CHLORIDE 105 mmol/L (98-107); CREATININE 0.2 mg/dL (0.6-1.3); GLUCOSE 76 mg/dL (74-106); MAGNESIUM 1.6 mg/dL (1.8-2.4); PHOSPHOROUS 3.2 mg/dL (2.5-4.9); POTASSIUM 4.1 mmol/L (3.5-5.1); TOTAL PROTEIN, SERUM 6.9 g/dL (6.4-8.2); UREA NITROGEN, BLOOD 8 mg/dL (7-18)
[2018-07-09] MEDS: LORAZEPAM 1 MG TABLET GT SCH ×2 (08:00→22:53)
--- NOTE | 2018-07-09 08:00 | NUR ---
AWAKE ALERT AND ORIENTED STATED FEELS COMFORTABLE WITH MEDICATION FOR PAIN ORDERED.REMAIN ON IVF ORDERED WITH NO S/S OF INFILTERATION AT THIS TIME LEFT FORE ARM HEP LOCH IS INTACT WITH NO S/S OF INFILTERATION AT THIS TIME MAXX CATH RIGHT GROIN IS SCHEDULED FOR REMOVAL TODAY TRACH INTACT WITH O2 WITH NO DISTRESS WILL OBSERVE.
[2018-07-09] MEDS: PHENOBARBITAL 32.4 MG TABLET GT SCH ×2 (08:15→22:45)
[2018-07-09] MEDS: LORATADINE 10 MG TABLET GT SCH (08:15)
[2018-07-09] MEDS: GABAPENTIN 100 MG CAPSULE GT SCH ×3 (08:16→16:41)
[2018-07-09] MEDS: LACTOBACILLUS RHAMNOSUS GG 1 EACH CAPSULE PO SCH ×2 (08:16→22:46)
[2018-07-09] MEDS: IPRATROPIUM BROMIDE 0.5 MG/2.5 ML NEBU NEB SCH ×2 (08:22→18:54)
[2018-07-09] MEDS: ACETYLCYSTEINE 10% 4ML VIAL IH SCH ×2 (08:22→18:53)
[2018-07-09] MEDS: MUPIROCIN 2% OINT 22 GM TUBE NS SCH ×4 (08:54→23:50)
[2018-07-09] MEDS ORDERED: LIDOCAINE HCL 1% 20 ML VIAL ONE (09:53)
--- NOTE | 2018-07-09 10:00 | NUR ---
CLINICAL PHARMACY NOTE:AMIKACIN & VANCOMYCIN DOSING S: Amikacin & vancomycin dosing to continue for this 43 y/o male patient for UTI, bacteremia, sepsis O: Temp 98.2F BUN 8 Scr 0.2 WBC 5.3 Wt 53.5 kg ht 185.4 cm P Will continue same dose of amikacin 500mh IV q11h for today. See 07/07 pharmacist note evaluation of dose. Per ID note from 07/09, continue Amikacin for a couple more days. Will repeat levels if condition were to change. Will continue same dose of vancomycin 1gm IVPB q11hr for today. Will monitor renal function & adjust the dose if needed. Per ID note from 07/09, the plan is for 2-week course of vanco (will consider repeating level). Will follow up.
[2018-07-09] MEDS ORDERED: POLYMYXIN B SULFATE 500,000 UNITS, BACITRACIN 50,000 UNITS, NORMAL SALINE 20 ML MC ONE ×3 (10:15)
--- NOTE | 2018-07-09 10:30 | NUR ---
PATIENT PICKED UP BY BED TO THE FOR SCHEDULED MAXX CATH REMOVAL TODAY IN SATISFACTORY CONDITION.
[2018-07-09] MEDS ORDERED: PROPOFOL 200 MG/20 ML BOTTLE IV ONE (10:56)
[2018-07-09] MEDS ORDERED: IV NORMAL SALINE 1000 ML BAG IV ONE (10:56)
[2018-07-09] MEDS ORDERED: IPRATROPIUM BROMIDE 0.5 MG/2.5 ML NEBU ONE (12:14)
[2018-07-09] MEDS ORDERED: ALBUTEROL SULFATE 2.5 MG/3 ML NEBU ONE (12:14)
--- NOTE | 2018-07-09 12:45 | NUR ---
PATIENT RETURNED FROM THE PACU AWAKE ALERT AND ORIENTED TRACH INTACT TO O2 ORDERED RIGHT GROIN WITH 2X2 GAUZE WITH TRANSPARENT DRESSING INTACT WITH NO DRAINAGE AT THIS TIME.MADE COMFORTABLE AND WILL CONTINUE TO OBSERVE.
[2018-07-09 12:51] VITALS: BP 139/77
[2018-07-09] MEDS: JEVITY 1.2 1000 ML LIQUID GT PRN (13:04)
[2018-07-09] MEDS: MAGNESIUM SULFATE/D5W 100 ML IV SCH ×2 (14:27→15:29)
[2018-07-09 16:09] VITALS: BP 130/74
[2018-07-09] MEDS: MICAFUNGIN SODIUM 100 MG in IV NORMAL SALINE 100 ML IV SCH (16:41)
--- NOTE | 2018-07-09 18:00 | NUR ---
RESTING REPOSITIONED REMAIN ON ATB ORDERED MAGNESSIUM COMPLETED ORDERED NO SEIZURE ACTIVITIES NOTED.
--- NOTE | 2018-07-09 18:55 | NUR ---
JORGE EXPERIMENTAL ASSEMBLER HERE TO SEE PATIENT WITH NEW ORDERS AND NOTED.
[2018-07-09 20:27] VITALS: BP 108/51
[2018-07-09] MEDS: TOLTERODINE 2 MG TABLET GT SCH (22:46)
[2018-07-09] MEDS: TRAZODONE 100 MG TABLET GT SCH (22:49)
[2018-07-09] MEDS: risperiDONE 1 MG TABLET GT SCH (22:52)
[2018-07-09] MEDS: ZONISAMIDE 100 MG CAPSULE GT SCH (22:54)
[2018-07-09] MEDS: BACITRACIN/POLYMYXIN B OINT 15 GM TUBE TOP SCH (23:53)
[2018-07-10] MEDS: HYDROMORPHONE 2 MG/1 ML DISP.SYRIN IV PRN ×5 (04:40→21:25)
[2018-07-10] MEDS: AMIKACIN 500 MG in IV DEXTROSE 5% 100 ML IV SCH ×2 (04:46→16:44)
[2018-07-10 04:57] VITALS: BP 99/51
[2018-07-10] MEDS: BACLOFEN 20 MG TABLET GT SCH ×3 (05:00→22:00)
[2018-07-10] MEDS: TIZANIDINE HCL 4 MG TABLET GT SCH ×3 (05:01→22:00)
[2018-07-10 07:11] LABS: CARBON DIOXIDE 27 mmol/L (21-32); CHLORIDE 105 mmol/L (98-107); CREATININE 0.3 mg/dL (0.6-1.3); GLUCOSE 101 mg/dL (74-106); MAGNESIUM 1.9 mg/dL (1.8-2.4); POTASSIUM 3.9 mmol/L (3.5-5.1); UREA NITROGEN, BLOOD 7 mg/dL (7-18)
[2018-07-10] MEDS: PANTOPRAZOLE ORAL SUSPENSION 40 MG SUSPDR.PKT GT SCH (07:12)
[2018-07-10] MEDS: ACETYLCYSTEINE 10% 4ML VIAL IH SCH ×2 (07:28→19:25)
[2018-07-10] MEDS: IPRATROPIUM BROMIDE 0.5 MG/2.5 ML NEBU NEB SCH ×2 (07:28→19:25)
--- NOTE | 2018-07-10 07:59 | NUR ---
RECEIVED PATIENT IN BED AWAKE ALERT AND ORIENTED ON TRACH COLLAR WITH O2 MIST WITH NO SHORTNESS OF BREATH AT THIS TIME ON FIRST STEP BRINDA TURNED AND REPOSITIONED Q2H ABLE TO MOVE ONLY HIS RIGHT ARM BUT ALL THE OTHER EXTREMITIES ARE FLACCID AND CONTRACTED.TOTALLY DEPENDENT ON NURSES FOR ALL ADL PLASCENCIA CATH TO GRAVITY DRAINGE OF ALYSE COLORED URINE RIGHT S/P MAXX CATH REMOVAL SITE YESTERDAY REMAINS INTACT WIT 2X2 WITH TRANSPARENT DRESSING IS INTACT WITH NO DRAINAGE AT THIS TIME NOT IN DISTRESS.
[2018-07-10] MEDS: GABAPENTIN 100 MG CAPSULE GT SCH ×3 (08:37→16:47)
[2018-07-10] MEDS: LORAZEPAM 1 MG TABLET GT SCH (08:37)
[2018-07-10] MEDS: VANCOMYCIN IV 1 G in PREMIXED 0 EACH IV SCH ×2 (08:37→20:52)
[2018-07-10] MEDS: LACTOBACILLUS RHAMNOSUS GG 1 EACH CAPSULE PO SCH ×2 (08:37→21:00)
[2018-07-10] MEDS: PHENOBARBITAL 32.4 MG TABLET GT SCH (08:37)
[2018-07-10] MEDS: LORATADINE 10 MG TABLET GT SCH (08:37)
[2018-07-10] MEDS: BACITRACIN/POLYMYXIN B OINT 15 GM TUBE TOP SCH ×2 (09:19→21:25)
--- NOTE | 2018-07-10 11:02 | NUR ---
CLINICAL PHARMACY NOTE:AMIKACIN & VANCOMYCIN DOSING S: Amikacin & vancomycin dosing to continue for this 43 y/o male patient for UTI, bacteremia, sepsis O: Temp 98.4F BUN 7 Scr 0.3 WBC 5.3 (07/09) Wt 53.5 kg ht 185.4 cm P Will continue same dose of amikacin 500mh IV q11h for today. See 07/07 pharmacist note evaluation of dose. Per ID note from 07/08, continue Amikacin for a couple more days. Will repeat levels if condition were to change. Will continue same dose of vancomycin 1gm IVPB q11hr for today. Will monitor renal function & adjust the dose if needed. Per ID note from 07/08, the plan is for 2-week course of vanco (will consider repeating level). Will follow up.
[2018-07-10 11:47] VITALS: BP 99/55
[2018-07-10] MEDS: JEVITY 1.2 1000 ML LIQUID GT PRN (14:13)
--- NOTE | 2018-07-10 14:13 | NUR ---
NOTED THAT PATIENTS GT FEEDINGS IS LEAKING FROM THE INSERTION SITE ATTEMPTED TO FLUSH AND THE WATER IS COMING OUT FROM THE GT INSERTION SITE FEEDING STOPPED AT THIS TIME BED CLEANED AND PATIENT MADE COMFORTABLE
--- NOTE | 2018-07-10 14:30 | NUR ---
ESAU VALDES NOTIFIED AND HE STATED WILL GET GI INVOLVED TO DETERMINE WHAT HAPPENED AND WHAT IS GOING ON.
[2018-07-10 16:28] VITALS: BP 100/68
--- NOTE | 2018-07-10 16:41 | NUR ---
REY CASTILLO VP OF DIGITAL MARKETING HERE AND I NOTIFIED HER AND SHE STATED WILL SEE PATIENT.
[2018-07-10 17:00] LABS: IRON, SERUM 34 ug/dL (50-175)
--- NOTE | 2018-07-10 17:00 | NUR ---
COURT REPORTER HERE AND STATED THAT HE WILL INJECT GASTROGRAPHIN INTO THE TUBE AND THEN DO A KUB TO CHECK PLACEMENT BUT I INFORMED HIM THAT ITS NOT POSSIBLE TO INJECT ANY FLUID INTO THE TUBE BECAUSE IT DRAINS OUT.
--- NOTE | 2018-07-10 17:10 | NUR ---
ESAU QUARTZ MINER HERE AND SEEN THE GT SITE WITH THE GASTRIC JUICE DRAINGE STATED WILL TALK TO REY THAT IT WAS NOT POSSIBLE TO INJECT INTO THE TUBE AND WILL THEN DECIDE ON THE NEXT PLAN OF CARE.
[2018-07-10 17:13] LABS: FERRITIN 54 ng/mL (26-388)
[2018-07-10] MEDS: MICAFUNGIN SODIUM 100 MG in IV NORMAL SALINE 100 ML IV SCH (17:14)
[2018-07-10] MEDS: POTASSIUM CHLORIDE 20 MEQ in IV NS 1000 ML 1,000 ML IV PRN (18:25)
--- NOTE | 2018-07-10 18:27 | NUR ---
JORGE CLEANER AND DYER HERE AND AWARE OF THE GT MAL FUNCTION WITH NO NEW ORDERS AT THIS TIME.
--- NOTE | 2018-07-10 19:20 | NUR ---
RECEIVED PATIENT LYING IN BED. AAOX3. IN NO ACUTE DISTRESS. TRACHEOSTOMY TUBE IN PLACE WITH O2 AT 4LPM. GT SITE LEAKING MODERATE AMOUNT OF YELLOWISH TO GREENISH DRAINAGE. IV SITE ON LEFT UPPER ARM INTACT AND PATENT. IVF INFUSING. FC INTACT AND DRAINING VIA GRAVITY. SAFETY MEASURE INITIATED AND CALL [facility] WITHIN REACH.
--- NOTE | 2018-07-10 20:12 | NUR ---
TELEPHONE CALL FROM REY FOLEY AND INSTRUCTED THIS NURSE TO OBTAIN CONSENT FOR EGD PEG. KEEP PATIENT NPO. PATIENT WILL BE SCHEDULE FOR THIS PROCEDURE TOMORROW AT 10AM WITH DR PERLA PER KEISHA LESLIE.
--- NOTE | 2018-07-10 20:20 | NUR ---
REMINDED EMPLOYMENT COACH Marquise DALTON THAT PATIENT GT SITE LEAKING AND PATIENT HAS DUE MEDS TO BE GIVEN DURING THE NIGHT. EMPLOYMENT COACH SHA TO REVIEW MEDICATION.
[2018-07-10 20:39] VITALS: BP 97/63
[2018-07-10] MEDS: TOLTERODINE 2 MG TABLET GT SCH (21:00)
[2018-07-10] MEDS: ZONISAMIDE 100 MG CAPSULE GT SCH (21:00)
[2018-07-10] MEDS: risperiDONE 1 MG TABLET GT SCH (21:00)
[2018-07-10] MEDS: TRAZODONE 100 MG TABLET GT SCH (21:00)
--- NOTE | 2018-07-10 21:45 | NUR ---
Marquise SANTIAGO WITH ORDER TO GIVE IV PHENOBARBITAL AND LORAZEPAM IV. HOLD OTHER ROUTINE MEDS DUE TO GT MALFUNCTION. ORDER NOTED AND CARRIED OUT.
[2018-07-10] MEDS ORDERED: LORAZEPAM 2 MG/1 ML VIAL IV ONE (22:15)
[2018-07-10] MEDS ORDERED: LORAZEPAM 2 MG/1 ML VIAL ONE (22:30)
--- NOTE | 2018-07-10 22:30 | NUR ---
PATIENT SIGNED CONSENT FORM FOR EGD PEG, WITNESSED BY THIS NURSE. PATIENT ALSO CALLED HIS SISTER WHILE THIS NURSE WAS PRESENT AND INFORMED HIS SISTER ABOUT THE PROCEDURE AND SISTER WAS ALREADY AWARE OF IT.
[2018-07-10] MEDS ORDERED: PHENOBARBITAL SODIUM 130 MG/1 ML DISP.SYRIN ONE (22:31)
[2018-07-10] MEDS: PHENOBARBITAL SODIUM 130 MG/1 ML DISP.SYRIN IV SCH (22:35)
[2018-07-11] MEDS: HYDROMORPHONE 2 MG/1 ML DISP.SYRIN IV PRN ×5 (01:50→22:51)
[2018-07-11] MEDS: AMIKACIN 500 MG in IV DEXTROSE 5% 100 ML IV SCH ×2 (02:11→13:12)
[2018-07-11 03:25] LABS: *OCCULT BLOOD STOOL NEGATIVE (NEGATIVE)
[2018-07-11 05:00] VITALS: BP 131/45
[2018-07-11] MEDS: TIZANIDINE HCL 4 MG TABLET GT SCH ×3 (06:00→21:36)
[2018-07-11] MEDS: VANCOMYCIN IV 1 G in PREMIXED 0 EACH IV SCH ×2 (06:00→17:48)
[2018-07-11] MEDS: BACLOFEN 20 MG TABLET GT SCH ×3 (06:00→21:36)
--- NOTE | 2018-07-11 06:15 | NUR ---
AAOX3, WITH PERIODS OF FORGETFULNESS. IN NO ACUTE DISTRESS. TRACHEOSTOMY TUBE REMAINS IN PLACE WITH O2 AT 4LPM. O2 SAT AT 95%GT SITE LEAKING SMALL AMOUNT OF GREENISH TO BROWNISH DRAINAGE. IV SITE ON LEFT UPPER ARM INTACT AND PATENT. IVF INFUSING. NO ADVERSE REACTION NOTED FROM IV ABX. FC INTACT AND DRAINING VIA GRAVITY WITH YELLOW URINE OUTPUT. NPO STATUS. SAFETY MEASURE MAINTAINED AND CALL [facility] WITHIN REACH.
[2018-07-11] MEDS: ACETYLCYSTEINE 10% 4ML VIAL IH SCH ×2 (07:33→19:30)
[2018-07-11] MEDS: IPRATROPIUM BROMIDE 0.5 MG/2.5 ML NEBU NEB SCH ×2 (07:34→19:29)
[2018-07-11 08:21] VITALS: BP 152/90
[2018-07-11] MEDS: LACTOBACILLUS RHAMNOSUS GG 1 EACH CAPSULE PO SCH ×2 (09:00→21:35)
[2018-07-11] MEDS: LORATADINE 10 MG TABLET GT SCH (09:00)
[2018-07-11] MEDS: LORAZEPAM 2 MG/1 ML VIAL IV SCH ×3 (09:00→21:36)
[2018-07-11] MEDS: GABAPENTIN 100 MG CAPSULE GT SCH ×3 (09:00→16:35)
[2018-07-11] MEDS: BACITRACIN/POLYMYXIN B OINT 15 GM TUBE TOP SCH ×2 (09:30→21:00)
[2018-07-11] MEDS: MUPIROCIN 2% OINT 22 GM TUBE NS SCH (09:30)
--- NOTE | 2018-07-11 09:35 | NUR ---
Patient been picking crew supervisor by GI/OR team report given to rn. Irby. Pt. left iv patent to DESI. trache to mask 4L/ Vitals stable.
[2018-07-11] MEDS: PHENOBARBITAL SODIUM 130 MG/1 ML DISP.SYRIN IV SCH ×2 (09:37→21:36)
[2018-07-11] MEDS: PANTOPRAZOLE SODIUM 40 MG VIAL IV SCH (09:40)
[2018-07-11] MEDS ORDERED: ALBUTEROL SULFATE 2.5 MG/3 ML NEBU ONE (11:08)
[2018-07-11] MEDS ORDERED: IPRATROPIUM BROMIDE 0.5 MG/2.5 ML NEBU ONE (11:09)
[2018-07-11] MEDS ORDERED: HYDROMORPHONE 2 MG/1 ML DISP.SYRIN ONE (11:10)
[2018-07-11] MEDS ORDERED: IV NORMAL SALINE 1000 ML BAG IV ONE (11:16)
[2018-07-11] MEDS ORDERED: PROPOFOL 200 MG/20 ML BOTTLE IV ONE (11:16)
--- NOTE | 2018-07-11 11:27 | NUR ---
CLINICAL PHARMACY NOTE:AMIKACIN & VANCOMYCIN DOSING S: Amikacin & vancomycin dosing to continue for this 43 y/o male patient for UTI, bacteremia, sepsis O: Temp 97.5 F BUN 7(07/10) Scr 0.3 (07/10) WBC 5.3 (07/09) Wt 53.5 kg ht 185.4 cm P Will continue same dose of amikacin 500mh IV q11h for today. See 07/07 pharmacist note evaluation of dose. Per ID note from 07/08, continue Amikacin for a couple more days. Will repeat levels if condition were to change. Will continue same dose of vancomycin 1gm IVPB q11hr for today. Will monitor renal function & adjust the dose if needed. Per ID note from 07/08, the plan is for 2-week course of vanco (will consider repeating level). Will follow up.
--- NOTE | 2018-07-11 11:45 | NUR ---
Patient back from GI lab procedure at this time vitals as follow: Temp 97.4,AYM553/68, HR84. New PEG to abdomen with leaking of greenish mucoid secretions noted, with the GI rn dressing changed area cleaned. Will continue to monitor. Addendum: 07/11/18 at 1529 by MICHAEL OLIVARES RN As reported ML infiltrated due to propofol infusion and dcd during procedure. pt. in with IV peripheral to Rwrist area which is triggering iv alarm and later on got infiltrated.
[2018-07-11 12:45] VITALS: BP 110/68
--- NOTE | 2018-07-11 14:53 | NUR ---
G-tube site dressing done at this time area remains with leaking of greenish foamy discharge and G-tube site noted with bloody drainage accompanied by blood clots.
[2018-07-11] MEDS: IV LACTATED RINGERS SOLUTION 1,000 ML IV PRN (15:06)
[2018-07-11] MEDS: MICAFUNGIN SODIUM 100 MG in IV NORMAL SALINE 100 ML IV SCH (15:25)
[2018-07-11 15:31] VITALS: BP 96/58
[2018-07-11 19:59] VITALS: BP 134/53
--- NOTE | 2018-07-11 20:15 | NUR ---
RECEIVED PT AWAKE, ALERT, ,ORIENTEDX2. PT SHOWS NO SIGNS OF DISTRESS. IV INTACT. PLASCENCIA CATHETER INTACT. NEW G-TUBE SITE INTACT AND NO LEAKING. THERE IS LEAKING ON THE SITE OF THE PREVIOUS G-TUBE SITE.DRESSING WAS PLACED.PT STABLE.SAFETY AND COMFORT PROVIDED. WILL CONTINUE TO MONITOR.
[2018-07-11] MEDS: ZONISAMIDE 100 MG CAPSULE GT SCH (21:35)
[2018-07-11] MEDS: risperiDONE 1 MG TABLET GT SCH (21:35)
[2018-07-11] MEDS: TRAZODONE 100 MG TABLET GT SCH (21:35)
[2018-07-11] MEDS: TOLTERODINE 2 MG TABLET GT SCH (21:35)
[2018-07-12] MEDS: AMIKACIN 500 MG in IV DEXTROSE 5% 100 ML IV SCH ×2 (00:16→12:26)
[2018-07-12] MEDS: JEVITY 1.2 1000 ML LIQUID GT PRN ×3 (00:34→16:59)
[2018-07-12] MEDS: HYDROMORPHONE 2 MG/1 ML DISP.SYRIN IV PRN ×6 (02:36→21:25)
[2018-07-12] MEDS: VANCOMYCIN IV 1 G in PREMIXED 0 EACH IV SCH ×2 (04:10→16:02)
[2018-07-12 04:39] VITALS: BP 105/33
[2018-07-12] MEDS: TIZANIDINE HCL 4 MG TABLET GT SCH ×3 (05:12→21:17)
[2018-07-12] MEDS: IBUPROFEN 400 MG TABLET GT PRN (05:12)
[2018-07-12] MEDS: BACLOFEN 20 MG TABLET GT SCH ×3 (05:12→21:17)
--- NOTE | 2018-07-12 06:28 | NUR ---
PT SLEPT INTERMITTENTLY DURING THE SHIFT. PT SHOWS NO SIGNS OF DISTRESS. PT IV INTACT AND PATENT.PLASCENCIA CATHETER INTACT. G-TUBE INTACT. PRESCRIBED MEDICATION GIVEN AND PT TOLERATED IT WELL.PAIN MEDICATION GIVEN. PT TOLERATED IT WELL.TURNED AND REPOSITIONED. DRESSING CHANGE FOR THE PT. SAFETY AND COMFORT PROVIDED. WILL ENDORSE ACCORDINGLY TO DAYSHIFT NURSE FOR CONTINUITY OF CARE.
[2018-07-12 06:50] LABS: BASOPHILS % (AUTO) 0.3 % (0.0-2.0); EOSINOPHILS % (AUTO) 0.9 % (0.0-7.0); HEMATOCRIT 27.5 % (36.7-47.1); HEMOGLOBIN 9.5 g/dL (12.5-16.3); LYMPHOCYTES # (AUTO) 0.7 K/uL (20.0-40.0); LYMPHOCYTES % (AUTO) 15.4 % (20.5-51.5); MEAN CORPUSCULAR HEMOGLOBIN 32.7 uug (23.8-33.4); MEAN CORPUSCULAR HGB CONC 34 g/dL (32.5-36.3); MEAN CORPUSCULAR VOLUME 95.1 fL (73.0-96.2); MONOCYTES # (AUTO) 0.7 K/uL (2.0-10.0); MONOCYTES % (AUTO) 16.3 % (0.0-11.0); NEUTROPHILS % (AUTO) 67.1 % (38.5-71.5); PLATELET COUNT (AUTO) 190 K/uL (152-348); RED BLOOD CELL COUNT(AUTO) 2.89 MIL/uL (4.06-5.63); WHITE BLOOD COUNT (AUTO) 4.5 K/uL (3.6-10.2)
[2018-07-12 06:58] LABS: CARBON DIOXIDE 28 mmol/L (21-32); CHLORIDE 102 mmol/L (98-107); CREATININE 0.4 mg/dL (0.6-1.3); GLUCOSE 121 mg/dL (74-106); POTASSIUM 3.4 mmol/L (3.5-5.1); UREA NITROGEN, BLOOD 14 mg/dL (7-18)
[2018-07-12] MEDS: IPRATROPIUM BROMIDE 0.5 MG/2.5 ML NEBU NEB SCH ×2 (07:25→19:05)
[2018-07-12] MEDS: ACETYLCYSTEINE 10% 4ML VIAL IH SCH ×2 (07:25→19:05)
[2018-07-12 08:02] VITALS: BP 131/76
[2018-07-12 08:41] LABS: EOSINOPHILS % (MANUAL) 1 % (0-8); LYMPHOCYTES % (MANUAL) 15 % (20-40); MONOCYTES % (MANUAL) 15 % (2-10); NEUTROPHILS % (MANUAL) 69 % (42-75)
[2018-07-12] MEDS: PANTOPRAZOLE SODIUM 40 MG VIAL IV SCH (09:11)
[2018-07-12] MEDS: LORAZEPAM 2 MG/1 ML VIAL IV SCH ×2 (09:12→21:22)
[2018-07-12] MEDS: PHENOBARBITAL SODIUM 130 MG/1 ML DISP.SYRIN IV SCH ×2 (09:12→21:21)
[2018-07-12] MEDS: LACTOBACILLUS RHAMNOSUS GG 1 EACH CAPSULE PO SCH ×2 (09:12→21:18)
[2018-07-12] MEDS: LORATADINE 10 MG TABLET GT SCH (09:13)
[2018-07-12] MEDS: GABAPENTIN 100 MG CAPSULE GT SCH ×3 (09:13→16:48)
[2018-07-12] MEDS: BACITRACIN/POLYMYXIN B OINT 15 GM TUBE TOP SCH ×2 (09:26→21:18)
--- NOTE | 2018-07-12 09:30 | NUR ---
RESTING WELL IN BED NO SOB OR ACUTE DISTRESS START GT FEEDING ORDER ALYSIA WELL ON FALL AND ASPIRATION PRECAUTION CALL LIGHT IN REACH
[2018-07-12] MEDS: IV LACTATED RINGERS SOLUTION 1,000 ML IV PRN (10:41)
[2018-07-12 11:29] VITALS: BP 132/76
--- NOTE | 2018-07-12 12:00 | NUR ---
PATIENT HAVING LEAKING FROM OLD SITE OF GT DSG CHANGE PRN AND ALYSIA GT FEEDING AT NEW GT WELL NO N/V
--- NOTE | 2018-07-12 13:32 | NUR ---
CLINICAL PHARMACY NOTE:AMIKACIN & VANCOMYCIN DOSING S: Amikacin & vancomycin dosing to continue for this 43 y/o male patient for UTI, bacteremia, sepsis O: Temp 98.3F BUN 14 Scr 0.4 WBC 4.5 Wt 53.5 kg ht 185.4 cm P Will continue same dose of amikacin 500mh IV q11h for today. See 07/07 pharmacist note evaluation of dose. Amikacin is still continued per ID on 07/11 note ,even though ID note from 07/08, continue Amikacin for a couple more days. so level is ordered for tomorrow 10am dose. Will continue same dose of vancomycin 1gm IVPB q11hr for today. Will monitor renal function & adjust the dose if needed. Per ID note from 07/08, the plan is for 2-week course of vanco (will consider repeating level). Will follow up.
[2018-07-12] MEDS ORDERED: POTASSIUM CHLORIDE 20 MEQ POWDER PACKET PO ONE (14:00)
[2018-07-12 15:24] VITALS: BP 105/60
[2018-07-12] MEDS: MICAFUNGIN SODIUM 100 MG in IV NORMAL SALINE 100 ML IV SCH (16:02)
--- NOTE | 2018-07-12 17:00 | NUR ---
REMEDY CREAM APPLY TO REDNESS SKIN AROUND OLD GT SITE AND DSG CHANGE , STOP GT FEEDING AND CLOSED OBSERVATION FOR A LARGE AMT OF LEAKING FROM OLD GT SITE
--- NOTE | 2018-07-12 18:00 | NUR ---
STABLE HEMODYNAMIC STATUS ,PAIN UNDER CONTROL ON FALL /ASPIRATION PRECAUTION AND CONTINUE IVF CALL CORONA IN REACH AND BED ALARM ON
[2018-07-12 19:46] VITALS: BP 125/70
[2018-07-12] MEDS: TOLTERODINE 2 MG TABLET GT SCH (21:16)
[2018-07-12] MEDS: risperiDONE 1 MG TABLET GT SCH (21:17)
[2018-07-12] MEDS: TRAZODONE 100 MG TABLET GT SCH (21:17)
[2018-07-12] MEDS: ZONISAMIDE 100 MG CAPSULE GT SCH (21:18)
[2018-07-13] MEDS: HYDROMORPHONE 2 MG/1 ML DISP.SYRIN IV PRN ×6 (01:27→21:59)
--- NOTE | 2018-07-13 03:40 | NUR ---
Patient yelling for the nurse. I went to ask what he needed. He said "I need my pain shot!" I explained that i gave him Dilaudid at 0130 and even wrote it on the board for him. Patient said "No you didn't. Show me the record that you did." Patient was trach suctioned and given a warm blanket. I had another nurse go to the room to explain that I had given him the pain medication at 0130 but patient is asleep at this time. Per floor nurses, during my break patient kept calling out and asking for his pain medication (approx 2am).
[2018-07-13] MEDS: VANCOMYCIN IV 1 G in PREMIXED 0 EACH IV SCH ×2 (03:43→14:04)
[2018-07-13 05:10] VITALS: BP 100/43
[2018-07-13] MEDS: TIZANIDINE HCL 4 MG TABLET GT SCH ×3 (05:20→21:57)
[2018-07-13] MEDS: BACLOFEN 20 MG TABLET GT SCH ×3 (05:20→21:57)
[2018-07-13] MEDS: ACETYLCYSTEINE 10% 4ML VIAL IH SCH ×2 (07:21→19:12)
[2018-07-13] MEDS: IPRATROPIUM BROMIDE 0.5 MG/2.5 ML NEBU NEB SCH ×2 (07:21→19:12)
[2018-07-13 07:31] LABS: CARBON DIOXIDE 29 mmol/L (21-32); CHLORIDE 102 mmol/L (98-107); CREATININE 0.3 mg/dL (0.6-1.3); GLUCOSE 101 mg/dL (74-106); POTASSIUM 3.2 mmol/L (3.5-5.1); UREA NITROGEN, BLOOD 7 mg/dL (7-18)
--- NOTE | 2018-07-13 08:00 | NUR ---
AWAKE COOPERATE NO SOB OR ACUTE DISTRESS ,ON FALL ,SEIZURE ASPIRATION PRECAUTION GT WAS CLAMP AT THIS TIME ABD DSG AND OSTOMY BAG COVER TO OLD GT SITE MOD W YELLOW GREENISH FLD OUT CONTINUE IVF RESTING WELL WITH CALL LIGHT IN REACH
[2018-07-13] MEDS: PANTOPRAZOLE SODIUM 40 MG VIAL IV SCH (08:56)
[2018-07-13] MEDS: LORAZEPAM 2 MG/1 ML VIAL IV SCH ×2 (08:56→20:53)
[2018-07-13] MEDS: GABAPENTIN 100 MG CAPSULE GT SCH ×3 (08:57→16:44)
[2018-07-13] MEDS: PHENOBARBITAL SODIUM 130 MG/1 ML DISP.SYRIN IV SCH ×2 (08:57→20:53)
[2018-07-13] MEDS: LACTOBACILLUS RHAMNOSUS GG 1 EACH CAPSULE PO SCH ×2 (08:57→20:51)
[2018-07-13] MEDS: BACITRACIN/POLYMYXIN B OINT 15 GM TUBE TOP SCH ×2 (08:58→20:56)
[2018-07-13] MEDS: IV LACTATED RINGERS SOLUTION 1,000 ML IV PRN (08:59)
[2018-07-13] MEDS: Z GUARD REMEDY PASTE 57 GM TUBE TOP PRN (09:00)
[2018-07-13] MEDS: LORATADINE 10 MG TABLET GT SCH (09:17)
--- NOTE | 2018-07-13 10:34 | NUR ---
CLINICAL PHARMACY NOTE: VANCOMYCIN DOSING S: vancomycin dosing to continue for this 43 y/o male patient for UTI, bacteremia, sepsis. Amikacin d/c'd as of 07/13 O: Temp 97.8F BUN 7 Scr 0.3 WBC 4.5 (07/12) Wt 53.5 kg ht 185.4 cm vanco trough 15.2 on 07/08 P Will continue same dose of vancomycin 1gm IVPB q11hr for today. Will monitor renal function & adjust the dose if needed. Per ID note from 07/08, the plan is for 2-week course of vanco (will consider repeating level). Will follow up.
--- NOTE | 2018-07-13 11:00 | NUR ---
ASSURANCE ASSISTANT SHA CIFUENTES SEE PATIENT AND PT CONDITION REGARDING OLD GT SITE WAS LEAKING WHEN FEEDING PATIENT AND NOW HOLD TF STATE WILL CONTACT GI MD TO SEE HIM AND ALSO SURG FOR HIPOLITO CATH PLACEMENT KEEP NPO EXCEPT MEDICINE
[2018-07-13 11:07] VITALS: BP 126/74
--- NOTE | 2018-07-13 11:17 | NUR ---
WOUND CARE CONSULT: PT SEEN FOR OLD GTUBE SITE LEAKING. NEW GTUBE SITE IS CLEAR BUT OLD GTUBE SITE NOTED TO HAVE GREENISH LIQUID DRAINAGE IN OSTOMY POUCH. CONCUR WITH USE OF OSTOMY POUCH. RECOMMEND SURGICAL/GI FOLLOWUP. WILL SEE PRN. IN AGREEMENT WITH PLAN OF CARE.
[2018-07-13] MEDS: POTASSIUM CHLORIDE 50 ML IV SCH ×4 (11:44→16:56)
[2018-07-13] MEDS: IV D5LR 1,000 ML IV PRN (11:44)
--- NOTE | 2018-07-13 14:00 | NUR ---
WOUND CARE DSG WOUND CARE NURSE ORDER OSTOMY BAG COVER ON OLD GT SITE LEAKING
[2018-07-13 15:24] VITALS: BP 125/70
[2018-07-13] MEDS: MICAFUNGIN SODIUM 100 MG in IV NORMAL SALINE 100 ML IV SCH (15:56)
--- NOTE | 2018-07-13 17:00 | NUR ---
C/O OF CONSTIPATION AND DISIMPACT OF STOOL HAVING MOD SOFT OUT STATE FEEL BETTER
--- NOTE | 2018-07-13 17:30 | NUR ---
STABLE HEMODYNAMIC STATUS ,PAIN UNDER CONTROL NO ACUTE DISTRESS CONTINUE IVF ORDER AND KEEP NPO AT THIS TIME ,OLD GT SITE STILL HAVING LEAKING WITH YELLOWISH GREENISH MOD AMT COVER WITH OSTOMY BAG SAFETY MEASURE PROVIDED CALL [place] IN REACH
--- NOTE | 2018-07-13 19:40 | NUR ---
PATIENT ON BED, AWAKE . NO DISTRESS NOTED. ON O2 @ 4LPM VIA TRACHEOSTOMY. IV FLUID INFUSING ORDERED. IV SITE R UPPER ARM INTACT. F/C DRAINING YELLOW URINE. CONTINUE OBSERVING CONTACT ISOLATION FRO MRSA OF NARES OLD GTUBE SITE COVERED WITH OSTOMY BAG DRAINING YELLOWISH GREEN FLUID . NEW GT SITE DRESSING INTACT. NOTED REDNESS AROUND THE GT SITE . WILL CONTINUE OT MONITOR
[2018-07-13 20:02] VITALS: BP 122/80
[2018-07-13] MEDS: TOLTERODINE 2 MG TABLET GT SCH (20:51)
[2018-07-13] MEDS: TRAZODONE 100 MG TABLET GT SCH (20:52)
[2018-07-13] MEDS: risperiDONE 1 MG TABLET GT SCH (20:52)
[2018-07-13] MEDS: ZONISAMIDE 100 MG CAPSULE GT SCH (20:55)
[2018-07-14] MEDS: VANCOMYCIN IV 1 G in PREMIXED 0 EACH IV SCH ×3 (00:09→23:00)
[2018-07-14] MEDS: HYDROMORPHONE 2 MG/1 ML DISP.SYRIN IV PRN ×5 (02:25→20:36)
[2018-07-14 04:41] VITALS: BP 111/64
[2018-07-14] MEDS: BACLOFEN 20 MG TABLET GT SCH ×3 (05:20→22:19)
[2018-07-14] MEDS: TIZANIDINE HCL 4 MG TABLET GT SCH ×3 (05:20→22:19)
[2018-07-14 06:30] LABS: BASOPHILS % (AUTO) 0.8 % (0.0-2.0); EOSINOPHILS # (AUTO) 0.6 K/uL (0.0-0.7); EOSINOPHILS % (AUTO) 15.5 % (0.0-7.0); HEMATOCRIT 27.6 % (36.7-47.1); HEMOGLOBIN 9.5 g/dL (12.5-16.3); LYMPHOCYTES % (AUTO) 25.1 % (20.5-51.5); MEAN CORPUSCULAR HEMOGLOBIN 32.7 uug (23.8-33.4); MEAN CORPUSCULAR HGB CONC 34 g/dL (32.5-36.3); MEAN CORPUSCULAR VOLUME 95.6 fL (73.0-96.2); MONOCYTES # (AUTO) 0.6 K/uL (2.0-10.0); MONOCYTES % (AUTO) 15.5 % (0.0-11.0); NEUTROPHILS # (AUTO) 1.7 K/uL (1.8-8.9); NEUTROPHILS % (AUTO) 43.1 % (38.5-71.5); PLATELET COUNT (AUTO) 199 K/uL (152-348); RED BLOOD CELL COUNT(AUTO) 2.89 MIL/uL (4.06-5.63)
--- NOTE | 2018-07-14 06:31 | NUR ---
PATIENT AWAKE ON BED. USING O2 4 LPM VIA TRACHEOSTOMY. CONTINUING ON CONTACT ISOLATION FOR MRSA OF NARES. PAIN MEDICATION ADMINISTERED ON C/O PAIN ON KRANTHI SHOULDER AND NECK . IV FLUID INFUSING ORDERED. PATIENT ON NPO. OLD G TUBE SITE OSTOMY CLEAN AND INTACT. MEDICATION APPLIED FOR REDNESS AROUND THE GTUBE. F/C DRAINING YELLOW URINE. KEPT CLEAN AND DRY . REPOSITIONED FREQUENTLY .SAFETY MEASURES OBSERVED.
[2018-07-14 06:40] LABS: CARBON DIOXIDE 30 mmol/L (21-32); CHLORIDE 104 mmol/L (98-107); CREATININE 0.3 mg/dL (0.6-1.3); GLUCOSE 103 mg/dL (74-106); MAGNESIUM 1.6 mg/dL (1.8-2.4); PHOSPHOROUS 3.2 mg/dL (2.5-4.9); POTASSIUM 3.5 mmol/L (3.5-5.1); UREA NITROGEN, BLOOD 4 mg/dL (7-18)
[2018-07-14] MEDS: ACETYLCYSTEINE 10% 4ML VIAL IH SCH ×2 (08:03→20:08)
[2018-07-14] MEDS: IPRATROPIUM BROMIDE 0.5 MG/2.5 ML NEBU NEB SCH ×2 (08:03→20:08)
--- NOTE | 2018-07-14 08:30 | NUR ---
AWAKE ALERT COOPERATE WELL NO ACUTE DISTRESS OR PAIN GT CLAMP AND OLD GT SITE WITH OSTOMY BAG INTACT SMALL YELLOW DRAINAGE ,CONTINUE IVF AND KEEP NPO EXCEPT MEDICINE,ON FALL /ASPIRATION PRECAUTION BED ALARM ON AND CALL LIGHT IN REACH
[2018-07-14 08:59] LABS: LYMPHOCYTES % (MANUAL) 25 % (20-40); MONOCYTES % (MANUAL) 15 % (2-10)
[2018-07-14 09:00] LABS: EOSINOPHILS % (MANUAL) 14 % (0-8); NEUTROPHILS % (MANUAL) 46 % (42-75)
[2018-07-14] MEDS: LORAZEPAM 2 MG/1 ML VIAL IV SCH ×2 (09:24→21:06)
[2018-07-14] MEDS: GABAPENTIN 100 MG CAPSULE GT SCH ×3 (09:24→17:13)
[2018-07-14] MEDS: PANTOPRAZOLE SODIUM 40 MG VIAL IV SCH (09:24)
[2018-07-14] MEDS: LACTOBACILLUS RHAMNOSUS GG 1 EACH CAPSULE PO SCH ×2 (09:25→21:06)
[2018-07-14] MEDS: PHENOBARBITAL SODIUM 130 MG/1 ML DISP.SYRIN IV SCH ×2 (09:35→21:06)
--- NOTE | 2018-07-14 10:00 | NUR ---
GT FEEDING STILL HOLDING BECAUSE OF LEAKING FROM OLD GT SITE WHEN FEED DR AWARE WOUND CARE DSG CHANGE AT GT SITE AND OSTOMY BAG WAS CHANGE SKIN CARE AT GT SITE AND APPLY REMEDY CREAM AT REDNESS SKIN PRN
[2018-07-14] MEDS: LORATADINE 10 MG TABLET GT SCH (10:20)
[2018-07-14] MEDS: BACITRACIN/POLYMYXIN B OINT 15 GM TUBE TOP SCH ×2 (10:20→21:05)
[2018-07-14] MEDS: Z GUARD REMEDY PASTE 57 GM TUBE TOP PRN (10:21)
[2018-07-14 12:01] VITALS: BP 106/56
[2018-07-14] MEDS: IV D5LR 1,000 ML IV PRN (12:36)
--- NOTE | 2018-07-14 13:00 | NUR ---
REPOSITION Q2 HR AND OSTOMY BAG CHANGE WOUND CARE ORDER MOD YELLOW GREENISH GASTRIC CONTENT OUT LEAKING FROM OLD SITE OF GT
--- NOTE | 2018-07-14 14:24 | NUR ---
CLINICAL PHARMACY NOTE: VANCOMYCIN DOSING S: vancomycin dosing to continue for this 43 y/o male patient for UTI, bacteremia, sepsis. O: Temp 97.6F BUN 4 Scr 0.3 WBC 4.0 Wt 53.5 kg ht 185.4 cm vanco trough 16.8 today at 1130 P Since Vancomycin trough is within the range, Will continue same dose of vancomycin 1gm IVPB q11hr. Per ID note from 07/08, the plan is for 2-week course of vanco (will consider repeating level in 1 week ). Will follow up.
[2018-07-14] MEDS: MAGNESIUM SULFATE/D5W 100 ML IV SCH ×2 (15:19→16:40)
[2018-07-14 15:59] VITALS: BP 104/52
[2018-07-14] MEDS: MICAFUNGIN SODIUM 100 MG in IV NORMAL SALINE 100 ML IV SCH (16:18)
--- NOTE | 2018-07-14 16:30 | NUR ---
DR RODRIGES HERE PATIENT CONDITION INFORM STATE TO TRY APPLY DESITIN CREAM AND GAUZE AT OLD GT SITE TO KEEP LEAKING LESS IF POSS
--- NOTE | 2018-07-14 17:45 | NUR ---
STABLE HEMODYNAMIC STATUS ,PAIN UNDER CONTROL NO ACUTE DISTRESS OSTOMY BAG AT OLD GT SITE STILL LEAKING MOD AMT ,KEEP NPO EXCEPT MEDICINE SAFETY MEASURE PROVIDED CALL LIGHT IN REACH
[2018-07-14 20:56] VITALS: BP 110/54
[2018-07-14] MEDS: ZONISAMIDE 100 MG CAPSULE GT SCH (21:05)
[2018-07-14] MEDS: risperiDONE 1 MG TABLET GT SCH (21:06)
[2018-07-14] MEDS: TRAZODONE 100 MG TABLET GT SCH (21:06)
[2018-07-14] MEDS: TOLTERODINE 2 MG TABLET GT SCH (21:06)
--- NOTE | 2018-07-14 21:59 | NUR ---
Nursing Note: Pt resting in bed. Respirations even and unlabored on room air. No seizure activity noted. Personal protective equipment used at all times. Abdomen soft and non distended. No leaking noted from GT malfunction. Turned and repositioned every 2 hours. IV site intact and patent. No complaints of pain or distress at this time. Bed in low and locked position. Call light in reach all times. Will continue to monitor.
[2018-07-15] MEDS: HYDROMORPHONE 2 MG/1 ML DISP.SYRIN IV PRN ×6 (00:57→20:33)
--- NOTE | 2018-07-15 01:15 | NUR ---
Nursing note: No apparent distress at this time. Turned and repositioned q2h. Pain well managed. Bed in low and locked position. Call light in reach. Continue to monitor.
[2018-07-15 04:03] VITALS: BP 102/50
[2018-07-15] MEDS: BACLOFEN 20 MG TABLET GT SCH ×3 (05:03→22:47)
[2018-07-15] MEDS: TIZANIDINE HCL 4 MG TABLET GT SCH ×3 (05:03→22:47)
[2018-07-15 06:21] LABS: CARBON DIOXIDE 28 mmol/L (21-32); CHLORIDE 105 mmol/L (98-107); CREATININE 0.2 mg/dL (0.6-1.3); GLUCOSE 88 mg/dL (74-106); MAGNESIUM 1.8 mg/dL (1.8-2.4); POTASSIUM 3.4 mmol/L (3.5-5.1); UREA NITROGEN, BLOOD 3 mg/dL (7-18)
--- NOTE | 2018-07-15 06:56 | NUR ---
Nursing Note: Nursing Note: Pt resting comfortably in bed. No respiratory distress. Old GT site continues to be draining fluids. No complaints of pain at this time. Bed in low and locked position. Call light in reach. Continue to monitor.
[2018-07-15] MEDS: ACETYLCYSTEINE 10% 4ML VIAL IH SCH ×2 (07:30→19:37)
[2018-07-15] MEDS: IPRATROPIUM BROMIDE 0.5 MG/2.5 ML NEBU NEB SCH ×2 (07:30→19:36)
[2018-07-15] MEDS: LORAZEPAM 2 MG/1 ML VIAL IV SCH ×2 (08:04→21:00)
[2018-07-15] MEDS: LACTOBACILLUS RHAMNOSUS GG 1 EACH CAPSULE PO SCH ×2 (08:04→22:01)
[2018-07-15] MEDS: PANTOPRAZOLE SODIUM 40 MG VIAL IV SCH (08:04)
[2018-07-15] MEDS: GABAPENTIN 100 MG CAPSULE GT SCH ×3 (08:04→16:19)
[2018-07-15] MEDS: LORATADINE 10 MG TABLET GT SCH (08:04)
[2018-07-15] MEDS: BACITRACIN/POLYMYXIN B OINT 15 GM TUBE TOP SCH ×2 (08:07→22:01)
[2018-07-15] MEDS: PHENOBARBITAL SODIUM 130 MG/1 ML DISP.SYRIN IV SCH ×2 (08:07→22:00)
--- NOTE | 2018-07-15 09:51 | NUR ---
PATIENT RESTING COMFORTABLY IN BED AT THIS TIME. PAIN MANAGEMENT PROVIDED. TRACH SUCTIONED. REPOSITIONED. FEEDING TUBE RUNNING AT 20 CC/HR AT THIS TIME. NO SIGNS OF DISTRESS FROM PATIENT. STABLE CONDITION. CONTACT ISOLATION IMPLEMENTED. BED IN LOCKED/LOW POSITION, SIDE RAILS UP X2, BED ALARM ON, CALL LIGHT WITHIN REACH OF PATIENT. SEIZURE PRECAUTIONS IMPLEMENTED. Addendum: 07/15/18 at 1341 by ÁLVARO HARO RN CORRECTION - FEEDING TUBE RUNNING AT 70 CC/HR.
[2018-07-15] MEDS: VANCOMYCIN IV 1 G in PREMIXED 0 EACH IV SCH ×2 (10:10→22:01)
[2018-07-15 11:37] VITALS: BP 95/40
--- NOTE | 2018-07-15 11:41 | NUR ---
CLINICAL PHARMACY NOTE: VANCOMYCIN DOSING S: vancomycin dosing to continue for this 43 y/o male patient for UTI, bacteremia, sepsis. O: Temp 97.5F BUN 3 Scr 0.2 WBC 4.0 (07/14) Wt 53.5 kg ht 185.4 cm vanco trough 16.8 repeat 07/14 @1130 P Will continue same dose of vancomycin 1gm IVPB q11hr. Per ID note from 07/08, the plan is for 2-week course of vanco (will consider repeating level in 1 week ). Will follow up.
[2018-07-15 12:20] VITALS: BP 110/45
[2018-07-15] MEDS ORDERED: POTASSIUM CHLORIDE 20 MEQ POWDER PACKET GT ONE (13:00)
--- NOTE | 2018-07-15 13:41 | NUR ---
PATIENT'S OLD G-TUBE APPEARS TO BE LEAKING WITH CONTENTS COMING FROM NEW G-TUBE PLACEMENT. MD HAS BEEN NOTIFIED. COLOSTOMY BAG CHANGED. SKIN CARE PROVIDED.
[2018-07-15 15:28] VITALS: BP 86/43
[2018-07-15] MEDS: MICAFUNGIN SODIUM 100 MG in IV NORMAL SALINE 100 ML IV SCH (16:18)
[2018-07-15 16:25] VITALS: BP 101/52
[2018-07-15 19:00] VITALS: BP 115/57
--- NOTE | 2018-07-15 21:00 | NUR ---
Nursing Note: Pt resting in bed. Respirations even and unlabored on room air. No seizure activity noted. Personal protective equipment used at all times. Abdomen soft and non distended. Small amounts of leakage of greenish gastric contents from GT malfunction. Notified FELT COVERER Krisqual. Order to hold feeding overnight and give medication slowly Turned and repositioned every 2 hours. IV site intact and patent. No complaints of pain or distress at this time. Bed in low and locked position. Call light in reach all times. Will continue to monitor.
[2018-07-15] MEDS: TRAZODONE 100 MG TABLET GT SCH (21:59)
[2018-07-15] MEDS: TOLTERODINE 2 MG TABLET GT SCH (21:59)
[2018-07-15] MEDS: risperiDONE 1 MG TABLET GT SCH (21:59)
[2018-07-15] MEDS: ZONISAMIDE 100 MG CAPSULE GT SCH (22:00)
[2018-07-16] VITALS: BP 98/52
[2018-07-16] MEDS: HYDROMORPHONE 2 MG/1 ML DISP.SYRIN IV PRN ×6 (00:35→22:21)
--- NOTE | 2018-07-16 02:55 | NUR ---
Nursing note: No apparent distress at this time. Ostomy bag changed x1 due to tear in bag. Minimal drainage noted at this time. Turned and repositioned q2h. Pain well managed. Bed in low and locked position. Call light in reach. Continue to monitor.
[2018-07-16 04:00] VITALS: BP 106/62
[2018-07-16] MEDS: BACLOFEN 20 MG TABLET GT SCH ×3 (06:19→21:17)
[2018-07-16] MEDS: TIZANIDINE HCL 4 MG TABLET GT SCH ×3 (06:19→21:17)
[2018-07-16 06:32] LABS: CARBON DIOXIDE 27 mmol/L (21-32); CHLORIDE 103 mmol/L (98-107); CREATININE 0.3 mg/dL (0.6-1.3); GLUCOSE 87 mg/dL (74-106); POTASSIUM 3.8 mmol/L (3.5-5.1); UREA NITROGEN, BLOOD 7 mg/dL (7-18)
--- NOTE | 2018-07-16 06:36 | NUR ---
Nursing Note: Pt resting comfortably in bed. Pt manually disimpacted with only small amounts removed. Bed in low and locked position. Call light in reach.
[2018-07-16] MEDS: VANCOMYCIN IV 1 G in PREMIXED 0 EACH IV SCH ×2 (07:32→17:55)
[2018-07-16] MEDS: ACETYLCYSTEINE 10% 4ML VIAL IH SCH ×2 (07:52→19:20)
[2018-07-16] MEDS: IPRATROPIUM BROMIDE 0.5 MG/2.5 ML NEBU NEB SCH ×2 (07:52→19:20)
[2018-07-16] MEDS: GABAPENTIN 100 MG CAPSULE GT SCH ×3 (08:11→16:34)
[2018-07-16] MEDS: PANTOPRAZOLE SODIUM 40 MG VIAL IV SCH (08:11)
[2018-07-16] MEDS: LACTOBACILLUS RHAMNOSUS GG 1 EACH CAPSULE PO SCH ×2 (08:11→21:16)
[2018-07-16] MEDS: LORATADINE 10 MG TABLET GT SCH (08:11)
[2018-07-16] MEDS: PHENOBARBITAL SODIUM 130 MG/1 ML DISP.SYRIN IV SCH ×2 (08:14→21:17)
[2018-07-16] MEDS: LORAZEPAM 2 MG/1 ML VIAL IV SCH ×2 (08:15→21:17)
[2018-07-16] MEDS: BACITRACIN/POLYMYXIN B OINT 15 GM TUBE TOP SCH ×2 (08:19→21:57)
--- NOTE | 2018-07-16 11:18 | NUR ---
CLINICAL PHARMACY NOTE: VANCOMYCIN DOSING S: vancomycin dosing to continue for this 43 y/o male patient for UTI, bacteremia, sepsis. O: Temp 98F BUN 7 Scr 0.3 WBC 4.0 (07/14) Wt 53.5 kg ht 185.4 cm vanco trough 16.8 repeat 07/14 @1130 P Will continue same dose of vancomycin 1gm IVPB q11hr for today. Will monitor renal function & repeat the vanco trough level if needed. Will follow up.
[2018-07-16] MEDS: IV D5LR 1,000 ML IV PRN (11:46)
[2018-07-16 11:58] VITALS: BP 100/53
[2018-07-16 15:50] VITALS: BP 109/70
[2018-07-16] MEDS: MICAFUNGIN SODIUM 100 MG in IV NORMAL SALINE 100 ML IV SCH (16:35)
--- NOTE | 2018-07-16 17:40 | NUR ---
Pt sister Micaela agreed and signed consent for insertion of portocath via telephone.
[2018-07-16 19:00] VITALS: BP 116/74
[2018-07-16] MEDS: TRAZODONE 100 MG TABLET GT SCH (21:16)
[2018-07-16] MEDS: risperiDONE 1 MG TABLET GT SCH (21:17)
[2018-07-16] MEDS: TOLTERODINE 2 MG TABLET GT SCH (21:17)
[2018-07-16] MEDS: ZONISAMIDE 100 MG CAPSULE GT SCH (21:18)
[2018-07-16 22:00] VITALS: BP 139/74
--- NOTE | 2018-07-16 23:00 | NUR ---
RECEIVED PT AWAKE, ALERT, AND ORIENTEDX3. PT SHOWS NO SIGNS OF DISTRESS. PT IV INTACT AND PATENT.PT HAVE G-TUBE AND OSTOMY BAG ON PREVIOUS G-TUBE SITE THAT IS LEAKING. PT ON PLASCENCIA CATHETER. PT ON 4 L OXYGEN. CALL LIGHT WITHIN REACH. BED ALARM . SAFETY AND COMFORT PROVIDED. WILL CONTINUE TO MONITOR.
[2018-07-17] VITALS (7 sets, daily range): BP systolic 107–116; BP diastolic 56–86
[2018-07-17] MEDS: HYDROMORPHONE 2 MG/1 ML DISP.SYRIN IV PRN ×4 (02:14→21:43)
[2018-07-17] MEDS: TIZANIDINE HCL 4 MG TABLET GT SCH ×3 (06:18→21:03)
[2018-07-17] MEDS: BACLOFEN 20 MG TABLET GT SCH ×3 (06:18→21:03)
[2018-07-17] MEDS: VANCOMYCIN IV 1 G in PREMIXED 0 EACH IV SCH ×2 (06:19→21:37)
[2018-07-17 06:34] LABS: BASOPHILS % (AUTO) 0.3 % (0.0-2.0); EOSINOPHILS # (AUTO) 0.6 K/uL (0.0-0.7); EOSINOPHILS % (AUTO) 9.6 % (0.0-7.0); HEMATOCRIT 29.2 % (36.7-47.1); HEMOGLOBIN 9.8 g/dL (12.5-16.3); LYMPHOCYTES % (AUTO) 17.4 % (20.5-51.5); MEAN CORPUSCULAR HEMOGLOBIN 31.9 uug (23.8-33.4); MEAN CORPUSCULAR HGB CONC 34 g/dL (32.5-36.3); MEAN CORPUSCULAR VOLUME 94.9 fL (73.0-96.2); MONOCYTES # (AUTO) 0.8 K/uL (2.0-10.0); MONOCYTES % (AUTO) 14.3 % (0.0-11.0); NEUTROPHILS # (AUTO) 3.5 K/uL (1.8-8.9); NEUTROPHILS % (AUTO) 58.4 % (38.5-71.5); PLATELET COUNT (AUTO) 238 K/uL (152-348); RED BLOOD CELL COUNT(AUTO) 3.07 MIL/uL (4.06-5.63)
[2018-07-17] MEDS: IV D5LR 1,000 ML IV PRN (06:40)
[2018-07-17 06:41] LABS: CARBON DIOXIDE 27 mmol/L (21-32); CHLORIDE 104 mmol/L (98-107); CREATININE 0.3 mg/dL (0.6-1.3); GLUCOSE 98 mg/dL (74-106); MAGNESIUM 1.5 mg/dL (1.8-2.4); PHOSPHOROUS 2.9 mg/dL (2.5-4.9); POTASSIUM 3.5 mmol/L (3.5-5.1); UREA NITROGEN, BLOOD 6 mg/dL (7-18)
[2018-07-17 06:54] LABS: WHITE BLOOD COUNT (AUTO) 5.9 K/uL (3.6-10.2)
--- NOTE | 2018-07-17 06:55 | NUR ---
PT SLEPT THROUGHOUT INTERMITTENTLY.PT SHOWS NO SIGNS OF DISTRESS. PRESCRIBED MEDICATION GIVEN AND PT TOLERATED IT WELL. MANUAL DISIMPACTION DONE. GOT MINIMAL AMOUNT. SUCTIONED THE PT. REPOSITIONED THE PT Q2H.PLASCENCIA CATHTER INTACT. CHANGED THE COLOSTOMY BAG BECAUSE OF LEAKING. IV SITE OF RIGHT FOOT 24 G. SAFETY AND COMFORT PROVIDED. WILL ENDORSE TO INCOMING NURSE FOR CONTINUITY OF CARE.
[2018-07-17] MEDS: ACETYLCYSTEINE 10% 4ML VIAL IH SCH ×2 (08:08→19:18)
[2018-07-17] MEDS: IPRATROPIUM BROMIDE 0.5 MG/2.5 ML NEBU NEB SCH ×3 (08:08→19:18)
[2018-07-17] MEDS: LACTOBACILLUS RHAMNOSUS GG 1 EACH CAPSULE PO SCH ×2 (09:55→21:03)
[2018-07-17] MEDS: GABAPENTIN 100 MG CAPSULE GT SCH ×3 (09:55→21:01)
[2018-07-17] MEDS: LORATADINE 10 MG TABLET GT SCH (09:55)
[2018-07-17] MEDS: PANTOPRAZOLE SODIUM 40 MG VIAL IV SCH (09:55)
[2018-07-17] MEDS: PHENOBARBITAL SODIUM 130 MG/1 ML DISP.SYRIN IV SCH ×2 (10:00→21:02)
[2018-07-17] MEDS: LORAZEPAM 2 MG/1 ML VIAL IV SCH ×2 (10:05→21:02)
[2018-07-17] MEDS ORDERED: MAGNESIUM SULFATE/D5W 100 ML IV SCH (10:30)
[2018-07-17] MEDS ORDERED: IV NORMAL SALINE 500 ML IV ONE (11:30)
--- NOTE | 2018-07-17 11:45 | NUR ---
Received an order from Edmond Esquivel [employer] for 500ml IV NS bolus for BP 82/50, P 77. BP went up to 110/64, P 68. Patient also noted with episode of desaturation 86%. Suctioned secretions, HOB elevated with noted improvement to 95%.
[2018-07-17] MEDS ORDERED: SEVOFLURANE 250 ML BOTTLE IH ONE (14:40)
[2018-07-17] MEDS ORDERED: ONDANSETRON 4 MG/2 ML VIAL IV ONE (14:40)
[2018-07-17] MEDS ORDERED: PROPOFOL 200 MG/20 ML BOTTLE IV ONE (14:40)
[2018-07-17] MEDS ORDERED: EPHEDRINE SULFATE 50 MG/ML AMPUL MC ONE (14:40)
[2018-07-17] MEDS ORDERED: IV NORMAL SALINE 1000 ML BAG IV ONE (14:40)
[2018-07-17] MEDS ORDERED: CEFAZOLIN 1 G VIAL MC ONE (14:40)
--- NOTE | 2018-07-17 14:47 | NUR ---
CLINICAL PHARMACY NOTE: VANCOMYCIN DOSING S: vancomycin dosing to continue for this 43 y/o male patient for UTI, bacteremia, sepsis. O: Temp 97.8F BUN 6 Scr 0.3 WBC 5.9 Wt 53.5 kg ht 185.4 cm vanco trough 16.8 repeat 07/14 @1130 P Will continue same dose of vancomycin 1gm IVPB q11hr for today. Will monitor renal function & repeat the vanco trough level if needed. Will follow up.
[2018-07-17] MEDS: BACITRACIN/POLYMYXIN B OINT 15 GM TUBE TOP SCH ×2 (15:26→21:15)
[2018-07-17] MEDS ORDERED: MIDAZOLAM HCL 2 MG/2 ML VIAL ONE (15:45)
[2018-07-17] MEDS ORDERED: FENTANYL CITRATE 100 MCG/2 ML AMPUL ONE (15:45)
--- NOTE | 2018-07-17 15:50 | NUR ---
Patient picked up by OR nurse Brigitte Kraft Patient awake, alert, responsive, not in any form of acute distress.He denies any pain or discomfort at this time.
[2018-07-17] MEDS ORDERED: ALBUTEROL SULFATE 2.5 MG/3 ML NEBU ONE (15:53)
[2018-07-17] MEDS ORDERED: IPRATROPIUM BROMIDE 0.5 MG/2.5 ML NEBU ONE (15:53)
--- NOTE | 2018-07-17 16:12 | NUR ---
tx given pre-op in surgery.
[2018-07-17] MEDS ORDERED: HEPARIN/NS 500 ML ONE (16:38)
[2018-07-17] MEDS ORDERED: BACITRACIN 50,000 UNITS VIAL ONE (16:41)
--- NOTE | 2018-07-17 19:20 | NUR ---
RECEIVED PT ALERT, AWAKE, AND ORIENTEDX2. PT JUST HAD PORTHACATH INSERTION ON LEFT GROIN . PT VITAL SIGNS WITHIN NORMAL LIMIT. PT SHOWS NO SIGNS OF DISTRESS. IV INTACT,PLASCENCIA INTACT. PT HAD G-TUBE. PT ALSO HAS COLOSTOMY BAG ON PREVIOUS -G-TUBE SITE. CALL LIGHT WITHIN REACH. SAFETY AND COMFORT PROVIDED. WILL CONTINUE TO MONITOR.
--- NOTE | 2018-07-17 19:50 | NUR ---
Patient came back from surgery with portacath placed on the left groin, dressing intact and dry. Per OR nurse attempted portacath insertion site on the left ant neck with dressing intact and dry. Patient awake, alert, responsive. vital signs stable.
[2018-07-17] MEDS: MICAFUNGIN SODIUM 100 MG in IV NORMAL SALINE 100 ML IV SCH (20:19)
[2018-07-17] MEDS: risperiDONE 1 MG TABLET GT SCH (21:03)
[2018-07-17] MEDS: TRAZODONE 100 MG TABLET GT SCH (21:03)
[2018-07-17] MEDS: TOLTERODINE 2 MG TABLET GT SCH (21:03)
[2018-07-17] MEDS: ZONISAMIDE 100 MG CAPSULE GT SCH (21:05)
[2018-07-18 00:25] VITALS: BP 104/67
[2018-07-18] MEDS: VANCOMYCIN IV 1 G in PREMIXED 0 EACH IV SCH ×2 (03:02→14:39)
[2018-07-18 04:00] VITALS: BP 101/52
[2018-07-18] MEDS: HYDROMORPHONE 2 MG/1 ML DISP.SYRIN IV PRN ×3 (04:25→13:23)
[2018-07-18] MEDS: BACLOFEN 20 MG TABLET GT SCH ×3 (05:49→21:25)
[2018-07-18] MEDS: TIZANIDINE HCL 4 MG TABLET GT SCH ×3 (05:49→21:26)
--- NOTE | 2018-07-18 06:12 | NUR ---
PT SLEPT THROUGHOUT THE SHIFT. PT SHOWS NO SIGNS OF DISTRESS. PT PORTACATH DRESSING INTACT AND CLEAN. PT GIVEN DILAUDID FOR PAIN. PT TOLERATED IT WELL. PRESCRIBED MEDICATION GIVEN AND PT TOLERATED IT WELL. G-TUBE INTACT. OLD G-TUBE WITH COLOSTOMY BAG CHANGED. DID MANUAL DISIMPACTION AND NO AMOUNT OF STOOL TAKEN. IV INTACT. SAFETY AND COMFORT PROVIDED. REPOSITIONED THE PT. WILL ENDORSE TO DAYSHIFT NURSE FOR CONTINUITY OF CARE.
--- NOTE | 2018-07-18 07:18 | NUR ---
RECEIVED PATIENT IN BED, ASLEEP. NO ACUTE DISTRESS NOTED. ON CONTACT ISOLATION FOR MRSA OF THE NARES. IV ACCESS ON RIGHT FOOT #24 INTACT AND PATENT RUNNING D5LR @ 75 CC/HR. OLD GTUBE SITE W/ COLOSTOMY TUBE INTACT FOR DRAINAGE. S/P PORTACATH INSERTION ON THE LEFT FEMORAL 07/17/19. COMFORT MEASURES PROVIDED. WILL CONTINUE TO MONITOR CLOSELY.
[2018-07-18] MEDS: IPRATROPIUM BROMIDE 0.5 MG/2.5 ML NEBU NEB SCH ×2 (07:20→19:14)
[2018-07-18] MEDS: ACETYLCYSTEINE 10% 4ML VIAL IH SCH ×2 (07:20→19:14)
[2018-07-18] MEDS: LORAZEPAM 2 MG/1 ML VIAL IV SCH ×3 (08:33→21:30)
[2018-07-18] MEDS: PHENOBARBITAL SODIUM 130 MG/1 ML DISP.SYRIN IV SCH ×2 (08:33→21:18)
[2018-07-18] MEDS: PANTOPRAZOLE SODIUM 40 MG VIAL IV SCH (08:33)
[2018-07-18] MEDS: GABAPENTIN 100 MG CAPSULE GT SCH ×3 (08:34→16:34)
[2018-07-18] MEDS: LACTOBACILLUS RHAMNOSUS GG 1 EACH CAPSULE PO SCH ×2 (08:34→20:59)
[2018-07-18] MEDS: LORATADINE 10 MG TABLET GT SCH (08:34)
[2018-07-18] MEDS: ENOXAPARIN SODIUM 40 MG/0.4 ML DISP.SYRIN SQ SCH (08:35)
[2018-07-18] MEDS: BACITRACIN/POLYMYXIN B OINT 15 GM TUBE TOP SCH ×2 (08:45→21:00)
[2018-07-18] MEDS: IV D5LR 1,000 ML IV PRN (08:47)
[2018-07-18 11:02] VITALS: BP 94/53
--- NOTE | 2018-07-18 12:08 | NUR ---
CLINICAL PHARMACY NOTE: VANCOMYCIN DOSING S: vancomycin dosing to continue for this 43 y/o male patient for UTI, bacteremia, sepsis. O: Temp 97.3F BUN 6 (07/17) Scr 0.3 (07/17) WBC 5.9 (07/17) Wt 53.5 kg ht 185.4 cm vanco trough 16.8 repeat 07/14 @1130 P Will continue same dose of vancomycin 1gm IVPB q11hr for today. Will monitor renal function & repeat the vanco trough level if needed. Will follow up.
[2018-07-18 15:04] VITALS: BP 95/42
[2018-07-18] MEDS: MICAFUNGIN SODIUM 100 MG in IV NORMAL SALINE 100 ML IV SCH (16:33)
--- NOTE | 2018-07-18 18:18 | NUR ---
PATIENT ON BED ASLEEP. NO ACUTE DISTRESS NOTED. O2 SAT WNL THROUGHOUT SHIFT. COLOSTOMY BAG INTACT ON OLD GTUBE SITE. GTUBE SITE INTACT AND PATENT NO RESIDUAL NOTED. IV SITE ON RIGHT FOOT #24 INTACT ANMD PATENT. IVF INFUSING WELL. PAIN CONTROLLED W/ DIALUDID PRN. ALL NEEDS ATTENDED AND ANTICIPATED. CALL LIGHT WITHIN REACH
[2018-07-18 19:28] VITALS: BP 113/70
--- NOTE | 2018-07-18 20:30 | NUR ---
RECEIVED PATIENT ASLEEP IN BED. EASILY AROUSABLE. A/O X2. VS WNL. ON O2 4L VIA TRACH SATING 99%. NO RESP. DISTRESS NOTED. IVF INFUSING TO LEFT FOOT #24 GAUGE. INTACT AND PATENT. PATIENT IS ON AIR MATTRESS. F/C INTACT AND DRAINING WELL. PATIENT ASKING FOR PAIN MEDICATION, BUT FALLS BACK ASLEEP. NO S/S OF PAIN OR DISCOMFORT. NO FACIAL GRIMACE NOTED. PATIENT IS NPO. GT SITE INTACT. OLD GT SITE COVERED WITH COLOSTOMY BAG. NO DRAINIAGE NOTED AT THIS TIME. PATIENT IS ON ISOLATION FOR MRSA NARES. CALL LIGHT IN REACH. ALL NEEDS ATTENDED. WILL CONTINUE TO MONITOR AND ASSESS.
[2018-07-18] MEDS: TRAZODONE 100 MG TABLET GT SCH (20:59)
[2018-07-18] MEDS: TOLTERODINE 2 MG TABLET GT SCH (20:59)
[2018-07-18] MEDS: ZONISAMIDE 100 MG CAPSULE GT SCH (21:00)
[2018-07-18] MEDS: risperiDONE 1 MG TABLET GT SCH (21:00)
--- NOTE | 2018-07-18 21:30 | NUR ---
Routine Ativan IV held at this time. Pt is asleep, but easily arousable via verbal and tactile stimuli. Pt on 4L O2 via trach SpO2 99% No respiratory distress noted, will continue to monitor closely.
[2018-07-19] VITALS (29 sets, daily range): BP systolic 84–124; BP diastolic 40–81
[2018-07-19] MEDS: IV D5LR 1,000 ML IV PRN ×2 (01:28→15:14)
--- NOTE | 2018-07-19 02:30 | NUR ---
PATIENT IN BED, NOT RESPONDING TO VERBAL STIMULI OR TOUCH. APPEARS COOL TO TOUCH. CHECKED TEMPERATURE RECTALLY, 94.9. BP 94/54. HR 64. O2 4L VIA TRACH SATING 99%. CALLED OUT TO DR. BUTCHER FOR FURTHER ORDER. BARE HUGGER APPLIED. WILL CONTINUE TO MONITOR.
--- NOTE | 2018-07-19 02:35 | NUR ---
DR. BUTCHER AWARE OF PATIENTS CONDITION. NO NEW ORDERS AT THIS TIME. WILL CONTINUE TO MONITOR AND ASSESS PATIENT. SIERRA JOYCE IN PLACE. MANAGER EMPLOYEE BENEFITS AND RN BEE PRODUCER NOTIFIED.
[2018-07-19] MEDS: VANCOMYCIN IV 1 G in PREMIXED 0 EACH IV SCH (02:48)
--- NOTE | 2018-07-19 03:05 | NUR ---
CALLED BACK OUT TO DR. BUTCHER TO INFORM HIM THAT PATIENTS BLOOD PRESSURE IS DROPPING. BP IS NOW 84/48. PATIENT IS STILL NOT RESPONDING TO VERBAL STIMULI OR TOUCH. WAITING FOR CALL BACK FROM .
--- NOTE | 2018-07-19 03:11 | NUR ---
RECEIVED ORDER FOR PATIENT TO BE STARTED ON LEVOPHED. TUBE WASHER AND FIRE PATROLLER NOTIFIED.
--- NOTE | 2018-07-19 03:25 | NUR ---
PATIENT TRANSFERRED TO CCU BED 1.
[2018-07-19] MEDS ORDERED: NOREPINEPHRINE BITARTRATE 8 MG in IV DEXTROSE 5% 500 ML IV PRN ×4 (03:45→06:00)
[2018-07-19] MEDS ORDERED: NOREPINEPHRINE BITARTRATE 4 MG/4 ML VIAL IV ONE ×2 (03:51→03:55)
--- NOTE | 2018-07-19 04:03 | NUR ---
= Recieved in ICU because of hypotension and altered level of consciousness.He barely respond to deep stimulation. Started IV access. IV line in R foot infiltrated. Need order to access portacath. IV kept running and BP improved from the 80's to high 90's. Temp is low at 95.2R. On ivette hugger. Breathing is good, chronic trach. Tpiece at 8LPM saturating 98%. No signs of resp. distress.
--- NOTE | 2018-07-19 04:15 | NUR ---
Report received from Arti CARUSO and Lory WILD (nursing phlebotomy supervisor). Patient on contact isolation for MRSA nares. AA, follows commands. Assessment done; see flow sheet for complete data.
[2018-07-19 05:57] LABS: BASOPHILS % (AUTO) 0.5 % (0.0-2.0); EOSINOPHILS # (AUTO) 0.5 K/uL (0.0-0.7); EOSINOPHILS % (AUTO) 14.4 % (0.0-7.0); HEMATOCRIT 29.6 % (36.7-47.1); HEMOGLOBIN 9.9 g/dL (12.5-16.3); LYMPHOCYTES # (AUTO) 0.7 K/uL (20.0-40.0); LYMPHOCYTES % (AUTO) 20.9 % (20.5-51.5); MEAN CORPUSCULAR HEMOGLOBIN 31.3 uug (23.8-33.4); MEAN CORPUSCULAR HGB CONC 34 g/dL (32.5-36.3); MEAN CORPUSCULAR VOLUME 93.3 fL (73.0-96.2); MONOCYTES # (AUTO) 0.4 K/uL (2.0-10.0); MONOCYTES % (AUTO) 11.3 % (0.0-11.0); NEUTROPHILS # (AUTO) 1.9 K/uL (1.8-8.9); NEUTROPHILS % (AUTO) 52.9 % (38.5-71.5); PLATELET COUNT (AUTO) 242 K/uL (152-348); RED BLOOD CELL COUNT(AUTO) 3.17 MIL/uL (4.06-5.63); WHITE BLOOD COUNT (AUTO) 3.5 K/uL (3.6-10.2)
--- NOTE | 2018-07-19 06:00 | NUR ---
AA, still hypothermic. Shelbi montana remains on.
[2018-07-19 06:08] LABS: CARBON DIOXIDE 27 mmol/L (21-32); CHLORIDE 110 mmol/L (98-107); CREATININE 0.3 mg/dL (0.6-1.3); GLUCOSE 126 mg/dL (74-106); MAGNESIUM 1.5 mg/dL (1.8-2.4); PHOSPHOROUS 2.8 mg/dL (2.5-4.9); POTASSIUM 3.1 mmol/L (3.5-5.1); UREA NITROGEN, BLOOD 3 mg/dL (7-18)
[2018-07-19] MEDS ORDERED: TIZANIDINE HCL 4 MG TABLET ONE (06:17)
[2018-07-19] MEDS: TIZANIDINE HCL 4 MG TABLET GT SCH ×3 (06:26→21:25)
[2018-07-19] MEDS: HYDROMORPHONE 2 MG/1 ML DISP.SYRIN IV PRN ×4 (06:41→14:42)
--- NOTE | 2018-07-19 07:04 | NUR ---
No neuro changes. SBPs above 90; Levophed drip on stand by. Report given to [place] WILD.
--- NOTE | 2018-07-19 07:24 | NUR ---
Attending N.P. in the unit to examine patient, full report given, see orders.
[2018-07-19] MEDS ORDERED: IV NORMAL SALINE 500 ML BAG IV ONE (07:30)
[2018-07-19] MEDS ORDERED: POTASSIUM CHLORIDE 20 MEQ POWDER PACKET GT ONE ×3 (07:45→12:00)
[2018-07-19] MEDS ORDERED: IV NORMAL SALINE 500 ML IV ONE (07:45)
[2018-07-19] MEDS ORDERED: MAGNESIUM SULFATE/D5W 100 ML IV ONE (07:45)
[2018-07-19] MEDS: BACLOFEN 20 MG TABLET GT SCH ×3 (07:46→21:25)
[2018-07-19] MEDS: IPRATROPIUM BROMIDE 0.5 MG/2.5 ML NEBU NEB SCH ×2 (07:48→19:14)
[2018-07-19] MEDS: ACETYLCYSTEINE 10% 4ML VIAL IH SCH ×2 (07:48→19:14)
[2018-07-19] MEDS: LACTOBACILLUS RHAMNOSUS GG 1 EACH CAPSULE PO SCH ×2 (08:01→20:23)
[2018-07-19] MEDS: LORATADINE 10 MG TABLET GT SCH (08:01)
[2018-07-19] MEDS: GABAPENTIN 100 MG CAPSULE GT SCH ×3 (08:01→16:24)
[2018-07-19] MEDS: PANTOPRAZOLE SODIUM 40 MG VIAL IV SCH (08:01)
[2018-07-19] MEDS: PHENOBARBITAL SODIUM 130 MG/1 ML DISP.SYRIN IV SCH ×2 (08:02→20:24)
[2018-07-19] MEDS: ENOXAPARIN SODIUM 40 MG/0.4 ML DISP.SYRIN SQ SCH (08:02)
[2018-07-19] MEDS: BACITRACIN/POLYMYXIN B OINT 15 GM TUBE TOP SCH ×2 (08:06→20:40)
[2018-07-19] MEDS: IBUPROFEN 400 MG TABLET GT PRN (11:09)
[2018-07-19] MEDS: MORPHINE SULFATE IR 30 MG TABLET PO PRN (11:13)
--- NOTE | 2018-07-19 12:01 | NUR ---
Orders to down-grade the patient to telemetry by the end of shift if Vitals signs remain stable, and pt. remains [id number].
--- NOTE | 2018-07-19 12:28 | NUR ---
Dr. Angie Mae. GI physician in the unit to examine pt. report given, no orders received.
--- NOTE | 2018-07-19 13:28 | NUR ---
CLINICAL PHARMACY NOTE: VANCOMYCIN DOSING S: vancomycin dosing to continue for this 43 y/o male patient for UTI, bacteremia, sepsis. O: Temp 97.3F BUN 3 Scr 0.3 WBC 3.5 Wt 53.5 kg ht 185.4 cm vanco trough 23.1 P Since vanco trough level is supra-therapeutic, will hold dose for now & check vanco random level in am for further dosing. Will follow up.
[2018-07-19] MEDS: MICAFUNGIN SODIUM 100 MG in IV NORMAL SALINE 100 ML IV SCH (16:48)
--- NOTE | 2018-07-19 20:00 | NUR ---
RECEIVED PT OPEN HIS EYES TO VERBAL STIMULI & FOLLOWS TO COMMAND. G-TUBE CLAMPED, NPO FOR NOW ORDERED. IVF D5LR @ 75CC/HR ON L ABOVE KNEE IV SITE, NO SIGNS OF INFILTRATION. G-TUBE CLAMPED, NPO FOR NOW EXCEPT MEDS. ORDERED.C-SCOPE SR. AGNIESZKA STRONG SEEN THE PT W/ ORDERED.
[2018-07-19] MEDS: TOLTERODINE 2 MG TABLET GT SCH (20:23)
[2018-07-19] MEDS: TRAZODONE 100 MG TABLET GT SCH (20:24)
[2018-07-19] MEDS: risperiDONE 1 MG TABLET GT SCH (20:24)
[2018-07-19] MEDS: ZONISAMIDE 100 MG CAPSULE GT SCH (20:29)
--- NOTE | 2018-07-19 21:00 | NUR ---
MEDS GIVEN SLOWLY VIA G-TUBE.
--- NOTE | 2018-07-19 22:00 | NUR ---
CHECKED FOR STOOL RECTALLY, NONE NOTED.
[2018-07-20] VITALS: BP 85/45
[2018-07-20] MEDS: MORPHINE SULFATE IR 30 MG TABLET PO PRN ×3 (02:26→20:48)
--- NOTE | 2018-07-20 03:01 | NUR ---
REMOVED IV ON L KNEE, INFILTRATED. IVF CONNECTED TO L FEM MAXX CATH.
[2018-07-20 04:00] VITALS: BP 95/53
[2018-07-20] MEDS: TIZANIDINE HCL 4 MG TABLET GT SCH ×3 (05:22→22:07)
[2018-07-20] MEDS: BACLOFEN 20 MG TABLET GT SCH ×3 (05:22→22:07)
[2018-07-20] MEDS: IV D5LR 1,000 ML IV PRN ×2 (05:24→21:00)
--- NOTE | 2018-07-20 05:40 | NUR ---
TRACH CARE DONE, ORAL CARE DONE, G-TUBE REMAINS CLAMPED & NPO EXCEPT MEDS.
[2018-07-20 06:09] LABS: CARBON DIOXIDE 29 mmol/L (21-32); CHLORIDE 113 mmol/L (98-107); CREATININE 0.3 mg/dL (0.6-1.3); GLUCOSE 123 mg/dL (74-106); POTASSIUM 3.7 mmol/L (3.5-5.1); UREA NITROGEN, BLOOD 2 mg/dL (7-18)
[2018-07-20 06:19] LABS: BASOPHILS % (AUTO) 0.7 % (0.0-2.0); EOSINOPHILS # (AUTO) 0.4 K/uL (0.0-0.7); EOSINOPHILS % (AUTO) 11.9 % (0.0-7.0); HEMATOCRIT 30.3 % (36.7-47.1); HEMOGLOBIN 10.2 g/dL (12.5-16.3); LYMPHOCYTES % (AUTO) 26.4 % (20.5-51.5); MEAN CORPUSCULAR HEMOGLOBIN 31.3 uug (23.8-33.4); MEAN CORPUSCULAR HGB CONC 34 g/dL (32.5-36.3); MEAN CORPUSCULAR VOLUME 92.6 fL (73.0-96.2); MONOCYTES # (AUTO) 0.4 K/uL (2.0-10.0); MONOCYTES % (AUTO) 11.4 % (0.0-11.0); NEUTROPHILS # (AUTO) 1.8 K/uL (1.8-8.9); NEUTROPHILS % (AUTO) 49.6 % (38.5-71.5); PLATELET COUNT (AUTO) 294 K/uL (152-348); RED BLOOD CELL COUNT(AUTO) 3.27 MIL/uL (4.06-5.63); WHITE BLOOD COUNT (AUTO) 3.6 K/uL (3.6-10.2)
[2018-07-20] MEDS: ACETYLCYSTEINE 10% 4ML VIAL IH SCH ×2 (07:56→18:00)
[2018-07-20] MEDS: IPRATROPIUM BROMIDE 0.5 MG/2.5 ML NEBU NEB SCH ×2 (07:56→18:00)
[2018-07-20] MEDS: LORATADINE 10 MG TABLET GT SCH (08:26)
[2018-07-20] MEDS: GABAPENTIN 100 MG CAPSULE GT SCH ×3 (08:26→16:23)
[2018-07-20] MEDS: PHENOBARBITAL SODIUM 130 MG/1 ML DISP.SYRIN IV SCH ×2 (08:27→20:34)
[2018-07-20] MEDS: PANTOPRAZOLE SODIUM 40 MG VIAL IV SCH (08:27)
[2018-07-20] MEDS: LACTOBACILLUS RHAMNOSUS GG 1 EACH CAPSULE PO SCH ×2 (08:27→20:33)
[2018-07-20] MEDS: VANCOMYCIN IV 1 G in PREMIXED 0 EACH IV SCH ×2 (08:31→22:31)
[2018-07-20] MEDS: ENOXAPARIN SODIUM 40 MG/0.4 ML DISP.SYRIN SQ SCH (08:31)
[2018-07-20] MEDS: BACITRACIN/POLYMYXIN B OINT 15 GM TUBE TOP SCH ×2 (08:32→20:35)
[2018-07-20 08:52] VITALS: BP 107/65
[2018-07-20 11:06] VITALS: BP 124/81
--- NOTE | 2018-07-20 11:07 | NUR ---
CLINICAL PHARMACY NOTE: VANCOMYCIN DOSING S: vancomycin dosing to continue for this 43 y/o male patient for UTI, bacteremia, sepsis. O: Temp 97.5F BUN 2 Scr 0.3 WBC 3.6 Wt 53.5 kg ht 185.4 cm vanco trough 23.1 07/19 vanco random 9.5 today with am labs P Based on levels, rescheduled regimen to vancomycin 1gm q14h for estimated new trough of 16.3, first dose today at 0900. Will order trough before 4th scheduled dose (not ordered yet). Will change or dose per level if renal fxn were to appear unstable. Will otherwise follow and check levels accordingly
--- NOTE | 2018-07-20 11:15 | NUR ---
PATIENT TAKEN TO EGD.
[2018-07-20] MEDS ORDERED: IV D5W-LACTATED RINGE 1000 ML BAG IV ONE (14:53)
[2018-07-20] MEDS ORDERED: PROPOFOL 200 MG/20 ML BOTTLE IV ONE (14:53)
[2018-07-20] MEDS ORDERED: LIDOCAINE HCL 1% 20 ML VIAL MC ONE (14:53)
[2018-07-20 15:00] VITALS: BP 124/85
[2018-07-20] MEDS: MICAFUNGIN SODIUM 100 MG in IV NORMAL SALINE 100 ML IV SCH (16:23)
[2018-07-20 20:00] VITALS: BP 114/71
--- NOTE | 2018-07-20 20:00 | NUR ---
RECEIVED PT DROWSY, OPEN HIS EYES TO VERBAL STIMULI. ON O2 @ 4L TO TRACH COLLAR W/ O2 SAT OF 94%. G-TUBE INTACT, CHECKED RESIDUAL 5CC NOTED W/ TUBE FDG. OF JEVITY 1.2 @ 35 CC/HR. IVF D5LR @ 75CC/HR ON L FEM MAXX CATH. C-SCOPE SR. NOT IN ANY DISTRESS.
[2018-07-20] MEDS: TOLTERODINE 2 MG TABLET GT SCH (20:33)
[2018-07-20] MEDS: TRAZODONE 100 MG TABLET GT SCH (20:33)
[2018-07-20] MEDS: risperiDONE 1 MG TABLET GT SCH (20:33)
[2018-07-20] MEDS: ZONISAMIDE 100 MG CAPSULE GT SCH (20:37)
--- NOTE | 2018-07-20 22:00 | NUR ---
CHECKED FOR FECAL IMPACTION NONE NOTED.
--- NOTE | 2018-07-20 23:00 | NUR ---
OFF TUBE FDG WILL RESUME @ 0800.
[2018-07-21] VITALS: BP 98/57
[2018-07-21 04:00] VITALS: BP 100/58
[2018-07-21] MEDS: BACLOFEN 20 MG TABLET GT SCH ×3 (05:26→21:46)
[2018-07-21] MEDS: TIZANIDINE HCL 4 MG TABLET GT SCH ×3 (05:26→21:46)
--- NOTE | 2018-07-21 06:00 | NUR ---
ORAL CARE DONE. TRACH CARE DONE.
[2018-07-21] MEDS: ACETYLCYSTEINE 10% 4ML VIAL IH SCH ×2 (07:57→18:58)
[2018-07-21] MEDS: IPRATROPIUM BROMIDE 0.5 MG/2.5 ML NEBU NEB SCH ×2 (07:58→18:58)
[2018-07-21] MEDS: JEVITY 1.2 1000 ML LIQUID GT PRN (08:00)
--- NOTE | 2018-07-21 08:00 | NUR ---
AWAKE ALERT NO SOB NO PAIN AT THIS TIME ON ASPIRATION AND FALL PRECAUTION GT START THIS AM ALYSIA WELL NO N./V RESTING WITH CALL LIGHT IN REACH
[2018-07-21] MEDS: PANTOPRAZOLE SODIUM 40 MG VIAL IV SCH (08:35)
[2018-07-21] MEDS: GABAPENTIN 100 MG CAPSULE GT SCH ×3 (08:44→16:47)
[2018-07-21] MEDS: LORATADINE 10 MG TABLET GT SCH (08:44)
[2018-07-21] MEDS: LACTOBACILLUS RHAMNOSUS GG 1 EACH CAPSULE PO SCH ×2 (08:44→20:24)
[2018-07-21] MEDS: MORPHINE SULFATE IR 30 MG TABLET PO PRN (08:45)
[2018-07-21] MEDS: PHENOBARBITAL SODIUM 130 MG/1 ML DISP.SYRIN IV SCH ×2 (08:46→20:25)
[2018-07-21] MEDS: ENOXAPARIN SODIUM 40 MG/0.4 ML DISP.SYRIN SQ SCH (08:47)
[2018-07-21] MEDS: Z GUARD REMEDY PASTE 57 GM TUBE TOP PRN (08:48)
[2018-07-21] MEDS: BACITRACIN/POLYMYXIN B OINT 15 GM TUBE TOP SCH ×2 (08:48→20:25)
[2018-07-21] MEDS: PANTOPRAZOLE ORAL SUSPENSION 40 MG SUSPDR.PKT GT SCH (09:00)
--- NOTE | 2018-07-21 10:00 | NUR ---
IV CONVERT TO HL ORDER
--- NOTE | 2018-07-21 10:42 | NUR ---
CLINICAL PHARMACY NOTE: VANCOMYCIN DOSING S: vancomycin dosing to continue for this 43 y/o male patient for UTI, bacteremia, sepsis. O: Temp 97.6F BUN 2 (07/20) Scr 0.3 (07/20) WBC 3.6 (07/20) Wt 53.5 kg ht 185.4 cm vanco trough 23.1 07/19 P Will continue same dose of vancomycin 1gm IVPB q14h for today. 3rd dose today at 1300. Will order trough before 4th scheduled dose (ordered for 07/21 at 0230- RN has been informed to hold 0300 dose if vanco trough level above 20 mcg/ml.). Will check the level in am & adjust the dose if needed. Will monitor
[2018-07-21 11:22] VITALS: BP 126/69
[2018-07-21] MEDS: LORAZEPAM 2 MG/1 ML VIAL IV PRN (12:43)
[2018-07-21] MEDS: VANCOMYCIN IV 1 G in PREMIXED 0 EACH IV SCH (12:43)
--- NOTE | 2018-07-21 13:00 | NUR ---
ALYSIA GT FEEDING WELL INCREASE TO 55ML/HR AT THIS TIME
[2018-07-21 15:04] VITALS: BP 104/62
[2018-07-21] MEDS: MICAFUNGIN SODIUM 100 MG in IV NORMAL SALINE 100 ML IV SCH (15:34)
--- NOTE | 2018-07-21 16:30 | NUR ---
DR RODRIGES SEE PATIENT AND PT CONDITION INFORM STATE CONTINUE GT FEEDING FROM 8AM TO MIDNIGHT AND RESTART AGAIN IN AM
--- NOTE | 2018-07-21 17:00 | NUR ---
DR FRANCO SEEN PATIENT TODAY AND NEW ORDER IN CHART
--- NOTE | 2018-07-21 17:15 | NUR ---
RESTING QUIET AND WELL THIS AFTERNOON NO ACUTE DISTRESS ALYSIA GT FEEDING ORDER WELL SMALL AMT OF LEAKING FROM OLD SITE OF GT 30ML GREENISH SAFETY MEASURE PROVIDED CALL LIGHT IN REACH AND BED ALARM ON ISOLATION WAS D/C
[2018-07-21] MEDS ORDERED: SILVER NITRATE APPLICATOR STICK EACH TP PRN (18:30)
[2018-07-21 19:18] VITALS: BP 107/59
--- NOTE | 2018-07-21 19:30 | NUR ---
Received patient from day shift nurse. Patient stable at start of shift with no acute distress. Patient is alert & able to make most of his needs known. Pertinent assessment completed. Patient sinus rhythm on tele monitor with HR of 65. Noted with Left groin truong cath running with D5LR at 10cc/hr. Patient also has a GT with Jevity feeding running at 65cc/hr. Per day shift nurse, goal is for patient to have feeding at 70cc/hr. Patient also noted with a Trache. On ATB therapy for UTI. On a first step mattress for skin protection. Call light in reach. Will continue to monitor.
[2018-07-21] MEDS: TOLTERODINE 2 MG TABLET GT SCH (20:24)
[2018-07-21] MEDS: risperiDONE 1 MG TABLET GT SCH (20:24)
[2018-07-21] MEDS: TRAZODONE 100 MG TABLET GT SCH (20:24)
[2018-07-21] MEDS: ZONISAMIDE 100 MG CAPSULE GT SCH (20:25)
--- NOTE | 2018-07-21 21:00 | NUR ---
Patient noted with hypothermia. Rectal temp of 94.1. Bear hugger immediately applied to patient with warm blankets. Vital signs are stable. BP at 103/59, HR of 67, o2 sat of 100%, sinus rhythm on the tele monitor. Will page MD dimensional integration engineer for orders & continue to monitor.
--- NOTE | 2018-07-21 21:30 | NUR ---
PT. TEMP. RECTALLY 94.1. ,ON TELE SINUS, BP 107/59,REPOSITIONED PT , SIERRA ISIAH BLANKET ON, NEEDS ATTENDED TO, DR. BRUCE VILLARREAL AWARE OF ABOVE CONDITION , NO NEW ORDERS GIVEN.
--- NOTE | 2018-07-21 21:37 | NUR ---
CONTINUE TO MONITOR FOR ANY CHANGE IN CONDITION, RESTING FAIRLY WELL AT THIS TIME.
--- NOTE | 2018-07-21 21:40 | NUR ---
MD White paged. NNO at this time just continue to monitor patient. Patient stable at this time, resting well with no distress. Vital signs WNL. Sinus Rhythm on Tele. Will reassess rectal temp.
--- NOTE | 2018-07-21 22:00 | NUR ---
Current oral temp at 97.5. Will continue to monitor temp & keep on bear hugger.
[2018-07-21 23:31] VITALS: BP 103/54
[2018-07-22] MEDS: VANCOMYCIN IV 1 G in PREMIXED 0 EACH IV SCH ×2 (02:56→17:42)
[2018-07-22 03:25] VITALS: BP 103/61
[2018-07-22] MEDS: BACLOFEN 20 MG TABLET GT SCH ×2 (05:19→13:32)
[2018-07-22] MEDS: TIZANIDINE HCL 4 MG TABLET GT SCH ×2 (05:19→13:31)
--- NOTE | 2018-07-22 06:24 | NUR ---
Patient stable during the shift with no acute distress. Latest temp at 98.8. All vitals within range. Sinus rhythm on tele monitor. GT feeding stopped at 12am midnight, to be placed back on at 0800 by day shift nurse. All needs attended to. Turned & repositioned every 2 hours. Skin care provided. Patient kept clean, dry, intact & changed per soiling. Suctioning & trache care provided. Good urine output in alcantara cath. Patient to see Dr. Lamb in AM shift for excisional debridement of abdominal wound. Supplies prepared & placed at the bedside. Procedure consent to be signed. Safety & comfort measures provided. Will endorse to day shift nurse.
[2018-07-22] MEDS: IPRATROPIUM BROMIDE 0.5 MG/2.5 ML NEBU NEB SCH (07:14)
[2018-07-22] MEDS: ACETYLCYSTEINE 10% 4ML VIAL IH SCH (07:14)
--- NOTE | 2018-07-22 08:00 | NUR ---
AWAKE ALERT COOPERATE WELL NOPAIN OR SOB AT THIS TIME RESTING WELL IN BED WITH CALLLIGHT IN REACH START GT FEEDING THIS AM ALYSIA WELL NO N/V
[2018-07-22] MEDS: GABAPENTIN 100 MG CAPSULE GT SCH ×3 (08:33→16:41)
[2018-07-22] MEDS: LACTOBACILLUS RHAMNOSUS GG 1 EACH CAPSULE PO SCH (08:33)
[2018-07-22] MEDS: PHENOBARBITAL SODIUM 130 MG/1 ML DISP.SYRIN IV SCH (08:34)
[2018-07-22] MEDS: PANTOPRAZOLE ORAL SUSPENSION 40 MG SUSPDR.PKT GT SCH (08:34)
[2018-07-22] MEDS: LORATADINE 10 MG TABLET GT SCH (08:34)
[2018-07-22] MEDS: MORPHINE SULFATE IR 30 MG TABLET PO PRN (08:34)
[2018-07-22] MEDS: Z GUARD REMEDY PASTE 57 GM TUBE TOP PRN (08:36)
[2018-07-22] MEDS: BACITRACIN/POLYMYXIN B OINT 15 GM TUBE TOP SCH (08:36)
[2018-07-22] MEDS: JEVITY 1.2 1000 ML LIQUID GT PRN (08:37)
[2018-07-22] MEDS: ENOXAPARIN SODIUM 40 MG/0.4 ML DISP.SYRIN SQ SCH (08:38)
[2018-07-22 11:42] VITALS: BP 110/52
[2018-07-22] MEDS: LORAZEPAM 2 MG/1 ML VIAL IV PRN (13:07)
[2018-07-22 15:08] VITALS: BP 104/48
[2018-07-22] MEDS: MICAFUNGIN SODIUM 100 MG in IV NORMAL SALINE 100 ML IV SCH (15:20)
--- NOTE | 2018-07-22 15:35 | NUR ---
CLINICAL PHARMACY NOTE: VANCOMYCIN DOSING S: vancomycin dosing to continue for this 43 y/o male patient for UTI, bacteremia, sepsis. O: Temp 98.4F BUN 2 (07/20) Scr 0.3 (07/20) WBC 3.6 (07/20) Wt 53.5 kg ht 185.4 cm vanco trough 23.1 07/19 vanco trough 31.1 07/22 0325 (drawn while vanco running- repeating level before next dose) Vanco trough : pending (07/22 at 1630) P Will continue same dose of vancomycin 1gm IVPB q14h for today. Vanco trough level (31.1) was drawn while vanco running. Will repeat vanco trough level today before next dose (ordered for today at 1630). Will check the level & adjust the dose if needed. Will monitor Addendum: 07/22/18 at 1726 by NEYMAR BRANTLEY ADM VANCO TROUGH LEVEL: 15.2 WILL CONTINUE SAME DOSE OF VANCO 1GM IVPB Q14H
--- NOTE | 2018-07-22 17:00 | NUR ---
D/C INSTRUCTION REGARDING NEED TO CONTINUE F/U WITH OWN PMD CONTINUE HOME MEDICINE ORDER AND EDUCATION PK GIVEN HIPOLITO CATH FLUSHED WITH HEPARINE PRIOR D/C ASSESS CATHETER PER PROTOCOL EDUCATION PK GAVE FAMILY WAS INFORM OF D/C HOME VIA AMBULANCE TODAY
--- NOTE | 2018-07-22 17:00 | NUR ---
DR FRANCO HERE AND DO PROCEDURE OF EXCISION DEBRIDEMENT OF ABD WOUND DONE AT BEDSIDE ALYSIA PROCEDURE WELL SMALL DSG D/C AT OLD GT SITE REFUSED TO TAKE PICTURE OF GT SITE AT THIS TIME
[2018-07-22] MEDS ORDERED: HEPARIN SODIUM,PORCINE/PF 100 UNIT/ML, 5ML SYR XX PRN (18:00)
--- NOTE | 2018-07-22 19:10 | NUR ---
D/C HOME VIA AMBULANCE CONDITION STABLE NO BELONGING SUPPLY GIVEN TO PATIENT TO TAKE HOME REQUEST AND SISTER WAS CALL TO EXPLAINED ALL HOME MEDICINE,UNDERSTAND
== END 2018-07-22 19:10 | disposition home or self-care (01) | DRG 222 ==
LOC: ER 13:51 → TELE 15:53 → MED 07-04 17:05 → TELE 07-04 17:23 → MED 07-07 16:58 → CCU 07-19 03:37 → TELE 07-19 18:27
PROVIDERS: ADMIT Internal Medicine; ATTEND Internal Medicine
DX: K94.22 Gastrostomy infection (principal); A41.81 Sepsis due to Enterococcus; G82.50 Quadriplegia, unspecified; G92 Toxic encephalopathy; J96.10 Chronic respiratory failure, unspecified whether with hypoxia or hypercapnia; E44.0 Moderate protein-calorie malnutrition; R65.20 Severe sepsis without septic shock; R64 Cachexia; K31.6 Fistula of stomach and duodenum; B37.7 Candidal sepsis; T80.211A Bloodstream infection due to central venous catheter, initial encounter; Z93.0 Tracheostomy status; N39.0 Urinary tract infection, site not specified; E78.5 Hyperlipidemia, unspecified; D68.59 Other primary thrombophilia; G90.4 Autonomic dysreflexia; F11.20 Opioid dependence, uncomplicated; Z87.440 Personal history of urinary (tract) infections; D63.8 Anemia in other chronic diseases classified elsewhere; E83.42 Hypomagnesemia; E87.6 Hypokalemia; F41.9 Anxiety disorder, unspecified; G89.4 Chronic pain syndrome; K29.70 Gastritis, unspecified, without bleeding; Z86.14 Personal history of Methicillin resistant Staphylococcus aureus infection; R13.10 Dysphagia, unspecified; Z68.1 Body mass index [BMI] 19.9 or less, adult; G40.909 Epilepsy, unspecified, not intractable, without status epilepticus; V89.2XXS Person injured in unspecified motor-vehicle accident, traffic, sequela; R74.0 Nonspecific elevation of levels of transaminase and lactic acid dehydrogenase [LDH]; B96.5 Pseudomonas (aeruginosa) (mallei) (pseudomallei) as the cause of diseases classified elsewhere; B96.89 Other specified bacterial agents as the cause of diseases classified elsewhere; Y84.8 Other medical procedures as the cause of abnormal reaction of the patient, or of later complication, without mention of misadventure at the time of the procedure; Y92.009 Unspecified place in unspecified non-institutional (private) residence as the place of occurrence of the external cause; Z22.322 Carrier or suspected carrier of Methicillin resistant Staphylococcus aureus; N31.9 Neuromuscular dysfunction of bladder, unspecified; Z87.01 Personal history of pneumonia (recurrent); L03.311 Cellulitis of abdominal wall
CPT/HCPCS: 36415; 70030-TC; 71045; 74018; 76000; 80184; 83550; 83605; 83735; 84100; 85025; 85610; 85730; 86850; 86900; 86901; 87040; 87070; 87075; 87077; 87086; 92610; 93005; 94640; 94664; A4217; A4649; A4663; C1713; C1751; C9113; J0278; J0690; J0696; J1170; J1642; J1644; J1650; J2060; J2248; J2250; J2405; J2543; J2560; J3010; J3370; J3475; J3480; J3490; J3590; J7030; J7040; J7060; J7120; J8499

== ENCOUNTER 2018-09-18 11:38 | Inpatient (IN) | payer OTHER ==
[2018-09-18] VITALS (10 sets, daily range): BP systolic 89–111; BP diastolic 55–69
[~2018-09-18] VITALS: Ht 172.7 cm; Wt 66.7 kg
[~2018-09-18 11:38] MED LIST changes: +ACET100V5 IH; +GABA250S2 GT; -GABA600T2 GT; -GABAPENTIN 250 MG/5 ML GT; +IBUP-1953 GT; -IBUP-1953 PO; +IPRA0.2S6 NEB; -LORA-588 GT; +LORA10TA7 GT; +RANI15SY GT; -RANITIDINE GT; +RISP0.2515 PO; +TRAZ-182 PO; -TRAZODONE 50 MG GT; -ZONI100C42 GT; +ZONI100C6 GT
[2018-09-18] MEDS ORDERED: AMIKACIN SULFATE 500 MG/2 ML VIAL IV ONE (11:45)
[2018-09-18] MEDS ORDERED: IV NORMAL SALINE 1000 ML BAG IV ONE ×2 (11:45→12:00)
--- NOTE | 2018-09-18 12:04 | NUR ---
PT IS IN ROOM #1A. DR SPENCE EVALUATED THE PT.
[2018-09-18 12:07] LABS: BASOPHILS % (AUTO) 0.3 % (0.0-2.0); EOSINOPHILS # (AUTO) 0.4 K/uL (0.0-0.7); EOSINOPHILS % (AUTO) 12.3 % (0.0-7.0); HEMATOCRIT 29.7 % (36.7-47.1); HEMOGLOBIN 9.8 g/dL (12.5-16.3); LYMPHOCYTES # (AUTO) 0.8 K/uL (20.0-40.0); LYMPHOCYTES % (AUTO) 24.3 % (20.5-51.5); MEAN CORPUSCULAR HEMOGLOBIN 27.4 uug (23.8-33.4); MEAN CORPUSCULAR HGB CONC 33 g/dL (32.5-36.3); MEAN CORPUSCULAR VOLUME 83.4 fL (73.0-96.2); MONOCYTES # (AUTO) 0.5 K/uL (2.0-10.0); MONOCYTES % (AUTO) 13.9 % (0.0-11.0); NEUTROPHILS # (AUTO) 1.7 K/uL (1.8-8.9); NEUTROPHILS % (AUTO) 49.2 % (38.5-71.5); PLATELET COUNT (AUTO) 94 K/uL (152-348); RED BLOOD CELL COUNT(AUTO) 3.56 MIL/uL (4.06-5.63); WHITE BLOOD COUNT (AUTO) 3.4 K/uL (3.6-10.2)
[2018-09-18 12:16] LABS: CARBON DIOXIDE 29 mmol/L (21-32); CHLORIDE 97 mmol/L (98-107); CREATININE 0.2 mg/dL (0.6-1.3); GLUCOSE 91 mg/dL (74-106); POTASSIUM 4.1 mmol/L (3.5-5.1); UREA NITROGEN, BLOOD 6 mg/dL (7-18)
[2018-09-18 12:18] LABS: NEUTROPHILS % (MANUAL) 52 % (42-75)
[2018-09-18 12:19] LABS: EOSINOPHILS % (MANUAL) 10 % (0-8); LYMPHOCYTES % (MANUAL) 24 % (20-40); MONOCYTES % (MANUAL) 14 % (2-10)
[2018-09-18 12:21] LABS: ALANINE AMINOTRANSFERASE 38 U/L (16-63); ALKALINE PHOSPHATASE 187 U/L (50-136); ASPARTATE AMINOTRANSFERASE 35 U/L (15-37); BILIRUBIN,DIRECT 0.1 mg/dL (0.0-0.2); BILIRUBIN,TOTAL 0.2 mg/dL (0.2-1.0); TOTAL PROTEIN, SERUM 7.1 g/dL (6.4-8.2)
[2018-09-18] MEDS ORDERED: DOCUSATE GT (12:21)
[2018-09-18] MEDS ORDERED: PIPERACILLIN/TAZOBACTAM/D5W 50 ML IV ONE (12:33)
[2018-09-18 12:36] LABS: *BILIRUBIN,URIN NEGATIVE (NEGATIVE); *BLOOD, URINE 3+ (NEGATIVE); *CLARITY,URINE TURBID (CLEAR); *COLOR,URINE LIGHT YELLOW (YELLOW); *KETONES,URINE NEGATIVE (NEGATIVE); *PROTEIN,URINE NEGATIVE (NEGATIVE); *UROBILINOGEN,URINE 0.2 E.U./dl (NORMAL); LEUKOCYTE ESTERASE ,URINE 3+ (NEGATIVE); NITRITE, URINE POSITIVE (NEGATIVE); PH,URINE 8.5 (5.0-8.0); UGLUCOSE NEGATIVE (NEGATIVE)
[2018-09-18 13:16] LABS: BACTERIA,URINE MODERATE /HPF (NONE SEEN)
[2018-09-18 13:17] LABS: URINE AMORPHOUS PHOSPHATES MANY /HPF
[2018-09-18] MEDS ORDERED: AMIKACIN SULFATE 500 MG/2 ML VIAL ONE (13:18)
[2018-09-18] MEDS ORDERED: PIPERACILLIN/TAZOBACTAM/D5W 3.375 G in PREMIXED 1 EACH IV SCH (14:00)
[2018-09-18] MEDS ORDERED: ONDANSETRON 4 MG/2 ML VIAL IV PRN (15:30)
[2018-09-18] MEDS ORDERED: Z GUARD REMEDY PASTE 57 GM TUBE TOP PRN (15:30)
[2018-09-18] MEDS ORDERED: MAGNESIUM HYDROXIDE 30 ML LIQUID UDC PO PRN (15:30)
[2018-09-18] MEDS ORDERED: ACETAMINOPHEN 325 MG TABLET PO PRN (15:30)
[2018-09-18] MEDS ORDERED: HYDROCODONE/APAP 5-325MG TABLET PO PRN (15:30)
--- NOTE | 2018-09-18 15:37 | NUR ---
REPORT WAS GIVEN TO JUVENILE COURT JUDGE. PT WAS TRANSFERED TO CCU ROOM #4.
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
[2018-09-18] MEDS: IV NS 1000 ML 1,000 ML IV PRN (16:43)
--- NOTE | 2018-09-18 17:07 | NUR ---
CLINICAL PHARMACY NOTE-VANCOMYCIN DOSING PER PHARMACY S: To start vancomycin dosing on this patient for empiric tx(no MD note yet) O:BUN /Scr 6/0.2 WBC 3.4 Temp 98.2 Ht 185.42cm Wt 53.524kg A/P: Based on previous admission, will start Vancomycin 1 gram IV every 14hrs(it yielded trough 15.2) at 1800 today. Will draw trough by 4th dose(not ordered yet). Will follow daily.
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
--- NOTE | 2018-09-18 19:32 | NUR ---
report given to TORRI Mccrary Addendum: 09/18/18 at 1932 by LEONARD PINEDA RN Amended: Links added.
[2018-09-18] MEDS: VANCOMYCIN IV 1 G in PREMIXED 0 EACH IV SCH (19:54)
--- NOTE | 2018-09-18 20:10 | NUR ---
Turned and repositioned. RT at bedside. Patient c/o unable to breathe. Bagged. Unable to get an accurate saturation readings. Patient continues to deteriorate. Cyanotic and became unresponsive. Code Blue called. Addendum: 09/19/18 at 0043 by MOOSE RUBALCAVA RN Amended: Links added. Addendum: 09/19/18 at 0050 by MOOSE RUBALCAVA RN Amended: Links added.
--- NOTE | 2018-09-18 20:15 | NUR ---
Dr. Morejon at bedside. HR 80's-90'. BP 87/41. Patient's color improving with ambu bagging, and patient starting to wake up. Need for mechanical Ventilator discussed but patient is mouthing "NO VENT." Suctioned by RT. Addendum: 09/19/18 at 0050 by MOOSE RUBALCAVA RN Amended: Links added.
[2018-09-18] MEDS ORDERED: BACLOFEN 10 MG TABLET GT SCH (20:30)
[2018-09-18] MEDS ORDERED: IBUPROFEN 400 MG TABLET GT PRN (20:30)
--- NOTE | 2018-09-18 20:30 | NUR ---
Call placed to patient's sister Mari . Patient is FULL CODE.
--- NOTE | 2018-09-18 20:31 | NUR ---
Spoke to Dr. Garcia re: code blue and patient saying "NO VENT." Orders received for stat ABGS, CXR and pulmonary consult. O2 up to 60% trache mask.
--- NOTE | 2018-09-18 20:40 | NUR ---
Call placed to patient's sister again; message left to call CCU ADELSO. ABGs drawn by RT.
[2018-09-18 20:56] LABS: ABG BASE EXCESS -0.7 mmol/L; ABG HCO3 25.9 mmol/L; ABG PCO2 52.2 mmHg (35.0-45.0); ABG PH 7.314 (7.350-7.450); ABG PO2 69.5 mmHg (75.0-100.0); ABG SITE RIGHT RADIAL; ABG TOTAL HEMOGLOBIN 10.6 G/dL (13.5-18.0); COHb 0.9 % (0.5-1.5); O2Hb 93.5 % (94.0-97.0); VENT MODE T-Piece 60% Cool Aerosol
--- NOTE | 2018-09-18 21:00 | NUR ---
Patient AA, saturations anywhere between 87-92% on 60% aerosol mask. BP 108/55.
[2018-09-18] MEDS: ACETYLCYSTEINE 10% 4ML VIAL IH SCH (21:30)
--- NOTE | 2018-09-18 21:30 | NUR ---
RECEIVED PATIENT ON 40% COOL AEROSOL VIA TRACH MASK. PATIENT HAD LOW O2 SAT READINGS AT AROUND 2030 AND CODE ONDINA WAS CALLED. BAGGED PATIENT WITH 100% FiO2 AND SUCTIONED PATIENT. PATIENT LOOKED BETTER AND SAYS HE FEELS BETTER AFTER A FEW MINUTES. ABG DRAWN AND RESULTS GIVEN TO TORRI VIRK. CHANGED FiO2 TO 60% COOL AEROSOL. PATIENT O2 SAT IS BETTER NOW 92-95%. PATIENT SAYS HE DOES NOT WANT TO BE PUT ON A VENTILATOR. NO SOB NOTED AT THIS TIME. WILL CONTINUE TO MONITOR.
--- NOTE | 2018-09-18 21:30 | NUR ---
Pulmonary consult called to Dr. Alexander. Informed of ABG results. As per his medical recommendations is for patient to be on the vent. But if patient is refusing vent and he's AA, we can not do anything for now. suggested to get SS involved re: code status.
[2018-09-18] MEDS: IPRATROPIUM BROMIDE 0.5 MG/2.5 ML NEBU NEB SCH (21:31)
--- NOTE | 2018-09-18 21:35 | NUR ---
Dr. Garcia notified of above and ABG results on 60% O2. Still awaiting call back from patient's sister. Patient was informed by RN of Dr. Alexander's recommendations, but patient continues to say "NO VENT." But when DNR and resuscitation was discussed with him, patient said full code. Electronic News Gathering Editor Olya informed.
[2018-09-18] MEDS: BACLOFEN 20 MG TABLET GT SCH (21:39)
[2018-09-18] MEDS: ENOXAPARIN SODIUM 30 MG/0.3 ML DISP.SYRIN SQ SCH (21:50)
[2018-09-18] MEDS: PHENOBARBITAL 32.4 MG TABLET GT SCH (21:50)
[2018-09-18] MEDS ORDERED: PIPERACILLIN SODIUM/TAZOBACTAM 4.5 G in IV DEXTROSE 5% 50 ML IV SCH (22:00)
[2018-09-18] MEDS ORDERED: PIPERACILLIN SODIUM/TAZO 3.375 GM VIAL ONE (22:05)
[2018-09-18] MEDS ORDERED: TOLTERODINE 2 MG TABLET ONE (22:05)
[2018-09-18] MEDS: TOLTERODINE 2 MG TABLET GT SCH (22:09)
[2018-09-18] MEDS: PIPERACILLIN/TAZOBACTAM/D5W 3.375 G in PREMIXED 1 EACH IV SCH (22:13)
[2018-09-19] VITALS (24 sets, daily range): BP systolic 93–139; BP diastolic 55–87
--- NOTE | 2018-09-19 | NUR ---
Bath given. Patient tolerated care fairly well. Suctioned orally for frothy white secretions. Asking for pain medication; advised appropriately.
[2018-09-19] MEDS: IV NS 1000 ML 1,000 ML IV PRN ×2 (04:49→18:48)
[2018-09-19] MEDS: BACLOFEN 20 MG TABLET GT SCH ×3 (05:25→21:28)
[2018-09-19 05:28] LABS: BASOPHILS % (AUTO) 0.2 % (0.0-2.0); EOSINOPHILS # (AUTO) 0.2 K/uL (0.0-0.7); EOSINOPHILS % (AUTO) 3.6 % (0.0-7.0); HEMATOCRIT 30.4 % (36.7-47.1); HEMOGLOBIN 9.8 g/dL (12.5-16.3); LYMPHOCYTES # (AUTO) 0.4 K/uL (20.0-40.0); LYMPHOCYTES % (AUTO) 7.1 % (20.5-51.5); MEAN CORPUSCULAR HEMOGLOBIN 26.5 uug (23.8-33.4); MEAN CORPUSCULAR HGB CONC 32 g/dL (32.5-36.3); MEAN CORPUSCULAR VOLUME 81.6 fL (73.0-96.2); MONOCYTES # (AUTO) 0.6 K/uL (2.0-10.0); MONOCYTES % (AUTO) 10.3 % (0.0-11.0); NEUTROPHILS # (AUTO) 4.5 K/uL (1.8-8.9); NEUTROPHILS % (AUTO) 78.8 % (38.5-71.5); PLATELET COUNT (AUTO) 91 K/uL (152-348); RED BLOOD CELL COUNT(AUTO) 3.72 MIL/uL (4.06-5.63); WHITE BLOOD COUNT (AUTO) 5.7 K/uL (3.6-10.2)
[2018-09-19 05:39] LABS: ALANINE AMINOTRANSFERASE 37 U/L (16-63); ALKALINE PHOSPHATASE 194 U/L (50-136); ASPARTATE AMINOTRANSFERASE 27 U/L (15-37); BILIRUBIN,TOTAL 0.3 mg/dL (0.2-1.0); CARBON DIOXIDE 29 mmol/L (21-32); CHLORIDE 103 mmol/L (98-107); CHOLESTEROL 146 mg/dL (<200); CREATININE 0.3 mg/dL (0.6-1.3); GLUCOSE 81 mg/dL (74-106); HDL CHOLESTEROL 54 mg/dL (40-60); MAGNESIUM 1.5 mg/dL (1.8-2.4); PHOSPHOROUS 2.7 mg/dL (2.5-4.9); POTASSIUM 3.3 mmol/L (3.5-5.1); TOTAL PROTEIN, SERUM 7.1 g/dL (6.4-8.2); TRIGLYCERIDES 48 MG/DL (30-150); UREA NITROGEN, BLOOD 5 mg/dL (7-18)
[2018-09-19] MEDS: PIPERACILLIN/TAZOBACTAM/D5W 3.375 G in PREMIXED 1 EACH IV SCH ×3 (05:48→21:35)
--- NOTE | 2018-09-19 06:47 | NUR ---
Sleeping at intervals. Very needy when awake. Asking for [place] valve; advised. Contact isolation maintained. BP stable. Remains on 60% aerosol trache mask.
[2018-09-19] MEDS: IPRATROPIUM BROMIDE 0.5 MG/2.5 ML NEBU NEB SCH ×2 (07:08→19:04)
[2018-09-19] MEDS: ACETYLCYSTEINE 10% 4ML VIAL IH SCH ×2 (07:08→19:04)
[2018-09-19] MEDS ORDERED: Z GUARD REMEDY PASTE 57 GM TUBE TOP PRN (07:45)
[2018-09-19] MEDS ORDERED: POTASSIUM CHLORIDE 20 MEQ POWDER PACKET GT ONE (08:30)
--- NOTE | 2018-09-19 08:30 | NUR ---
Dr Cross visits patient, updated on present condition, and orders written. Patient is awake and alert, and can motion to what he needs. Jayant Wilburn RN
[2018-09-19] MEDS: VANCOMYCIN IV 1 G in PREMIXED 0 EACH IV SCH ×2 (08:32→21:28)
[2018-09-19] MEDS: PHENOBARBITAL 32.4 MG TABLET GT SCH ×2 (08:37→20:34)
[2018-09-19] MEDS: Z GUARD REMEDY PASTE 57 GM TUBE TOP SCH ×2 (08:41→20:35)
[2018-09-19] MEDS: MAGNESIUM SULFATE/D5W 100 ML IV SCH ×2 (08:48→09:48)
[2018-09-19] MEDS: LORATADINE 10 MG TABLET GT SCH (09:49)
--- NOTE | 2018-09-19 10:00 | NUR ---
Patient is total patient care due to no mobility. He has a left heel drsg in place. Repositioned to comfort. Jayant Wilburn RN
--- NOTE | 2018-09-19 11:47 | NUR ---
CLINICAL PHARMACY NOTE-VANCOMYCIN DOSING PER PHARMACY S: To continue vancomycin dosing on this 43 yo male patient for empiric tx (Right sided HCAP likely gram negative pneumonia with sepsis, UTI) O:BUN /Scr 5/0.3 WBC 5.7 Temp 98.3 Ht 185.42cm Wt 53.524kg A/P: Will continue same dose of Vancomycin 1 gram IV every 14hrs for today. 2nd dose due today at 0800. Will draw trough by 4th dose(not ordered yet). Will follow daily.
--- NOTE | 2018-09-19 12:00 | NUR ---
Patient with special air mattress ordered, and outside technition comes and new mattress on, and patient repositioned to comfort. Jayant Wilburn RN
--- NOTE | 2018-09-19 12:55 | NUR ---
WOUND CARE CONSULT: PT PRESENTS WITH LEFT HEEL ULCER, PRESENT ON ADMISSION. PT NOTED TO HAVE SACRAL AREA SCARRING AND LEFT BUTTOCK SCARRING, PRESENT ON ADMISSION. RECOMMENDATIONS MADE FOR SKIN PROTECTION AND WOUND CARE. DISCUSSED WITH NURSING STAFF. RECOMMEND DPM CONSULT. PT ON FIRST STEP [facility] ([facility] WILL SEE PRN. LORENZO IN AGREEMENT WITH PLAN OF CARE. Addendum: 09/19/18 at 1257 by CATHY BUCKLEY RN Amended: Links added.
--- NOTE | 2018-09-19 14:00 | NUR ---
Patient asking for pain medication frequently, and I did remind him that due to his respiratory issue no IV medications ordered for pain. Jayant Wilburn RN
--- NOTE | 2018-09-19 16:00 | NUR ---
Patient calling to be suctioned orally. Has thin oral secretions all day and needs frequent suctioning. Jayant Wilburn RN
--- NOTE | 2018-09-19 18:50 | NUR ---
Patient observed having seizure facial twitching, and I viewed 30 seconds entering the room. The patient 02 sat goes to 88%. Jayant Wilburn RN
[2018-09-19] MEDS: LORAZEPAM 2 MG/1 ML VIAL IV PRN (18:55)
--- NOTE | 2018-09-19 20:00 | NUR ---
RECEIVED PT. AWAKE, ALERT & FOLLOWING TO COMMAND. TRACH INTACT W/ 60% AEROSOL MASK W/ O2 SAT OF 100%. IVF NS @ 75CC/HR ON LEFT GROIN MAXX CATH. G-TUBE INTACT & CLAMPED FOR MEDS ONLY. REPOSITIONED PT ON HIS SIDE W/ HOB ELEVATED. SUCTIONED ORALLY & VIA TRACH W/ THICK TANNISH MOD. MUCOUS. AFEBRILE. BP STABLE.
[2018-09-19] MEDS: TOLTERODINE 2 MG TABLET GT SCH (20:34)
[2018-09-19] MEDS: ZONISAMIDE 100 MG CAPSULE GT SCH (20:34)
[2018-09-19] MEDS: MUPIROCIN 2% OINT 22 GM TUBE NS SCH (20:35)
[2018-09-19] MEDS: ENOXAPARIN SODIUM 30 MG/0.3 ML DISP.SYRIN SQ SCH (20:36)
--- NOTE | 2018-09-19 23:00 | NUR ---
HS CARE DONE. ORAL CARE DONE. SUCTIONED & REPOSITIONED W/ HOB ELEVATED.
[2018-09-20] VITALS (24 sets, daily range): BP systolic 121–148; BP diastolic 70–81
[2018-09-20 05:16] LABS: BASOPHILS % (AUTO) 0.3 % (0.0-2.0); EOSINOPHILS % (AUTO) 0.6 % (0.0-7.0); HEMATOCRIT 26.2 % (36.7-47.1); HEMOGLOBIN 8.5 g/dL (12.5-16.3); LYMPHOCYTES # (AUTO) 0.5 K/uL (20.0-40.0); LYMPHOCYTES % (AUTO) 15.8 % (20.5-51.5); MEAN CORPUSCULAR HEMOGLOBIN 26.8 uug (23.8-33.4); MEAN CORPUSCULAR HGB CONC 32 g/dL (32.5-36.3); MEAN CORPUSCULAR VOLUME 82.5 fL (73.0-96.2); MONOCYTES # (AUTO) 0.4 K/uL (2.0-10.0); MONOCYTES % (AUTO) 13.6 % (0.0-11.0); NEUTROPHILS # (AUTO) 2.2 K/uL (1.8-8.9); NEUTROPHILS % (AUTO) 69.7 % (38.5-71.5); PLATELET COUNT (AUTO) 75 K/uL (152-348); RED BLOOD CELL COUNT(AUTO) 3.18 MIL/uL (4.06-5.63); WHITE BLOOD COUNT (AUTO) 3.2 K/uL (3.6-10.2)
[2018-09-20 05:25] LABS: CARBON DIOXIDE 27 mmol/L (21-32); CHLORIDE 103 mmol/L (98-107); CREATININE 0.3 mg/dL (0.6-1.3); GLUCOSE 213 mg/dL (74-106); PHOSPHOROUS 2.2 mg/dL (2.5-4.9); POTASSIUM 3.1 mmol/L (3.5-5.1); UREA NITROGEN, BLOOD 10 mg/dL (7-18)
--- NOTE | 2018-09-20 05:30 | NUR ---
AM CARE DONE. ORAL CARE DONE. TRACH CARE DONE. SUCTIONED & REPOSITIONED W/ HOB ELEVATED. L HEEL WOUND CLEANED, HYDROGEL APPLIED & DRSG APPLIED.
[2018-09-20] MEDS: BACLOFEN 20 MG TABLET GT SCH ×3 (05:43→21:18)
[2018-09-20] MEDS: PIPERACILLIN/TAZOBACTAM/D5W 3.375 G in PREMIXED 1 EACH IV SCH ×3 (05:44→21:08)
[2018-09-20 05:48] LABS: MAGNESIUM 5.4 mg/dL (1.8-2.4)
[2018-09-20] MEDS: IPRATROPIUM BROMIDE 0.5 MG/2.5 ML NEBU NEB SCH ×2 (07:05→19:38)
[2018-09-20] MEDS: ACETYLCYSTEINE 10% 4ML VIAL IH SCH ×2 (07:05→19:38)
[2018-09-20 07:16] LABS: ABG BASE EXCESS 1.9 mmol/L; ABG HCO3 26.8 mmol/L; ABG PCO2 43.7 mmHg (35.0-45.0); ABG PH 7.406 (7.350-7.450); ABG PO2 102.5 mmHg (75.0-100.0); ABG SITE RIGHT RADIAL; ABG TOTAL HEMOGLOBIN 10.1 G/dL (13.5-18.0); COHb 1.2 % (0.5-1.5); MetHb 0.3 % (0.0-1.5); O2Hb 96.3 % (94.0-97.0); VENT MODE COOL AEROSOL
[2018-09-20] MEDS: LORATADINE 10 MG TABLET GT SCH (08:34)
[2018-09-20] MEDS: MUPIROCIN 2% OINT 22 GM TUBE NS SCH ×2 (08:35→21:20)
[2018-09-20] MEDS: PHENOBARBITAL 32.4 MG TABLET GT SCH ×2 (08:40→21:00)
[2018-09-20] MEDS: Z GUARD REMEDY PASTE 57 GM TUBE TOP SCH ×2 (08:45→21:16)
[2018-09-20] MEDS ORDERED: JEVITY 1.2 1000 ML LIQUID GT PRN (09:45)
--- NOTE | 2018-09-20 09:50 | NUR ---
Patient observed having seizure facial and right arm twitching observed for more than 45 seconds. Patient is non responsive after seizure. Jayant Wilburn RN
[2018-09-20] MEDS: IV NS 1000 ML 1,000 ML IV PRN (10:56)
[2018-09-20] MEDS: LORAZEPAM 2 MG/1 ML VIAL IV PRN ×2 (11:00→20:52)
[2018-09-20] MEDS: POTASSIUM PHOSPHATE MM 7.5 MMOL in IV DEXTROSE 5% 100 ML IV SCH ×2 (11:34→14:49)
--- NOTE | 2018-09-20 12:00 | NUR ---
Called Dr High regarding patient having seizures, and that patient had received his phenobarbital in the morning. Jayant Wilburn RN
--- NOTE | 2018-09-20 14:00 | NUR ---
Patient with GT feeding to be started, when pump is available. Called the dietary and awaiting Jevity to start. Jayant Wilburn RN
--- NOTE | 2018-09-20 14:06 | NUR ---
CLINICAL PHARMACY NOTE-VANCOMYCIN DOSING PER PHARMACY S: To continue vancomycin dosing on this 43 yo male patient for empiric tx (Right sided HCAP likely gram negative pneumonia with sepsis, UTI) O:BUN /Scr 10/0.3 WBC 3.2 Temp 98.3 Ht 172.72cm Wt 48kg Vancomycin trough 10.1 today at 1140 A/P: Since Vancomycin trough is under 20, Will increase dose of Vancomycin to 1 gram IV every 11hrs,1st dose due today at 1430 for expected steady state trough around 15.3. Will draw trough by 4th dose(not ordered yet). Will follow daily.
[2018-09-20] MEDS ORDERED: VANCOMYCIN IV 1 G in PREMIXED 0 EACH IV SCH (14:15)
[2018-09-20] MEDS: VANCOMYCIN IV 1 G in PREMIXED 0 EACH IV SCH (14:49)
--- NOTE | 2018-09-20 16:00 | NUR ---
Patient IV site left groin with some puffiness, and zosyn infusion almost complete. Will address the iV issue with recreational counselor. Jayant Wilburn RN
--- NOTE | 2018-09-20 18:00 | NUR ---
I tried to start #22 guage left forearm without success. Left portacath redness, and IV's stopped. Jayant Wilburn RN
--- NOTE | 2018-09-20 19:30 | NUR ---
Called sister Micaela and consent for picc line signed by myself and Warner WILD. Jayant Wilburn RN
[2018-09-20] MEDS: JEVITY 1.2 1000 ML LIQUID GT PRN (21:07)
[2018-09-20] MEDS: ENOXAPARIN SODIUM 30 MG/0.3 ML DISP.SYRIN SQ SCH (21:07)
[2018-09-20] MEDS: TOLTERODINE 2 MG TABLET GT SCH (21:16)
[2018-09-20] MEDS: ZONISAMIDE 100 MG CAPSULE GT SCH (21:17)
--- NOTE | 2018-09-20 22:28 | NUR ---
Reported: repeat upper right side [address] focal [address] Dr Garcia. No call back from Dr Yu. Order received c/o generalized pain.
[2018-09-20] MEDS: HYDROMORPHONE 2 MG/1 ML DISP.SYRIN IV PRN (23:03)
[2018-09-21] VITALS (24 sets, daily range): BP systolic 107–137; BP diastolic 59–77
[2018-09-21] MEDS: VANCOMYCIN IV 1 G in PREMIXED 0 EACH IV SCH ×3 (01:54→23:22)
[2018-09-21] MEDS: HYDROMORPHONE 2 MG/1 ML DISP.SYRIN IV PRN ×3 (03:47→17:00)
[2018-09-21] MEDS: PIPERACILLIN/TAZOBACTAM/D5W 3.375 G in PREMIXED 1 EACH IV SCH ×3 (05:21→21:30)
[2018-09-21] MEDS: BACLOFEN 20 MG TABLET GT SCH ×3 (05:21→21:29)
[2018-09-21] MEDS: IV NS 1000 ML 1,000 ML IV PRN ×2 (06:38→19:17)
[2018-09-21] MEDS: IPRATROPIUM BROMIDE 0.5 MG/2.5 ML NEBU NEB SCH ×2 (07:05→19:34)
[2018-09-21] MEDS: ACETYLCYSTEINE 10% 4ML VIAL IH SCH ×2 (07:05→19:34)
[2018-09-21] MEDS: Z GUARD REMEDY PASTE 57 GM TUBE TOP SCH ×2 (08:54→20:55)
[2018-09-21] MEDS: MUPIROCIN 2% OINT 22 GM TUBE NS SCH ×2 (08:56→20:54)
[2018-09-21] MEDS: PHENOBARBITAL 32.4 MG TABLET GT SCH ×2 (08:58→20:27)
[2018-09-21] MEDS: LORATADINE 10 MG TABLET GT SCH (08:58)
[2018-09-21 09:52] LABS: BASOPHILS % (AUTO) 0.3 % (0.0-2.0); CARBON DIOXIDE 31 mmol/L (21-32); CHLORIDE 105 mmol/L (98-107); CREATININE 0.3 mg/dL (0.6-1.3); EOSINOPHILS % (AUTO) 0.6 % (0.0-7.0); GLUCOSE 131 mg/dL (74-106); HEMATOCRIT 26.7 % (36.7-47.1); HEMOGLOBIN 8.6 g/dL (12.5-16.3); LYMPHOCYTES # (AUTO) 0.7 K/uL (20.0-40.0); LYMPHOCYTES % (AUTO) 10.9 % (20.5-51.5); MEAN CORPUSCULAR HEMOGLOBIN 27.3 uug (23.8-33.4); MEAN CORPUSCULAR HGB CONC 32 g/dL (32.5-36.3); MEAN CORPUSCULAR VOLUME 84.4 fL (73.0-96.2); MONOCYTES # (AUTO) 1.2 K/uL (2.0-10.0); MONOCYTES % (AUTO) 18.2 % (0.0-11.0); NEUTROPHILS # (AUTO) 4.6 K/uL (1.8-8.9); PLATELET COUNT (AUTO) 75 K/uL (152-348); POTASSIUM 3.1 mmol/L (3.5-5.1); RED BLOOD CELL COUNT(AUTO) 3.16 MIL/uL (4.06-5.63); UREA NITROGEN, BLOOD 18 mg/dL (7-18); WHITE BLOOD COUNT (AUTO) 6.6 K/uL (3.6-10.2)
[2018-09-21 11:01] LABS: BAND % (MANUAL) 5 % (0-10); EOSINOPHILS % (MANUAL) 2 % (0-8); LYMPHOCYTES % (MANUAL) 5 % (20-40); MONOCYTES % (MANUAL) 15 % (2-10); NEUTROPHILS % (MANUAL) 73 % (42-75)
--- NOTE | 2018-09-21 11:44 | NUR ---
CLINICAL PHARMACY NOTE-VANCOMYCIN DOSING PER PHARMACY S: To continue vancomycin dosing on this 43 yo male patient for empiric tx (Right sided HCAP likely gram negative pneumonia with sepsis, UTI) O:BUN /Scr 18/0.3 WBC 6.6 Temp 98.8 Ht 172.72cm Wt 48kg Vancomycin trough 10.1 on 09/20 at 1140 A/P: Will continue same dose of Vancomycin 1 gram IV every 11hrs for today. 4th dose due tonight at 2330. Will draw trough by 5th dose (ordered for 09/22 at 1000). Pharmacy shall review the level when available & adjust the coronel if needed. Will follow daily.
[2018-09-21] MEDS ORDERED: POTASSIUM CHLORIDE 20 MEQ TAB.PRT.SR PO STA (12:32)
[2018-09-21] MEDS ORDERED: POTASSIUM CHLORIDE 20 MEQ POWDER PACKET GT ONE (12:45)
[2018-09-21] MEDS: JEVITY 1.2 1000 ML LIQUID GT PRN (18:00)
--- NOTE | 2018-09-21 19:00 | NUR ---
HAD UNEVENTFUL DAY,WAS MORE VERBAL DAY WENT ON.CONTINUES TO TOLERATE FDG,MEDICATED FOR PAIN WITH GOOD RESULTS.VSS. NO SZS NOTED
--- NOTE | 2018-09-21 20:00 | NUR ---
RECEIVED PT. OPENS HIS EYES , FOLLOWS TO COMMAND & LETHARGIC. ON O2 TO TRACH COLLAR W/ 40% AEROSOL W/ O2 SAT OF 100%. SUCTIONED ORALLY & VIA TRACH W/ THICK TANNISH MOD. MUCOUS. IVF NS @ 75CC/HR ON PICC LINE ON YUNG. G-TUBE INTACT, CHECKED RESIDUAL 5CC NOTED W/ TUBE FDG OF JEVITY 1.2 @ 75CC, INCREASED TO 80CC/HR. REPOSITIONED ON HIS SIDE W/ HOB ELEVATED. NO SEIZURE ACTIVITY NOTED.
[2018-09-21] MEDS: TOLTERODINE 2 MG TABLET GT SCH (20:53)
[2018-09-21] MEDS: ZONISAMIDE 100 MG CAPSULE GT SCH (20:54)
[2018-09-21] MEDS: ENOXAPARIN SODIUM 30 MG/0.3 ML DISP.SYRIN SQ SCH (20:55)
--- NOTE | 2018-09-21 23:00 | NUR ---
HS CARE DONE.SUCTIONED & REPOSITIONED.
[2018-09-22] VITALS (16 sets, daily range): BP systolic 113–147; BP diastolic 60–87
--- NOTE | 2018-09-22 04:00 | NUR ---
AM CARE DONE. ORAL CARE DONE. TRACH CARE DONE. L HEEL WOUND CLEANED, HYDROGEL CREAM APPLIED & DRSG APPLIED. DISIMPACTED PT, LARGE AMOUNT OF SOFT TO FORM STOOL OBTAINED.
[2018-09-22] MEDS: BACLOFEN 20 MG TABLET GT SCH ×3 (05:10→21:34)
[2018-09-22] MEDS: PIPERACILLIN/TAZOBACTAM/D5W 3.375 G in PREMIXED 1 EACH IV SCH ×3 (05:10→21:35)
[2018-09-22] MEDS ORDERED: IV NORMAL SALINE 250 ML IV PRN (05:15)
[2018-09-22] MEDS: ACETYLCYSTEINE 10% 4ML VIAL IH SCH ×2 (07:24→19:43)
[2018-09-22] MEDS: IPRATROPIUM BROMIDE 0.5 MG/2.5 ML NEBU NEB SCH ×2 (07:24→19:43)
--- NOTE | 2018-09-22 07:30 | NUR ---
received the pt. Patient is laying in bed comfortably. VS WNL. No s/s of respiratory distress noted. Pt is on trach collar. No pain noted. Will continue to monitor. Addendum: 09/22/18 at 1442 by JORDON MCGILL RN TRACH COLLAR W/ 40% AEROSOL W/ O2 SAT OF 100%. no residual via gtube noted
[2018-09-22] MEDS: PHENOBARBITAL 32.4 MG TABLET GT SCH ×2 (08:27→20:04)
[2018-09-22] MEDS: LORATADINE 10 MG TABLET GT SCH (08:27)
[2018-09-22] MEDS: Z GUARD REMEDY PASTE 57 GM TUBE TOP SCH ×2 (08:29→20:07)
[2018-09-22] MEDS: MUPIROCIN 2% OINT 22 GM TUBE NS SCH ×2 (08:30→20:07)
[2018-09-22] MEDS: HYDROMORPHONE 2 MG/1 ML DISP.SYRIN IV PRN ×3 (08:55→22:30)
[2018-09-22] MEDS: JEVITY 1.2 1000 ML LIQUID GT PRN (11:37)
[2018-09-22] MEDS: VANCOMYCIN IV 750 MG in IV DEXTROSE 5% 250 ML IV SCH ×2 (12:07→19:56)
--- NOTE | 2018-09-22 12:28 | NUR ---
CLINICAL PHARMACY NOTE-VANCOMYCIN DOSING PER PHARMACY S: To continue vancomycin dosing on this 43 yo male patient for empiric tx (Right sided HCAP likely gram negative pneumonia with sepsis, UTI) O:BUN /Scr 18/0.3 (09/21) WBC 6.6 (09/21) Temp 98.1 Ht 172.72cm Wt 48kg Vancomycin trough 14.6 today at 1000 A/P: Will changed regimen to 750mg q8hr for new estimated trough of 17.7, first dose today at 1200. Trough ordered before 4th scheduled dose, due tomorrow at 1130. Will check trough at that time and adjust as needed. Will continue to follow Addendum: 09/23/18 at 1335 by TIGRE MALDONADO TROUGH LEVEL TAKEN 1 HOUR LATE 13.8. CONTINUE VANCOMYCIN 750MG IVPB Q8H
[2018-09-22] MEDS: LORAZEPAM 2 MG/1 ML VIAL IV PRN ×2 (12:39→20:23)
[2018-09-22] MEDS: IV NS 1000 ML 1,000 ML IV PRN (14:36)
[2018-09-22] MEDS: ENOXAPARIN SODIUM 30 MG/0.3 ML DISP.SYRIN SQ SCH (20:05)
[2018-09-22] MEDS: ZONISAMIDE 100 MG CAPSULE GT SCH (20:08)
[2018-09-22] MEDS: TOLTERODINE 2 MG TABLET GT SCH (20:10)
[2018-09-22] MEDS: ZOLPIDEM 5 MG TABLET PO PRN (20:22)
[2018-09-23 00:01] VITALS: BP 109/60
[2018-09-23] MEDS: IV NS 1000 ML 1,000 ML IV PRN ×2 (01:16→18:43)
[2018-09-23] MEDS: VANCOMYCIN IV 750 MG in IV DEXTROSE 5% 250 ML IV SCH ×3 (03:49→21:38)
[2018-09-23] MEDS: HYDROMORPHONE 2 MG/1 ML DISP.SYRIN IV PRN ×3 (03:57→20:27)
[2018-09-23 04:00] VITALS: BP 120/75
[2018-09-23] MEDS: JEVITY 1.2 1000 ML LIQUID GT PRN ×2 (04:28→20:02)
[2018-09-23 05:18] LABS: BASOPHILS % (AUTO) 0.3 % (0.0-2.0); EOSINOPHILS # (AUTO) 0.1 K/uL (0.0-0.7); EOSINOPHILS % (AUTO) 1.9 % (0.0-7.0); HEMATOCRIT 24.3 % (36.7-47.1); HEMOGLOBIN 7.9 g/dL (12.5-16.3); LYMPHOCYTES # (AUTO) 1.1 K/uL (20.0-40.0); LYMPHOCYTES % (AUTO) 17.8 % (20.5-51.5); MEAN CORPUSCULAR HEMOGLOBIN 27.1 uug (23.8-33.4); MEAN CORPUSCULAR HGB CONC 33 g/dL (32.5-36.3); MEAN CORPUSCULAR VOLUME 83.2 fL (73.0-96.2); MONOCYTES # (AUTO) 1.2 K/uL (2.0-10.0); MONOCYTES % (AUTO) 19.2 % (0.0-11.0); NEUTROPHILS # (AUTO) 3.7 K/uL (1.8-8.9); NEUTROPHILS % (AUTO) 60.8 % (38.5-71.5); PLATELET COUNT (AUTO) 82 K/uL (152-348); RED BLOOD CELL COUNT(AUTO) 2.92 MIL/uL (4.06-5.63); WHITE BLOOD COUNT (AUTO) 6.1 K/uL (3.6-10.2)
[2018-09-23] MEDS: PIPERACILLIN/TAZOBACTAM/D5W 3.375 G in PREMIXED 1 EACH IV SCH ×3 (05:26→21:37)
[2018-09-23] MEDS: BACLOFEN 20 MG TABLET GT SCH ×3 (05:27→21:48)
[2018-09-23 05:35] LABS: CARBON DIOXIDE 30 mmol/L (21-32); CHLORIDE 107 mmol/L (98-107); CREATININE 0.2 mg/dL (0.6-1.3); GLUCOSE 116 mg/dL (74-106); MAGNESIUM 1.6 mg/dL (1.8-2.4); PHOSPHOROUS 2.1 mg/dL (2.5-4.9); UREA NITROGEN, BLOOD 12 mg/dL (7-18)
--- NOTE | 2018-09-23 06:41 | NUR ---
EPISODE BRADYCARDIA WITH FREQUENT PVC's.
--- NOTE | 2018-09-23 07:01 | NUR ---
STAT EKG ORDERED / PROTOCOL. CALLED DR EPSTEIN REPORTED SINUS BRADYCARDIA, WITH FREQUENT PVC's.
[2018-09-23 07:09] LABS: LYMPHOCYTES % (MANUAL) 16 % (20-40)
[2018-09-23 07:10] LABS: EOSINOPHILS % (MANUAL) 3 % (0-8); MONOCYTES % (MANUAL) 18 % (2-10); NEUTROPHILS % (MANUAL) 63 % (42-75)
[2018-09-23 07:29] LABS: ABG HCO3 26.9 mmol/L; ABG PCO2 43.1 mmHg (35.0-45.0); ABG PH 7.413 (7.350-7.450); ABG SITE LEFT RADIAL; ABG TOTAL HEMOGLOBIN 10.9 G/dL (13.5-18.0); COHb 1.4 % (0.5-1.5); MetHb 0.2 % (0.0-1.5); O2Hb 97.4 % (94.0-97.0); VENT MODE COOL AEROSOL
[2018-09-23 08:00] VITALS: BP 174/82
[2018-09-23] MEDS: ACETYLCYSTEINE 10% 4ML VIAL IH SCH ×2 (08:09→19:59)
[2018-09-23] MEDS: IPRATROPIUM BROMIDE 0.5 MG/2.5 ML NEBU NEB SCH ×2 (08:10→19:59)
[2018-09-23] MEDS: LORATADINE 10 MG TABLET GT SCH (08:15)
[2018-09-23] MEDS: PHENOBARBITAL 32.4 MG TABLET GT SCH ×2 (08:15→20:15)
[2018-09-23] MEDS: Z GUARD REMEDY PASTE 57 GM TUBE TOP SCH ×2 (08:15→20:22)
[2018-09-23] MEDS: MUPIROCIN 2% OINT 22 GM TUBE NS SCH ×2 (08:16→20:22)
--- NOTE | 2018-09-23 08:45 | NUR ---
Hydromorphone 1mg administered at this time with Asma R.N. as witness computer error did not save administration and I noticed at this time when another prn dose administered. Pharmacist Hipolito notified of administration with no documentation.
--- NOTE | 2018-09-23 09:40 | NUR ---
Pulmonary services Dr. Cross in the unit to examine pt. full report given, orders received, see order hx.
--- NOTE | 2018-09-23 09:50 | NUR ---
Urine output of zero, abdominal distention noted, alcantara catheter trouble shotted with no success. Bladder scanning performed with residuals greater than a 1L. alcantara catheter removed with tip noted to be occluded, alcantara changed and Md notified. A total of 1400cc initially bloody and clear urine obtained. New turkish [address]
--- NOTE | 2018-09-23 10:45 | NUR ---
Attending physician in to examine patient, full report given orders for a 500cc NS bolus received, and carried it.
[2018-09-23 12:00] VITALS: BP 104/47
[2018-09-23] MEDS ORDERED: IV NORMAL SALINE 500 ML IV ONE (12:30)
[2018-09-23] MEDS: POTASSIUM CHLORIDE 10 MEQ in IV DEXTROSE 5% 50 ML IV SCH ×4 (15:49→18:28)
[2018-09-23 16:00] VITALS: BP 104/62
[2018-09-23] MEDS: MAGNESIUM SULFATE/D5W 100 ML IV SCH ×2 (16:35→17:29)
[2018-09-23] MEDS ORDERED: NEUTRA PHOS PACKET PO ONE (17:15)
[2018-09-23 20:00] VITALS: BP 106/66
[2018-09-23] MEDS: TOLTERODINE 2 MG TABLET GT SCH (20:20)
[2018-09-23] MEDS: ZONISAMIDE 100 MG CAPSULE GT SCH (20:21)
[2018-09-23] MEDS: ENOXAPARIN SODIUM 30 MG/0.3 ML DISP.SYRIN SQ SCH (20:24)
--- NOTE | 2018-09-23 20:25 | NUR ---
RECEIVED PT, AWAKE, ALERT & ORIENTED X3, C/O PAIN ON BOTH SHOULDER SCALE OF 10/10, MEDICATED W/ DILAUDID 1MG IVP. ON O2 @ 40% AEROSOL VIA TRACH MASK. O2 SAT OF 100%. IVF NS @ 75CC/HR ON YUNG PICC LINE.G-TUBE INTACT, CHECKED PLACEMENT & CHECKED RESIDUAL 5CC NOTED. REPOSITIONED ON HIS SIDE W/ HOB ELEVATED. V/S STABLE.
--- NOTE | 2018-09-23 23:00 | NUR ---
HS CARE DONE & REPOSITIONED W/ HOB ELEVATED.
[2018-09-24] VITALS: BP 90/56
[2018-09-24] MEDS: HYDROMORPHONE 2 MG/1 ML DISP.SYRIN IV PRN ×6 (02:35→23:39)
--- NOTE | 2018-09-24 02:35 | NUR ---
MEDICATED W/ DILAUDID 1MG IVP FOR PAIN SCALE 10/10. V/S STABLE.
[2018-09-24 04:00] VITALS: BP 101/59
[2018-09-24 05:20] LABS: CARBON DIOXIDE 31 mmol/L (21-32); CHLORIDE 104 mmol/L (98-107); CREATININE 0.2 mg/dL (0.6-1.3); GLUCOSE 96 mg/dL (74-106); MAGNESIUM 1.7 mg/dL (1.8-2.4); PHOSPHOROUS 2.7 mg/dL (2.5-4.9); UREA NITROGEN, BLOOD 9 mg/dL (7-18)
[2018-09-24] MEDS: VANCOMYCIN IV 750 MG in IV DEXTROSE 5% 250 ML IV SCH ×4 (05:22→22:48)
[2018-09-24] MEDS: PIPERACILLIN/TAZOBACTAM/D5W 3.375 G in PREMIXED 1 EACH IV SCH ×3 (05:22→21:14)
[2018-09-24] MEDS: BACLOFEN 20 MG TABLET GT SCH ×3 (05:22→21:15)
--- NOTE | 2018-09-24 05:34 | NUR ---
AM CARE DONE. TRACH CARE DONE. G-TUBE CLEANED & DRSG APPLIED. L HEEL WOUND CLEANED, HYDROGEL APPLIED THEN COVERED W/ DRSG. DISIMPACTED PT. REMOVED LARGE AMT OF SOFT STOOL. REPOSITIONED W/ HOB ELEVATED.
--- NOTE | 2018-09-24 06:19 | NUR ---
REPORT GIVEN TO FIONA WILD.
--- NOTE | 2018-09-24 06:45 | NUR ---
TRANSFERRED TO 215 VIA BED.
[2018-09-24] MEDS: IPRATROPIUM BROMIDE 0.5 MG/2.5 ML NEBU NEB SCH ×2 (07:59→19:12)
[2018-09-24] MEDS: ACETYLCYSTEINE 10% 4ML VIAL IH SCH ×2 (07:59→19:12)
[2018-09-24] MEDS: LORATADINE 10 MG TABLET GT SCH (08:29)
[2018-09-24] MEDS: MUPIROCIN 2% OINT 22 GM TUBE NS SCH ×2 (08:29→21:14)
[2018-09-24] MEDS: PHENOBARBITAL 32.4 MG TABLET GT SCH ×2 (08:29→21:15)
[2018-09-24] MEDS: Z GUARD REMEDY PASTE 57 GM TUBE TOP SCH ×2 (08:30→21:16)
[2018-09-24] MEDS: JEVITY 1.2 1000 ML LIQUID GT PRN (10:41)
[2018-09-24 11:46] VITALS: BP 97/52
[2018-09-24 15:23] VITALS: BP 92/52
--- NOTE | 2018-09-24 15:25 | NUR ---
PER PHARMACY ORDER. WILL NOT ADMINISTER ZOSYN OVER 4HRS DURATION THROUGH PICC LINE. PHARMACIST WILL CHANGE ORDER FOR ZOSYN TO RUN OVER 30 MINUTES DURATION. PHARMACIST SAYS ITS OKAY TO RUN VANCOMYCIN SCHEDULED AND ZOSYN FOR 30 MINUTES AFTERWARDS THROUGH PICC LINE.
--- NOTE | 2018-09-24 15:38 | NUR ---
CLINICAL PHARMACY NOTE-VANCOMYCIN DOSING PER PHARMACY S: To continue vancomycin dosing on this 43 yo male patient for empiric tx (Right sided HCAP likely gram negative pneumonia with sepsis, UTI) O:BUN /Scr 9/0.2 WBC 6.1 (09/23) Temp 98.1 Ht 172.72cm Wt 48kg Vancomycin trough 16 today at 1330 A/P: Since Vancomycin trough is within the range, will continue regimen of 750mg q8hr . Will monitor renal function closely to adjust the dose if needed.
[2018-09-24] MEDS: MAGNESIUM SULFATE/D5W 100 ML IV SCH ×2 (15:46→16:08)
--- NOTE | 2018-09-24 15:47 | NUR ---
SPOKE TO DR. BRUNER ABOUT PAIN MANAGEMENT TO INCREASE DILAUDID MEDICATION.
--- NOTE | 2018-09-24 18:10 | NUR ---
PATIENT IS RESTING IN BED COMFORTABLY AND IS IN STABLE CONDITION. PATIENT HAD NO EPISODES OF RESPIRATORY DISTRESS DURING THE SHIFT. PATIENT DID VOICE CONCERN FOR PAIN IN LEFT AND RIGHT SHOULDER. PAIN MANAGEMENT WAS IMPLEMENTED. DOCTOR ZOHREH WAS NOTIFIED AND HAD INCREASE DILAUDID DOSE FROM 1MG TO 1.5 MG. PATIENT DENIES ANY PAIN AT THIS TIME AND PAIN MANAGEMENT HAS BEEN EFFECTIVE. WOUND CARE WAS DONE FOR THE PATIENT FOR BUTTOCK, SACRAL, AND LEFT HEEL AREA. PATIENT IS ABLE TO VERBALIZE CONCERNS AND NEEDS. PATIENT HAS A PICC LINE IN RIGHT UPPER ARM AND REMAINS INTACT AND SHOWS NO SIGNS OF INFECTION. G-TUBE IS PATENT AND FLUSHING WELL. PATIENT IS ABLE TO TOLERATE JEVITY 1.2 AT 80CC/HR FINE.
[2018-09-24 20:51] VITALS: BP 104/68
[2018-09-24] MEDS: ZONISAMIDE 100 MG CAPSULE GT SCH (21:15)
[2018-09-24] MEDS: TOLTERODINE 2 MG TABLET GT SCH (21:15)
[2018-09-24] MEDS: ENOXAPARIN SODIUM 30 MG/0.3 ML DISP.SYRIN SQ SCH (21:16)
[2018-09-25] MEDS: HYDROMORPHONE 2 MG/1 ML DISP.SYRIN IV PRN ×5 (03:25→22:49)
[2018-09-25 04:00] VITALS: BP 100/62
--- NOTE | 2018-09-25 05:31 | NUR ---
nsg: no acute distress noted. constantly c/o gen pain, medicated with dilaudid 1.5mg ivp. on cont ivf and antibiotics. all needs attended. cont to monitor.
[2018-09-25] MEDS: BACLOFEN 20 MG TABLET GT SCH ×3 (05:39→22:04)
[2018-09-25] MEDS: PIPERACILLIN/TAZOBACTAM/D5W 3.375 G in PREMIXED 1 EACH IV SCH (05:39)
[2018-09-25] MEDS: VANCOMYCIN IV 750 MG in IV DEXTROSE 5% 250 ML IV SCH ×3 (06:42→22:17)
[2018-09-25 07:24] LABS: CARBON DIOXIDE 30 mmol/L (21-32); CHLORIDE 103 mmol/L (98-107); CREATININE 0.2 mg/dL (0.6-1.3); GLUCOSE 79 mg/dL (74-106); MAGNESIUM 1.9 mg/dL (1.8-2.4); POTASSIUM 4.1 mmol/L (3.5-5.1); UREA NITROGEN, BLOOD 8 mg/dL (7-18)
[2018-09-25] MEDS: ACETYLCYSTEINE 10% 4ML VIAL IH SCH ×2 (07:57→19:18)
[2018-09-25] MEDS: IPRATROPIUM BROMIDE 0.5 MG/2.5 ML NEBU NEB SCH ×2 (07:57→19:18)
--- NOTE | 2018-09-25 08:00 | NUR ---
RECEIVED PATIENT IN BED AWAKE ALERT AND ORIENTED PATIENT WAS MEDICATED THIS AM BY THE NOC RN AND HE SEEMS COMFORTABLE GT FEEING IS OFF AT THIS TIME WILL RECONNECT AT 1000 TRACH TO PMIST WITH 40% FIO2 WITH HHN TREATMENT ORDERED.TELE MONITORING IN PROGRESS PLASCENCIA CATH WITH ALYSE URINE NO ADVERSE OR ALLERGIC REACTIONS FROM ATB ORDERED MADE COMFORTABLE AND WILL CONTINUE TO OBSERVE.
[2018-09-25] MEDS: LORATADINE 10 MG TABLET GT SCH (08:32)
[2018-09-25] MEDS: PHENOBARBITAL 32.4 MG TABLET GT SCH ×2 (08:32→20:24)
[2018-09-25] MEDS: Z GUARD REMEDY PASTE 57 GM TUBE TOP SCH ×2 (08:37→20:33)
[2018-09-25] MEDS: MUPIROCIN 2% OINT 22 GM TUBE NS SCH ×2 (08:37→20:32)
[2018-09-25 09:36] LABS: BASOPHILS % (AUTO) 0.7 % (0.0-2.0); EOSINOPHILS # (AUTO) 0.3 K/uL (0.0-0.7); EOSINOPHILS % (AUTO) 8.7 % (0.0-7.0); HEMATOCRIT 25.7 % (36.7-47.1); HEMOGLOBIN 8.2 g/dL (12.5-16.3); LYMPHOCYTES # (AUTO) 1.1 K/uL (20.0-40.0); LYMPHOCYTES % (AUTO) 27.1 % (20.5-51.5); MEAN CORPUSCULAR HEMOGLOBIN 27.3 uug (23.8-33.4); MEAN CORPUSCULAR HGB CONC 32 g/dL (32.5-36.3); MEAN CORPUSCULAR VOLUME 85.8 fL (73.0-96.2); MONOCYTES # (AUTO) 0.5 K/uL (2.0-10.0); MONOCYTES % (AUTO) 12.8 % (0.0-11.0); NEUTROPHILS % (AUTO) 50.7 % (38.5-71.5); PLATELET COUNT (AUTO) 89 K/uL (152-348); RED BLOOD CELL COUNT(AUTO) 2.99 MIL/uL (4.06-5.63); WHITE BLOOD COUNT (AUTO) 3.9 K/uL (3.6-10.2)
--- NOTE | 2018-09-25 10:30 | NUR ---
NOTED PENIS VERY SWOLLEN LOOKS LIKE ITS FILLED WITH FLUID LOOKS LIKE THE ENTIRE PENIS IS BLISTERED APPARENTLY HAS BEEN SWOLLEN BUT IS MORE SWOLLEN TODAY CALLED AND NOTIFIED DR YOO WITH NO NEW ORDERS AT THIS TIME PLASCENCIA CATH IS INTACT AND DRAINING YELLOW URINE .
[2018-09-25 10:32] LABS: BAND % (MANUAL) 1 % (0-10); EOSINOPHILS % (MANUAL) 8 % (0-8); LYMPHOCYTES % (MANUAL) 32 % (20-40); MONOCYTES % (MANUAL) 7 % (2-10); NEUTROPHILS % (MANUAL) 52 % (42-75)
--- NOTE | 2018-09-25 10:51 | NUR ---
CLINICAL PHARMACY NOTE-VANCOMYCIN DOSING PER PHARMACY S: To continue vancomycin dosing on this 43 yo male patient for HCAP(Right sided HCAP likely gram negative pneumonia with sepsis, UTI) O:BUN /Scr 8/0.2 WBC 3.9 Temp 98.2 Ht 172.72cm Wt 48kg Vancomycin trough 16 09/24 at 1330 A/P: Since Vancomycin trough is within the range, will continue regimen of 750mg q8hr . Will monitor renal function closely to adjust the dose if needed.
[2018-09-25] MEDS ORDERED: DOSING PER PHARMACY-AMIKACIN IV IV PRN (11:15)
--- NOTE | 2018-09-25 11:27 | NUR ---
Received a call from [facility] regarding ER, H&P, discharge summary and notes with dated. [facility] fax: [phone], phone number [phone]. Information faxed as requested Addendum: 09/25/18 at 1130 by MIGUEL GUADARRAMA RN noted on the wrong patient
[2018-09-25 11:30] VITALS: BP 132/72
--- NOTE | 2018-09-25 11:39 | NUR ---
D/C PLANNING TO HOME AWAITING FOR ORDERS.
--- NOTE | 2018-09-25 11:57 | NUR ---
CLINICAL PHARMACY NOTE-AMIKACIN DOSING PER PHARMACY SUBJECTIVE: To start Amikacin dosing on this 43 yr old patient for sepsis Objective: BUN 8 Scr 0.2 WBC 3.9 Temp 98.2 ht 172.72 cm Wt 52.617kg Assessment/Plan: Will start Amikacin 300mg IV every 7 hrs(first dose today at 1300) and draw peak and trough by 4th dose (plan on dc but if staying, will order for tomorrow 10am dose), for expected peak 22.5 and trough 3.79. Will monitor daily.
[2018-09-25] MEDS: IV NS 1000 ML 1,000 ML IV PRN (12:55)
[2018-09-25] MEDS: DOXYCYCLINE HYCLATE 100 MG TABLET GT SCH ×2 (13:01→20:25)
[2018-09-25] MEDS: AMIKACIN 300 MG in IV DEXTROSE 5% 100 ML IV SCH ×2 (13:01→22:02)
--- NOTE | 2018-09-25 15:30 | NUR ---
SUCTIONED TRACH WITH VERY MINIMAL SECRETIONS TRACH CARE DONE ORDERED STILL HAS NO ORDERS FOR DISCHARGE AT THIS TIME.
[2018-09-25 15:43] VITALS: BP 129/69
[2018-09-25] MEDS: JEVITY 1.2 1000 ML LIQUID GT PRN (18:29)
[2018-09-25] MEDS: ZONISAMIDE 100 MG CAPSULE GT SCH (20:24)
[2018-09-25] MEDS: TOLTERODINE 2 MG TABLET GT SCH (20:24)
[2018-09-25] MEDS: ENOXAPARIN SODIUM 30 MG/0.3 ML DISP.SYRIN SQ SCH (20:27)
[2018-09-25] MEDS: ZOLPIDEM 5 MG TABLET PO PRN (20:31)
[2018-09-25 20:43] VITALS: BP 105/63
[2018-09-26 00:49] VITALS: BP 121/74
[2018-09-26] MEDS: LORAZEPAM 2 MG/1 ML VIAL IV PRN ×3 (01:02→17:42)
[2018-09-26] MEDS: HYDROMORPHONE 2 MG/1 ML DISP.SYRIN IV PRN ×4 (02:04→20:14)
[2018-09-26] MEDS: AMIKACIN 300 MG in IV DEXTROSE 5% 100 ML IV SCH ×3 (02:06→17:42)
[2018-09-26 04:00] VITALS: BP 110/68
[2018-09-26] MEDS: VANCOMYCIN IV 750 MG in IV DEXTROSE 5% 250 ML IV SCH ×3 (05:44→22:25)
[2018-09-26] MEDS: BACLOFEN 20 MG TABLET GT SCH ×3 (05:45→22:25)
[2018-09-26 06:15] LABS: BASOPHILS % (AUTO) 0.8 % (0.0-2.0); EOSINOPHILS # (AUTO) 0.4 K/uL (0.0-0.7); EOSINOPHILS % (AUTO) 12.5 % (0.0-7.0); HEMATOCRIT 24.2 % (36.7-47.1); HEMOGLOBIN 7.9 g/dL (12.5-16.3); LYMPHOCYTES # (AUTO) 1.1 K/uL (20.0-40.0); LYMPHOCYTES % (AUTO) 32.6 % (20.5-51.5); MEAN CORPUSCULAR HEMOGLOBIN 27.4 uug (23.8-33.4); MEAN CORPUSCULAR HGB CONC 33 g/dL (32.5-36.3); MONOCYTES # (AUTO) 0.4 K/uL (2.0-10.0); MONOCYTES % (AUTO) 12.5 % (0.0-11.0); NEUTROPHILS # (AUTO) 1.4 K/uL (1.8-8.9); NEUTROPHILS % (AUTO) 41.6 % (38.5-71.5); PLATELET COUNT (AUTO) 101 K/uL (152-348); RED BLOOD CELL COUNT(AUTO) 2.88 MIL/uL (4.06-5.63); WHITE BLOOD COUNT (AUTO) 3.4 K/uL (3.6-10.2)
--- NOTE | 2018-09-26 06:20 | NUR ---
Trach care was done, pnt is tolerated well, no distress. G-tube care was done, area around clean and intact.
[2018-09-26 06:43] LABS: ALANINE AMINOTRANSFERASE 28 U/L (16-63); ALKALINE PHOSPHATASE 117 U/L (50-136); ASPARTATE AMINOTRANSFERASE 14 U/L (15-37); BILIRUBIN,TOTAL 0.2 mg/dL (0.2-1.0); CARBON DIOXIDE 28 mmol/L (21-32); CHLORIDE 103 mmol/L (98-107); CREATININE 0.2 mg/dL (0.6-1.3); GLUCOSE 104 mg/dL (74-106); MAGNESIUM 1.5 mg/dL (1.8-2.4); PHOSPHOROUS 2.9 mg/dL (2.5-4.9); TOTAL PROTEIN, SERUM 5.6 g/dL (6.4-8.2); UREA NITROGEN, BLOOD 9 mg/dL (7-18)
--- NOTE | 2018-09-26 07:00 | NUR ---
Dressing changed on Left Heel. Photos are taken and placed in the chart.
--- NOTE | 2018-09-26 07:30 | NUR ---
RECEIVED PATIENT IN BED AWAKE ALERT TO SELF WITH CONFUSSION ABLE TO MAKE SIMPLE NEEDS KNOWN REQUIRES MAX ASSIST FOR ALL ADL.TRACH IS INTACT WITH 40% FIO2 WITH NO SHORTNESS OF BREATH .GT OFF AT THIS TIME ORDERED PICC LINE RIGHT UPPER ARM REMAINS INTACT WITH IVF ORDERED PLASCENCIA CATH TO GRAVITY DRAINAGE PENNIS REMAINS SWOLLEN ON FIRST STEP BRINDA PATIENT HAS POOR SKIN INTERGRITY BOTH HEELS FLOATED MADE COMFORTABLE AND WILL CONTINUE TO OBSERVE
[2018-09-26] MEDS: IPRATROPIUM BROMIDE 0.5 MG/2.5 ML NEBU NEB SCH ×2 (08:21→19:14)
[2018-09-26] MEDS: ACETYLCYSTEINE 10% 4ML VIAL IH SCH ×2 (08:21→19:14)
[2018-09-26] MEDS: DOXYCYCLINE HYCLATE 100 MG TABLET GT SCH ×2 (08:38→20:10)
[2018-09-26] MEDS: PHENOBARBITAL 32.4 MG TABLET GT SCH ×2 (08:38→20:09)
[2018-09-26] MEDS: LORATADINE 10 MG TABLET GT SCH (08:38)
[2018-09-26] MEDS: Z GUARD REMEDY PASTE 57 GM TUBE TOP SCH ×2 (08:47→20:52)
[2018-09-26] MEDS: MUPIROCIN 2% OINT 22 GM TUBE NS SCH (08:47)
--- NOTE | 2018-09-26 08:55 | NUR ---
GETTING VERY AGITATED AND ANXIOUS UNABLE TO REDIRECT PATIENT HAD PAIN MEDICATION DILAUDID ABOUT 0600 MEDICATED WITH ATIVAN TO RELAX PATIENT WILL CONTINUE TO OBSERVE.
[2018-09-26] MEDS: IV NS 1000 ML 1,000 ML IV PRN (09:43)
[2018-09-26] MEDS: JEVITY 1.2 1000 ML LIQUID GT PRN (10:00)
--- NOTE | 2018-09-26 10:40 | NUR ---
MAGNESSIUM LEVEL IS 1.[address] YOO WITH ORDER FOR REPLACEMENTS AND NOTED.
[2018-09-26] MEDS: MAGNESIUM SULFATE/D5W 100 ML IV SCH ×2 (10:50→11:51)
[2018-09-26 11:20] VITALS: BP 107/66
--- NOTE | 2018-09-26 12:05 | NUR ---
CLINICAL PHARMACY NOTE-VANCOMYCIN DOSING PER PHARMACY S: To continue vancomycin dosing on this 43 yo male patient for HCAP(Right sided HCAP likely gram negative pneumonia with sepsis, UTI) O:BUN /Scr 9/0.2 WBC 3.4 Temp 98 Ht 172.72cm Wt 48kg Vancomycin trough 16 09/24 at 1330 A/P: Since Vancomycin trough was within the range, will continue regimen of 750mg q8hr . Will monitor renal function closely to adjust the dose if needed.
--- NOTE | 2018-09-26 12:20 | NUR ---
CLINICAL PHARMACY NOTE-AMIKACIN DOSING PER PHARMACY SUBJECTIVE: To continue Amikacin dosing on this 43 yr old patient for sepsis Objective: BUN 9 Scr 0.2 WBC 3.4 Temp 98 ht 172.72 cm Wt 52.617kg trough pending today 0930 peak pending today 1130 Assessment/Plan: Will continue Amikacin 300mg IV every 7 hrs with trough due today at 0930 and peak at 1130, for expected peak 22.5 and trough 3.79. Awaiting results from send out, will check levels when available and adjust as appropriate. Will follow Addendum: 09/26/18 at 1735 by ERVIN JURADO ADM TR 11, PK 14.9, SUSPECT UNACCURATE DRAW/TIMES LEVELS VERY CLOSE, WILL REPEAT TR BEFORE 0700 DOSE TOMORROW DUE AT 0630 [address] AFTER TONIGHT'S 0000 DOSE SCHEDULED FOR 0100 (30 MIN AFTER END INFUSION). PT WEIGHT ALSO NOTED LARGE CHANGE HOWEVER SPEAKING WITH TORRI POPE, MAY BE INACCURATE, UNABLE TO MOVE PT OFF BED, IS PARAPLEGIC. PER PREVIOUS ADMIT WEIGHTS, USUALLY ~52KG, IS ADMITTING WEIGHT WELL. WILL CONTINUE CURRENT REGIMEN CHECK LEVELS AND ADJUST PER LEVEL. WILL FOLLOW
--- NOTE | 2018-09-26 12:30 | NUR ---
DR YOO HERE RE SWOLLEN PENIS AND SCROTUM ORDERS FOR ULTRA SOUND WAS GIVEN BY THE RESAW TAILER
[2018-09-26 15:07] VITALS: BP 109/66
--- NOTE | 2018-09-26 15:30 | NUR ---
PER THE ENGINE DYNAMOMETER TESTER PATIENT WILL BE SEEN BY THE UROLOGIST KEVIN [phone] PRIOR TO PATIENT BEING DISCHARGED.
--- NOTE | 2018-09-26 16:20 | NUR ---
PATIENT CONTINUES TO HAVE EDEMA MORE GENERALISED SCROTUM AND PENIS REMAIN SWOLLEN LEFT ARM SWOLLEN ELEVATED ON THE PILLOWS MUCH POSSIBLE TOTAL AND COMPLETE CARE PROVIDED DISIMPACTED OBTAINED MEDIUM AMOUNT OF SOFT STOOL CARISA CARE DONE AND PATIENT MADE AND KEPT COMFORTABLE WILL CONTINUE TO OBSERVE PT.
--- NOTE | 2018-09-26 18:02 | NUR ---
CALLED AND SPOKE WITH THE PHARMACIST RE AMIKACIN PEAK AND TROUGH ORDERED AND SHE STATED TO GIVE THE SCEDULED DOSES AT 2400 AND 0700 REGARDLESS OF THE RESULTS WILL ENDORSE.
--- NOTE | 2018-09-26 19:45 | NUR ---
RECEIVED PATIENT IN BED ALERT ORIENTED, NO SOB NO CHEST PAIN, TRACH INTACT, OXYGEN SAT WNL, SUCTIONED NEEDED, GT INTACT, KEPT CLEAN AND DRY, PLASCENCIA PATENT, DRAINING WITH YELLOW COLOR URINE IN MODERATE AMOUNT. CONTACT ISOLATION MRSA NARES, HOB, TX CONT ON MULTIPLE WOUND. CONT ON PAIN MANAGEMENT. CALL LIGHT WITHIN REACH.
[2018-09-26 20:00] VITALS: BP 134/73
[2018-09-26] MEDS: TOLTERODINE 2 MG TABLET GT SCH (20:11)
[2018-09-26] MEDS: ENOXAPARIN SODIUM 30 MG/0.3 ML DISP.SYRIN SQ SCH (20:18)
[2018-09-26] MEDS: ZONISAMIDE 100 MG CAPSULE GT SCH (20:52)
[2018-09-27] VITALS: BP 116/66
[2018-09-27] MEDS: HYDROMORPHONE 2 MG/1 ML DISP.SYRIN IV PRN ×4 (00:20→13:00)
[2018-09-27] MEDS: AMIKACIN 300 MG in IV DEXTROSE 5% 100 ML IV SCH ×3 (00:25→14:00)
[2018-09-27] MEDS: JEVITY 1.2 1000 ML LIQUID GT PRN (00:26)
[2018-09-27] MEDS: IV NS 1000 ML 1,000 ML IV PRN (03:25)
[2018-09-27 04:00] VITALS: BP 125/69
[2018-09-27] MEDS: BACLOFEN 20 MG TABLET GT SCH ×2 (05:35→14:46)
[2018-09-27] MEDS: VANCOMYCIN IV 750 MG in IV DEXTROSE 5% 250 ML IV SCH ×2 (05:35→14:46)
[2018-09-27 06:33] LABS: BASOPHILS % (AUTO) 0.3 % (0.0-2.0); EOSINOPHILS # (AUTO) 0.3 K/uL (0.0-0.7); EOSINOPHILS % (AUTO) 5.4 % (0.0-7.0); HEMATOCRIT 24.3 % (36.7-47.1); HEMOGLOBIN 7.9 g/dL (12.5-16.3); LYMPHOCYTES # (AUTO) 0.8 K/uL (20.0-40.0); LYMPHOCYTES % (AUTO) 14.9 % (20.5-51.5); MEAN CORPUSCULAR HEMOGLOBIN 27.8 uug (23.8-33.4); MEAN CORPUSCULAR HGB CONC 33 g/dL (32.5-36.3); MEAN CORPUSCULAR VOLUME 85.2 fL (73.0-96.2); MONOCYTES # (AUTO) 0.5 K/uL (2.0-10.0); MONOCYTES % (AUTO) 8.7 % (0.0-11.0); NEUTROPHILS # (AUTO) 3.9 K/uL (1.8-8.9); NEUTROPHILS % (AUTO) 70.7 % (38.5-71.5); PLATELET COUNT (AUTO) 129 K/uL (152-348); RED BLOOD CELL COUNT(AUTO) 2.85 MIL/uL (4.06-5.63); WHITE BLOOD COUNT (AUTO) 5.6 K/uL (3.6-10.2)
--- NOTE | 2018-09-27 06:37 | NUR ---
PATIENT AWAKE, NO SOB NO CHEST PAIN, CONT ON PAIN MANAGEMENT, REMAINS IN CONTACT ISOLATION MRSA NARES, PICC LINE PATENT, FLUSHED WELL WITH NS. TURN AND REPOSITION, PLASCENCIA CATH PATENT DRAINING WITH YELLOW COLOR URINE IN MODERATE AMOUNT. GTF TOLERATE WELL, NO NAUSEA NO VOMITING, NO DIARRHEA NOTED, SEEN BY SERVICE STATION ATTENDANT AND OK THE DISCHARGE. SCOTUM AND PENIS STILL SWOLLEN, KEPT IT ELEVATED WITH SOFT CLOTH. WITH LEFT HAND SWELLING NOTED, KEPT IT ELEVATED. CONT TO MONITOR.
[2018-09-27 06:49] LABS: CARBON DIOXIDE 30 mmol/L (21-32); CHLORIDE 104 mmol/L (98-107); CREATININE 0.2 mg/dL (0.6-1.3); GLUCOSE 83 mg/dL (74-106); MAGNESIUM 1.6 mg/dL (1.8-2.4); PHOSPHOROUS 3.1 mg/dL (2.5-4.9); POTASSIUM 4.6 mmol/L (3.5-5.1); UREA NITROGEN, BLOOD 11 mg/dL (7-18)
--- NOTE | 2018-09-27 07:00 | NUR ---
Received patient in bed, awake, alert and oriented x4, in no acute distress. Trache connected to O2 at 10LPM noted. Respirations even and unlabored. NSR on monitor. PICC line on YUNG intact, positive blood return. HOB kept elevated. PEG tube connected to feeding, stopped at this time. F/C patent and draining yellow urine. No hematuria or sediments noted. Fall and aspirations precaution observed. Will continue to monitor
[2018-09-27] MEDS: ACETYLCYSTEINE 10% 4ML VIAL IH SCH (08:00)
[2018-09-27] MEDS: IPRATROPIUM BROMIDE 0.5 MG/2.5 ML NEBU NEB SCH (08:00)
[2018-09-27] MEDS: LORATADINE 10 MG TABLET GT SCH (08:10)
[2018-09-27] MEDS: DOXYCYCLINE HYCLATE 100 MG TABLET GT SCH (08:10)
[2018-09-27] MEDS: PHENOBARBITAL 32.4 MG TABLET GT SCH (08:10)
[2018-09-27] MEDS: Z GUARD REMEDY PASTE 57 GM TUBE TOP SCH (08:17)
--- NOTE | 2018-09-27 09:00 | NUR ---
Dilaudid 1.5 mg IV administered at this time, 0.5mg wasted witnessed by TORRI Brower. This RN mistakenly put 1.75mg dose to be administered on the [employer] system, Pharmacist made aware.
[2018-09-27 11:08] VITALS: BP 114/69
[2018-09-27] MEDS ORDERED: DOXY100T2 GT (12:16)
--- NOTE | 2018-09-27 12:28 | NUR ---
CLINICAL PHARMACY NOTE-VANCOMYCIN DOSING PER PHARMACY S: To continue vancomycin dosing on this 43 yo male patient for HCAP(Right sided HCAP likely gram negative pneumonia with sepsis, UTI) O:BUN /Scr 11/0.2 WBC 5.9 Temp 97.5 Ht 172.72cm Wt 48kg Vancomycin trough 16 09/24 at 1330 A/P: Since Vancomycin trough was within the range, will continue same dose of vanco 750mg IVPB q8hr . Will monitor renal function closely to adjust the dose if needed.
--- NOTE | 2018-09-27 12:29 | NUR ---
CLINICAL PHARMACY NOTE-AMIKACIN DOSING PER PHARMACY SUBJECTIVE: To continue Amikacin dosing on this 43 yr old patient for sepsis Objective: BUN 9 Scr 0.2 WBC 3.4 Temp 98 ht 172.72 cm Wt 52.617kg trough today 0630: pending peak today at 0100: 15.3 Assessment/Plan: Will continue same dose of Amikacin 300mg IV every 7 hrs. Awaiting result of amikacin trough level (from [facility] send out), will check levels when available and adjust as appropriate. Will follow
[2018-09-27] MEDS ORDERED: MAGNESIUM OXIDE 400 MG TABLET GT ONE (13:15)
[2018-09-27 15:31] VITALS: BP 110/70
--- NOTE | 2018-09-27 16:48 | NUR ---
patient was discharged to home via ambulance accompanied by 2 physician gynecologist, in no acute distress. Discharge instructions given to patient's sister, prescription was also given, faxed to pharmacy. PICC line was removed, no s/s of bleeding noted. F/c patent and draining yellow urine. No hematuria or sediments noted. Instructed patient and sister to follow up with PCP in 1-2 weeks, patient's sister prefer to set up their own appointment. holder pile driving was discontinued. Left the hospital in stable condition.
== END 2018-09-27 16:30 | disposition home health service (06) | DRG 466 ==
LOC: ER 11:42 → CCU 15:13 → TELE 09-24 06:45
PROVIDERS: ADMIT Internal Medicine; ATTEND Internal Medicine
PROC: 02HV33Z Insertion of Infusion Device into Superior Vena Cava, Percutaneous Approach (ICD-10-PCS; principal; 2018-09-20)
DX: T83.511A Infection and inflammatory reaction due to indwelling urethral catheter, initial encounter (principal); J96.21 Acute and chronic respiratory failure with hypoxia; R65.20 Severe sepsis without septic shock; J69.0 Pneumonitis due to inhalation of food and vomit; A41.9 Sepsis, unspecified organism; G82.52 Quadriplegia, C1-C4 incomplete; E43 Unspecified severe protein-calorie malnutrition; J15.1 Pneumonia due to Pseudomonas; G93.41 Metabolic encephalopathy; N39.0 Urinary tract infection, site not specified; J96.22 Acute and chronic respiratory failure with hypercapnia; Z99.81 Dependence on supplemental oxygen; Z22.322 Carrier or suspected carrier of Methicillin resistant Staphylococcus aureus; B96.5 Pseudomonas (aeruginosa) (mallei) (pseudomallei) as the cause of diseases classified elsewhere; N50.89 Other specified disorders of the male genital organs; Z93.1 Gastrostomy status; S14.104S Unspecified injury at C4 level of cervical spinal cord, sequela; V89.2XXS Person injured in unspecified motor-vehicle accident, traffic, sequela; L89.622 Pressure ulcer of left heel, stage 2; R13.10 Dysphagia, unspecified; G40.909 Epilepsy, unspecified, not intractable, without status epilepticus; D69.6 Thrombocytopenia, unspecified; M62.838 Other muscle spasm; D68.59 Other primary thrombophilia; D63.8 Anemia in other chronic diseases classified elsewhere; F41.9 Anxiety disorder, unspecified; G90.4 Autonomic dysreflexia; F11.20 Opioid dependence, uncomplicated; F32.9 Major depressive disorder, single episode, unspecified; G89.4 Chronic pain syndrome; E87.1 Hypo-osmolality and hyponatremia; E78.5 Hyperlipidemia, unspecified; I10 Essential (primary) hypertension; J91.8 Pleural effusion in other conditions classified elsewhere; G93.1 Anoxic brain damage, not elsewhere classified; Z87.01 Personal history of pneumonia (recurrent); Z87.440 Personal history of urinary (tract) infections; Z93.0 Tracheostomy status
CPT/HCPCS: 36415; 36569; 36600; 70030-TC; 71045; 76870; 80184; 83605; 83735; 84100; 85025; 85730; 87040; 87070; 87077; 87086; 93005; 94002; 94640; 94664; A4217; A4663; G0378; J0278; J1170; J1650; J2060; J2543; J3370; J3475; J3480; J3490; J3590; J7030; J7040; J7050; J7060; J8499

== ENCOUNTER 2019-01-01 12:49 | Inpatient (IN) | payer OTHER ==
[~2019-01-01] VITALS: Ht 175.3 cm; Wt 48.3 kg
[~2019-01-01 12:49] MED LIST changes: +RISP0.2515 GT; -RISP0.2515 PO; -TRAZ-182 PO
[2019-01-01 13:42] LABS: BASOPHILS % (AUTO) 0.2 % (0.0-2.0); EOSINOPHILS # (AUTO) 0.3 K/uL (0.0-0.7); EOSINOPHILS % (AUTO) 10.4 % (0.0-7.0); HEMATOCRIT 30.8 % (36.7-47.1); HEMOGLOBIN 10.3 g/dL (12.5-16.3); LYMPHOCYTES # (AUTO) 0.7 K/uL (20.0-40.0); LYMPHOCYTES % (AUTO) 28.5 % (20.5-51.5); MEAN CORPUSCULAR HGB CONC 34 g/dL (32.5-36.3); MEAN CORPUSCULAR VOLUME 86.4 fL (73.0-96.2); MONOCYTES # (AUTO) 0.3 K/uL (2.0-10.0); MONOCYTES % (AUTO) 13.2 % (0.0-11.0); NEUTROPHILS # (AUTO) 1.2 K/uL (1.8-8.9); NEUTROPHILS % (AUTO) 47.7 % (38.5-71.5); PLATELET COUNT (AUTO) 112 K/uL (152-348); RED BLOOD CELL COUNT(AUTO) 3.56 MIL/uL (4.06-5.63); WHITE BLOOD COUNT (AUTO) 2.4 K/uL (3.6-10.2)
[2019-01-01 13:54] LABS: CARBON DIOXIDE 31 mmol/L (21-32); CHLORIDE 99 mmol/L (98-107); CREATININE 0.2 mg/dL (0.6-1.3); GLUCOSE 85 mg/dL (74-106); POTASSIUM 3.4 mmol/L (3.5-5.1); UREA NITROGEN, BLOOD 4 mg/dL (7-18)
[2019-01-01] MEDS ORDERED: OMEP20TA5 GT (13:54)
[2019-01-01 14:00] LABS: ALANINE AMINOTRANSFERASE 70 U/L (16-63); ALKALINE PHOSPHATASE 198 U/L (50-136); ASPARTATE AMINOTRANSFERASE 32 U/L (15-37); BILIRUBIN,DIRECT 0.1 mg/dL (0.0-0.2); BILIRUBIN,TOTAL 0.4 mg/dL (0.2-1.0); TOTAL PROTEIN, SERUM 7.5 g/dL (6.4-8.2)
[2019-01-01 14:42] LABS: *BILIRUBIN,URIN NEGATIVE (NEGATIVE); *BLOOD, URINE Trace-intact (NEGATIVE); *COLOR,URINE YELLOW (YELLOW); *KETONES,URINE NEGATIVE (NEGATIVE); *UROBILINOGEN,URINE 0.2 E.U./dl (NORMAL); LEUKOCYTE ESTERASE ,URINE 3+ (NEGATIVE); NITRITE, URINE NEGATIVE (NEGATIVE); UGLUCOSE NEGATIVE (NEGATIVE)
[2019-01-01] MEDS ORDERED: HYDROMORPHONE 1 MG/1 ML DISP.SYRIN ONE (14:43)
[2019-01-01] MEDS ORDERED: LEVOFLOXACIN 750MG/D5W 150 ML IV ONE ×2 (14:43→14:45)
[2019-01-01] MEDS ORDERED: PIPERACILLIN/TAZOBACTAM/D5W 50 ML IV ONE (14:43)
[2019-01-01 14:45] LABS: *CLARITY,URINE SLIGHTLY CLOUDY (CLEAR)
[2019-01-01] MEDS ORDERED: HYDROMORPHONE 1 MG/1 ML DISP.SYRIN IV ONE (14:45)
[2019-01-01] MEDS ORDERED: PIPERACILLIN SODIUM/TAZOBACTAM 3.375 G in IV DEXTROSE 5% 50 ML IV ONE (14:45)
[2019-01-01 14:52] LABS: BACTERIA,URINE NONE SEEN /HPF (NONE SEEN); RBC,URINE 0-3 /HPF (0-3); SQUAMOUS EPITHELIAL CELL,UR FEW /HPF (NONE SEEN); URINE AMORPHOUS URATE FEW /HPF
[2019-01-01 16:40] VITALS: BP 98/61
[2019-01-01] MEDS ORDERED: risperiDONE 0.25 MG TABLET GT PRN (17:45)
[2019-01-01] MEDS ORDERED: HYDROCODONE/APAP 5-325MG TABLET PO PRN (17:45)
[2019-01-01] MEDS ORDERED: ACETAMINOPHEN 325 MG TABLET GT PRN (17:45)
[2019-01-01] MEDS ORDERED: BACLOFEN 10 MG TABLET GT SCH (17:45)
[2019-01-01] MEDS ORDERED: ONDANSETRON 4 MG/2 ML VIAL IV PRN (17:45)
[2019-01-01] MEDS ORDERED: MAGNESIUM HYDROXIDE 30 ML LIQUID UDC GT PRN (17:45)
[2019-01-01] MEDS ORDERED: ZOLPIDEM 5 MG TABLET PO PRN (17:45)
[2019-01-01] MEDS ORDERED: LORAZEPAM 1 MG TABLET GT PRN (17:45)
[2019-01-01] MEDS: ACETYLCYSTEINE 10% 4ML VIAL IH SCH (20:05)
[2019-01-01] MEDS: IPRATROPIUM BROMIDE 0.5 MG/2.5 ML NEBU NEB SCH (20:05)
[2019-01-01] MEDS: IV NS 1000 ML 1,000 ML IV PRN (20:22)
[2019-01-01] MEDS: JEVITY 1.2 1000 ML LIQUID GT PRN (20:23)
[2019-01-01] MEDS ORDERED: ACETYLCYSTEINE 10% 4ML VIAL IH SCH (21:00)
[2019-01-01] MEDS: BACLOFEN 20 MG TABLET GT SCH (21:01)
[2019-01-01] MEDS: TOLTERODINE 2 MG TABLET GT SCH (21:01)
[2019-01-01] MEDS: GABAPENTIN 100 MG CAPSULE GT SCH (21:01)
[2019-01-01] MEDS: risperiDONE 1 MG TABLET GT SCH (21:01)
[2019-01-01] MEDS: TIZANIDINE HCL 4 MG TABLET GT SCH (21:01)
[2019-01-01] MEDS: TRAZODONE 100 MG TABLET GT SCH (21:01)
[2019-01-01] MEDS: ZONISAMIDE 100 MG CAPSULE GT SCH (21:02)
[2019-01-01] MEDS: PIPERACILLIN SODIUM/TAZOBACTAM 4.5 G in IV DEXTROSE 5% 50 ML IV SCH (21:02)
[2019-01-01] MEDS ORDERED: PIPERACILLIN SODIUM/TAZOBACTAM 4.5 G in IV DEXTROSE 5% 50 ML IV SCH (22:00)
[2019-01-01] MEDS: VANCOMYCIN IV 1 G in PREMIXED 0 EACH IV SCH (22:23)
[2019-01-02] VITALS (10 sets, daily range): BP systolic 79–110; BP diastolic 35–61
[2019-01-02] MEDS: MELATONIN 3 MG TABLET PO PRN ×2 (02:44→21:45)
[2019-01-02] MEDS: PIPERACILLIN SODIUM/TAZOBACTAM 4.5 G in IV DEXTROSE 5% 50 ML IV SCH ×3 (05:33→21:47)
[2019-01-02] MEDS: GABAPENTIN 100 MG CAPSULE GT SCH ×3 (05:33→21:45)
[2019-01-02] MEDS: BACLOFEN 20 MG TABLET GT SCH ×3 (05:33→21:45)
[2019-01-02] MEDS: TIZANIDINE HCL 4 MG TABLET GT SCH ×3 (05:33→21:45)
[2019-01-02 06:37] LABS: BASOPHILS % (AUTO) 0.2 % (0.0-2.0); EOSINOPHILS # (AUTO) 0.1 K/uL (0.0-0.7); EOSINOPHILS % (AUTO) 3.6 % (0.0-7.0); HEMATOCRIT 30.3 % (36.7-47.1); LYMPHOCYTES # (AUTO) 0.2 K/uL (20.0-40.0); LYMPHOCYTES % (AUTO) 5.1 % (20.5-51.5); MEAN CORPUSCULAR HEMOGLOBIN 28.6 uug (23.8-33.4); MEAN CORPUSCULAR HGB CONC 33 g/dL (32.5-36.3); MEAN CORPUSCULAR VOLUME 86.5 fL (73.0-96.2); MONOCYTES # (AUTO) 0.6 K/uL (2.0-10.0); MONOCYTES % (AUTO) 16.5 % (0.0-11.0); NEUTROPHILS # (AUTO) 2.8 K/uL (1.8-8.9); NEUTROPHILS % (AUTO) 74.6 % (38.5-71.5); PLATELET COUNT (AUTO) 112 K/uL (152-348); WHITE BLOOD COUNT (AUTO) 3.8 K/uL (3.6-10.2)
[2019-01-02 06:51] LABS: CARBON DIOXIDE 29 mmol/L (21-32); CHLORIDE 98 mmol/L (98-107); CHOLESTEROL 132 mg/dL (<200); CREATININE 0.3 mg/dL (0.6-1.3); GLUCOSE 117 mg/dL (74-106); HDL CHOLESTEROL 56 mg/dL (40-60); MAGNESIUM 1.6 mg/dL (1.8-2.4); PHOSPHOROUS 3.1 mg/dL (2.5-4.9); POTASSIUM 3.6 mmol/L (3.5-5.1); UREA NITROGEN, BLOOD 8 mg/dL (7-18)
[2019-01-02 07:25] LABS: TRIGLYCERIDES < 15 MG/DL (30-150)
[2019-01-02 07:30] LABS: LYMPHOCYTES % (MANUAL) 8 % (20-40); MONOCYTES % (MANUAL) 16 % (2-10); NEUTROPHILS % (MANUAL) 76 % (42-75)
[2019-01-02] MEDS ORDERED: ZOLPIDEM 5 MG TABLET PO PRN (07:30)
[2019-01-02] MEDS: IPRATROPIUM BROMIDE 0.5 MG/2.5 ML NEBU NEB SCH ×2 (07:34→19:34)
[2019-01-02] MEDS: ACETYLCYSTEINE 10% 4ML VIAL IH SCH ×2 (07:34→19:34)
[2019-01-02] MEDS ORDERED: GABAPENTIN 300 MG CAPSULE PO SCH (09:00)
[2019-01-02] MEDS: LORATADINE 10 MG TABLET GT SCH (09:12)
[2019-01-02] MEDS: MORPHINE SULFATE IR 30 MG TABLET GT PRN ×2 (09:12→20:32)
[2019-01-02] MEDS: MAGNESIUM SULFATE/D5W 100 ML IV SCH ×2 (11:39→17:53)
[2019-01-02] MEDS: JEVITY 1.2 1000 ML LIQUID GT PRN (11:39)
[2019-01-02] MEDS: PHENOBARBITAL 32.4 MG TABLET PO SCH ×2 (13:32→17:53)
[2019-01-02] MEDS: VANCOMYCIN IV 1 G in PREMIXED 0 EACH IV SCH (13:32)
[2019-01-02] MEDS: LORAZEPAM 1 MG TABLET PO SCH ×2 (13:46→17:00)
[2019-01-02] MEDS: IV NS 1000 ML 1,000 ML IV PRN (14:59)
[2019-01-02] MEDS: TOLTERODINE 2 MG TABLET GT SCH (20:28)
[2019-01-02] MEDS: TRAZODONE 100 MG TABLET GT SCH (20:28)
[2019-01-02] MEDS: risperiDONE 1 MG TABLET GT SCH (20:29)
[2019-01-02] MEDS: ZONISAMIDE 100 MG CAPSULE GT SCH (20:30)
[2019-01-02] MEDS: MUPIROCIN 2% OINT 22 GM TUBE NS SCH (20:34)
[2019-01-03] VITALS: BP 92/46
[2019-01-03] MEDS: VANCOMYCIN IV 1 G in PREMIXED 0 EACH IV SCH ×2 (02:55→18:25)
[2019-01-03 04:01] VITALS: BP 103/55
[2019-01-03] MEDS: TIZANIDINE HCL 4 MG TABLET GT SCH ×3 (05:52→21:24)
[2019-01-03] MEDS: BACLOFEN 20 MG TABLET GT SCH ×3 (05:52→21:23)
[2019-01-03] MEDS: PIPERACILLIN SODIUM/TAZOBACTAM 4.5 G in IV DEXTROSE 5% 50 ML IV SCH ×3 (05:53→21:32)
[2019-01-03] MEDS: GABAPENTIN 100 MG CAPSULE GT SCH ×3 (05:53→21:22)
[2019-01-03 07:58] LABS: BASOPHILS % (AUTO) 0.4 % (0.0-2.0); EOSINOPHILS # (AUTO) 0.2 K/uL (0.0-0.7); EOSINOPHILS % (AUTO) 5.9 % (0.0-7.0); HEMATOCRIT 28.9 % (36.7-47.1); HEMOGLOBIN 9.4 g/dL (12.5-16.3); LYMPHOCYTES # (AUTO) 0.6 K/uL (20.0-40.0); MEAN CORPUSCULAR HEMOGLOBIN 28.7 uug (23.8-33.4); MEAN CORPUSCULAR HGB CONC 33 g/dL (32.5-36.3); MEAN CORPUSCULAR VOLUME 87.8 fL (73.0-96.2); MONOCYTES # (AUTO) 0.7 K/uL (2.0-10.0); MONOCYTES % (AUTO) 24.4 % (0.0-11.0); NEUTROPHILS # (AUTO) 1.4 K/uL (1.8-8.9); NEUTROPHILS % (AUTO) 49.3 % (38.5-71.5); PLATELET COUNT (AUTO) 115 K/uL (152-348); RED BLOOD CELL COUNT(AUTO) 3.29 MIL/uL (4.06-5.63); WHITE BLOOD COUNT (AUTO) 2.8 K/uL (3.6-10.2)
[2019-01-03] MEDS: IPRATROPIUM BROMIDE 0.5 MG/2.5 ML NEBU NEB SCH ×2 (08:08→19:12)
[2019-01-03] MEDS: ACETYLCYSTEINE 10% 4ML VIAL IH SCH ×2 (08:09→19:12)
[2019-01-03 08:14] LABS: CARBON DIOXIDE 31 mmol/L (21-32); CHLORIDE 103 mmol/L (98-107); CREATININE 0.3 mg/dL (0.6-1.3); GLUCOSE 120 mg/dL (74-106); MAGNESIUM 2.2 mg/dL (1.8-2.4); PHOSPHOROUS 3.2 mg/dL (2.5-4.9); POTASSIUM 3.6 mmol/L (3.5-5.1); UREA NITROGEN, BLOOD 8 mg/dL (7-18)
[2019-01-03 08:59] LABS: EOSINOPHILS % (MANUAL) 7 % (0-8); LYMPHOCYTES % (MANUAL) 16 % (20-40); MONOCYTES % (MANUAL) 22 % (2-10); NEUTROPHILS % (MANUAL) 55 % (42-75)
[2019-01-03] MEDS: MORPHINE SULFATE IR 30 MG TABLET GT PRN (09:28)
[2019-01-03] MEDS: PHENOBARBITAL 32.4 MG TABLET PO SCH ×2 (09:29→16:52)
[2019-01-03] MEDS: LORATADINE 10 MG TABLET GT SCH (09:29)
[2019-01-03] MEDS: MULTIVITAMINS,THERAPEUTIC TABLET PO SCH (09:29)
[2019-01-03] MEDS: LORAZEPAM 1 MG TABLET PO SCH ×2 (09:39→16:52)
[2019-01-03] MEDS: MUPIROCIN 2% OINT 22 GM TUBE NS SCH ×2 (09:45→20:32)
[2019-01-03] MEDS: JEVITY 1.2 1000 ML LIQUID GT PRN (10:09)
[2019-01-03 11:00] VITALS: BP 106/69
[2019-01-03] MEDS: IV NS 1000 ML 1,000 ML IV PRN (14:45)
[2019-01-03 20:16] VITALS: BP 130/77
[2019-01-03] MEDS: TRAZODONE 100 MG TABLET GT SCH (20:29)
[2019-01-03] MEDS: risperiDONE 1 MG TABLET GT SCH (20:29)
[2019-01-03] MEDS: TOLTERODINE 2 MG TABLET GT SCH (20:30)
[2019-01-03] MEDS: ZONISAMIDE 100 MG CAPSULE GT SCH (20:33)
[2019-01-03] MEDS: Z GUARD REMEDY PASTE 57 GM TUBE TOP PRN (20:34)
[2019-01-04] VITALS: BP 90/49
[2019-01-04 04:00] VITALS: BP 90/45
[2019-01-04] MEDS: PIPERACILLIN SODIUM/TAZOBACTAM 4.5 G in IV DEXTROSE 5% 50 ML IV SCH ×3 (05:17→21:09)
[2019-01-04] MEDS: GABAPENTIN 100 MG CAPSULE GT SCH ×3 (05:22→21:07)
[2019-01-04] MEDS: BACLOFEN 20 MG TABLET GT SCH ×3 (05:22→21:07)
[2019-01-04] MEDS: TIZANIDINE HCL 4 MG TABLET GT SCH ×3 (05:22→21:08)
[2019-01-04] MEDS: JEVITY 1.2 1000 ML LIQUID GT PRN ×2 (05:58→10:27)
[2019-01-04 06:05] LABS: BASOPHILS % (AUTO) 1.1 % (0.0-2.0); EOSINOPHILS # (AUTO) 0.3 K/uL (0.0-0.7); EOSINOPHILS % (AUTO) 9.4 % (0.0-7.0); HEMATOCRIT 28.7 % (36.7-47.1); HEMOGLOBIN 9.4 g/dL (12.5-16.3); LYMPHOCYTES # (AUTO) 0.9 K/uL (20.0-40.0); LYMPHOCYTES % (AUTO) 25.6 % (20.5-51.5); MEAN CORPUSCULAR HEMOGLOBIN 28.9 uug (23.8-33.4); MEAN CORPUSCULAR HGB CONC 33 g/dL (32.5-36.3); MEAN CORPUSCULAR VOLUME 88.3 fL (73.0-96.2); MONOCYTES # (AUTO) 0.7 K/uL (2.0-10.0); MONOCYTES % (AUTO) 19.1 % (0.0-11.0); NEUTROPHILS # (AUTO) 1.5 K/uL (1.8-8.9); NEUTROPHILS % (AUTO) 44.8 % (38.5-71.5); PLATELET COUNT (AUTO) 113 K/uL (152-348); RED BLOOD CELL COUNT(AUTO) 3.25 MIL/uL (4.06-5.63); WHITE BLOOD COUNT (AUTO) 3.4 K/uL (3.6-10.2)
[2019-01-04] MEDS: VANCOMYCIN IV 1 G in PREMIXED 0 EACH IV SCH ×2 (06:08→19:45)
[2019-01-04] MEDS: IV NS 1000 ML 1,000 ML IV PRN (06:10)
[2019-01-04 06:17] LABS: CARBON DIOXIDE 28 mmol/L (21-32); CHLORIDE 108 mmol/L (98-107); CREATININE 0.2 mg/dL (0.6-1.3); GLUCOSE 99 mg/dL (74-106); MAGNESIUM 1.9 mg/dL (1.8-2.4); POTASSIUM 3.4 mmol/L (3.5-5.1); UREA NITROGEN, BLOOD 7 mg/dL (7-18)
[2019-01-04 07:11] LABS: EOSINOPHILS % (MANUAL) 6 % (0-8); LYMPHOCYTES % (MANUAL) 26 % (20-40); MONOCYTES % (MANUAL) 16 % (2-10); NEUTROPHILS % (MANUAL) 52 % (42-75)
[2019-01-04] MEDS: IPRATROPIUM BROMIDE 0.5 MG/2.5 ML NEBU NEB SCH ×2 (07:34→19:58)
[2019-01-04] MEDS: ACETYLCYSTEINE 10% 4ML VIAL IH SCH ×2 (07:34→19:58)
[2019-01-04] MEDS: MULTIVITAMINS,THERAPEUTIC TABLET PO SCH (08:54)
[2019-01-04] MEDS: LORAZEPAM 1 MG TABLET PO SCH ×2 (08:54→16:11)
[2019-01-04] MEDS: LORATADINE 10 MG TABLET GT SCH (08:54)
[2019-01-04] MEDS: PHENOBARBITAL 32.4 MG TABLET PO SCH ×2 (08:54→16:11)
[2019-01-04] MEDS: MUPIROCIN 2% OINT 22 GM TUBE NS SCH ×2 (08:56→21:10)
[2019-01-04] MEDS: MORPHINE SULFATE IR 30 MG TABLET GT PRN (09:56)
[2019-01-04] MEDS: LORAZEPAM 2 MG/1 ML VIAL IV PRN (11:41)
[2019-01-04 12:03] VITALS: BP 96/52
[2019-01-04 16:00] VITALS: BP 96/46
[2019-01-04] MEDS: IBUPROFEN 400 MG TABLET GT PRN (16:11)
[2019-01-04] MEDS: POTASSIUM CHLORIDE 50 ML IV SCH ×2 (17:56→18:47)
[2019-01-04 20:00] VITALS: BP 94/45
[2019-01-04] MEDS: TOLTERODINE 2 MG TABLET GT SCH (21:07)
[2019-01-04] MEDS: risperiDONE 1 MG TABLET GT SCH (21:07)
[2019-01-04] MEDS: TRAZODONE 100 MG TABLET GT SCH (21:08)
[2019-01-04] MEDS: ZONISAMIDE 100 MG CAPSULE GT SCH (21:09)
[2019-01-05] VITALS: BP 86/46
[2019-01-05] MEDS: MELATONIN 3 MG TABLET PO PRN (02:22)
[2019-01-05 04:00] VITALS: BP 113/53
[2019-01-05] MEDS: BACLOFEN 20 MG TABLET GT SCH ×3 (05:00→21:01)
[2019-01-05] MEDS: TIZANIDINE HCL 4 MG TABLET GT SCH ×3 (05:00→21:00)
[2019-01-05] MEDS: PIPERACILLIN SODIUM/TAZOBACTAM 4.5 G in IV DEXTROSE 5% 50 ML IV SCH ×3 (05:00→21:01)
[2019-01-05] MEDS: GABAPENTIN 100 MG CAPSULE GT SCH ×3 (05:01→21:00)
[2019-01-05] MEDS: ACETYLCYSTEINE 10% 4ML VIAL IH SCH ×2 (07:49→19:19)
[2019-01-05] MEDS: IPRATROPIUM BROMIDE 0.5 MG/2.5 ML NEBU NEB SCH ×2 (07:49→19:19)
[2019-01-05] MEDS: LORAZEPAM 1 MG TABLET PO SCH ×2 (09:11→17:28)
[2019-01-05] MEDS: LORATADINE 10 MG TABLET GT SCH (09:11)
[2019-01-05] MEDS: IBUPROFEN 400 MG TABLET GT PRN (09:11)
[2019-01-05] MEDS: PHENOBARBITAL 32.4 MG TABLET PO SCH ×2 (09:12→17:28)
[2019-01-05] MEDS: MULTIVITAMINS,THERAPEUTIC TABLET PO SCH (09:12)
[2019-01-05] MEDS: MUPIROCIN 2% OINT 22 GM TUBE NS SCH ×2 (09:12→21:10)
[2019-01-05] MEDS: JEVITY 1.2 1000 ML LIQUID GT PRN (09:14)
[2019-01-05 09:24] LABS: BASOPHILS % (AUTO) 0.3 % (0.0-2.0); EOSINOPHILS # (AUTO) 0.3 K/uL (0.0-0.7); EOSINOPHILS % (AUTO) 6.4 % (0.0-7.0); HEMATOCRIT 31.3 % (36.7-47.1); HEMOGLOBIN 10.1 g/dL (12.5-16.3); LYMPHOCYTES # (AUTO) 0.5 K/uL (20.0-40.0); LYMPHOCYTES % (AUTO) 13.1 % (20.5-51.5); MEAN CORPUSCULAR HEMOGLOBIN 28.9 uug (23.8-33.4); MEAN CORPUSCULAR HGB CONC 32 g/dL (32.5-36.3); MEAN CORPUSCULAR VOLUME 89.3 fL (73.0-96.2); MONOCYTES # (AUTO) 0.4 K/uL (2.0-10.0); MONOCYTES % (AUTO) 9.9 % (0.0-11.0); NEUTROPHILS # (AUTO) 2.9 K/uL (1.8-8.9); NEUTROPHILS % (AUTO) 70.3 % (38.5-71.5); PLATELET COUNT (AUTO) 116 K/uL (152-348); WHITE BLOOD COUNT (AUTO) 4.1 K/uL (3.6-10.2)
[2019-01-05 09:28] LABS: CARBON DIOXIDE 29 mmol/L (21-32); CHLORIDE 108 mmol/L (98-107); CREATININE 0.3 mg/dL (0.6-1.3); GLUCOSE 112 mg/dL (74-106); MAGNESIUM 1.7 mg/dL (1.8-2.4); PHOSPHOROUS 3.4 mg/dL (2.5-4.9); POTASSIUM 4.1 mmol/L (3.5-5.1); UREA NITROGEN, BLOOD 11 mg/dL (7-18)
[2019-01-05 11:21] VITALS: BP 127/78
[2019-01-05] MEDS: VANCOMYCIN IV 750 MG in IV DEXTROSE 5% 250 ML IV SCH ×2 (11:29→21:41)
[2019-01-05] MEDS: MORPHINE SULFATE IR 30 MG TABLET GT PRN (14:30)
[2019-01-05] MEDS: MAGNESIUM SULFATE/D5W 100 ML IV SCH ×2 (14:31→16:39)
[2019-01-05 15:45] VITALS: BP 116/63
[2019-01-05] MEDS: IV NS 1000 ML 1,000 ML IV PRN (15:57)
[2019-01-05 20:01] VITALS: BP 117/66
[2019-01-05] MEDS: risperiDONE 1 MG TABLET GT SCH (21:00)
[2019-01-05] MEDS: TRAZODONE 100 MG TABLET GT SCH (21:00)
[2019-01-05] MEDS: ZONISAMIDE 100 MG CAPSULE GT SCH (21:01)
[2019-01-05] MEDS: TOLTERODINE 2 MG TABLET GT SCH (21:01)
[2019-01-06] VITALS: BP 96/52
[2019-01-06 04:00] VITALS: BP 118/65
[2019-01-06] MEDS: GABAPENTIN 100 MG CAPSULE GT SCH ×3 (05:13→21:25)
[2019-01-06] MEDS: TIZANIDINE HCL 4 MG TABLET GT SCH ×3 (05:13→21:26)
[2019-01-06] MEDS: BACLOFEN 20 MG TABLET GT SCH ×3 (05:13→21:26)
[2019-01-06] MEDS: PIPERACILLIN SODIUM/TAZOBACTAM 4.5 G in IV DEXTROSE 5% 50 ML IV SCH ×3 (05:13→21:45)
[2019-01-06] MEDS: ACETYLCYSTEINE 10% 4ML VIAL IH SCH ×2 (05:36→19:38)
[2019-01-06] MEDS: IPRATROPIUM BROMIDE 0.5 MG/2.5 ML NEBU NEB SCH ×2 (05:36→19:38)
[2019-01-06 07:37] LABS: CARBON DIOXIDE 26 mmol/L (21-32); CHLORIDE 108 mmol/L (98-107); GLUCOSE 129 mg/dL (74-106); MAGNESIUM 2.1 mg/dL (1.8-2.4); POTASSIUM 4.5 mmol/L (3.5-5.1); UREA NITROGEN, BLOOD 10 mg/dL (7-18)
[2019-01-06 07:44] LABS: CREATININE < 0.2 mg/dL (0.6-1.3)
[2019-01-06 08:55] VITALS: BP 124/79
[2019-01-06] MEDS: LORATADINE 10 MG TABLET GT SCH (09:01)
[2019-01-06] MEDS: MULTIVITAMINS,THERAPEUTIC TABLET PO SCH (09:01)
[2019-01-06] MEDS: LORAZEPAM 1 MG TABLET PO SCH ×2 (09:01→16:49)
[2019-01-06] MEDS: IBUPROFEN 400 MG TABLET GT PRN ×2 (09:01→14:17)
[2019-01-06] MEDS: PHENOBARBITAL 32.4 MG TABLET PO SCH ×2 (09:02→16:49)
[2019-01-06] MEDS: IV NS 1000 ML 1,000 ML IV PRN (09:02)
[2019-01-06] MEDS: MUPIROCIN 2% OINT 22 GM TUBE NS SCH ×2 (09:29→21:27)
[2019-01-06] MEDS: VANCOMYCIN IV 750 MG in IV DEXTROSE 5% 250 ML IV SCH ×2 (10:37→23:05)
[2019-01-06 11:31] VITALS: BP 127/63
[2019-01-06 15:35] VITALS: BP 97/71
[2019-01-06 20:00] VITALS: BP 92/52
[2019-01-06] MEDS: TRAZODONE 100 MG TABLET GT SCH (21:25)
[2019-01-06] MEDS: risperiDONE 1 MG TABLET GT SCH (21:26)
[2019-01-06] MEDS: TOLTERODINE 2 MG TABLET GT SCH (21:26)
[2019-01-06] MEDS: ZONISAMIDE 100 MG CAPSULE GT SCH (21:29)
[2019-01-07 00:06] VITALS: BP 102/53
[2019-01-07] MEDS: MORPHINE SULFATE IR 30 MG TABLET GT PRN (00:22)
[2019-01-07] MEDS: IV NS 1000 ML 1,000 ML IV PRN ×2 (01:25→18:37)
[2019-01-07 04:00] VITALS: BP 97/46
[2019-01-07] MEDS: GABAPENTIN 100 MG CAPSULE GT SCH ×3 (05:47→21:18)
[2019-01-07] MEDS: TIZANIDINE HCL 4 MG TABLET GT SCH ×3 (05:47→21:18)
[2019-01-07] MEDS: BACLOFEN 20 MG TABLET GT SCH ×3 (05:47→21:17)
[2019-01-07] MEDS: PIPERACILLIN SODIUM/TAZOBACTAM 4.5 G in IV DEXTROSE 5% 50 ML IV SCH ×3 (05:55→21:18)
[2019-01-07] MEDS: ACETYLCYSTEINE 10% 4ML VIAL IH SCH ×2 (07:22→19:15)
[2019-01-07] MEDS: IPRATROPIUM BROMIDE 0.5 MG/2.5 ML NEBU NEB SCH ×2 (07:22→19:15)
[2019-01-07] MEDS: PHENOBARBITAL 32.4 MG TABLET PO SCH ×2 (08:59→18:30)
[2019-01-07] MEDS: LORATADINE 10 MG TABLET GT SCH (08:59)
[2019-01-07] MEDS: LORAZEPAM 1 MG TABLET PO SCH ×2 (08:59→18:30)
[2019-01-07] MEDS: MULTIVITAMINS,THERAPEUTIC TABLET PO SCH (09:00)
[2019-01-07] MEDS: MUPIROCIN 2% OINT 22 GM TUBE NS SCH ×2 (09:03→21:10)
[2019-01-07] MEDS: VANCOMYCIN IV 750 MG in IV DEXTROSE 5% 250 ML IV SCH ×2 (09:58→22:52)
[2019-01-07 11:24] VITALS: BP 111/56
[2019-01-07] MEDS: JEVITY 1.2 1000 ML LIQUID GT PRN (11:57)
[2019-01-07 15:52] VITALS: BP 96/56
[2019-01-07 20:33] VITALS: BP 99/55
[2019-01-07] MEDS: risperiDONE 1 MG TABLET GT SCH (20:42)
[2019-01-07] MEDS: TRAZODONE 100 MG TABLET GT SCH (20:42)
[2019-01-07] MEDS: TOLTERODINE 2 MG TABLET GT SCH (20:42)
[2019-01-07] MEDS: ZONISAMIDE 100 MG CAPSULE GT SCH (20:42)
[2019-01-07] MEDS: LORAZEPAM 2 MG/1 ML VIAL IV PRN (21:18)
[2019-01-07] MEDS: Z GUARD REMEDY PASTE 57 GM TUBE TOP PRN (22:04)
[2019-01-07 23:59] VITALS: BP 106/59
[2019-01-08] MEDS: MORPHINE SULFATE IR 30 MG TABLET GT PRN (03:55)
[2019-01-08] MEDS: TIZANIDINE HCL 4 MG TABLET GT SCH ×3 (05:29→20:43)
[2019-01-08] MEDS: GABAPENTIN 100 MG CAPSULE GT SCH ×3 (05:29→20:44)
[2019-01-08] MEDS: BACLOFEN 20 MG TABLET GT SCH ×3 (05:30→20:43)
[2019-01-08] MEDS: PIPERACILLIN SODIUM/TAZOBACTAM 4.5 G in IV DEXTROSE 5% 50 ML IV SCH ×2 (05:30→14:13)
[2019-01-08 06:00] VITALS: BP 124/83
[2019-01-08 06:14] LABS: BASOPHILS % (AUTO) 0.3 % (0.0-2.0); EOSINOPHILS # (AUTO) 0.3 K/uL (0.0-0.7); EOSINOPHILS % (AUTO) 5.1 % (0.0-7.0); HEMATOCRIT 30.3 % (36.7-47.1); HEMOGLOBIN 9.9 g/dL (12.5-16.3); LYMPHOCYTES # (AUTO) 0.8 K/uL (20.0-40.0); LYMPHOCYTES % (AUTO) 15.1 % (20.5-51.5); MEAN CORPUSCULAR HEMOGLOBIN 28.9 uug (23.8-33.4); MEAN CORPUSCULAR HGB CONC 33 g/dL (32.5-36.3); MEAN CORPUSCULAR VOLUME 88.6 fL (73.0-96.2); MONOCYTES # (AUTO) 0.7 K/uL (2.0-10.0); MONOCYTES % (AUTO) 12.4 % (0.0-11.0); NEUTROPHILS # (AUTO) 3.5 K/uL (1.8-8.9); NEUTROPHILS % (AUTO) 67.1 % (38.5-71.5); PLATELET COUNT (AUTO) 146 K/uL (152-348); RED BLOOD CELL COUNT(AUTO) 3.42 MIL/uL (4.06-5.63); WHITE BLOOD COUNT (AUTO) 5.2 K/uL (3.6-10.2)
[2019-01-08 06:21] LABS: CARBON DIOXIDE 28 mmol/L (21-32); CHLORIDE 109 mmol/L (98-107); CREATININE 0.3 mg/dL (0.6-1.3); GLUCOSE 113 mg/dL (74-106); MAGNESIUM 1.7 mg/dL (1.8-2.4); POTASSIUM 3.9 mmol/L (3.5-5.1); UREA NITROGEN, BLOOD 9 mg/dL (7-18)
[2019-01-08] MEDS: IPRATROPIUM BROMIDE 0.5 MG/2.5 ML NEBU NEB SCH ×2 (07:29→19:17)
[2019-01-08] MEDS: ACETYLCYSTEINE 10% 4ML VIAL IH SCH ×2 (07:29→19:17)
[2019-01-08] MEDS: MULTIVITAMINS,THERAPEUTIC TABLET PO SCH (09:08)
[2019-01-08] MEDS: PHENOBARBITAL 32.4 MG TABLET PO SCH ×2 (09:08→17:06)
[2019-01-08] MEDS: LORAZEPAM 1 MG TABLET PO SCH ×2 (09:08→17:07)
[2019-01-08] MEDS: JEVITY 1.2 1000 ML LIQUID GT PRN (09:09)
[2019-01-08] MEDS: LORATADINE 10 MG TABLET GT SCH (09:09)
[2019-01-08] MEDS: MUPIROCIN 2% OINT 22 GM TUBE NS SCH ×2 (09:10→20:50)
[2019-01-08] MEDS: IBUPROFEN 400 MG TABLET GT PRN (09:14)
[2019-01-08] MEDS: VANCOMYCIN IV 750 MG in IV DEXTROSE 5% 250 ML IV SCH (10:28)
[2019-01-08] MEDS ORDERED: MAGNESIUM SULFATE/D5W 100 ML IV SCH (11:30)
[2019-01-08 12:04] VITALS: BP 104/67
[2019-01-08] MEDS ORDERED: MAGNESIUM SULFATE 1 GM in IV DEXTROSE 5% 50 ML IV ONE (12:30)
[2019-01-08] MEDS ORDERED: DOXY-182 GT (13:58)
[2019-01-08 16:20] VITALS: BP 97/60
[2019-01-08 17:17] VITALS: BP 87/43
[2019-01-08 17:57] VITALS: BP 92/55
[2019-01-08 20:00] VITALS: BP 93/51
[2019-01-08] MEDS: TRAZODONE 100 MG TABLET GT SCH (20:43)
[2019-01-08] MEDS: risperiDONE 1 MG TABLET GT SCH (20:43)
[2019-01-08] MEDS: TOLTERODINE 2 MG TABLET GT SCH (20:43)
[2019-01-08] MEDS: ZONISAMIDE 100 MG CAPSULE GT SCH (20:43)
== END 2019-01-08 21:30 | disposition home health service (06) | DRG 720 ==
LOC: ER 12:49 → TELE3 16:24 → MEDSURG3 01-08 16:04
DX: A41.9 Sepsis, unspecified organism (principal); J69.0 Pneumonitis due to inhalation of food and vomit; G93.1 Anoxic brain damage, not elsewhere classified; D61.818 Other pancytopenia; E44.0 Moderate protein-calorie malnutrition; J96.10 Chronic respiratory failure, unspecified whether with hypoxia or hypercapnia; G93.41 Metabolic encephalopathy; R65.20 Severe sepsis without septic shock; D68.59 Other primary thrombophilia; G90.4 Autonomic dysreflexia; N39.0 Urinary tract infection, site not specified; G40.909 Epilepsy, unspecified, not intractable, without status epilepticus; Z93.0 Tracheostomy status; M85.80 Other specified disorders of bone density and structure, unspecified site; N31.9 Neuromuscular dysfunction of bladder, unspecified; Z93.1 Gastrostomy status; S14.104S Unspecified injury at C4 level of cervical spinal cord, sequela; V49.9XXS Car occupant (driver) (passenger) injured in unspecified traffic accident, sequela; Z68.1 Body mass index [BMI] 19.9 or less, adult; R13.10 Dysphagia, unspecified; J98.11 Atelectasis; Z74.01 Bed confinement status; Z87.440 Personal history of urinary (tract) infections; Z87.820 Personal history of traumatic brain injury; G89.4 Chronic pain syndrome; E78.5 Hyperlipidemia, unspecified; F11.20 Opioid dependence, uncomplicated; R74.0 Nonspecific elevation of levels of transaminase and lactic acid dehydrogenase [LDH]; F32.9 Major depressive disorder, single episode, unspecified; Z22.322 Carrier or suspected carrier of Methicillin resistant Staphylococcus aureus; D63.8 Anemia in other chronic diseases classified elsewhere; R21 Rash and other nonspecific skin eruption
CPT/HCPCS: 36415; 70030-TC; 71045; 80184; 83605; 83735; 84100; 85025; 85730; 87040; 87086; 93005; 94640; 94664; A4217; A4663; G0378; J1170; J1956; J2060; J2543; J3370; J3475; J3480; J3590; J7030; J7050; J7060; J8499

== ENCOUNTER 2019-04-01 13:59 | Inpatient (IN) | payer OTHER ==
[~2019-04-01] VITALS: Ht 172.7 cm; Wt 55.8 kg
[~2019-04-01 13:59] MED LIST changes: +DOXY-182 GT; +OMEP20TA5 GT
--- NOTE | 2019-04-01 14:33 | NUR ---
Able to access Port a cath at Lt groin, w/o difficulty.
[2019-04-01] MEDS ORDERED: PHEN32.43 GT (14:53)
[2019-04-01] MEDS ORDERED: DOCU50LI GT (14:53)
[2019-04-01] MEDS ORDERED: TRAZ-182 PO (14:53)
[2019-04-01] MEDS ORDERED: LORA1TAB PO (14:53)
[2019-04-01] MEDS ORDERED: MORP15TA7 GT (14:53)
[2019-04-01] MEDS ORDERED: IV NORMAL SALINE 1000 ML BAG IV ONE ×2 (15:00→17:30)
[2019-04-01 15:05] LABS: BASOPHILS % (AUTO) 0.9 % (0.0-2.0); EOSINOPHILS # (AUTO) 0.4 K/uL (0.0-0.7); EOSINOPHILS % (AUTO) 14.5 % (0.0-7.0); HEMATOCRIT 34.5 % (36.7-47.1); HEMOGLOBIN 11.6 g/dL (12.5-16.3); LYMPHOCYTES % (AUTO) 31.9 % (20.5-51.5); MEAN CORPUSCULAR HEMOGLOBIN 31.2 uug (23.8-33.4); MEAN CORPUSCULAR HGB CONC 34 g/dL (32.5-36.3); MONOCYTES # (AUTO) 0.4 K/uL (2.0-10.0); MONOCYTES % (AUTO) 12.8 % (0.0-11.0); NEUTROPHILS # (AUTO) 1.2 K/uL (1.8-8.9); NEUTROPHILS % (AUTO) 39.9 % (38.5-71.5); PLATELET COUNT (AUTO) 196 K/uL (152-348); RED BLOOD CELL COUNT(AUTO) 3.71 MIL/uL (4.06-5.63); WHITE BLOOD COUNT (AUTO) 3.1 K/uL (3.6-10.2)
[2019-04-01] MEDS ORDERED: HYDROMORPHONE 1 MG/1 ML DISP.SYRIN ONE ×2 (15:13→16:16)
[2019-04-01] MEDS ORDERED: ONDANSETRON 4 MG/2 ML VIAL ONE (15:13)
[2019-04-01 15:14] LABS: CARBON DIOXIDE 30 mmol/L (21-32); CHLORIDE 103 mmol/L (98-107); CREATININE 0.3 mg/dL (0.6-1.3); GLUCOSE 96 mg/dL (74-106); POTASSIUM 3.5 mmol/L (3.5-5.1); UREA NITROGEN, BLOOD 5 mg/dL (7-18)
[2019-04-01] MEDS ORDERED: ONDANSETRON 4 MG/2 ML VIAL IV ONE (15:15)
[2019-04-01] MEDS ORDERED: HYDROMORPHONE 1 MG/1 ML DISP.SYRIN IV ONE ×2 (15:15→16:15)
[2019-04-01 15:26] LABS: ALANINE AMINOTRANSFERASE 50 U/L (16-63); ALKALINE PHOSPHATASE 234 U/L (50-136); ASPARTATE AMINOTRANSFERASE 28 U/L (15-37); BILIRUBIN,DIRECT 0.1 mg/dL (0.0-0.2); BILIRUBIN,TOTAL 0.3 mg/dL (0.2-1.0); TOTAL PROTEIN, SERUM 7.4 g/dL (6.4-8.2)
[2019-04-01 16:09] LABS: *BILIRUBIN,URIN NEGATIVE (NEGATIVE); *BLOOD, URINE 1+ (NEGATIVE); *CLARITY,URINE CLOUDY (CLEAR); *COLOR,URINE YELLOW (YELLOW); *KETONES,URINE NEGATIVE (NEGATIVE); *UROBILINOGEN,URINE 0.2 E.U./dl (NORMAL); LEUKOCYTE ESTERASE ,URINE 3+ (NEGATIVE); NITRITE, URINE POSITIVE (NEGATIVE); PH,URINE 7.5 (5.0-8.0); UGLUCOSE NEGATIVE (NEGATIVE)
[2019-04-01 16:25] LABS: BACTERIA,URINE MANY /HPF (NONE SEEN); WBC,URINE TNTC /HPF (0-3)
[2019-04-01] MEDS ORDERED: VANCOMYCIN IV 1,000 MG in IV DEXTROSE 5% 250 ML IV ONE (16:45)
[2019-04-01] MEDS ORDERED: CEFTRIAXONE 1 G in IV DEXTROSE 5% 50 ML IV ONE (16:45)
[2019-04-01] MEDS ORDERED: CEFTRIAXONE 1 G VIAL ONE (16:58)
[2019-04-01] MEDS ORDERED: VANCOMYCIN IV 200 ML ONE (16:59)
--- NOTE | 2019-04-01 17:41 | NUR ---
PT RESTING, EYE CLOSED, AROUSABLE.
--- NOTE | 2019-04-01 18:29 | NUR ---
PT TRANSFERED TO FLOOR IN STABLE CONDITION.
--- NOTE | 2019-04-01 18:45 | NUR ---
43 year [facility]v/s are stable,call light with in reach
[2019-04-01 18:54] VITALS: BP 116/75
[2019-04-01 20:00] VITALS: BP 100/58
[2019-04-01] MEDS ORDERED: LORAZEPAM 1 MG TABLET PO PRN (20:30)
[2019-04-01] MEDS ORDERED: ONDANSETRON 4 MG/2 ML VIAL IV PRN (20:30)
[2019-04-01] MEDS ORDERED: TRAZODONE 100 MG TABLET GT PRN (20:30)
[2019-04-01] MEDS ORDERED: DOCUSATE SODIUM 100 MG/10 ML LIQUID UDC GT PRN (20:30)
[2019-04-01] MEDS ORDERED: DOSING PER PHARMACY-AMIKACIN IV XX PRN (20:30)
[2019-04-01] MEDS: ZONISAMIDE 100 MG CAPSULE GT SCH (21:00)
[2019-04-01] MEDS: LORAZEPAM 1 MG TABLET GT SCH (22:09)
[2019-04-01] MEDS: BACLOFEN 10 MG TABLET GT SCH (22:11)
[2019-04-01] MEDS: TOLTERODINE 2 MG TABLET GT SCH (22:11)
[2019-04-01] MEDS: TRAZODONE 50 MG TABLET PO SCH (22:13)
[2019-04-01] MEDS: risperiDONE 1 MG TABLET GT SCH (22:13)
[2019-04-01] MEDS: PHENOBARBITAL 32.4 MG TABLET GT SCH (22:14)
[2019-04-01] MEDS: IBUPROFEN 400 MG TABLET GT PRN (22:15)
[2019-04-01] MEDS: TIZANIDINE HCL 4 MG TABLET PO SCH (22:23)
[2019-04-01] MEDS: ACETYLCYSTEINE 10% 4ML VIAL IH SCH (22:37)
[2019-04-01] MEDS: IPRATROPIUM BROMIDE 0.5 MG/2.5 ML NEBU NEB SCH (22:38)
[2019-04-01] MEDS: POTASSIUM CHLORIDE 20 MEQ in IV NS 1000 ML 1,000 ML IV PRN (22:49)
[2019-04-01] MEDS ORDERED: AMIKACIN SULFATE 500 MG/2 ML VIAL ONE (22:56)
[2019-04-01] MEDS: DEXTROSE 5% IV ONE ×2 (23:00→23:23)
[2019-04-01] MEDS: AMIKACIN IV ONE ×2 (23:00→23:23)
[2019-04-02] VITALS: BP 109/52
[2019-04-02] MEDS: risperiDONE 0.25 MG TABLET GT PRN (02:30)
[2019-04-02 04:00] VITALS: BP 104/77
--- NOTE | 2019-04-02 04:52 | NUR ---
PROGRESS NOTES NO ACUTE EVENTS OVERNIGHT, PT IS AFEBRILE, NO NAUSEA AND NO VOMITING.
[2019-04-02] MEDS: TIZANIDINE HCL 4 MG TABLET PO SCH ×3 (05:01→22:47)
[2019-04-02] MEDS: GABAPENTIN 300 MG CAPSULE GT SCH ×3 (05:01→22:47)
[2019-04-02] MEDS: IBUPROFEN 400 MG TABLET GT PRN (05:01)
[2019-04-02] MEDS: BACLOFEN 10 MG TABLET GT SCH ×3 (05:05→20:50)
[2019-04-02 06:10] LABS: BASOPHILS % (AUTO) 0.3 % (0.0-2.0); EOSINOPHILS # (AUTO) 0.5 K/uL (0.0-0.7); EOSINOPHILS % (AUTO) 9.1 % (0.0-7.0); HEMATOCRIT 31.9 % (36.7-47.1); HEMOGLOBIN 10.7 g/dL (12.5-16.3); LYMPHOCYTES # (AUTO) 0.7 K/uL (20.0-40.0); LYMPHOCYTES % (AUTO) 13.3 % (20.5-51.5); MEAN CORPUSCULAR HEMOGLOBIN 31.3 uug (23.8-33.4); MEAN CORPUSCULAR HGB CONC 34 g/dL (32.5-36.3); MEAN CORPUSCULAR VOLUME 93.1 fL (73.0-96.2); MONOCYTES # (AUTO) 0.6 K/uL (2.0-10.0); NEUTROPHILS # (AUTO) 3.4 K/uL (1.8-8.9); NEUTROPHILS % (AUTO) 65.3 % (38.5-71.5); PLATELET COUNT (AUTO) 162 K/uL (152-348); RED BLOOD CELL COUNT(AUTO) 3.43 MIL/uL (4.06-5.63); WHITE BLOOD COUNT (AUTO) 5.2 K/uL (3.6-10.2)
[2019-04-02 06:21] LABS: ALANINE AMINOTRANSFERASE 45 U/L (16-63); ALKALINE PHOSPHATASE 219 U/L (50-136); ASPARTATE AMINOTRANSFERASE 24 U/L (15-37); BILIRUBIN,TOTAL 0.3 mg/dL (0.2-1.0); CARBON DIOXIDE 29 mmol/L (21-32); CHLORIDE 107 mmol/L (98-107); CREATININE < 0.2 mg/dL (0.6-1.3); GLUCOSE 98 mg/dL (74-106); MAGNESIUM 1.6 mg/dL (1.8-2.4); POTASSIUM 3.7 mmol/L (3.5-5.1); TOTAL PROTEIN, SERUM 6.7 g/dL (6.4-8.2); UREA NITROGEN, BLOOD 5 mg/dL (7-18)
[2019-04-02] MEDS: PANTOPRAZOLE ORAL SUSPENSION 40 MG SUSPDR.PKT GT SCH (06:42)
--- NOTE | 2019-04-02 06:50 | NUR ---
END OF SHIFT REPORT Pat came before shift change; spoke to pt's sister; needs attended; kept HOB;; seizure and aspiration precaution observed; orders by dr Mcdowell carried out; continue to monitor; continue plan of caree.
[2019-04-02] MEDS: IPRATROPIUM BROMIDE 0.5 MG/2.5 ML NEBU NEB SCH ×3 (07:34→20:18)
[2019-04-02] MEDS: ACETYLCYSTEINE 10% 4ML VIAL IH SCH (07:34)
[2019-04-02] MEDS: LORAZEPAM 1 MG TABLET GT SCH ×2 (08:07→20:51)
[2019-04-02] MEDS: HYDROMORPHONE 1 MG/1 ML DISP.SYRIN IV PRN ×4 (08:08→21:26)
[2019-04-02] MEDS: PHENOBARBITAL 32.4 MG TABLET GT SCH ×2 (08:08→20:52)
[2019-04-02] MEDS: LORATADINE 10 MG TABLET GT SCH (08:08)
[2019-04-02] MEDS ORDERED: Medication Not On Formulary EA (Gabapentin 600 MG) GT SCH (09:00)
[2019-04-02] MEDS ORDERED: LORAZEPAM 1 MG TABLET PO PRN (09:45)
[2019-04-02] MEDS: JEVITY 1.2 1000 ML LIQUID GT PRN (10:04)
--- NOTE | 2019-04-02 11:40 | NUR ---
REPORTED RESULTS OF BLOOD CULTURES TO WEB PRODUCTION ASSISTANT LEE
[2019-04-02] MEDS: AMIKACIN 750 MG in IV DEXTROSE 5% 100 ML IV SCH (11:43)
[2019-04-02 11:46] VITALS: BP 102/66
--- NOTE | 2019-04-02 13:00 | NUR ---
HOLDING FEEDING DUE TO RESIDUAL 80 ML
[2019-04-02] MEDS: MAGNESIUM SULFATE/D5W 100 ML IV SCH ×2 (13:03→14:31)
[2019-04-02] MEDS ORDERED: MORPHINE SULFATE SR 15 MG TABLET.SA PO PRN (13:45)
[2019-04-02] MEDS ORDERED: MORPHINE SULFATE IR 30 MG TABLET GT PRN (14:00)
[2019-04-02 15:29] VITALS: BP 129/86
--- NOTE | 2019-04-02 15:49 | NUR ---
CLINICAL PHARMACY NOTE:VANCOMYCIN DOSING Request for vancomycin dosing on 43 y/o male 172.72cm 53.07kg empiric therapy. Temp 98 BUN 5 Scr<0.2 WBC 5.2 also on amikacin Start vancomycin 1gm ivpb q12h. estimated trough 15. Will draw trough level prior to 4th dose. Will continue to monitor.
--- NOTE | 2019-04-02 16:23 | NUR ---
Clinical Pharmacy Note: Amikacin Dosing per Pharmacy Subjective: To start amikacin dosing this 43 yo male bed bound patient for UTI. Objective: BUN 5/Scr 0.2 WBC: 5.2 Temperature: 97.5 ht 172.7 cm wt 53 kg Assessment/Plan: Patient received amikacin 250 mg IVPB on 04/01 at 2300. Will start amikacin 750 mg IVPB q18h (as pre previous admission dosing). 1st dos today at 1200. Will draw a peak & trough level around the 4th dose (not yet ordered). Will monitor renal function & adjust the dose if needed. Will monitor.
[2019-04-02] MEDS: VANCOMYCIN IV 1 G in PREMIXED 0 EACH IV SCH (17:51)
--- NOTE | 2019-04-02 18:00 | NUR ---
TRIED TO REPLACE THE F/CATH BUT COUNT TAKE IT OUT, MORNING SHIFT WILL FOLLOW UP
[2019-04-02] MEDS: POTASSIUM CHLORIDE 20 MEQ in IV NS 1000 ML 1,000 ML IV PRN (19:09)
[2019-04-02] MEDS: ACETYLCYSTEINE 10% 4ML VIAL NEB SCH ×2 (19:30→20:18)
--- NOTE | 2019-04-02 19:40 | NUR ---
PATIENT AO3, NO SOB, SUCTIONED NEEDED, DRESSING CHANGED FOR TRACH, IV RUNNING, FEEDING IS HELD STILL LAST RESIDUAL AT 1800 IS 90ML, PATIENT ON ASPIRATION PRECAT. , HOB ABOVE 30% SAFETY MAINTAINED
--- NOTE | 2019-04-02 20:00 | NUR ---
Received pt. alert oriented x3 laying in bed, no SOB noted, pt. states he is in pain. Pt. on 4 L of oxygen with mask over trach. Pt. is on tele monitor sinus gladys. Pt. has left femoral portacath patent, intact, and flushed. Pt. has alcantara catheter in. Pt. has DVT pumps on. HOB raised 30 degrees for aspiration precautions. Bed in lowest position, 2 side rails up, bed locked, and call light within reach. Will continue to monitor.
[2019-04-02 20:12] VITALS: BP 105/65
[2019-04-02] MEDS: TOLTERODINE 2 MG TABLET GT SCH (20:51)
[2019-04-02] MEDS: TRAZODONE 50 MG TABLET PO SCH (20:51)
[2019-04-02] MEDS: risperiDONE 1 MG TABLET GT SCH (20:52)
[2019-04-02] MEDS: ZONISAMIDE 100 MG CAPSULE GT SCH (20:52)
[2019-04-02] MEDS: MUPIROCIN 2% OINT 22 GM TUBE NS SCH (20:53)
[2019-04-02] MEDS: ENOXAPARIN SODIUM 40 MG/0.4 ML DISP.SYRIN SQ SCH (20:57)
[2019-04-03] MEDS: HYDROMORPHONE 1 MG/1 ML DISP.SYRIN IV PRN ×4 (03:57→16:58)
[2019-04-03 04:00] VITALS: BP 100/52
[2019-04-03] MEDS: BACLOFEN 10 MG TABLET GT SCH ×3 (04:36→21:39)
[2019-04-03] MEDS: VANCOMYCIN IV 1 G in PREMIXED 0 EACH IV SCH ×2 (04:36→16:11)
[2019-04-03] MEDS ORDERED: HYDROGEN PEROXIDE 3% 118 ML BOTTLE TOP ONE (05:30)
[2019-04-03] MEDS ORDERED: HYDROGEN PEROXIDE 3% 118 ML BOTTLE TOP PRN ×2 (05:45→07:15)
[2019-04-03] MEDS: TIZANIDINE HCL 4 MG TABLET PO SCH ×3 (06:06→21:40)
[2019-04-03] MEDS: AMIKACIN 750 MG in IV DEXTROSE 5% 100 ML IV SCH (06:07)
[2019-04-03] MEDS: PANTOPRAZOLE ORAL SUSPENSION 40 MG SUSPDR.PKT GT SCH (06:07)
[2019-04-03] MEDS: GABAPENTIN 300 MG CAPSULE GT SCH ×3 (06:07→21:40)
[2019-04-03 06:40] LABS: BASOPHILS % (AUTO) 0.4 % (0.0-2.0); EOSINOPHILS # (AUTO) 0.3 K/uL (0.0-0.7); EOSINOPHILS % (AUTO) 11.3 % (0.0-7.0); HEMATOCRIT 27.9 % (36.7-47.1); HEMOGLOBIN 9.4 g/dL (12.5-16.3); LYMPHOCYTES # (AUTO) 0.6 K/uL (20.0-40.0); LYMPHOCYTES % (AUTO) 21.7 % (20.5-51.5); MEAN CORPUSCULAR HEMOGLOBIN 31.4 uug (23.8-33.4); MEAN CORPUSCULAR HGB CONC 34 g/dL (32.5-36.3); MEAN CORPUSCULAR VOLUME 93.3 fL (73.0-96.2); MONOCYTES # (AUTO) 0.3 K/uL (2.0-10.0); MONOCYTES % (AUTO) 10.2 % (0.0-11.0); NEUTROPHILS # (AUTO) 1.7 K/uL (1.8-8.9); NEUTROPHILS % (AUTO) 56.4 % (38.5-71.5); PLATELET COUNT (AUTO) 139 K/uL (152-348); RED BLOOD CELL COUNT(AUTO) 2.99 MIL/uL (4.06-5.63)
[2019-04-03 06:59] LABS: CARBON DIOXIDE 29 mmol/L (21-32); CHLORIDE 108 mmol/L (98-107); CREATININE 0.2 mg/dL (0.6-1.3); GLUCOSE 117 mg/dL (74-106); MAGNESIUM 1.7 mg/dL (1.8-2.4); POTASSIUM 3.9 mmol/L (3.5-5.1); UREA NITROGEN, BLOOD 4 mg/dL (7-18)
--- NOTE | 2019-04-03 07:32 | NUR ---
Pt. is lying in bed in no discomfort or pain, alert oriented x3. Pt. slept intermittently throughout night with complaints of pain. PRN pain medications given. Afebrile throughout shift, no SOB, no desaturation. Suctioned secretions as needed. Comfort measures provided. No other complaints made.
[2019-04-03] MEDS: IPRATROPIUM BROMIDE 0.5 MG/2.5 ML NEBU NEB SCH ×2 (07:34→19:07)
[2019-04-03] MEDS: ACETYLCYSTEINE 10% 4ML VIAL NEB SCH ×2 (07:34→19:07)
--- NOTE | 2019-04-03 08:00 | NUR ---
RESTING IN BED WITH EYES CLOSED NO SS OF PAIN OR DISTRESS O2 VIA TRACH. CONTINUE WITH TUBE FEEDING TOLERATED
[2019-04-03] MEDS: LORAZEPAM 1 MG TABLET GT SCH ×2 (09:12→21:39)
[2019-04-03] MEDS: LORATADINE 10 MG TABLET GT SCH (09:12)
[2019-04-03] MEDS: PHENOBARBITAL 32.4 MG TABLET GT SCH ×2 (09:13→21:39)
[2019-04-03] MEDS: MUPIROCIN 2% OINT 22 GM TUBE NS SCH ×2 (09:14→21:40)
[2019-04-03] MEDS: MAGNESIUM SULFATE/D5W 100 ML IV SCH ×2 (11:18→12:15)
[2019-04-03 11:43] VITALS: BP 109/76
--- NOTE | 2019-04-03 12:13 | NUR ---
CLINICAL PHARMACY NOTE:VANCOMYCIN DOSING S To continue vancomycin dosing on 43 y/o male patient (bed-bound) for empiric therapy. O Temp 97.9 BUN 4 Scr 0.2 WBC 3 ht 172.7 cm wt 53 kg Plan Will continue same dose of vancomycin 1gm ivpb q12h for today. Will draw trough level prior to 4th dose (ordered for 03/04 at 0430- RN has been informed to hold 0500 am dose if vanco trough level above 20 mcg/ml). Pharmacy shall review the level in am & adjust the dose if needed. Will continue to monitor. Addendum: 04/03/19 at 1223 by NEYMAR BRANTLEY ADM DX PER ID NOTE --Sepsis, Bacteremia ?infected pcath, UTI per UA
--- NOTE | 2019-04-03 12:30 | NUR ---
SEEN BY WOUND NURSE SEE NOTES
--- NOTE | 2019-04-03 12:53 | NUR ---
Clinical Pharmacy Note: Amikacin Dosing per Pharmacy Subjective: To start amikacin dosing this 43 yo male bed bound patient for UTI. Objective: BUN 4/Scr 0.2 WBC: 3 Temperature: 97.9 ht 172.7 cm wt 53 kg Assessment/Plan: Will continue amikacin 750 mg IVPB q18h for today. 3rd dose tomorrow at midnight. Will draw a peak & trough level around the 4th dose (not yet ordered). Will monitor renal function & adjust the dose if needed. Will monitor. Addendum: 04/03/19 at 1255 by NEYMAR BRANTLEY ADM DX PER ID NOTE-Sepsis, Bacteremia ?infected pcath, UTI per UA
--- NOTE | 2019-04-03 13:07 | NUR ---
WOUND CARE CONSULT: PT PRESENTS WITH FLAKY SKIN CONDITION TO BACK, HEALED AREAS TO BACK WITH SACRAL SCARRING, HEEL SCARRING, ALL PRESENT ON ADMISSION. G TUBE SITE HAS SMALL AREA OF HYPERGRANULAR TISSUE, NO DRAINAGE, REDNESS OR ODOR NOTED. DEFER TO MD FOR SKIN CONDITION AND G TUBE SITE. RECOMMENDATIONS MADE FOR SKIN PROTECTION. DISCUSSED WITH NURSING STAFF. WILL SEE PRN. LORENZO IN AGREEMENT WITH PLAN OF CARE. PT ON FIRST STEP [facility]. Addendum: 04/03/19 at 1309 by CATHY BUCKLEY RN Amended: Links added.
--- NOTE | 2019-04-03 14:50 | NUR ---
CONTINUE WITH PAIN MANAGEMENT, AWAITING UROLOGIST REGARDING PROBLEM REMOVING OLD PLASCENCIA CATHETER.
[2019-04-03 15:30] VITALS: BP 112/82
[2019-04-03] MEDS: POTASSIUM CHLORIDE 20 MEQ in IV NS 1000 ML 1,000 ML IV PRN ×2 (16:09→16:21)
[2019-04-03] MEDS: JEVITY 1.2 1000 ML LIQUID GT PRN (16:19)
[2019-04-03 20:00] VITALS: BP 102/62
[2019-04-03] MEDS: ENOXAPARIN SODIUM 40 MG/0.4 ML DISP.SYRIN SQ SCH (21:00)
[2019-04-03] MEDS: risperiDONE 1 MG TABLET GT SCH (21:00)
[2019-04-03] MEDS: TOLTERODINE 2 MG TABLET GT SCH (21:39)
[2019-04-03] MEDS: TRAZODONE 50 MG TABLET PO SCH (21:40)
[2019-04-03] MEDS: ZONISAMIDE 100 MG CAPSULE GT SCH (21:40)
--- NOTE | 2019-04-03 21:45 | NUR ---
Noted patient stopped responding verbally, still with eye opening and nods to questions but noted more sedated than baseline. Vital signs within normal except for temperature, unable to get temp orally and axillary.
--- NOTE | 2019-04-03 22:00 | NUR ---
Checked temperature rectally, 91.8F. Placed ivette hugger on patient.
--- NOTE | 2019-04-03 22:10 | NUR ---
Nitesh Hendricks made aware of hypothermic episode of patient, agreed to place ivette montana.
--- NOTE | 2019-04-03 22:40 | NUR ---
Patient unresponsive and blood pressure low, called and spoke with Nitesh Hendricks about the patient, received orders for NS 1L bolus x 1. check ABG, lactic acid and phenobarbital level.
[2019-04-03] MEDS ORDERED: IV NS 1000 ML 1,000 ML IV ONE (23:00)
--- NOTE | 2019-04-03 23:29 | NUR ---
Received patient awake in bed, not in acute distress, alert and oriented x 3, quadriplegic. Patient has a shiley trache 6.0 to trache mask with oxygen support at 5lpm, tolerated. With G-tube in place, feeding of Jevity on hold since patient still having residuals. With portacatheter at left femoral area to ongoing IV Fluid, infusing well. With Alcantara catheter in place, noted pending Urology consult for alcantara catheter changing. With air mattress in place and DVT pumps in place. Will continue to monitor. Addendum: 04/03/19 at 2335 by KATHARINE POWELL RN Above note, late entry from 1930.
[2019-04-03 23:36] LABS: ABG BASE EXCESS -1.5 mmol/L; ABG HCO3 24.8 mmol/L; ABG PCO2 49.2 mmHg (35.0-45.0); ABG PO2 107.8 mmHg (75.0-100.0); ABG SITE RIGHT BRACHIAL; ABG TOTAL HEMOGLOBIN 9.5 G/dL (13.5-18.0); COHb 0.6 % (0.5-1.5); MetHb 0.4 % (0.0-1.5); O2Hb 96.7 % (94.0-97.0)
--- NOTE | 2019-04-03 23:45 | NUR ---
Noted lab orders resulted. NS 1L bolus done, blood pressure still low at 66/30, patient still unresponsive. Called Nitesh Hendricks to ask for additional orders and possible transfer, still awaiting for call back.
[2019-04-04] VITALS (42 sets, daily range): BP systolic 86–132; BP diastolic 50–81
--- NOTE | 2019-04-04 00:10 | NUR ---
Spoke with Dr. Washington regarding events tonight with this patient. MD agreed to transfer patient to CCU and ordered another bolus of NS 1L and possible levophed if patient still hypotensive.
[2019-04-04] MEDS ORDERED: IV NS 1000 ML 1,000 ML IV ONE (00:15)
[2019-04-04] MEDS ORDERED: NOREPINEPHRINE BITARTRATE 8 MG in IV DEXTROSE 5% 500 ML IV PRN ×2 (00:15→08:45)
--- NOTE | 2019-04-04 00:30 | NUR ---
Report given to Lily CCU RN. Transferred patient to CCU Bed 2 via hospital bed.
--- NOTE | 2019-04-04 00:35 | NUR ---
Received patient from 3rd floor secondary to hypotension. To CCU2. Patient obtunded, opens eyes briefly to deep pain but goes back to sleep right away. On contact isolation for MRSA nares. Assessment done; see flow sheet for details.
[2019-04-04] MEDS: AMIKACIN 750 MG in IV DEXTROSE 5% 100 ML IV SCH ×2 (00:38→18:56)
--- NOTE | 2019-04-04 01:00 | NUR ---
Hypothermic; Shelbi hugger turned on. Patient kept warm.
[2019-04-04] MEDS ORDERED: NOREPINEPHRINE BITARTRATE 4 MG/4 ML VIAL IV ONE ×2 (01:17→23:50)
--- NOTE | 2019-04-04 01:28 | NUR ---
Levophed drip started for BP support.
--- NOTE | 2019-04-04 04:20 | NUR ---
Patient awake now and calling. C/o generalized discomfort and pain, requesting for his Dilaudid. Medicated with Dilaudid IV. Remains hypothermic. Shelbi montana continuously on. Levophed drip at 1 mcg/min.
[2019-04-04] MEDS: HYDROMORPHONE 1 MG/1 ML DISP.SYRIN IV PRN ×3 (04:29→19:52)
[2019-04-04] MEDS: BACLOFEN 10 MG TABLET GT SCH ×3 (04:30→20:08)
[2019-04-04 05:06] LABS: CARBON DIOXIDE 27 mmol/L (21-32); CHLORIDE 108 mmol/L (98-107); CREATININE 0.2 mg/dL (0.6-1.3); GLUCOSE 81 mg/dL (74-106); MAGNESIUM 1.8 mg/dL (1.8-2.4); POTASSIUM 3.9 mmol/L (3.5-5.1); UREA NITROGEN, BLOOD 3 mg/dL (7-18)
[2019-04-04 05:20] LABS: BASOPHILS % (AUTO) 1.1 % (0.0-2.0); EOSINOPHILS # (AUTO) 0.3 K/uL (0.0-0.7); EOSINOPHILS % (AUTO) 11.9 % (0.0-7.0); HEMATOCRIT 31.2 % (36.7-47.1); HEMOGLOBIN 10.4 g/dL (12.5-16.3); LYMPHOCYTES # (AUTO) 0.8 K/uL (20.0-40.0); MEAN CORPUSCULAR HEMOGLOBIN 31.1 uug (23.8-33.4); MEAN CORPUSCULAR HGB CONC 33 g/dL (32.5-36.3); MEAN CORPUSCULAR VOLUME 93.3 fL (73.0-96.2); MONOCYTES # (AUTO) 0.4 K/uL (2.0-10.0); MONOCYTES % (AUTO) 14.6 % (0.0-11.0); NEUTROPHILS # (AUTO) 1.1 K/uL (1.8-8.9); NEUTROPHILS % (AUTO) 42.4 % (38.5-71.5); PLATELET COUNT (AUTO) 152 K/uL (152-348); RED BLOOD CELL COUNT(AUTO) 3.34 MIL/uL (4.06-5.63); WHITE BLOOD COUNT (AUTO) 2.6 K/uL (3.6-10.2)
--- NOTE | 2019-04-04 05:30 | NUR ---
Levophed drip dc'd. Will monitor BPs closely.
[2019-04-04] MEDS: TIZANIDINE HCL 4 MG TABLET PO SCH ×3 (06:00→21:16)
[2019-04-04] MEDS: VANCOMYCIN IV 1 G in PREMIXED 0 EACH IV SCH ×2 (06:10→17:01)
[2019-04-04 06:14] LABS: EOSINOPHILS % (MANUAL) 5 % (0-8); LYMPHOCYTES % (MANUAL) 36 % (20-40); MONOCYTES % (MANUAL) 11 % (2-10); NEUTROPHILS % (MANUAL) 48 % (42-75)
[2019-04-04] MEDS: GABAPENTIN 300 MG CAPSULE GT SCH ×3 (06:19→21:16)
[2019-04-04] MEDS: PANTOPRAZOLE ORAL SUSPENSION 40 MG SUSPDR.PKT GT SCH (06:20)
--- NOTE | 2019-04-04 07:30 | NUR ---
Received patient in bed resting trache to mask 5 liter with saturation in the 97-98%. G-tube clamped. alcantara to gravity with yellowish sedimented output. Patient on sinus rhythm, sbp in the border-line and as reported pt. off levophed since 0600 this morning. Will continue to monitor.
[2019-04-04] MEDS: ACETYLCYSTEINE 10% 4ML VIAL NEB SCH ×2 (07:59→19:25)
[2019-04-04] MEDS: IPRATROPIUM BROMIDE 0.5 MG/2.5 ML NEBU NEB SCH ×2 (07:59→19:25)
[2019-04-04] MEDS: LORATADINE 10 MG TABLET GT SCH (08:00)
[2019-04-04] MEDS: LORAZEPAM 1 MG TABLET GT SCH ×2 (08:00→20:06)
[2019-04-04] MEDS: PHENOBARBITAL 32.4 MG TABLET GT SCH ×2 (08:00→20:09)
[2019-04-04] MEDS: MUPIROCIN 2% OINT 22 GM TUBE NS SCH ×2 (08:03→20:10)
[2019-04-04] MEDS: JEVITY 1.2 1000 ML LIQUID GT PRN (08:09)
[2019-04-04] MEDS: POTASSIUM CHLORIDE 20 MEQ in IV NS 1000 ML 1,000 ML IV PRN (10:01)
--- NOTE | 2019-04-04 14:29 | NUR ---
Clinical Pharmacy Note: Amikacin Dosing per Pharmacy Subjective: To continue amikacin dosing this 43 yo male bed bound patient for (per ID note) Sepsis, Bacteremiam infected pcath, UTI per UA Objective: BUN 3/Scr 0.2 WBC: 2.6 Temperature: 97 ht 172.7 cm wt 53 kg peak pending today at 1900 trough pending today at 1730 Assessment/Plan: Will continue amikacin 750 mg IVPB q18h for today. 4th scheduled dose due today at 1800. Trough ordered for today at 1730 and peak at 1900. Will check levels when available and adjust as needed. Will follow
--- NOTE | 2019-04-04 15:12 | NUR ---
CLINICAL PHARMACY NOTE:VANCOMYCIN DOSING S To continue vancomycin dosing on 43 y/o male patient (bed-bound) for Sepsis, Bacteremia ?infected pcath, UTI per UA (per ID note) O Temp 94.5 BUN 3 Scr 0.2 WBC 2.6 ht 172.7 cm wt 53 kg trough today at 0430: 18.2 Plan As trough within range, will continue same dose of vancomycin 1gm ivpb q12h for today. Will reorder trough if condition were to change or pt to remain on prolonged course. Otherwise will follow.
--- NOTE | 2019-04-04 19:40 | NUR ---
Received pt awake, alert and oriented x4, eyes open spontaneously. Pt quadriplegic, speech clear, able to verbalize needs. Pt on contact isolation for MRSA. HOB elevated, trach collar with 15 LPM. O2 sats up to 97%. Pt with left femoral PORTACATH intact and patent. KCL 20 meQ in NS running at 70 mL/hr. IVF GTube feedings fairly well tolerated. Antibiotic therapy noted. Assessment completed. Pt kept clean and dry at all times. Turned and repositioned. VSS, afebrile. Monitoring temperature trends. Will continue plan of care. Addendum: 04/04/19 at 2108 by SIM PEREZ RN Amended: Links added.
--- NOTE | 2019-04-04 19:45 | NUR ---
Pt seen and examined by ID specialist, YOMAIRA VALDES. Report given. No new orders received.
--- NOTE | 2019-04-04 20:00 | NUR ---
Pt c/o of pain in shoulder, neck and back 10/10 level on pain scale. Morphine 0.5 mg given. BP 132/62 at this time. O2 sat up to 97%. Continue to monitor. Addendum: 04/05/19 at 0231 by SIM PEREZ RN MED CORRECTION: DILAUDID IV 0.5 mg GIVEN.
[2019-04-04] MEDS: TOLTERODINE 2 MG TABLET GT SCH (20:08)
[2019-04-04] MEDS: ZONISAMIDE 100 MG CAPSULE GT SCH (20:09)
[2019-04-04] MEDS: TRAZODONE 50 MG TABLET PO SCH (20:10)
[2019-04-04] MEDS: risperiDONE 1 MG TABLET GT SCH (20:11)
[2019-04-04] MEDS: ENOXAPARIN SODIUM 40 MG/0.4 ML DISP.SYRIN SQ SCH (20:20)
--- NOTE | 2019-04-04 23:30 | NUR ---
Pt SBP remains below 80s. MAP < 65 mmHg. Will administer LEVOPHED DRIP. Pt still requesting Dilaudid, advised appropriately. Continue with plan of care.
--- NOTE | 2019-04-04 23:50 | NUR ---
LEVOPHED drip started at 1 mcg/min. Pt noted to have 15 second seizure at this time, involving upper chest and head area. Pt responsive to name, opens eyes. Aspiration precautions and safety measures observed. Will continue to monitor closely.
[2019-04-05] VITALS (45 sets, daily range): BP systolic 83–135; BP diastolic 48–90
[2019-04-05] MEDS: HYDROMORPHONE 1 MG/1 ML DISP.SYRIN IV PRN ×5 (00:54→21:16)
[2019-04-05] MEDS: risperiDONE 0.25 MG TABLET GT PRN (02:46)
[2019-04-05] MEDS: POTASSIUM CHLORIDE 20 MEQ in IV NS 1000 ML 1,000 ML IV PRN ×2 (03:12→17:21)
[2019-04-05] MEDS: BACLOFEN 10 MG TABLET GT SCH ×3 (04:34→20:15)
[2019-04-05] MEDS: VANCOMYCIN IV 1 G in PREMIXED 0 EACH IV SCH (04:46)
[2019-04-05 04:57] LABS: CARBON DIOXIDE 26 mmol/L (21-32); CHLORIDE 112 mmol/L (98-107); CREATININE 0.2 mg/dL (0.6-1.3); GLUCOSE 81 mg/dL (74-106); POTASSIUM 4.2 mmol/L (3.5-5.1); UREA NITROGEN, BLOOD 5 mg/dL (7-18)
[2019-04-05 04:58] LABS: EOSINOPHILS # (AUTO) 0.2 K/uL (0.0-0.7); EOSINOPHILS % (AUTO) 8.3 % (0.0-7.0); HEMATOCRIT 29.5 % (36.7-47.1); LYMPHOCYTES % (AUTO) 35.3 % (20.5-51.5); MEAN CORPUSCULAR HEMOGLOBIN 31.5 uug (23.8-33.4); MEAN CORPUSCULAR HGB CONC 34 g/dL (32.5-36.3); MEAN CORPUSCULAR VOLUME 93.4 fL (73.0-96.2); MONOCYTES # (AUTO) 0.5 K/uL (2.0-10.0); MONOCYTES % (AUTO) 17.4 % (0.0-11.0); NEUTROPHILS # (AUTO) 1.1 K/uL (1.8-8.9); PLATELET COUNT (AUTO) 171 K/uL (152-348); RED BLOOD CELL COUNT(AUTO) 3.16 MIL/uL (4.06-5.63); WHITE BLOOD COUNT (AUTO) 2.9 K/uL (3.6-10.2)
[2019-04-05] MEDS: GABAPENTIN 300 MG CAPSULE GT SCH ×3 (05:11→22:15)
[2019-04-05] MEDS: TIZANIDINE HCL 4 MG TABLET PO SCH ×3 (05:11→22:15)
--- NOTE | 2019-04-05 05:27 | NUR ---
Dilaudid IV given for generalized discomfort. AM care provided, pt kept clean and dry. Trach care, cleansed with hydrogen peroxide and new dressing placed. Pt turned and repositioned, offloading on lower extremities. Pt tolerated care well. VSS, afebrile. Aspiration and seizure precautions observed. Will continue to monitor.
[2019-04-05 05:44] LABS: EOSINOPHILS % (MANUAL) 10 % (0-8); LYMPHOCYTES % (MANUAL) 27 % (20-40); MONOCYTES % (MANUAL) 13 % (2-10); NEUTROPHILS % (MANUAL) 50 % (42-75)
[2019-04-05] MEDS: PANTOPRAZOLE ORAL SUSPENSION 40 MG SUSPDR.PKT GT SCH (06:06)
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
--- NOTE | 2019-04-05 07:45 | NUR ---
SEEN AND EXAMINED BY DR CASTELLON ( UROLOGIST ). CONSULTED. FOLEYCATHETER CHANGED FR 18. PT TOLERATED WELL. URINE IS CLEAR. FLUSHED SMOOTHLY.
[2019-04-05] MEDS: ACETYLCYSTEINE 10% 4ML VIAL NEB SCH ×2 (07:46→19:06)
[2019-04-05] MEDS: IPRATROPIUM BROMIDE 0.5 MG/2.5 ML NEBU NEB SCH ×2 (07:46→19:06)
--- NOTE | 2019-04-05 08:00 | NUR ---
PT HAS A TRACHE SHILEY#6. SITE CLEAN AND INTACT. O2 AT 5L ON TRACHE MASK AND SAT IS 98-99% SMALL AMOUNT OF SECRETIONS. LUNGS ARE CLEAR, DIMINISHED AT THE BASES.
--- NOTE | 2019-04-05 08:30 | NUR ---
TUBE FEEDING JEVITY STARTED VIA GT AT 70ML/HR. NO RESIDUAL NOTED AT THIS TIME. ABDOMEN IS SOFT WITH HYPOACTIVE BS. NO BM NOTED AT THIS TIME.
--- NOTE | 2019-04-05 08:45 | NUR ---
SEEN AND EXAMINED BY MYLENE VALDES WITH NEW ORDERS MADE. PT IS SLEEPING ON AND OFF.
--- NOTE | 2019-04-05 08:56 | NUR ---
INFORMATION SENT: FACESHEET, PROGRESS NOTES 04/04, 24 HRS REPORT, UR 04/04. INSURANCE NAME:[facility] / [facility] FAX NUMBER: [phone] / [phone] FAX SENT
[2019-04-05] MEDS: LORAZEPAM 1 MG TABLET GT SCH ×2 (09:08→20:14)
[2019-04-05] MEDS: MUPIROCIN 2% OINT 22 GM TUBE NS SCH ×2 (09:08→20:49)
[2019-04-05] MEDS: LORATADINE 10 MG TABLET GT SCH (09:08)
[2019-04-05] MEDS: PHENOBARBITAL 32.4 MG TABLET GT SCH ×2 (09:34→21:01)
[2019-04-05] MEDS: JEVITY 1.2 1000 ML LIQUID GT PRN (09:36)
[2019-04-05] MEDS: AMIKACIN 750 MG in IV DEXTROSE 5% 100 ML IV SCH (12:18)
--- NOTE | 2019-04-05 13:00 | NUR ---
NOTIFIED JORGE AVLDES WITH POSITIVE VRE AND MDRO IN THE URINE. ORDERED TO ALYSSA CASE AND START ON ZYVOX 600MG GT BID.
--- NOTE | 2019-04-05 14:21 | NUR ---
Clinical Pharmacy Note: Amikacin Dosing per Pharmacy Subjective: To continue amikacin dosing this 43 yo male bed bound patient for (per ID note) Sepsis, Bacteremiam infected pcath, UTI per UA Objective: BUN 5/Scr 0.2 WBC: 2.9 Temperature: 98.2 ht 172.7 cm wt 53 kg trough: yesterday at 1730: 4.2 peak: yesterday at 2005: >250 (re-ran sample with [facility]) Assessment/Plan: Although peak very supratherapeutic, may have been erroneous draw as trough is within range. Sample from last night was re-run however resulted same. Dose and draw likely done at correct times however may have been from active line or contaminated. Repeat peak reordered off today's 1200 dose. Now pending send-out. Will follow for repeat peak for further dosing and continue 750mg q18h for now until results available.
--- NOTE | 2019-04-05 15:00 | NUR ---
PT REQUESTED TO HAVE SOME VANILLA PUDDING. NOTIFIED SHARI PRICE CLERK FOR A SWALLOW EVALUATION. PT ABLE TO SWALLOW WELL, NO COUGHING NOTED.
--- NOTE | 2019-04-05 15:00 | NUR ---
LEVOPHED DISCONTINUED. PER PHARMACY, NOT COMPATIBLE WITH ZYVOX. SHARI [employer]CHO[employer] ADMISSIONS REPRESENTATIVE WAS MADE AWARE BY THE PHARMACIST.
[2019-04-05] MEDS: LINEZOLID 600 MG TABLET PEG SCH (16:53)
--- NOTE | 2019-04-05 17:30 | NUR ---
PT C/O PAIN BOTH SHOULDERS LEVEL 8. MEDICATED WITH DILAUDID 0.5MG SLOW IVP ORDERED.
--- NOTE | 2019-04-05 17:35 | NUR ---
TRACHEOSTOMY CARE DONE. O2 SAT MAINTAINED IN THE 98-100%.
--- NOTE | 2019-04-05 19:30 | NUR ---
Report received. Patient on contact isolation for MRSA MARIA ANTONIA shaver. Able to make needs known. NAD noted. O2 trache mask 5 L; suctioned by RT. Saturations 97-100%. Assessment done; refer to flow sheet for complete data. Addendum: 04/05/19 at 2224 by MOOSE RUBALCAVA RN Amended: Links added. Addendum: 04/05/19 at 2228 by MOOSE RUBALCAVA RN Amended: Links added.
[2019-04-05] MEDS ORDERED: DOSING PER PHARMACY-COLISTIN IV XX PRN (20:00)
--- NOTE | 2019-04-05 20:00 | NUR ---
Hypothermic; Temp=95.7 rectally. Shelbi montana turned on. Repositioned; skin care provided. Patient quadriplegic. Seen by Park VALDES. Tolerating GT feedings well. Addendum: 04/05/19 at 2228 by MOOSE RUBALCAVA RN Amended: Links added.
[2019-04-05] MEDS: risperiDONE 1 MG TABLET GT SCH (20:45)
[2019-04-05] MEDS: TRAZODONE 50 MG TABLET PO SCH (20:48)
[2019-04-05] MEDS: ZONISAMIDE 100 MG CAPSULE GT SCH (20:49)
[2019-04-05] MEDS: ENOXAPARIN SODIUM 40 MG/0.4 ML DISP.SYRIN SQ SCH (20:50)
[2019-04-05] MEDS: COLISTIMETHATE SODIUM 75 MG in IV DEXTROSE 5% 100 ML IV SCH (20:51)
[2019-04-05] MEDS: TOLTERODINE 2 MG TABLET GT SCH (21:01)
[2019-04-06] VITALS (15 sets, daily range): BP systolic 90–134; BP diastolic 54–86
--- NOTE | 2019-04-06 | NUR ---
Temp now 97.8 orally. Turned and repositioned. Requesting for Dilaudid; advised appropriately.
[2019-04-06] MEDS: BACLOFEN 10 MG TABLET GT SCH ×2 (04:06→12:24)
[2019-04-06] MEDS: HYDROMORPHONE 1 MG/1 ML DISP.SYRIN IV PRN ×4 (05:01→18:41)
[2019-04-06 05:02] LABS: BASOPHILS % (AUTO) 0.9 % (0.0-2.0); EOSINOPHILS # (AUTO) 0.3 K/uL (0.0-0.7); EOSINOPHILS % (AUTO) 8.7 % (0.0-7.0); HEMOGLOBIN 9.3 g/dL (12.5-16.3); LYMPHOCYTES # (AUTO) 1.3 K/uL (20.0-40.0); LYMPHOCYTES % (AUTO) 36.4 % (20.5-51.5); MEAN CORPUSCULAR HEMOGLOBIN 31.2 uug (23.8-33.4); MEAN CORPUSCULAR HGB CONC 33 g/dL (32.5-36.3); MEAN CORPUSCULAR VOLUME 93.3 fL (73.0-96.2); MONOCYTES # (AUTO) 0.5 K/uL (2.0-10.0); MONOCYTES % (AUTO) 14.7 % (0.0-11.0); NEUTROPHILS # (AUTO) 1.4 K/uL (1.8-8.9); NEUTROPHILS % (AUTO) 39.3 % (38.5-71.5); PLATELET COUNT (AUTO) 150 K/uL (152-348); WHITE BLOOD COUNT (AUTO) 3.7 K/uL (3.6-10.2)
[2019-04-06 05:04] LABS: CARBON DIOXIDE 26 mmol/L (21-32); CHLORIDE 113 mmol/L (98-107); CREATININE < 0.2 mg/dL (0.6-1.3); GLUCOSE 115 mg/dL (74-106); POTASSIUM 5.5 mmol/L (3.5-5.1); UREA NITROGEN, BLOOD 5 mg/dL (7-18)
[2019-04-06] MEDS: GABAPENTIN 300 MG CAPSULE GT SCH ×3 (06:03→21:58)
[2019-04-06] MEDS: PANTOPRAZOLE ORAL SUSPENSION 40 MG SUSPDR.PKT GT SCH (06:03)
[2019-04-06] MEDS: TIZANIDINE HCL 4 MG TABLET PO SCH ×3 (06:04→21:57)
[2019-04-06] MEDS: POTASSIUM CHLORIDE 20 MEQ in IV NS 1000 ML 1,000 ML IV PRN (06:36)
[2019-04-06] MEDS: IPRATROPIUM BROMIDE 0.5 MG/2.5 ML NEBU NEB SCH ×2 (07:10→20:08)
[2019-04-06] MEDS: ACETYLCYSTEINE 10% 4ML VIAL NEB SCH ×2 (07:11→20:09)
--- NOTE | 2019-04-06 07:12 | NUR ---
Stable on 5 L trache mask. SB-SR on the monitor. Tolerating GT feedings well; off [id number]. Contact isolation maintained.
[2019-04-06] MEDS: Z GUARD REMEDY PASTE 57 GM TUBE TOP PRN ×2 (07:21→21:01)
[2019-04-06] MEDS: LORAZEPAM 1 MG TABLET GT SCH ×2 (08:20→20:48)
[2019-04-06] MEDS: LORATADINE 10 MG TABLET GT SCH (08:20)
[2019-04-06] MEDS: COLISTIMETHATE SODIUM 75 MG in IV DEXTROSE 5% 100 ML IV SCH ×2 (08:22→20:58)
[2019-04-06] MEDS: MUPIROCIN 2% OINT 22 GM TUBE NS SCH ×2 (08:23→21:00)
--- NOTE | 2019-04-06 08:45 | NUR ---
Attending Harpal Chou in the unit to examine patient, full report given orders received and carried.
[2019-04-06] MEDS: LINEZOLID 600 MG TABLET PEG SCH ×2 (08:48→17:01)
[2019-04-06] MEDS: PHENOBARBITAL 32.4 MG TABLET GT SCH ×2 (08:48→20:54)
[2019-04-06] MEDS: IV NS 1000 ML 1,000 ML IV PRN (09:27)
--- NOTE | 2019-04-06 09:57 | NUR ---
Mayra sol in the unit for swallow eval, attending Nitesh anne for order clarification. Addendum: 04/06/19 at 1427 by MICHAEL OLIVARES RN orders to proceed with swallow- eval testing received.
[2019-04-06] MEDS: JEVITY 1.2 1000 ML LIQUID GT PRN (10:42)
--- NOTE | 2019-04-06 14:00 | NUR ---
A call from Halle pt's DPOA and sister to inquire about swallow eval done on pt. this morning. Thanh referred to case management for put her in touch with attending Harpal Dowling. As stated by Halle Patient himself told her he was feed with 2 pudding cups by alfa yesterday. and swallow eval done today. Addendum: 04/06/19 at 1445 by MICHAEL OLIVARES RN (referred to case management to put her in touch with attending Harpal)
[2019-04-06] MEDS ORDERED: IPRATROPIUM BROMIDE 0.5 MG/2.5 ML NEBU NEB PRN (16:45)
--- NOTE | 2019-04-06 17:18 | NUR ---
A call to attending Harpal to notified him of desaturation despite pulmonary aggressive pulmonary toilet and breathing tx. saturation remains in the 80's RT staff at bedside. pt. placed on cool aerosol and oxygen been titrated to maintain saturation above 92%. SEAN in process. Awaiting call back. Addendum: 04/06/19 at 1730 by MICHAEL OLIVARES RN Patient in and out of episodes of lethargy noted. Addendum: 04/06/19 at 1749 by MICHAEL OLIVARES RN patient on cool aerosol mist 60% fio2.
--- NOTE | 2019-04-06 17:27 | NUR ---
A call back from attending Harpal Chou report on change in condition given, orders for stat ABG and chest-X-ray received. Also orders to continue monitoring patient in ICU setting received. Nursing supervisor computer operations notified.
[2019-04-06 17:33] LABS: ABG BASE EXCESS 1.6 mmol/L; ABG HCO3 27.7 mmol/L; ABG PCO2 51.3 mmHg (35.0-45.0); ABG PH 7.351 (7.350-7.450); ABG PO2 65.5 mmHg (75.0-100.0); ABG SITE RIGHT RADIAL; ABG TOTAL HEMOGLOBIN 10.2 G/dL (13.5-18.0); COHb 0.9 % (0.5-1.5); MetHb 0.3 % (0.0-1.5); O2Hb 90.4 % (94.0-97.0)
--- NOTE | 2019-04-06 17:47 | NUR ---
At this time patient placed on 95% cool aerosol mist.
--- NOTE | 2019-04-06 17:49 | NUR ---
patient on 95% fio2 cool aerosol mist with saturation of 91%.
--- NOTE | 2019-04-06 18:28 | NUR ---
cool aerosol titrated up to 50%. saturation in the 99%.
--- NOTE | 2019-04-06 18:31 | NUR ---
Attending Harpal Chou in the unit to examine patient, at this time He spoke with picked edge sewing machine operator Dr. Alexander and consulted him, as stated pt. will be seen by pulmonary services tomorrow morning. Addendum: 04/06/19 at 1837 by MICHAEL OLIVARES RN orders to continue with care plan.
--- NOTE | 2019-04-06 19:30 | NUR ---
Patient's friend Shaggy called; able to speak with patient by phone. Patient is cheerful and in bright spirit. NAD noted.
--- NOTE | 2019-04-06 20:00 | NUR ---
Turned and repositioned. Hypothermic. Patient noted to be impacted. Disimpacted; with moderate formed brown stools. Shelbi montana turned on; patient kept warm. Addendum: 04/07/19 at 221 by MOOSE RUBALCAVA RN Amended: Links added. Addendum: 04/07/19 at 221 by MOOSE RUBALCAVA RN Amended: Links added.
[2019-04-06] MEDS: BACLOFEN 20 MG TABLET GT SCH (20:49)
[2019-04-06] MEDS: risperiDONE 1 MG TABLET GT SCH (20:56)
[2019-04-06] MEDS: ENOXAPARIN SODIUM 40 MG/0.4 ML DISP.SYRIN SQ SCH (20:56)
[2019-04-06] MEDS: TOLTERODINE 2 MG TABLET GT SCH (20:57)
[2019-04-06] MEDS: ZONISAMIDE 100 MG CAPSULE GT SCH (20:58)
[2019-04-06] MEDS: TRAZODONE 50 MG TABLET PO SCH (21:00)
--- NOTE | 2019-04-06 21:00 | NUR ---
Patient's sister Mari anne. Updated of condition. Discussed with her about the swallow eval and po intake. Stated that she's just very concern about a possible aspiration therefore she wants her brother to be on absolute NPO. She's very appreciative of the care her brother receives in CCU. Addendum: 04/06/19 at 2153 by MOOSE RUBALCAVA RN Amended: Links added. Addendum: 04/06/19 at 2154 by MOOSE RUBALCAVA RN Amended: Links added. Addendum: 04/06/19 at 2155 by MOOSE RUBALCAVA RN Amended: Links added.
[2019-04-07] VITALS (9 sets, daily range): BP systolic 92–125; BP diastolic 51–75
[2019-04-07] MEDS: HYDROMORPHONE 1 MG/1 ML DISP.SYRIN IV PRN ×6 (00:04→22:43)
[2019-04-07] MEDS: BACLOFEN 20 MG TABLET GT SCH ×3 (04:22→20:23)
[2019-04-07 04:56] LABS: BASOPHILS % (AUTO) 0.9 % (0.0-2.0); EOSINOPHILS # (AUTO) 0.4 K/uL (0.0-0.7); EOSINOPHILS % (AUTO) 13.5 % (0.0-7.0); HEMATOCRIT 28.3 % (36.7-47.1); HEMOGLOBIN 9.4 g/dL (12.5-16.3); LYMPHOCYTES # (AUTO) 1.2 K/uL (20.0-40.0); LYMPHOCYTES % (AUTO) 39.8 % (20.5-51.5); MEAN CORPUSCULAR HEMOGLOBIN 31.3 uug (23.8-33.4); MEAN CORPUSCULAR HGB CONC 33 g/dL (32.5-36.3); MEAN CORPUSCULAR VOLUME 94.3 fL (73.0-96.2); MONOCYTES # (AUTO) 0.3 K/uL (2.0-10.0); MONOCYTES % (AUTO) 9.3 % (0.0-11.0); NEUTROPHILS # (AUTO) 1.1 K/uL (1.8-8.9); NEUTROPHILS % (AUTO) 36.5 % (38.5-71.5); PLATELET COUNT (AUTO) 144 K/uL (152-348)
[2019-04-07] MEDS: IV NS 1000 ML 1,000 ML IV PRN (05:05)
[2019-04-07 05:09] LABS: CARBON DIOXIDE 27 mmol/L (21-32); CHLORIDE 110 mmol/L (98-107); CREATININE 0.3 mg/dL (0.6-1.3); GLUCOSE 136 mg/dL (74-106); POTASSIUM 4.1 mmol/L (3.5-5.1); UREA NITROGEN, BLOOD 5 mg/dL (7-18)
[2019-04-07] MEDS: GABAPENTIN 300 MG CAPSULE GT SCH ×3 (05:53→21:32)
[2019-04-07] MEDS: TIZANIDINE HCL 4 MG TABLET PO SCH ×3 (05:53→21:32)
--- NOTE | 2019-04-07 06:00 | NUR ---
Stable on 40 % aerosol trache mask. Am care rendered; tolerated care fairly well. GT feedings @ 70 ml/H x 20 hours; 0ff [id number]. Will be transferred to [facility].
--- NOTE | 2019-04-07 07:00 | NUR ---
Transferred to [facility] via bed with RTs, TANK PROCESSOR and RN during transport. Patient AAO. NAD noted.
[2019-04-07] MEDS: ACETYLCYSTEINE 10% 4ML VIAL NEB SCH ×3 (07:15→19:15)
[2019-04-07] MEDS: IPRATROPIUM BROMIDE 0.5 MG/2.5 ML NEBU NEB SCH ×3 (07:15→19:15)
--- NOTE | 2019-04-07 07:15 | NUR ---
Received patient on bed resting comfortably no c/of pain at this time. G-tub clamped, trache to cool mist at 40% FIO2. saturation within desire limits. slightly hypothermic but patient refusing warm blanket.
[2019-04-07] MEDS: PANTOPRAZOLE ORAL SUSPENSION 40 MG SUSPDR.PKT GT SCH (07:24)
[2019-04-07] MEDS: LORATADINE 10 MG TABLET GT SCH (08:14)
[2019-04-07] MEDS: PHENOBARBITAL 32.4 MG TABLET GT SCH ×2 (08:15→20:24)
[2019-04-07] MEDS: MUPIROCIN 2% OINT 22 GM TUBE NS SCH ×2 (08:15→20:29)
[2019-04-07] MEDS: LINEZOLID 600 MG TABLET PEG SCH ×2 (08:15→16:38)
[2019-04-07] MEDS: LORAZEPAM 1 MG TABLET GT SCH ×2 (08:15→20:23)
[2019-04-07] MEDS: COLISTIMETHATE SODIUM 75 MG in IV DEXTROSE 5% 100 ML IV SCH ×2 (08:20→20:26)
--- NOTE | 2019-04-07 14:05 | NUR ---
At this time after been medicated as requested, Patient requesting to be feed with Pudding. Education reinforcement on high risk for aspiration given. Patient unable to verbalized understanding. stating "if you don't feed me pudding I'll bite a whole in my wrist".
--- NOTE | 2019-04-07 20:00 | NUR ---
RECEIVED PT ALERT & ORIENTED X3. ON O2 @ 40% FIO2 AEROSOL W/ O2 SAT OF 97%. G-TUBE INTACT, CHECKED RESIDUAL NONE NOTED , ON TUBE FDG OF JEVITY 1.2 @ 70CC/HR. SUCTIONED VIA TRACH W/ TANNISH THICK MUCOUS MOD. AMT. REPOSITIONED ON HIS OPPOSITE SIDE W/ HOB ELEVATED. TEMP-97.4 ORALLY.
[2019-04-07] MEDS: TOLTERODINE 2 MG TABLET GT SCH (20:24)
[2019-04-07] MEDS: risperiDONE 1 MG TABLET GT SCH (20:24)
[2019-04-07] MEDS: ZONISAMIDE 100 MG CAPSULE GT SCH (20:25)
[2019-04-07] MEDS: ENOXAPARIN SODIUM 40 MG/0.4 ML DISP.SYRIN SQ SCH (20:30)
[2019-04-07] MEDS: TRAZODONE 50 MG TABLET PO SCH (20:50)
--- NOTE | 2019-04-07 22:00 | NUR ---
HS CARE DONE & REPOSITIONED W/ HOB ELEVATED.
[2019-04-08] VITALS (7 sets, daily range): BP systolic 101–130; BP diastolic 56–69
[2019-04-08] MEDS: HYDROMORPHONE 1 MG/1 ML DISP.SYRIN IV PRN ×5 (02:51→23:39)
[2019-04-08] MEDS: IV NS 1000 ML 1,000 ML IV PRN ×2 (03:00→23:40)
[2019-04-08] MEDS: BACLOFEN 20 MG TABLET GT SCH ×3 (03:58→20:17)
--- NOTE | 2019-04-08 04:00 | NUR ---
AM CARE DONE. TRACH CARE DONE. CLEANED G-TUBE SITE W/ H2O2 & DRSG APPLIED. REPOSITIONED PT ON HIS SIDE W/ HOB ELEVATED.
[2019-04-08] MEDS: GABAPENTIN 300 MG CAPSULE GT SCH ×3 (05:37→21:30)
[2019-04-08] MEDS: TIZANIDINE HCL 4 MG TABLET PO SCH ×3 (05:37→21:32)
[2019-04-08] MEDS: PANTOPRAZOLE ORAL SUSPENSION 40 MG SUSPDR.PKT GT SCH (06:10)
[2019-04-08] MEDS: IPRATROPIUM BROMIDE 0.5 MG/2.5 ML NEBU NEB SCH ×3 (06:55→19:04)
[2019-04-08] MEDS: ACETYLCYSTEINE 10% 4ML VIAL NEB SCH ×3 (06:55→19:04)
--- NOTE | 2019-04-08 07:49 | NUR ---
Nursing Note: Pt resting in bed. Able to verbalize needs. On O2 at 5lpm. No SOB. VS obtained. Unable to obtain Temp. Shelbi Connor initiated. Will continue to monitor.
[2019-04-08] MEDS: LORAZEPAM 1 MG TABLET GT SCH ×2 (08:07→20:16)
[2019-04-08] MEDS: LORATADINE 10 MG TABLET GT SCH (08:07)
[2019-04-08] MEDS: LINEZOLID 600 MG TABLET PEG SCH ×2 (08:07→17:21)
[2019-04-08] MEDS: COLISTIMETHATE SODIUM 75 MG in IV DEXTROSE 5% 100 ML IV SCH ×2 (08:08→20:17)
[2019-04-08] MEDS: PHENOBARBITAL 32.4 MG TABLET GT SCH ×2 (08:08→21:36)
[2019-04-08] MEDS: MUPIROCIN 2% OINT 22 GM TUBE NS SCH ×2 (08:12→21:31)
[2019-04-08 09:32] LABS: BASOPHILS % (AUTO) 0.6 % (0.0-2.0); EOSINOPHILS # (AUTO) 0.4 K/uL (0.0-0.7); EOSINOPHILS % (AUTO) 13.7 % (0.0-7.0); HEMATOCRIT 28.2 % (36.7-47.1); HEMOGLOBIN 9.1 g/dL (12.5-16.3); LYMPHOCYTES # (AUTO) 1.1 K/uL (20.0-40.0); LYMPHOCYTES % (AUTO) 35.1 % (20.5-51.5); MEAN CORPUSCULAR HEMOGLOBIN 30.4 uug (23.8-33.4); MEAN CORPUSCULAR HGB CONC 32 g/dL (32.5-36.3); MEAN CORPUSCULAR VOLUME 94.4 fL (73.0-96.2); MONOCYTES # (AUTO) 0.4 K/uL (2.0-10.0); MONOCYTES % (AUTO) 12.4 % (0.0-11.0); NEUTROPHILS # (AUTO) 1.2 K/uL (1.8-8.9); NEUTROPHILS % (AUTO) 38.2 % (38.5-71.5); PLATELET COUNT (AUTO) 132 K/uL (152-348); RED BLOOD CELL COUNT(AUTO) 2.99 MIL/uL (4.06-5.63)
[2019-04-08 09:34] LABS: CARBON DIOXIDE 30 mmol/L (21-32); CHLORIDE 106 mmol/L (98-107); CREATININE 0.2 mg/dL (0.6-1.3); GLUCOSE 173 mg/dL (74-106); POTASSIUM 4.5 mmol/L (3.5-5.1); UREA NITROGEN, BLOOD 8 mg/dL (7-18)
--- NOTE | 2019-04-08 15:00 | NUR ---
Pt resting in bed, easily roused when asleep. Able to verbalize needs. On O2 at 5lpm. No SOB. VS obtained. Reassessed Temp at 98.6F, Shelbi Hugger turned off. Oral care and Trache care done. Complied with turning schedule. Medications due rendered. reinforced nonpharmacological pain control measures. Kept warm dry and comfortable. Will continue to monitor.
[2019-04-08] MEDS: ENOXAPARIN SODIUM 40 MG/0.4 ML DISP.SYRIN SQ SCH (20:19)
[2019-04-08] MEDS: TOLTERODINE 2 MG TABLET GT SCH (21:31)
[2019-04-08] MEDS: risperiDONE 1 MG TABLET GT SCH (21:32)
[2019-04-08] MEDS: TRAZODONE 50 MG TABLET PO SCH (21:32)
[2019-04-08] MEDS: ZONISAMIDE 100 MG CAPSULE GT SCH (21:36)
[2019-04-09] VITALS (7 sets, daily range): BP systolic 92–133; BP diastolic 52–74
--- NOTE | 2019-04-09 00:01 | NUR ---
FC has no output; bladder scanner showed 300 ml; urine in the pad; tried to manipulate; ; unable to forward after ; deflating; ; New FC reinserted Fr 16; with 500 ml out; will observe. Addendum: 04/09/19 at 0652 by NAN SCHNEIDER RN NOT FOR THIS PT
[2019-04-09] MEDS: JEVITY 1.2 1000 ML LIQUID GT PRN ×2 (02:01→09:32)
[2019-04-09] MEDS: BACLOFEN 20 MG TABLET GT SCH ×3 (05:17→20:46)
[2019-04-09] MEDS: TIZANIDINE HCL 4 MG TABLET PO SCH ×3 (05:17→22:21)
[2019-04-09] MEDS: HYDROMORPHONE 1 MG/1 ML DISP.SYRIN IV PRN ×4 (05:17→23:38)
[2019-04-09] MEDS: GABAPENTIN 300 MG CAPSULE GT SCH ×3 (05:17→22:21)
[2019-04-09 06:11] LABS: CARBON DIOXIDE 29 mmol/L (21-32); CHLORIDE 105 mmol/L (98-107); CREATININE 0.3 mg/dL (0.6-1.3); GLUCOSE 109 mg/dL (74-106); POTASSIUM 4.1 mmol/L (3.5-5.1); UREA NITROGEN, BLOOD 13 mg/dL (7-18)
[2019-04-09 06:25] LABS: BASOPHILS % (AUTO) 0.3 % (0.0-2.0); EOSINOPHILS # (AUTO) 0.3 K/uL (0.0-0.7); EOSINOPHILS % (AUTO) 5.7 % (0.0-7.0); HEMOGLOBIN 9.5 g/dL (12.5-16.3); LYMPHOCYTES # (AUTO) 0.9 K/uL (20.0-40.0); LYMPHOCYTES % (AUTO) 19.7 % (20.5-51.5); MEAN CORPUSCULAR HEMOGLOBIN 31.1 uug (23.8-33.4); MEAN CORPUSCULAR HGB CONC 33 g/dL (32.5-36.3); MEAN CORPUSCULAR VOLUME 95.1 fL (73.0-96.2); MONOCYTES # (AUTO) 0.5 K/uL (2.0-10.0); NEUTROPHILS % (AUTO) 63.3 % (38.5-71.5); PLATELET COUNT (AUTO) 140 K/uL (152-348); RED BLOOD CELL COUNT(AUTO) 3.05 MIL/uL (4.06-5.63); WHITE BLOOD COUNT (AUTO) 4.7 K/uL (3.6-10.2)
[2019-04-09] MEDS: PANTOPRAZOLE ORAL SUSPENSION 40 MG SUSPDR.PKT GT SCH (06:38)
--- NOTE | 2019-04-09 06:50 | NUR ---
Pt rested well in between care; medicated for pain; repositioned q2h; needs attended;
[2019-04-09] MEDS: IPRATROPIUM BROMIDE 0.5 MG/2.5 ML NEBU NEB SCH ×2 (07:20→19:20)
[2019-04-09] MEDS: ACETYLCYSTEINE 10% 4ML VIAL NEB SCH ×2 (07:20→19:20)
--- NOTE | 2019-04-09 07:34 | NUR ---
PATIENT RECEIVED ON COOL AEROSOL 40% FiO2. TRACH TUBE IS PATENT AND SECURED WITH TRACH TIE. PATIENT HAS A SHILEY #6 TRACH TUBE. AMBUBAG/BACK UP TRACH AT PATIENT BEDSIDE. NO SHORTNESS OF BREATH NOTED. TX TOLERATED WELL, NO ADVERSE REACTIONS NOTED. SUCTIONED SMALL, THICK, PALE YELLOW SECRETIONS. B/S RHONCHI WITH IMPROVED AERATION POST SUCTION. PATIENT HAS PMV IN PLACE. WILL CONTINUE TO MONITOR PATIENT.
--- NOTE | 2019-04-09 08:00 | NUR ---
RESTING IN BED WITH EYES CLOSE NO SS OF PAIN OR DISTRESS WITH CURRENT O2 SETTINGS, MIST VIA TRACH. SR ON MONITOR
[2019-04-09] MEDS: PHENOBARBITAL 32.4 MG TABLET GT SCH ×2 (08:54→20:49)
[2019-04-09] MEDS: LINEZOLID 600 MG TABLET PEG SCH ×2 (08:54→16:07)
[2019-04-09] MEDS: LORATADINE 10 MG TABLET GT SCH (08:54)
[2019-04-09] MEDS: LORAZEPAM 1 MG TABLET GT SCH ×2 (08:54→20:46)
[2019-04-09] MEDS: MUPIROCIN 2% OINT 22 GM TUBE NS SCH ×2 (08:55→21:22)
[2019-04-09] MEDS: COLISTIMETHATE SODIUM 75 MG in IV DEXTROSE 5% 100 ML IV SCH ×2 (08:55→20:52)
[2019-04-09 10:14] LABS: BILIRUBIN,DIRECT 0.1 mg/dL (0.0-0.2); BILIRUBIN,TOTAL 0.1 mg/dL (0.2-1.0); TOTAL PROTEIN, SERUM 5.8 g/dL (6.4-8.2)
--- NOTE | 2019-04-09 11:00 | NUR ---
SEEN BY DR TRINIDAD FOR PULMO FOLLOW-UP SE NOTES
--- NOTE | 2019-04-09 14:20 | NUR ---
CONTINUE WITH PAIN MANAGEMENT AND IV ANTIBIOTICS ORDERED
--- NOTE | 2019-04-09 17:31 | NUR ---
PATIENT STATUS CHANGED TO TELE, CONTINUE OBSERVATION, IV ANTIBIOTICS. CONTINUE WITH GT FEEDING ORDERED
[2019-04-09] MEDS: TOLTERODINE 2 MG TABLET GT SCH (20:48)
[2019-04-09] MEDS: risperiDONE 1 MG TABLET GT SCH (20:49)
[2019-04-09] MEDS: ENOXAPARIN SODIUM 40 MG/0.4 ML DISP.SYRIN SQ SCH (20:51)
[2019-04-09] MEDS: TRAZODONE 50 MG TABLET PO SCH (20:56)
--- NOTE | 2019-04-09 21:00 | NUR ---
NURSING NOTE: 2100 NOTED 94F ORAL, STARTED ON SIERRA JOYCE, KEPT WARM DRY AND COMFORTABLE REASSESSED WITH BP AT 116/61 DUE MEDICATIONS RENDERED Addendum: 04/10/19 at 0007 by JEMIMA HOPKINS RN 2130 TEMPERATURE BACK TO 97F
[2019-04-09] MEDS: ZONISAMIDE 100 MG CAPSULE GT SCH (21:57)
--- NOTE | 2019-04-09 23:45 | NUR ---
Report from TORRI Boggs. Received pt resting in bed, ivette hugger placed. NS IV maintenance running at 50cc/hr. Aspiration and seizure precautions observed. Will continue plan of care.
[2019-04-09] MEDS: IV NS 1000 ML 1,000 ML IV PRN (23:58)
[2019-04-10] VITALS: BP 113/62
[2019-04-10] MEDS: BACLOFEN 20 MG TABLET GT SCH ×3 (03:48→20:17)
[2019-04-10] MEDS: HYDROMORPHONE 1 MG/1 ML DISP.SYRIN IV PRN ×3 (03:49→19:39)
[2019-04-10 04:00] VITALS: BP 106/52
[2019-04-10] MEDS: TIZANIDINE HCL 4 MG TABLET PO SCH ×3 (05:32→21:09)
[2019-04-10] MEDS: GABAPENTIN 300 MG CAPSULE GT SCH ×3 (05:33→21:09)
--- NOTE | 2019-04-10 05:45 | NUR ---
AM care provided. Kept clean and dry, pt turned and repositioned. Pt denies pain or discomfort. VSS, Shelbi hugger in place. Pt shows no s/s of acute distress. Aspiration and seizure precautions maintained at all times. Safety measures provided. Continue to monitor.
[2019-04-10] MEDS: PANTOPRAZOLE ORAL SUSPENSION 40 MG SUSPDR.PKT GT SCH (06:03)
[2019-04-10] MEDS: IPRATROPIUM BROMIDE 0.5 MG/2.5 ML NEBU NEB SCH ×2 (07:25→19:46)
[2019-04-10] MEDS: ACETYLCYSTEINE 10% 4ML VIAL NEB SCH ×2 (07:25→19:46)
[2019-04-10] MEDS: PHENOBARBITAL 32.4 MG TABLET GT SCH ×2 (08:29→21:05)
[2019-04-10] MEDS: LORAZEPAM 1 MG TABLET GT SCH ×2 (08:29→20:17)
[2019-04-10] MEDS: LINEZOLID 600 MG TABLET PEG SCH ×2 (08:29→17:34)
[2019-04-10] MEDS: LORATADINE 10 MG TABLET GT SCH (08:29)
[2019-04-10] MEDS: MUPIROCIN 2% OINT 22 GM TUBE NS SCH (08:30)
[2019-04-10] MEDS: COLISTIMETHATE SODIUM 75 MG in IV DEXTROSE 5% 100 ML IV SCH ×2 (08:31→20:18)
[2019-04-10 12:14] VITALS: BP 105/56
[2019-04-10 16:06] VITALS: BP 91/55
[2019-04-10] MEDS: JEVITY 1.2 1000 ML LIQUID GT PRN (18:23)
[2019-04-10 20:00] VITALS: BP 114/70
[2019-04-10] MEDS: ENOXAPARIN SODIUM 40 MG/0.4 ML DISP.SYRIN SQ SCH (20:19)
[2019-04-10] MEDS: IV NS 1000 ML 1,000 ML IV PRN (20:23)
[2019-04-10] MEDS: risperiDONE 1 MG TABLET GT SCH (21:09)
[2019-04-10] MEDS: ZONISAMIDE 100 MG CAPSULE GT SCH (21:12)
[2019-04-10] MEDS: TOLTERODINE 2 MG TABLET GT SCH (21:12)
[2019-04-10] MEDS: TRAZODONE 50 MG TABLET PO SCH (21:15)
[2019-04-11] VITALS: BP 83/51
[2019-04-11] MEDS: HYDROMORPHONE 1 MG/1 ML DISP.SYRIN IV PRN ×5 (00:02→19:58)
[2019-04-11 04:00] VITALS: BP 90/39
[2019-04-11] MEDS: BACLOFEN 20 MG TABLET GT SCH ×3 (04:49→19:59)
--- NOTE | 2019-04-11 06:00 | NUR ---
END OF SHIFT REPORT Patient rested well in between care; no acute distress; trache care done; tolerated GTF; c/o pain x3 and addressed accordingly; suctioned oral and trache secretions; needs attended; continue to monitor; continue plan of care.
[2019-04-11] MEDS: PANTOPRAZOLE ORAL SUSPENSION 40 MG SUSPDR.PKT GT SCH (06:02)
[2019-04-11] MEDS: TIZANIDINE HCL 4 MG TABLET PO SCH ×3 (06:02→21:16)
[2019-04-11] MEDS: GABAPENTIN 300 MG CAPSULE GT SCH ×3 (06:02→21:14)
[2019-04-11 06:29] LABS: BASOPHILS % (AUTO) 0.2 % (0.0-2.0); EOSINOPHILS # (AUTO) 0.3 K/uL (0.0-0.7); EOSINOPHILS % (AUTO) 6.1 % (0.0-7.0); HEMATOCRIT 28.1 % (36.7-47.1); HEMOGLOBIN 9.2 g/dL (12.5-16.3); LYMPHOCYTES # (AUTO) 0.7 K/uL (20.0-40.0); LYMPHOCYTES % (AUTO) 13.8 % (20.5-51.5); MEAN CORPUSCULAR HGB CONC 33 g/dL (32.5-36.3); MEAN CORPUSCULAR VOLUME 94.4 fL (73.0-96.2); MONOCYTES # (AUTO) 0.6 K/uL (2.0-10.0); MONOCYTES % (AUTO) 11.6 % (0.0-11.0); NEUTROPHILS # (AUTO) 3.6 K/uL (1.8-8.9); NEUTROPHILS % (AUTO) 68.3 % (38.5-71.5); PLATELET COUNT (AUTO) 120 K/uL (152-348); RED BLOOD CELL COUNT(AUTO) 2.98 MIL/uL (4.06-5.63); WHITE BLOOD COUNT (AUTO) 5.2 K/uL (3.6-10.2)
[2019-04-11 07:05] LABS: CARBON DIOXIDE 27 mmol/L (21-32); CHLORIDE 106 mmol/L (98-107); CREATININE 0.4 mg/dL (0.6-1.3); GLUCOSE 116 mg/dL (74-106); POTASSIUM 4.2 mmol/L (3.5-5.1); UREA NITROGEN, BLOOD 11 mg/dL (7-18)
[2019-04-11 07:19] LABS: MAGNESIUM 1.2 mg/dL (1.8-2.4)
--- NOTE | 2019-04-11 07:30 | NUR ---
Awake, alert, complaining of generalized pain, on moderate high back rest. Trach to p mist, not in distress. RT at bedside HHN given secretions suctioned. IVF infusing to truong cath left groin. Olsen catheter to drainage bag with yellow urine. Tele SR. Contact isolation re enforced.
[2019-04-11] MEDS: IPRATROPIUM BROMIDE 0.5 MG/2.5 ML NEBU NEB SCH ×2 (07:43→19:16)
[2019-04-11] MEDS: ACETYLCYSTEINE 10% 4ML VIAL NEB SCH ×2 (07:43→19:16)
[2019-04-11] MEDS: JEVITY 1.2 1000 ML LIQUID GT PRN (09:58)
[2019-04-11] MEDS: LORAZEPAM 1 MG TABLET GT SCH ×2 (09:59→19:59)
[2019-04-11] MEDS: PHENOBARBITAL 32.4 MG TABLET GT SCH ×2 (09:59→21:14)
[2019-04-11] MEDS: LINEZOLID 600 MG TABLET PEG SCH ×2 (09:59→16:33)
[2019-04-11] MEDS: LORATADINE 10 MG TABLET GT SCH (09:59)
[2019-04-11] MEDS: COLISTIMETHATE SODIUM 75 MG in IV DEXTROSE 5% 100 ML IV SCH ×2 (10:07→21:24)
[2019-04-11] MEDS: MAGNESIUM SULFATE/D5W 100 ML IV SCH ×3 (10:44→12:45)
[2019-04-11 12:07] VITALS: BP 98/64
[2019-04-11 15:27] VITALS: BP 104/61
[2019-04-11] MEDS: IV NS 1000 ML 1,000 ML IV PRN (18:09)
[2019-04-11 20:00] VITALS: BP 106/63
[2019-04-11] MEDS: TOLTERODINE 2 MG TABLET GT SCH (21:14)
[2019-04-11] MEDS: risperiDONE 1 MG TABLET GT SCH (21:14)
[2019-04-11] MEDS: ENOXAPARIN SODIUM 40 MG/0.4 ML DISP.SYRIN SQ SCH (21:15)
[2019-04-11] MEDS: TRAZODONE 50 MG TABLET PO SCH (21:16)
[2019-04-11] MEDS: ZONISAMIDE 100 MG CAPSULE GT SCH ×2 (23:06→23:56)
[2019-04-12] VITALS: BP 91/52
[2019-04-12] MEDS: HYDROMORPHONE 1 MG/1 ML DISP.SYRIN IV PRN ×3 (02:42→17:43)
[2019-04-12] MEDS: BACLOFEN 20 MG TABLET GT SCH ×2 (03:54→13:10)
[2019-04-12 04:00] VITALS: BP 107/62
[2019-04-12] MEDS: TIZANIDINE HCL 4 MG TABLET PO SCH ×2 (05:40→14:46)
[2019-04-12] MEDS: GABAPENTIN 300 MG CAPSULE GT SCH ×2 (05:40→14:46)
[2019-04-12] MEDS: PANTOPRAZOLE ORAL SUSPENSION 40 MG SUSPDR.PKT GT SCH (05:41)
--- NOTE | 2019-04-12 06:53 | NUR ---
END OF SHIFT REPORT Patient rested well in between care; no acute distress; trache care done; tolerated GTF; NO RESIDUAL; c/o pain x2 and addressed accordingly; suctioned oral and trache secretions; needs attended; continue to monitor; continue plan of care
[2019-04-12] MEDS: IPRATROPIUM BROMIDE 0.5 MG/2.5 ML NEBU NEB SCH (07:29)
[2019-04-12] MEDS: ACETYLCYSTEINE 10% 4ML VIAL NEB SCH (07:29)
--- NOTE | 2019-04-12 07:30 | NUR ---
RECIEVED PT LYING IN BED, AWAKE AND ORIENTEDX3. C/O OF PAIN ON BOTH SHOULDERS AND WANTED TO HAVE HIS PAIN MEDICATION.
--- NOTE | 2019-04-12 08:45 | NUR ---
MEDICATED WITH DILAUDID 0.5MG SLOW IVP ORDERED AND PT ABLE TO FALL ASLEEP.
[2019-04-12] MEDS: LINEZOLID 600 MG TABLET PEG SCH (09:55)
[2019-04-12] MEDS: PHENOBARBITAL 32.4 MG TABLET GT SCH (09:55)
[2019-04-12] MEDS: LORAZEPAM 1 MG TABLET GT SCH (09:55)
[2019-04-12] MEDS: LORATADINE 10 MG TABLET GT SCH (09:55)
[2019-04-12] MEDS: COLISTIMETHATE SODIUM 75 MG in IV DEXTROSE 5% 100 ML IV SCH (09:56)
--- NOTE | 2019-04-12 11:00 | NUR ---
METAL SPRAY OPERATOR IS WORKING ON PT'S PLAN TO DISCHARGE HOME TODAY VIA AMBULANCE. SISTER DEREJE WHO IS TAKING CARE OF HIM IS AWARE.
[2019-04-12] MEDS: JEVITY 1.2 1000 ML LIQUID GT PRN (11:25)
[2019-04-12 12:00] VITALS: BP 94/52
[2019-04-12] MEDS ORDERED: COLI150V5 IM (14:30)
--- NOTE | 2019-04-12 14:55 | NUR ---
PT ASKED FOR HIS PAIN MEDICATION FOR HIS SHOULDERS AND MEDICATED AGAIN WITH DILAUDID 0.5MG SLOW IVP FOR THE LAST TIME BEFORE PT IS BEING DISCHARGED.
[2019-04-12 16:10] VITALS: BP 106/63
--- NOTE | 2019-04-12 17:30 | NUR ---
PT IS DISCHARGED VIA AMBULANCE. DISCHARGE INSTRUCTIONS GIVEN TO PT WITH GOOD UNDERSTANDING. VSS. NO APPARENT RESPIRATORY DISTRESS NOTED. TRACHE CARE DONE.
== END 2019-04-12 17:10 | disposition home health service (06) | DRG 720 ==
LOC: ER 13:59 → UNDOADMIN 17:42 → MEDSURG3 17:42 → TELE3 20:40 → CCU 04-04 00:16 → TELE-TD3 04-07 07:00 → TELE3 04-09 16:13
PROVIDERS: ADMIT Internal Medicine; ATTEND Internal Medicine
DX: A41.52 Sepsis due to Pseudomonas (principal); J96.21 Acute and chronic respiratory failure with hypoxia; R65.21 Severe sepsis with septic shock; J69.0 Pneumonitis due to inhalation of food and vomit; G82.50 Quadriplegia, unspecified; G93.41 Metabolic encephalopathy; E44.0 Moderate protein-calorie malnutrition; Z93.0 Tracheostomy status; G93.1 Anoxic brain damage, not elsewhere classified; N39.0 Urinary tract infection, site not specified; S14.104S Unspecified injury at C4 level of cervical spinal cord, sequela; V49.9XXS Car occupant (driver) (passenger) injured in unspecified traffic accident, sequela; G40.909 Epilepsy, unspecified, not intractable, without status epilepticus; M85.812 Other specified disorders of bone density and structure, left shoulder; Z93.1 Gastrostomy status; D63.8 Anemia in other chronic diseases classified elsewhere; D68.59 Other primary thrombophilia; E78.5 Hyperlipidemia, unspecified; E83.42 Hypomagnesemia; G89.4 Chronic pain syndrome; J96.22 Acute and chronic respiratory failure with hypercapnia; F32.9 Major depressive disorder, single episode, unspecified; F41.9 Anxiety disorder, unspecified; Z68.1 Body mass index [BMI] 19.9 or less, adult; N31.9 Neuromuscular dysfunction of bladder, unspecified; G90.4 Autonomic dysreflexia; Z87.01 Personal history of pneumonia (recurrent); R62.7 Adult failure to thrive; Z79.891 Long term (current) use of opiate analgesic
CPT/HCPCS: 36415; 36600; 70030-TC; 71045; 73030; 80184; 83605; 83735; 84100; 85025; 85730; 87040; 87077; 87086; 92526; 92610; 93005; 94640; 94664; A4217; A4663; G0378; J0278; J0696; J0770; J1170; J1650; J2405; J3370; J3475; J3480; J3490; J3590; J7030; J7050; J7060; J8499

== ENCOUNTER 2019-12-31 20:56 | Inpatient (IN) | payer OTHER ==
[~2019-12-31] VITALS: Ht 172.7 cm; Wt 49.5 kg
--- NOTE | 2019-12-31 21:31 | NUR ---
PT RECEIVED VIA RA, FROM HOME EMT STATES +SEIZURE TODAY 3X PLACED ON SEIZURE PREC ASPIRATION PREC FALL PREC NOTED GEN MUSCLE ATROPHY +TRACHE MASK WITH O2 AT 10LPM +G-TUBE INTACT +SKIN BREAK WITH SACRAL PATCH PT IS A0X3 BUT SPEAKS VERY SLOW AND REPETITIVELY ASKS FOR MORPHINE
--- NOTE | 2019-12-31 21:31 | NUR ---
DR BECKETT(PRIMARY) PHYSICIAN ON THE PHONE WITH ERMD FOR UPDATE
--- NOTE | 2019-12-31 21:32 | NUR ---
FC URINE OUTPUT: 650ML
[2019-12-31] MEDS ORDERED: IV NORMAL SALINE 1000 ML BAG IV ONE (21:45)
--- NOTE | 2019-12-31 22:00 | NUR ---
CENTRAL LINE INITIATED BY ERMD VIA STERILE TECHNIQUE ABLE TO START INFUSING TO R FEMORAL
[2019-12-31] MEDS ORDERED: AZITHROMYCIN IV 500 MG in IV DEXTROSE 5% 250 ML IV ONE (22:30)
[2019-12-31] MEDS ORDERED: CEFEPIME HCL 1 G in IV DEXTROSE 5% 50 ML IV ONE (22:30)
[2019-12-31] MEDS ORDERED: VANCOMYCIN 1G/D5W 200 ML PIGGYBACK IV ONE (22:30)
[2019-12-31 22:41] LABS: *BILIRUBIN,URIN NEGATIVE (NEGATIVE); *BLOOD, URINE 3+ (NEGATIVE); *CLARITY,URINE CLOUDY (CLEAR); *COLOR,URINE YELLOW (YELLOW); *KETONES,URINE NEGATIVE (NEGATIVE); *UROBILINOGEN,URINE 0.2 E.U./dl (NORMAL); LEUKOCYTE ESTERASE ,URINE 3+ (NEGATIVE); NITRITE, URINE NEGATIVE (NEGATIVE); PH,URINE 7.5 (5.0-8.0); UGLUCOSE NEGATIVE (NEGATIVE)
[2019-12-31] MEDS ORDERED: IV NORMAL SALINE 500 ML IV ONE (22:45)
[2019-12-31] MEDS ORDERED: NOREPINEPHRINE BITARTRATE 8 MG in IV DEXTROSE 5% 500 ML IV PRN (22:45)
[2019-12-31 22:46] LABS: BASOPHILS % (AUTO) 0.1 % (0.0-2.0); EOSINOPHILS # (AUTO) 0.1 K/uL (0.0-0.7); EOSINOPHILS % (AUTO) 1.4 % (0.0-7.0); HEMATOCRIT 30.6 % (36.7-47.1); HEMOGLOBIN 10.3 g/dL (12.5-16.3); LYMPHOCYTES % (AUTO) 15.5 % (20.5-51.5); MEAN CORPUSCULAR HEMOGLOBIN 29.9 uug (23.8-33.4); MEAN CORPUSCULAR HGB CONC 34 g/dL (32.5-36.3); MEAN CORPUSCULAR VOLUME 89.3 fL (73.0-96.2); MONOCYTES # (AUTO) 0.7 K/uL (2.0-10.0); MONOCYTES % (AUTO) 10.8 % (0.0-11.0); NEUTROPHILS # (AUTO) 4.8 K/uL (1.8-8.9); NEUTROPHILS % (AUTO) 72.2 % (38.5-71.5); PLATELET COUNT (AUTO) 83 K/uL (152-348); RED BLOOD CELL COUNT(AUTO) 3.43 MIL/uL (4.06-5.63); WHITE BLOOD COUNT (AUTO) 6.6 K/uL (3.6-10.2)
[2019-12-31 22:48] LABS: CARBON DIOXIDE 30 mmol/L (21-32); CHLORIDE 95 mmol/L (98-107); CREATININE 0.2 mg/dL (0.6-1.3); GLUCOSE 86 mg/dL (74-106); POTASSIUM 3.8 mmol/L (3.5-5.1); UREA NITROGEN, BLOOD 5 mg/dL (7-18)
[2019-12-31 22:49] LABS: BACTERIA,URINE MANY /HPF (NONE SEEN); RBC,URINE 50-80 /HPF (0-3); SQUAMOUS EPITHELIAL CELL,UR FEW /HPF (NONE SEEN); WBC,URINE 80-100 /HPF (0-3)
[2019-12-31] MEDS ORDERED: CEFEPIME HCL 1 G VIAL ONE (22:49)
[2019-12-31] MEDS ORDERED: VANCOMYCIN IV 200 ML ONE (22:50)
[2019-12-31] MEDS ORDERED: AZITHROMYCIN 500MG/ D5W 250ML IVPB **ER PYXIS ONLY IV ONE (22:50)
[2019-12-31] MEDS ORDERED: NOREPINEPHRINE BITARTRATE 4 MG/4 ML VIAL IV ONE (22:51)
[2019-12-31 23:01] LABS: ALANINE AMINOTRANSFERASE 59 U/L (16-63); ALKALINE PHOSPHATASE 248 U/L (50-136); ASPARTATE AMINOTRANSFERASE 38 U/L (15-37); BILIRUBIN,DIRECT < 0.1 mg/dL (0.0-0.2); BILIRUBIN,TOTAL 0.4 mg/dL (0.2-1.0); TOTAL PROTEIN, SERUM 6.4 g/dL (6.4-8.2)
--- NOTE | 2019-12-31 23:45 | NUR ---
BP AT 69/49MMHG STARTED ON LEVOPHED DRIP PER PROTOCOL
--- NOTE | 2019-12-31 23:49 | NUR ---
ERMD INCREASED FROM 4MCG TO 5MCG BP AT 100/81MMHG
[2019-12-31 23:50] LABS: BAND % (MANUAL) 5 % (0-10); EOSINOPHILS % (MANUAL) 3 % (0-8); LYMPHOCYTES % (MANUAL) 17 % (20-40); MONOCYTES % (MANUAL) 6 % (2-10); NEUTROPHILS % (MANUAL) 69 % (42-75)
[2020-01-01] VITALS (87 sets, daily range): BP systolic 51–140; BP diastolic 32–89
--- NOTE | 2020-01-01 00:16 | NUR ---
EPIC CALLED (SHA)
--- NOTE | 2020-01-01 00:42 | NUR ---
SHA CALLED TOY ASSEMBLER WOOD OFF AND SBAR GIVEN TO MS MOOSE WILD
--- NOTE | 2020-01-01 00:45 | NUR ---
PT CORE TEMP AT 93.8F WARMING MEASURES INITIATED
--- NOTE | 2020-01-01 01:00 | NUR ---
PT CORE TEMP 94F PRIOR TO TRANSPORT
--- NOTE | 2020-01-01 01:00 | NUR ---
pt transported via [facility] by daniel adkins
--- NOTE | 2020-01-01 01:15 | NUR ---
Admitted a 44 y.o male patient to CCU 4 DX: Septic Shock, PNA, UTI. Patient unresponsive, pale, cyanotic, bradypneic. Attached to bedside monitor; SR but unable to get accurate pulse ox. BP in the 50's. Levophed drip titrated. RT called stat. Patient bagged. Temp=92.8 rectally. Shelbi montana turned on. Addendum: 01/01/20 at 0651 by MOOSE RUBALCAVA RN Amended: Links added. Addendum: 01/01/20 at 0653 by MOOSE RUBALCAVA RN Amended: Links added. Addendum: 01/01/20 at 0656 by MOOSE RUBALCAVA RN Amended: Links added.
--- NOTE | 2020-01-01 01:30 | NUR ---
Marquise Albert NP here. Informed of patient's condition including stat ABGs ordered. Addendum: 01/01/20 at 0653 by MOOSE RUBALCAVA RN Amended: Links added. Addendum: 01/01/20 at 0656 by MOOSE RUBALCAVA RN Amended: Links added.
[2020-01-01 01:45] LABS: ABG BASE EXCESS -2.5 mmol/L; ABG HCO3 24.7 mmol/L; ABG PH 7.279 (7.350-7.450); ABG PO2 75.6 mmHg (75.0-100.0); ABG SITE LEFT RADIAL; ABG TOTAL HEMOGLOBIN 11.2 G/dL (13.5-18.0); COHb 1.5 % (0.5-1.5); MetHb 0.2 % (0.0-1.5); O2Hb 91.7 % (94.0-97.0); VENT MODE TRACH MASK
[2020-01-01] MEDS ORDERED: ZOLPIDEM 5 MG TABLET PO PRN (01:45)
[2020-01-01] MEDS ORDERED: Z GUARD REMEDY PASTE 57 GM TUBE TOP PRN (01:45)
[2020-01-01] MEDS ORDERED: ENOXAPARIN SODIUM 40 MG/0.4 ML DISP.SYRIN SQ SCH (01:45)
[2020-01-01] MEDS ORDERED: BACLOFEN 10 MG TABLET GT SCH ×2 (02:00→14:00)
[2020-01-01] MEDS ORDERED: IBUPROFEN 400 MG TABLET GT PRN ×2 (02:00→07:15)
[2020-01-01] MEDS ORDERED: POLYVINYL ALCOHOL OPHT DROPS 15 ML BOTTLE EACHEYE PRN ×2 (02:00→07:02)
--- NOTE | 2020-01-01 02:22 | NUR ---
Spoke to Marquise Albert re: Lovenox dose. Plt count=83,000. Ordered to hold dose and check platelets in am.
[2020-01-01] MEDS ORDERED: TIZANIDINE HCL 4 MG TABLET GT SCH (02:30)
[2020-01-01] MEDS ORDERED: TIZANIDINE HCL 4 MG TABLET PO SCH (02:30)
[2020-01-01] MEDS: NOREPINEPHRINE BITARTRATE 8 MG in IV DEXTROSE 5% 500 ML IV PRN ×2 (02:45→10:57)
[2020-01-01] MEDS ORDERED: BACLOFEN 10 MG TABLET ONE (02:51)
[2020-01-01] MEDS ORDERED: TIZANIDINE HCL 4 MG TABLET ONE (02:58)
[2020-01-01] MEDS: IV D5/ 0.9% NACL 1,000 ML IV PRN ×2 (03:17→16:09)
--- NOTE | 2020-01-01 04:30 | NUR ---
Remains hypothermic. Warming blanket still on. Levophed drip maintained at 4 mcg/min for BP support.
[2020-01-01 05:17] LABS: BASOPHILS % (AUTO) 0.1 % (0.0-2.0); EOSINOPHILS # (AUTO) 0.1 K/uL (0.0-0.7); EOSINOPHILS % (AUTO) 0.8 % (0.0-7.0); HEMATOCRIT 33.7 % (36.7-47.1); HEMOGLOBIN 11.2 g/dL (12.5-16.3); LYMPHOCYTES # (AUTO) 0.7 K/uL (20.0-40.0); LYMPHOCYTES % (AUTO) 8.5 % (20.5-51.5); MEAN CORPUSCULAR HEMOGLOBIN 29.8 uug (23.8-33.4); MEAN CORPUSCULAR HGB CONC 33 g/dL (32.5-36.3); MEAN CORPUSCULAR VOLUME 90.1 fL (73.0-96.2); MONOCYTES % (AUTO) 12.1 % (0.0-11.0); NEUTROPHILS # (AUTO) 6.8 K/uL (1.8-8.9); NEUTROPHILS % (AUTO) 78.5 % (38.5-71.5); RED BLOOD CELL COUNT(AUTO) 3.75 MIL/uL (4.06-5.63); WHITE BLOOD COUNT (AUTO) 8.6 K/uL (3.6-10.2)
[2020-01-01 05:35] LABS: PLATELET COUNT (AUTO) 88 K/uL (152-348)
[2020-01-01 05:40] LABS: ALANINE AMINOTRANSFERASE 56 U/L (16-63); ALKALINE PHOSPHATASE 247 U/L (50-136); ASPARTATE AMINOTRANSFERASE 36 U/L (15-37); BILIRUBIN,TOTAL 0.5 mg/dL (0.2-1.0); CARBON DIOXIDE 30 mmol/L (21-32); CHLORIDE 98 mmol/L (98-107); CREATININE 0.3 mg/dL (0.6-1.3); GLUCOSE 134 mg/dL (74-106); MAGNESIUM 1.5 mg/dL (1.8-2.4); PHOSPHOROUS 2.5 mg/dL (2.5-4.9); POTASSIUM 3.3 mmol/L (3.5-5.1); TOTAL PROTEIN, SERUM 6.7 g/dL (6.4-8.2); UREA NITROGEN, BLOOD 5 mg/dL (7-18)
[2020-01-01 05:48] LABS: THYROID STIMULATING HORMONE 1.058 mIU/mL (0.358-3.740)
[2020-01-01] MEDS ORDERED: CEFEPIME HCL 1 G in IV DEXTROSE 5% 50 ML IV SCH (06:00)
--- NOTE | 2020-01-01 06:00 | NUR ---
Patient is waking up and able to make needs known. Saturations above 90% on trache mask 10 L. Remains on Levophed drip 4 mcg/min.
[2020-01-01] MEDS: IPRATROPIUM BROMIDE 0.5 MG/2.5 ML NEBU NEB SCH ×3 (07:17→19:41)
--- NOTE | 2020-01-01 07:30 | NUR ---
Recieved pt lying in bed, awake and orientedx2. Color is pale . Pt extremeties are flaccid. HR is SR-ST no ectopy. Pt on bear hugger, temp is 94.6f. He is a chronic trache shiley 6, has a cooling mist at 10L. O2 sat is 96-98%. Lungs is clear with slight rhonchis. Suction secretions via trache.
[2020-01-01] MEDS: CEFEPIME HCL 1 G in IV DEXTROSE 5% 50 ML IV SCH ×2 (08:24→16:09)
--- NOTE | 2020-01-01 08:29 | NUR ---
Clinical Pharmacy Note: Vancomycin Dosing per Pharmacy Subjective: Vancomycin IV to start on this 44 yo male patient (quadriplegic) for empiric tx. Per MD note" Septic shock, Pneumonia (Likely from aspiration, probable gram-negative organism) , UTI. Objective: BUN 5/Scr 0.3 WBC 8.6 Temperature 94.3 ht 173 cm wt 50 kg Assessment/Plan: Patient received vanco 1gm IVPB x1 in ED on 12/30 at 2300. Will start vancomycin 1000mg IVPB Q12hr for a predicted vancomycin steady state trough level of 18 mcg/ml (see previous dosing). 2nd dose today at 1100. Will draw a vancomycin trough level prior to the 4th dose of vancomycin (ordered for 01/01 at 1030am). Pharmacy shall review the level when available & adjust the dose if needed. Will follow daily.
[2020-01-01 08:33] LABS: ABG BASE EXCESS 2.2 mmol/L; ABG HCO3 27.4 mmol/L; ABG PCO2 45.5 mmHg (35.0-45.0); ABG PH 7.398 (7.350-7.450); ABG PO2 92.4 mmHg (75.0-100.0); ABG SITE RIGHT RADIAL; ABG TOTAL HEMOGLOBIN 11.6 G/dL (13.5-18.0); COHb 1.4 % (0.5-1.5); MetHb 0.3 % (0.0-1.5); O2Hb 95.6 % (94.0-97.0)
[2020-01-01] MEDS ORDERED: GABAPENTIN 300 MG CAPSULE PO SCH (09:00)
--- NOTE | 2020-01-01 09:00 | NUR ---
Pt's BP is labile. Levophed drip at 4mc/min, increased to 6mcg/min for BP being low. Femoral line right groin intact.
[2020-01-01] MEDS: LORATADINE 10 MG TABLET GT SCH (09:37)
[2020-01-01] MEDS: POTASSIUM CHLORIDE 50 ML IV SCH ×4 (09:37→13:03)
[2020-01-01] MEDS: MAGNESIUM SULFATE/D5W 100 ML IV SCH ×2 (09:37→10:56)
[2020-01-01] MEDS: PHENOBARBITAL 32.4 MG TABLET GT SCH ×2 (09:38→20:58)
[2020-01-01] MEDS: GABAPENTIN 300 MG CAPSULE GT SCH ×3 (09:38→17:47)
[2020-01-01] MEDS: PANTOPRAZOLE SODIUM 40 MG VIAL IV SCH (09:38)
[2020-01-01] MEDS: SODIUM CHLORIDE 1,000 MG TABLET GT SCH (09:43)
--- NOTE | 2020-01-01 10:30 | NUR ---
Pt is having a very slight episode of petitmal seizure lasted less than a second. No apparent respiratory distress noted.
[2020-01-01] MEDS: VANCOMYCIN IV 1,000 MG in IV DEXTROSE 5% 250 ML IV SCH ×2 (11:15→22:41)
[2020-01-01] MEDS: ENOXAPARIN SODIUM 40 MG/0.4 ML DISP.SYRIN SQ SCH (11:57)
--- NOTE | 2020-01-01 12:00 | NUR ---
Seen and examined by Dr Anderson with new orders.
[2020-01-01] MEDS: BACLOFEN 20 MG TABLET GT SCH ×2 (14:49→21:18)
[2020-01-01] MEDS: TIZANIDINE HCL 4 MG TABLET GT SCH ×2 (14:49→21:19)
--- NOTE | 2020-01-01 16:30 | NUR ---
PM care rendered and hair shampoo done.
--- NOTE | 2020-01-01 19:00 | NUR ---
Condition is unchanged. Temp up 98.5F Bear Hugger removed.
--- NOTE | 2020-01-01 19:30 | NUR ---
Report received. Patient admitted yesterday for Sepsis, PNA and UTI. AA, quadriplegic. NAD noted. With trache Amy#6: O2 9L flow=30% FIO2 by trache mask. Levophed drip infusing to keep SBP above 90 via TLC R femoral. Assessment completed and documented. Addendum: 01/02/20 at 0326 by MOOSE RUBALCAVA RN Amended: Links added.
[2020-01-01] MEDS: ACETYLCYSTEINE 10% 4ML VIAL NEB SCH (19:41)
[2020-01-01] MEDS: OSMOLITE 1.2 CAL 1,000 ML LIQUID GT PRN (20:53)
[2020-01-01] MEDS: ZONISAMIDE 100 MG CAPSULE GT SCH (20:57)
[2020-01-01] MEDS: TOLTERODINE 2 MG TABLET GT SCH (21:09)
[2020-01-01] MEDS ORDERED: AZITHROMYCIN IV 500 MG in IV DEXTROSE 5% 250 ML IV SCH (23:00)
--- NOTE | 2020-01-01 23:00 | NUR ---
Attempted to Dc Levophed drip, but patient's BP dropped to 60's systole. Levophed drip resume. Will continue to closely monitor BPs. Addendum: 01/02/20 at 0001 by MOOSE RUBALCAVA RN Amended: Links added.
[2020-01-02] VITALS (76 sets, daily range): BP systolic 81–137; BP diastolic 34–94
[2020-01-02] MEDS: IPRATROPIUM BROMIDE 0.5 MG/2.5 ML NEBU NEB SCH ×4 (00:58→20:50)
[2020-01-02] MEDS: CEFEPIME HCL 1 G in IV DEXTROSE 5% 50 ML IV SCH ×3 (01:10→15:55)
[2020-01-02] MEDS: IV D5/ 0.9% NACL 1,000 ML IV PRN ×2 (04:47→17:04)
[2020-01-02 05:11] LABS: ALANINE AMINOTRANSFERASE 45 U/L (16-63); ALKALINE PHOSPHATASE 222 U/L (50-136); ASPARTATE AMINOTRANSFERASE 25 U/L (15-37); BILIRUBIN,TOTAL 0.4 mg/dL (0.2-1.0); CARBON DIOXIDE 27 mmol/L (21-32); CHLORIDE 103 mmol/L (98-107); CREATININE 0.2 mg/dL (0.6-1.3); GLUCOSE 92 mg/dL (74-106); MAGNESIUM 1.7 mg/dL (1.8-2.4); POTASSIUM 3.9 mmol/L (3.5-5.1); TOTAL PROTEIN, SERUM 6.3 g/dL (6.4-8.2); UREA NITROGEN, BLOOD 3 mg/dL (7-18)
[2020-01-02 05:40] LABS: BASOPHILS % (AUTO) 0.2 % (0.0-2.0); EOSINOPHILS # (AUTO) 0.1 K/uL (0.0-0.7); EOSINOPHILS % (AUTO) 2.5 % (0.0-7.0); HEMATOCRIT 31.5 % (36.7-47.1); HEMOGLOBIN 10.3 g/dL (12.5-16.3); LYMPHOCYTES # (AUTO) 0.7 K/uL (20.0-40.0); MEAN CORPUSCULAR HEMOGLOBIN 29.4 uug (23.8-33.4); MEAN CORPUSCULAR HGB CONC 33 g/dL (32.5-36.3); MEAN CORPUSCULAR VOLUME 89.9 fL (73.0-96.2); MONOCYTES # (AUTO) 0.8 K/uL (2.0-10.0); MONOCYTES % (AUTO) 14.7 % (0.0-11.0); NEUTROPHILS # (AUTO) 3.5 K/uL (1.8-8.9); NEUTROPHILS % (AUTO) 68.6 % (38.5-71.5); RED BLOOD CELL COUNT(AUTO) 3.51 MIL/uL (4.06-5.63); WHITE BLOOD COUNT (AUTO) 5.1 K/uL (3.6-10.2)
[2020-01-02 05:48] LABS: PLATELET COUNT (AUTO) 90 K/uL (152-348)
[2020-01-02] MEDS: TIZANIDINE HCL 4 MG TABLET GT SCH ×3 (06:10→22:19)
[2020-01-02] MEDS: BACLOFEN 20 MG TABLET GT SCH ×3 (06:10→22:19)
--- NOTE | 2020-01-02 06:45 | NUR ---
Remains on Levophed drip at 2 mcg/min. GT feedings at 20 ml/H; residuals=15 ml. Still on trache mask 9L flow=30% FIO2.
[2020-01-02] MEDS: ACETYLCYSTEINE 10% 4ML VIAL NEB SCH ×2 (07:20→20:50)
[2020-01-02] MEDS: LORATADINE 10 MG TABLET GT SCH (08:16)
[2020-01-02] MEDS: GABAPENTIN 300 MG CAPSULE GT SCH ×3 (08:17→15:53)
[2020-01-02] MEDS: PHENOBARBITAL 32.4 MG TABLET GT SCH ×2 (08:17→21:01)
[2020-01-02] MEDS: PANTOPRAZOLE SODIUM 40 MG VIAL IV SCH (08:17)
[2020-01-02] MEDS: PROTEIN SUPPLEMENT (PROSTAT) 30 ML LIQUID GT SCH (08:18)
[2020-01-02] MEDS: SODIUM CHLORIDE 1,000 MG TABLET GT SCH (08:20)
[2020-01-02] MEDS: ENOXAPARIN SODIUM 40 MG/0.4 ML DISP.SYRIN SQ SCH (08:24)
--- NOTE | 2020-01-02 08:30 | NUR ---
Dr. Dixon here to see pt. Full report given. No new orders received.
--- NOTE | 2020-01-02 09:00 | NUR ---
Dr. Anderson here to see pt. Full report given. No new orders received.
--- NOTE | 2020-01-02 10:48 | NUR ---
Dr. Condon here to see pt. Full report given. No new orders received.
[2020-01-02] MEDS: MAGNESIUM SULFATE/D5W 100 ML IV SCH ×2 (11:41→12:36)
[2020-01-02] MEDS: HYDROMORPHONE 1 MG/1 ML DISP.SYRIN IV PRN ×2 (13:18→22:50)
[2020-01-02] MEDS ORDERED: NEUTRA PHOS PACKET PO ONE (15:30)
[2020-01-02] MEDS: NOREPINEPHRINE BITARTRATE 8 MG in IV DEXTROSE 5% 500 ML IV PRN ×2 (17:06→20:23)
--- NOTE | 2020-01-02 19:15 | NUR ---
patient is awake , oriented , on 30 % cool aerosol , triple lumen central line right groin intact with sutures intact , levophed at 2 mcg , d5ns at 100 ml , te
--- NOTE | 2020-01-02 19:15 | NUR ---
PATIENT ARMS AND LEGS ARE STIFF AND CONTRACTED
--- NOTE | 2020-01-02 20:00 | NUR ---
PATIENT IS PLACED ON A BEAR HUGGER AT TEMP 38 C , COMFORTABLE , NO SOB , NO PAIN COMPLAIN AT THIS TIME
[2020-01-02] MEDS: TOLTERODINE 2 MG TABLET GT SCH (20:28)
[2020-01-02] MEDS: MUPIROCIN 2% OINT 22 GM TUBE NS SCH (20:29)
[2020-01-02] MEDS: ZONISAMIDE 100 MG CAPSULE GT SCH (20:29)
--- NOTE | 2020-01-02 22:00 | NUR ---
SISTER MARIA R CALLED GIVEN AN UPDATE ON PATIENT'S CONDITION
--- NOTE | 2020-01-02 23:09 | NUR ---
* Maintains vital signs WNL * Maintains urine output > 30 ml/hr * Evidences normal skin turgor * Maintains optimal lab values * Maintains urine specific gravity WNL Addendum: 01/02/20 at 2311 by ZAIN GOODWIN RN Amended: Links added. Addendum: 01/02/20 at 231 by ZAIN GOODWIN RN Amended: Links malinda.
--- NOTE | 2020-01-02 23:10 | NUR ---
* Maintains body temperature below 39 C degrees * Maintains respiratory rate and heart rate WNL * Maintains optimal lab values * Relates prevention methods Addendum: 01/02/20 at 2311 by ZAIN GOODWIN RN Amended: Links added. Addendum: 01/02/20 at 2311 by ZAIN GOODWIN RN Amended: Links added.
--- NOTE | 2020-01-02 23:11 | NUR ---
* Maintains vital signs WNL * Evidences no purulent drainage from wounds, incisions, and tubes * Maintains optimal lab values Addendum: 01/02/20 at 2311 by ZAIN GOODWIN RN Amended: Links added.
--- NOTE | 2020-01-02 23:11 | NUR ---
* Maintains blood gasses WNL * Evidences usual mental status * Exhibits usual skin color Addendum: 01/02/20 at 2311 by ZAIN GOODWIN RN Amended: Ketty added. Addendum: 01/02/20 at 2311 by ZAIN GOODWIN RN Amended: Links added.
[2020-01-03] VITALS (35 sets, daily range): BP systolic 88–131; BP diastolic 37–76
--- NOTE | 2020-01-03 | NUR ---
NO SEIZURE NOTED , NO COMPLAIN , PATIENT IS STILL ON A BEAR HUGGER 38 C , TEMP IS 96.3
[2020-01-03] MEDS: CEFEPIME HCL 1 G in IV DEXTROSE 5% 50 ML IV SCH ×4 (00:01→23:37)
--- NOTE | 2020-01-03 02:00 | NUR ---
NO SEIZURE NOTED , NO RESIDUAL ON GT FEEDING, AROUSABLE ON BEAR HUGGER SET 38 C . CURRENT TEMP IS 98.0
[2020-01-03] MEDS: IPRATROPIUM BROMIDE 0.5 MG/2.5 ML NEBU NEB SCH ×4 (02:22→19:52)
[2020-01-03] MEDS: IV D5/ 0.9% NACL 1,000 ML IV PRN ×2 (03:08→16:05)
--- NOTE | 2020-01-03 04:00 | NUR ---
NO DISTRESS , NO SEIZURE NOTED , SUCTIONED WITH MODERATE AMOUNT VIA TRACH , RECENT REMP WITH RIVAS JOYCE I AT 32 C IS 98.2 F
[2020-01-03 05:19] LABS: CARBON DIOXIDE 27 mmol/L (21-32); CHLORIDE 103 mmol/L (98-107); CREATININE 0.2 mg/dL (0.6-1.3); GLUCOSE 94 mg/dL (74-106); MAGNESIUM 1.7 mg/dL (1.8-2.4); PHOSPHOROUS 2.6 mg/dL (2.5-4.9); POTASSIUM 3.8 mmol/L (3.5-5.1); UREA NITROGEN, BLOOD 7 mg/dL (7-18)
--- NOTE | 2020-01-03 06:00 | NUR ---
VITAL SIGNS STABLE , NO DISTRESS , NO SEIZURE NOTED , BACK ON 30 % TACH COLLAR , GT STOPPED AND CLAMPED , NO RESIDUAL , MITCHELL TRAL LINE INTACT , LEVOPHED TAPERED DOWN TO 1 MCG , IV D5 NS AT 100 ML RUNNING
[2020-01-03] MEDS: BACLOFEN 20 MG TABLET GT SCH ×3 (06:15→21:24)
[2020-01-03] MEDS: TIZANIDINE HCL 4 MG TABLET GT SCH ×3 (06:15→21:24)
--- NOTE | 2020-01-03 06:32 | NUR ---
06:25 , PT SUCTIONED, VIA TRACH; LARGE AMOUNTS OF THICK WHITE SECRETIONS, WITH 15CC NS LAVAGE, ,SAT GETTING BETTER, PLACED PULSE OXY PROBE ON LEFT EAR, P/MIST NOW BACK TO 30%, PT DOING MUCH BETTER, SAT 99%, PT WITH PASSEY, MUIRE VALVE IN PLACE, PT AWAKE, AND DOING WELL. Cristy LAGUERRE RCP Addendum: 01/03/20 at 0636 by TIGRE LAGUERRE RT Amended: Links added.
--- NOTE | 2020-01-03 06:53 | NUR ---
UNABLE TO WEIGH PATIENT , BED MALFUNCTIONING WILL ENDORSED TO DAY SHIFT
--- NOTE | 2020-01-03 07:30 | NUR ---
IV Levophed turned off per weaning protocol. SBP wnl. Will continue to monitor.
[2020-01-03] MEDS: SODIUM CHLORIDE 1,000 MG TABLET GT SCH (08:03)
[2020-01-03] MEDS: PANTOPRAZOLE ORAL SUSPENSION 40 MG SUSPDR.PKT GT SCH (08:03)
[2020-01-03] MEDS: PHENOBARBITAL 32.4 MG TABLET GT SCH ×2 (08:03→20:54)
[2020-01-03] MEDS: LORATADINE 10 MG TABLET GT SCH (08:03)
[2020-01-03] MEDS: GABAPENTIN 300 MG CAPSULE GT SCH ×3 (08:04→16:02)
[2020-01-03] MEDS: PROTEIN SUPPLEMENT (PROSTAT) 30 ML LIQUID GT SCH (08:05)
[2020-01-03] MEDS: MUPIROCIN 2% OINT 22 GM TUBE NS SCH ×2 (08:05→20:57)
[2020-01-03] MEDS: ENOXAPARIN SODIUM 40 MG/0.4 ML DISP.SYRIN SQ SCH (08:16)
--- NOTE | 2020-01-03 08:20 | NUR ---
Dr. Anderson here to see pt. Full report given. No new orders received.
[2020-01-03] MEDS: ACETYLCYSTEINE 10% 4ML VIAL NEB SCH ×2 (08:21→19:52)
[2020-01-03] MEDS: OSMOLITE 1.2 CAL 1,000 ML LIQUID GT PRN (10:00)
[2020-01-03] MEDS: MAGNESIUM SULFATE/D5W 100 ML IV SCH ×2 (11:25→12:22)
[2020-01-03] MEDS: HYDROMORPHONE 1 MG/1 ML DISP.SYRIN IV PRN (11:33)
--- NOTE | 2020-01-03 19:30 | NUR ---
Report received. Patient on contact isolation for MRSA nares admitted 12/31 for septic shock, PNA and UTI. With trache and passey lexa valve; able to communicate needs. NAD noted. Assessment done. Addendum: 01/03/20 at 2152 by MOOSE RUBALCAVA RN Amended: Links added. Addendum: 01/03/20 at 2154 by MOOSE RUBALCAVA RN Amended: Links added.
--- NOTE | 2020-01-03 20:30 | NUR ---
Suctioned by RT. On trache mask 30% 9L flow. Turned and repositioned. Requested to call sister. Able to talk to Mari (patient's sister) over the phone. Sister aware of plan of care and possible discharge Monday. Addendum: 01/03/20 at 2154 by MOOSE RUBALCAVA RN Amended: Links added.
[2020-01-03] MEDS: TOLTERODINE 2 MG TABLET GT SCH (20:55)
[2020-01-03] MEDS: ZONISAMIDE 100 MG CAPSULE GT SCH (20:56)
[2020-01-04] VITALS (18 sets, daily range): BP systolic 92–116; BP diastolic 41–70
--- NOTE | 2020-01-04 | NUR ---
Hypothermic; Temp=94 rectally. Shelbi Connor turned on. Tolerating GT feedings well; rate increased to 50 ml/H. Will monitor. Addendum: 01/04/20 at 0127 by MOOSE RUBALCAVA RN Amended: Links added. Addendum: 01/04/20 at 0127 by MOOSE RUBALCAVA RN Amended: Links added. Addendum: 01/04/20 at 0128 by MOOSE TAECHARATKIJ RN Amended: Links added. Addendum: 01/04/20 at 0128 by MOOSE RUBALCAVA RN Amended: Links added. Addendum: 01/04/20 at 0129 by MOOSE RUBALCAVA RN Amended: Links added. Addendum: 01/04/20 at 0129 by MOOSE RUBALCAVA RN Amended: Links added.
[2020-01-04] MEDS: IPRATROPIUM BROMIDE 0.5 MG/2.5 ML NEBU NEB SCH ×4 (02:00→19:18)
[2020-01-04] MEDS: IV D5/ 0.9% NACL 1,000 ML IV PRN ×2 (02:12→14:38)
--- NOTE | 2020-01-04 04:00 | NUR ---
Am care rendered. Temp=96 rectally, but patient c/o being cold. Shelbi montana remains on per patient's request. With soft brown BM per disimpaction. Patient appreciative of care. NAD noted. Addendum: 01/04/20 at 0610 by MOOSE RUBALCAVA RN Amended: Links added.
[2020-01-04 05:11] LABS: CARBON DIOXIDE 26 mmol/L (21-32); CHLORIDE 103 mmol/L (98-107); CREATININE 0.3 mg/dL (0.6-1.3); GLUCOSE 117 mg/dL (74-106); MAGNESIUM 1.8 mg/dL (1.8-2.4); POTASSIUM 3.3 mmol/L (3.5-5.1); UREA NITROGEN, BLOOD 8 mg/dL (7-18)
[2020-01-04] MEDS: BACLOFEN 20 MG TABLET GT SCH ×3 (05:38→21:36)
[2020-01-04] MEDS: TIZANIDINE HCL 4 MG TABLET GT SCH ×3 (05:38→21:37)
--- NOTE | 2020-01-04 06:16 | NUR ---
Stable all night. O2 remains 30% cool aerosol by trache mask. Tolerating GT feedings at 60 ml/H; off 0600 and will be resumed at 1000. Addendum: 01/04/20 at 0616 by MOOSE RUBALCAVA RN Amended: Links added.
[2020-01-04] MEDS: ACETYLCYSTEINE 10% 4ML VIAL NEB SCH ×2 (08:11→19:18)
--- NOTE | 2020-01-04 08:31 | NUR ---
Dr. Anderson here to examine pt. is aware of K- 3.3.
[2020-01-04] MEDS: LORATADINE 10 MG TABLET GT SCH (09:17)
[2020-01-04] MEDS: GABAPENTIN 300 MG CAPSULE GT SCH ×3 (09:17→15:58)
[2020-01-04] MEDS: DOCUSATE SODIUM 100 MG/10 ML LIQUID UDC GT PRN (09:17)
[2020-01-04] MEDS: PHENOBARBITAL 32.4 MG TABLET GT SCH ×2 (09:18→21:36)
[2020-01-04] MEDS: PANTOPRAZOLE ORAL SUSPENSION 40 MG SUSPDR.PKT GT SCH (09:18)
[2020-01-04] MEDS: ENOXAPARIN SODIUM 40 MG/0.4 ML DISP.SYRIN SQ SCH (09:27)
[2020-01-04] MEDS: PROTEIN SUPPLEMENT (PROSTAT) 30 ML LIQUID GT SCH (09:28)
[2020-01-04] MEDS: MUPIROCIN 2% OINT 22 GM TUBE NS SCH ×2 (09:28→21:42)
[2020-01-04] MEDS: CEFEPIME HCL 1 G in IV DEXTROSE 5% 50 ML IV SCH ×2 (09:29→15:07)
[2020-01-04] MEDS: SODIUM CHLORIDE 1,000 MG TABLET GT SCH (09:39)
[2020-01-04] MEDS ORDERED: POTASSIUM CHLORIDE 20 MEQ POWDER PACKET GT ONE ×2 (10:00→11:30)
[2020-01-04] MEDS ORDERED: POTASSIUM CHLORIDE 20 MEQ TAB.PRT.SR PO ONE (11:15)
--- NOTE | 2020-01-04 13:12 | NUR ---
R.T. here to give pt. a treatment.
--- NOTE | 2020-01-04 15:47 | NUR ---
Received report from CCU Nurse, william, patient moving to [facility] floor room 304 with this credit underwriter and RT.
--- NOTE | 2020-01-04 16:30 | NUR ---
pt. moved to room 304, via bed and oxygen via trach. collar, 30 % fio2. LITO Cortez assisted with transfer. Pt. attached to wall oxygen in room, 304, and was suctioned by r.t. and saturation now at 96 %. Verbal report to receiving r.n. s.r. via chief telephone operator.
--- NOTE | 2020-01-04 18:08 | NUR ---
PT. IN ROOM 304. i AM STAYING WITH PT. UNTIL P.M. SHIFT R.N. ARRIVES HERE. PT. AWAKE, WATCHING T.V. NO DISTRESS.
[2020-01-04] MEDS: ZONISAMIDE 100 MG CAPSULE GT SCH (21:35)
[2020-01-04] MEDS: TOLTERODINE 2 MG TABLET GT SCH (21:35)
[2020-01-05] MEDS: CEFEPIME HCL 1 G in IV DEXTROSE 5% 50 ML IV SCH ×2 (00:29→08:21)
[2020-01-05] MEDS: IPRATROPIUM BROMIDE 0.5 MG/2.5 ML NEBU NEB SCH ×4 (00:30→19:17)
[2020-01-05] MEDS: IV D5/ 0.9% NACL 1,000 ML IV PRN ×2 (03:17→15:58)
[2020-01-05 04:00] VITALS: BP 92/60
[2020-01-05] MEDS: TIZANIDINE HCL 4 MG TABLET GT SCH ×3 (05:05→21:00)
[2020-01-05] MEDS: BACLOFEN 20 MG TABLET GT SCH ×3 (05:05→21:00)
[2020-01-05 05:51] LABS: CARBON DIOXIDE 25 mmol/L (21-32); CHLORIDE 109 mmol/L (98-107); CREATININE 0.2 mg/dL (0.6-1.3); GLUCOSE 93 mg/dL (74-106); POTASSIUM 3.8 mmol/L (3.5-5.1); UREA NITROGEN, BLOOD 10 mg/dL (7-18)
--- NOTE | 2020-01-05 07:30 | NUR ---
RECIEVED PT IN BED, AWAKE AND IN GOOD SPIRIT. ABLE TO SPEAK WITH THE PASIMUIR VALVE, ORIENTEX2. SR NO ECTOMY. TRACHE SHILEY 6 INTACT, SUCTION MODERATE AMOUNT OF THICK YELOOW PHLEGM. DENIES ANY SOB NOTED. PT IS A QUAD, MAX ASSIST WITH TURNING. FEMORAL LINE ON THE RIGHT GROIN INTACT. MAIN IVF IS INFUSING WELL.
[2020-01-05] MEDS: ACETYLCYSTEINE 10% 4ML VIAL NEB SCH ×2 (07:59→19:17)
--- NOTE | 2020-01-05 08:30 | NUR ---
PT HAS A HUGE SOFT BROWN BM, CLEANED UP AND TURNED TO SIDE.
[2020-01-05] MEDS: SODIUM CHLORIDE 1,000 MG TABLET GT SCH (09:28)
[2020-01-05] MEDS: PHENOBARBITAL 32.4 MG TABLET GT SCH ×2 (09:28→20:57)
[2020-01-05] MEDS: PANTOPRAZOLE ORAL SUSPENSION 40 MG SUSPDR.PKT GT SCH (09:29)
[2020-01-05] MEDS: GABAPENTIN 300 MG CAPSULE GT SCH ×3 (09:29→17:32)
[2020-01-05] MEDS: LORATADINE 10 MG TABLET GT SCH (09:29)
[2020-01-05] MEDS: ENOXAPARIN SODIUM 40 MG/0.4 ML DISP.SYRIN SQ SCH (09:33)
[2020-01-05] MEDS: PROTEIN SUPPLEMENT (PROSTAT) 30 ML LIQUID GT SCH (09:34)
[2020-01-05] MEDS: MUPIROCIN 2% OINT 22 GM TUBE NS SCH ×2 (09:35→22:49)
[2020-01-05] MEDS ORDERED: DOSING PER PHARMACY-AMIKACIN IV XX PRN (09:45)
[2020-01-05 10:00] VITALS: BP 132/87
--- NOTE | 2020-01-05 10:00 | NUR ---
STARTED TUBE FEEDING OSMOLYTE 1.2 AT 60ML/HR ORDERED AND TOLERATING WELL. SEEN AND EXAMINED BY DR MOYER WITH NEW ORDERS.
--- NOTE | 2020-01-05 10:56 | NUR ---
PHARMACY CLINICAL NOTES ( AMIKACIN DOSING) S: 44 YO MALE ; who is visiting frequently. He has pseudomonas in Urine CX which is only sens to Amikacin. O: BUN/SCR 10/0.2 (used SCR 0.5), WBC 5.1. TEMP 97.6, DOSING WT 49 , T 1/2 1.78 HRS A/P: Will dose Amikacin as 200 mg q5h , estimated peak of 17 and trough of 3. Will order peak and trough around 3rd dose @ 2100 and will ck in AM when results are available . Will discuss with RN regarding timing fo level drawn and ABX administration. Will continue to follow up renal fxn and levels and adjust the abx as it becomes necessary.
[2020-01-05 11:40] VITALS: BP 113/69
[2020-01-05] MEDS: OSMOLITE 1.2 CAL 1,000 ML LIQUID GT PRN (12:25)
[2020-01-05] MEDS: AMIKACIN 200 MG in IV DEXTROSE 5% 100 ML IV SCH ×3 (12:35→20:58)
[2020-01-05 15:26] VITALS: BP 90/41
--- NOTE | 2020-01-05 18:00 | NUR ---
PT IS REQUESTING FOR HIS DILAUDID FOR GENERAL DISCOMFORTS. EXPLAINED TO PT THAT HE IS GOING HOME IN THE MORNING AND HIS SISTER SPECIFICALLY DOES NOT WANT HIM TO HAVE HIS PAIN MEDS.
--- NOTE | 2020-01-05 19:30 | NUR ---
Received patient in bed, awake and in good spirits. Able to communicate via speech with the Pasimuir valve. A/O x2 Sinus Rhythm. Trache Shiley 6 Intact, suction moderate amount of thick yellow phlegm, no SOB noted. This patient is quad with maximum assist with turning and repositioning. Femoral line in the right groin intact without sighs of infection.
[2020-01-05 20:43] VITALS: BP 116/63
--- NOTE | 2020-01-05 20:45 | NUR ---
Mid-line was inserted by picc nurse in the Right upper arm. 18g tolerated well with no blood loss. no complaints of pain at the insertion site. insertion site clear.
[2020-01-05] MEDS: TOLTERODINE 2 MG TABLET GT SCH (20:57)
[2020-01-05] MEDS: ZONISAMIDE 100 MG CAPSULE GT SCH (20:58)
[2020-01-06] VITALS: BP 110/69
[2020-01-06] MEDS: IPRATROPIUM BROMIDE 0.5 MG/2.5 ML NEBU NEB SCH ×4 (01:04→19:22)
[2020-01-06] MEDS: AMIKACIN 200 MG in IV DEXTROSE 5% 100 ML IV SCH ×3 (01:41→13:53)
[2020-01-06] MEDS: IV D5/ 0.9% NACL 1,000 ML IV PRN ×2 (03:59→19:00)
[2020-01-06 04:00] VITALS: BP 127/80
[2020-01-06] MEDS: OSMOLITE 1.2 CAL 1,000 ML LIQUID GT PRN (04:22)
[2020-01-06] MEDS: TIZANIDINE HCL 4 MG TABLET GT SCH ×3 (05:57→21:35)
[2020-01-06] MEDS: BACLOFEN 20 MG TABLET GT SCH ×3 (05:57→21:35)
[2020-01-06 06:32] LABS: CARBON DIOXIDE 26 mmol/L (21-32); CHLORIDE 108 mmol/L (98-107); CREATININE 0.2 mg/dL (0.6-1.3); GLUCOSE 109 mg/dL (74-106); POTASSIUM 3.7 mmol/L (3.5-5.1); UREA NITROGEN, BLOOD 9 mg/dL (7-18)
[2020-01-06 06:51] LABS: BASOPHILS % (AUTO) 0.3 % (0.0-2.0); EOSINOPHILS # (AUTO) 0.1 K/uL (0.0-0.7); EOSINOPHILS % (AUTO) 2.9 % (0.0-7.0); HEMATOCRIT 25.9 % (36.7-47.1); HEMOGLOBIN 8.6 g/dL (12.5-16.3); LYMPHOCYTES # (AUTO) 0.7 K/uL (20.0-40.0); LYMPHOCYTES % (AUTO) 15.4 % (20.5-51.5); MEAN CORPUSCULAR HGB CONC 33 g/dL (32.5-36.3); MEAN CORPUSCULAR VOLUME 90.4 fL (73.0-96.2); MONOCYTES # (AUTO) 0.7 K/uL (2.0-10.0); MONOCYTES % (AUTO) 15.3 % (0.0-11.0); NEUTROPHILS % (AUTO) 66.1 % (38.5-71.5); PLATELET COUNT (AUTO) 75 K/uL (152-348); RED BLOOD CELL COUNT(AUTO) 2.87 MIL/uL (4.06-5.63); WHITE BLOOD COUNT (AUTO) 4.6 K/uL (3.6-10.2)
--- NOTE | 2020-01-06 07:00 | NUR ---
RIGHT FEMORAL CENTRAL LINE REMOVED ASEPTICALLY AND TIP SENT FOR CULTURE; NO BLEEDING NOTED; REPOSITIONED PT Q2H; TRACHE AND ORAL CARE DONE.
[2020-01-06] MEDS: ACETYLCYSTEINE 10% 4ML VIAL NEB SCH ×2 (07:26→19:22)
[2020-01-06 07:30] VITALS: BP 113/63
--- NOTE | 2020-01-06 08:00 | NUR ---
Received patient in bed awake and responsive. On O2 2L saturating 93%, FiO2 30%. Trach to mist. Sinus gladys on monitor. No distress noted. Patient suctioned.
[2020-01-06 10:05] LABS: BAND % (MANUAL) 4 % (0-10); EOSINOPHILS % (MANUAL) 1 % (0-8); LYMPHOCYTES % (MANUAL) 12 % (20-40); MONOCYTES % (MANUAL) 11 % (2-10); NEUTROPHILS % (MANUAL) 72 % (42-75)
[2020-01-06] MEDS: SODIUM CHLORIDE 1,000 MG TABLET GT SCH (10:17)
[2020-01-06] MEDS: PHENOBARBITAL 32.4 MG TABLET GT SCH ×2 (10:18→21:29)
[2020-01-06] MEDS: PANTOPRAZOLE ORAL SUSPENSION 40 MG SUSPDR.PKT GT SCH (10:18)
[2020-01-06] MEDS: LORATADINE 10 MG TABLET GT SCH (10:18)
[2020-01-06] MEDS: GABAPENTIN 300 MG CAPSULE GT SCH ×3 (10:18→17:44)
[2020-01-06] MEDS: MUPIROCIN 2% OINT 22 GM TUBE NS SCH ×2 (10:19→22:09)
[2020-01-06] MEDS: ENOXAPARIN SODIUM 40 MG/0.4 ML DISP.SYRIN SQ SCH (10:19)
[2020-01-06] MEDS: PROTEIN SUPPLEMENT (PROSTAT) 30 ML LIQUID GT SCH (10:20)
[2020-01-06 11:30] VITALS: BP 129/78
--- NOTE | 2020-01-06 12:48 | NUR ---
All charting assessments and notes reviewed by Parminder Rees RN.
[2020-01-06] MEDS: DOCUSATE SODIUM 100 MG/10 ML LIQUID UDC GT PRN (13:59)
--- NOTE | 2020-01-06 14:21 | NUR ---
Patient complaining of constipation. Abdomen noted to be distended during palpation. PRN colace given. Tube feeding held.
[2020-01-06 15:33] VITALS: BP 115/72
--- NOTE | 2020-01-06 17:13 | NUR ---
Spoke with Dr. Anderson on the telephone and made aware of pt's complaint of constipation and no bm for the last few days. New orders received and carried out.
[2020-01-06] MEDS ORDERED: MAGNESIUM HYDROXIDE 30 ML LIQUID UDC PO PRN (17:15)
--- NOTE | 2020-01-06 19:45 | NUR ---
PATIENT ALERT BUT FORGETFUL. PATIENT TELE MONITOR SINUS RHYTHM SINUS BRADYCARDIA. PATIENT HOB ELEVATE, TRACH INTACT SUCTIONED NEEDED. PATIENT ON GTF TOLERATE WELL NO RESIDUAL NOTED. PATIENT KEPT CLEAN AND DRY. PATIENT WAS TURNED AND REPOSITION, PLASCENCIA CATH PATENT DRAINING WITH YELLOW COLOR URINE IN MODERATE AMOUNT. PATIENT HAS NO COMPLAIN OF PAIN AT THIS TIME, CONT TO MONITOR.
[2020-01-06 20:01] VITALS: BP 110/64
[2020-01-06] MEDS: ZONISAMIDE 100 MG CAPSULE GT SCH (21:29)
[2020-01-06] MEDS: COLISTIMETHATE SODIUM 75 MG in IV DEXTROSE 5% 100 ML IV SCH (21:30)
[2020-01-06] MEDS: TOLTERODINE 2 MG TABLET GT SCH (21:30)
--- NOTE | 2020-01-06 21:30 | NUR ---
PATIENT WAS CHECK IF HE CONSTIPATED OR IMPACTED, PATIENT RECTUM WAS SOFT NO S/S OF IMPACTION, AND PATIENT DEFECTING WITH SOFT BM. CONT TO MONITOR.
--- NOTE | 2020-01-06 21:30 | NUR ---
PATIENT CLAIMED HE'S CONSTIPATED AND IMPACTED. PATIENT WAS CHECK AND PATIENT HAS MODERATE AMOUNT BM AND ITS SOFT. PATIENT HAS NO NAUSEA NO VOMITING. ABDOMEN SOFT. CONT TO MONITOR.
[2020-01-07] VITALS: BP 105/63
[2020-01-07] MEDS: IPRATROPIUM BROMIDE 0.5 MG/2.5 ML NEBU NEB SCH ×2 (00:34→07:26)
[2020-01-07 04:00] VITALS: BP 118/54
[2020-01-07] MEDS: BACLOFEN 20 MG TABLET GT SCH (05:43)
[2020-01-07] MEDS: TIZANIDINE HCL 4 MG TABLET GT SCH (05:43)
[2020-01-07] MEDS: IV D5/ 0.9% NACL 1,000 ML IV PRN (06:26)
--- NOTE | 2020-01-07 06:37 | NUR ---
PATIENT ALERT, NO COMPLAIN OF PAIN AT THIS TIME. TELE MONITOR SINUS RHYTHM SINUS JJ. ON GTF TOLERATE WELL NO RESIDUAL NOTED, TRACT INTACT SUCTION EVERY TWO AND PRN. RT COMES AND CHECK THEN SUCTION PATIENT. PATIENT ON P MIST AT 6LPM NO DESATURATION NOTED, RENDERED TRACH CARE. GOOD ORAL CARE PROVIDED. PATIENT PLASCENCIA CATH PATENT DRAINING WITH YELLOW COLOR URINE IN MODERATE AMOUNT. PATIENT WAS TURNED AND REPOSITION, KEPT CLEAN AND DRY. CONT TO MONITOR.
[2020-01-07] MEDS: ACETYLCYSTEINE 10% 4ML VIAL NEB SCH (07:26)
[2020-01-07 07:30] VITALS: BP 98/52
[2020-01-07] MEDS: PANTOPRAZOLE ORAL SUSPENSION 40 MG SUSPDR.PKT GT SCH (08:50)
[2020-01-07] MEDS: LORATADINE 10 MG TABLET GT SCH (08:50)
[2020-01-07] MEDS: SODIUM CHLORIDE 1,000 MG TABLET GT SCH (08:50)
[2020-01-07] MEDS: GABAPENTIN 300 MG CAPSULE GT SCH ×2 (08:50→13:00)
[2020-01-07] MEDS: PROTEIN SUPPLEMENT (PROSTAT) 30 ML LIQUID GT SCH (08:50)
[2020-01-07] MEDS: PHENOBARBITAL 32.4 MG TABLET GT SCH (08:51)
[2020-01-07] MEDS: COLISTIMETHATE SODIUM 75 MG in IV DEXTROSE 5% 100 ML IV SCH (08:51)
[2020-01-07] MEDS: MUPIROCIN 2% OINT 22 GM TUBE NS SCH (08:52)
[2020-01-07 11:30] VITALS: BP 119/69
--- NOTE | 2020-01-07 13:20 | NUR ---
Pt discharged back home with ambulance. Full SBAR report given to ambulance by RN Yassine. Discharge instructions and medications provided and discussed with Mari (sister) and the pt. Pt and sister verbalized understanding of discharge instructions and medications. Pt left with YUNG midline and alcantara catheter. G-tube flushed and clamped. Oxygen equipment for pt's home given to ambulance by RTCharles weaver. Discharge photos taken and placed in the chart. Pt stable and nad noted upon discharge.
== END 2020-01-07 13:25 | disposition home health service (06) | DRG 720 ==
LOC: ER 20:57 → CCU 23:59 → TELE-TD3 01-04 16:40
PROVIDERS: ADMIT Hospitalist; ATTEND Hospitalist
PROC: 06HY33Z Insertion of Infusion Device into Lower Vein, Percutaneous Approach (ICD-10-PCS; principal; 2019-12-31)
PROC: 05HB33Z Insertion of Infusion Device into Right Basilic Vein, Percutaneous Approach (ICD-10-PCS; 2020-01-05)
DX: A41.9 Sepsis, unspecified organism (principal); J96.21 Acute and chronic respiratory failure with hypoxia; R65.21 Severe sepsis with septic shock; G82.50 Quadriplegia, unspecified; E43 Unspecified severe protein-calorie malnutrition; J15.6 Pneumonia due to other Gram-negative bacteria; G93.1 Anoxic brain damage, not elsewhere classified; Z93.0 Tracheostomy status; G93.41 Metabolic encephalopathy; E87.1 Hypo-osmolality and hyponatremia; D63.8 Anemia in other chronic diseases classified elsewhere; G40.909 Epilepsy, unspecified, not intractable, without status epilepticus; G89.4 Chronic pain syndrome; E78.5 Hyperlipidemia, unspecified; D68.59 Other primary thrombophilia; J30.9 Allergic rhinitis, unspecified; N39.0 Urinary tract infection, site not specified; B96.5 Pseudomonas (aeruginosa) (mallei) (pseudomallei) as the cause of diseases classified elsewhere; N31.9 Neuromuscular dysfunction of bladder, unspecified; Z22.322 Carrier or suspected carrier of Methicillin resistant Staphylococcus aureus; Z93.1 Gastrostomy status; Z68.1 Body mass index [BMI] 19.9 or less, adult; Z79.899 Other long term (current) drug therapy; S14.104S Unspecified injury at C4 level of cervical spinal cord, sequela; V89.2XXS Person injured in unspecified motor-vehicle accident, traffic, sequela; R13.10 Dysphagia, unspecified; D69.6 Thrombocytopenia, unspecified; Z86.74 Personal history of sudden cardiac arrest; Z87.440 Personal history of urinary (tract) infections
CPT/HCPCS: 36415; 36556; 36600; 51702; 70030-TC; 71045; 83605; 83735; 84100; 84443; 85025; 85730; 87040; 87070; 87077; 87086; 87400; 93005; 94640; A4217; A4663; C9113; G0378; J0278; J0456; J0692; J0770; J1170; J1650; J3370; J3475; J3480; J3490; J3590; J7030; J7042; J7050; J7060; J8499